=== PATIENT | male | born 1985 | race Caucasian/White ===

== ENCOUNTER 2021-04-28 12:04 | Inpatient (IN) | payer OTHER ==
[~2021-04-28] VITALS: Ht 185.4 cm; Wt 143.9 kg
[2021-04-28 12:00] VITALS: BP 134/89
[2021-04-28 12:24] LABS: BASE EXCESS ABG 4 mmol/L (-3-3); FIO2 ABG 100; HCO3 ABG 28 mmol/L (21-28); PCO2 ABG 38 mmHg (35-46); PO2 ABG 54 mmHg (85-108); SAT O2 ABG 90 % (92-99)
[2021-04-28] MEDS ORDERED: FAMO-63 PO (12:45)
[2021-04-28] MEDS ORDERED: AZITHROMYCIN 500 MG in IV NORMAL SALINE 250ML 250 ML IV ONE (13:00)
--- NOTE | 2021-04-28 13:08 | CONS ---
DATE OF CONSULTATION: 04/28/2021 PULMONARY CONSULTATION ATTENDING PHYSICIAN: Ponce Willoughby MD. REASON FOR CONSULTATION: Respiratory failure, COVID-19 pneumonia. HISTORY OF PRESENT ILLNESS: The patient is a 35-year-old morbidly obese male who has past medical history of SONYA. Denies any significant tobacco use. He was tested positive at [facility] for COVID. The patient was starting to have increasing dyspnea and hypoxia. He has been transferred to our facility for further care. At present, he is on 100% nonrebreather mask along with 15 liters cannula in addition. His pO2 was in the 50s. He does not appear to be in any obvious respiratory distress. He has some mild cough. No chest pain, no nausea or vomiting, no diarrhea, no dysuria. PAST MEDICAL HISTORY: Morbid obesity. No significant tobacco history and remote history of SONYA. PAST SURGICAL HISTORY: No recent surgeries. past h/o hernia repair ALLERGIES: None reported. MEDICATIONS: Given at [facility] were reviewed. REVIEW OF SYSTEMS: A 12-point system obtained. Pertinent positives discussed in my present illness, otherwise noncontributory. All systems that were negative were reviewed as well. FAMILY HISTORY: Noncontributory to lungs. SOCIAL HISTORY: Nonsmoker. PHYSICAL EXAMINATION: VITAL SIGNS: Reviewed. Pulse ox was 90% on current FIO2. Visual exam done due to COVID. No obvious respiratory distress despite high flow oxygen. He is obese. EXTREMITIES: No pedal edema. LABORATORY DATA: Arterial blood gases reveal a pH of 7.48, pCO2 of 38 and a pO2 of 54, on 100% FIO2. His other labs are pending. IMPRESSION: 1. Acute hypoxic respiratory failure secondary to COVID-19 viral pneumonia, acute respiratory distress syndrome and acute lung injury. Morbid obesity is another risk factor. 2. Abnormal CT chest done at [facility] with diffuse bilateral alveolar and interstitial infiltrates related to COVID-19 pneumonia. No evidence of pulmonary embolism. 3. Underlying obesity. 4. Remote history of obstructive sleep apnea. RECOMMENDATIONS: 1. I have discussed with the patient that at this point, I would like to transfer him to the ICU for vapotherm, however, there is no free bed available. In the meantime, we will keep him on the floor on 100% FIO2 and in addition nasal cannula. 2. We will transfer him to the ICU and place him on Vapotherm once bed available. 3. Remdesivir per protocol. 4. Steroids per protocol. 5. Add DVT prophylaxis. 6. We will follow inflammatory markers. 7. Discussed with RN and discussed with Dr. Willoughby. cct 30 min RICHARD/URBAN DR: RICHARD/irving TID: [id number] MTDD
[2021-04-28] MEDS ORDERED: PANTOPRAZOLE 40 MG TABLET.DR. PO ONE (13:45)
--- NOTE | 2021-04-28 13:50 | PDOC1 ---
History and Physical Date of Admission Date of Admission DATE: 04/28/21 TIME: 13:34 Identification/Chief Complaint Chief Complaint Shortness of breath Source Source: Chart review, Patient History of Present Illness History of Present Illness Patient 35-year-old male with past medical history of GERD, obesity, who presents to the ED as a transfer from [facility] for COVID-19 pneumonia with worsening respiratory distress. States his symptoms started roughly 1 week ago with fatigue and body aches, which progressed to include fever and shortness of breath. Symptoms were worse with exertion with no significant alleviating factors. He was tested for COVID-19 at [facility] and was discharged home because he was not hypoxic on room air. When he returned to [facility] with worsening symptoms a CT chest demonstrated bibasilar infiltrates consistent with atypical pneumonia. He was then admitted and placed on 3 L nasal cannula for further treatment. He has not been vaccinated against COVID- 19. However due to worsening respiratory distress he was transferred to [facility] for higher level of care. Past Medical History GI: GERD Past Surgical History Past Surgical History: Hernia Repair Family History Family History CVA Social History Smoke: No ALCOHOL: other (Former alcohol use) Drugs: None Current Medications Current Medications Current Medications Azithromycin 500 mg/Sodium Chloride 250 ml @ 250 mls/hr 1X ONCE IV ; Start 04/28/21 at 13:00; Stop 04/28/21 at 13:59 Azithromycin 250 mg/Sodium Chloride 250 ml @ 250 mls/hr Q24H IV ; Start 04/29/21 at 13:00 Dexamethasone Sodium Phosphate (Decadron) 6 mg DAILY IVP ; Start 04/29/21 at 09:00 Ceftriaxone Sodium (Rocephin) 2 gm Q24H IVP ; Start 04/28/21 at 14:00 Enoxaparin Sodium (Lovenox 40mg Syringe) 40 mg Q12HR SQ ; Start 04/28/21 at 21:00 Famotidine (Pepcid) 20 mg BID@0500,1700 PO ; Start 04/28/21 at 17:00 Remdesivir 200 mg/ Sodium Chloride 210 ml @ 210 mls/hr 1X ONCE IV ; Start 04/28/21 at 14:00; Stop 04/28/21 at 14:59 Remdesivir 100 mg/ Sodium Chloride 230 ml @ 460 mls/hr Q24H IV ; Start 04/29/21 at 14:00; Stop 05/02/21 at 14:29 Active Scripts Active Reported Pepcid (Famotidine) 20 Mg Tablet 20 Mg PO BID Allergies Allergies: Coded Allergies: No Known Drug Allergies (Unverified , 04/28/21) ROS Review of System GENERAL: Fever, myalgias, fatigue. No history of weight change. SKIN: No bruising, hair changes or rashes. EYES: No blurred, double or loss of vision. NOSE AND THROAT: No history of nosebleeds, hoarseness or sore throat. HEART: Denies chest pain, denies palpitations. LUNGS: Shortness of breath. Denies cough, hemoptysis, wheezing. GASTROINTESTINAL: Denies nausea, vomiting, abdominal pain. GENITOURINARY: Denies dysuria, frequency, urgency, hematuria. NEUROLOGIC: Denies history of numbness, tingling, tremor or weakness. PSYCHIATRIC: Denies anxiety, denies depression. ENDOCRINE: No history of heat or cold intolerance, polyuria or polydipsia. EXTREMITIES: Denies muscle weakness, joint pain, pain on walking or stiffness. Physical Exam Physical Exam General: Alert, Oriented X3, Cooperative, No acute distress. Obese. HEENT: PERRLA, EOMI Lungs: Decreased breath sounds bilaterally, Normal air movement Heart: RRR, no murmurs Cardiovascular: S1, S2 Abdomen: Normal bowel sounds, Soft, No tenderness. Obese abdomen. Extremities: No clubbing, No cyanosis Skin: No rashes, No significant lesion Neuro: Normal speech, Normal tone, Sensation intact Psych/Mental Status: Mental status NL, Mood NL Vitals Vitals Vital Signs Date Time Temp Pulse Resp B/P (MAP) Pulse Ox O2 Delivery O2 Flow Rate FiO2 04/28/21 12:00 98.4 87 24 134/89 (104) 93 NonRebreather Mask 15.0 98.4 Labs Labs Laboratory Tests Test 04/28/21 12:12 O2 Saturation 90 % (92-99) Arterial Blood pH 7.48 (7.35-7.45) Arterial Blood pCO2 at Patient Temp 38 mmHg (35-46) Arterial Blood pO2 at Patient Temp 54 mmHg (85-108) Arterial Blood HCO3 28 mmol/L (21-28) Arterial Blood Base Excess 4 mmol/L (-3-3) FiO2 100 Laboratory Tests Test 04/28/21 12:12 O2 Saturation 90 % (92-99) Arterial Blood pH 7.48 (7.35-7.45) Arterial Blood pCO2 at Patient Temp 38 mmHg (35-46) Arterial Blood pO2 at Patient Temp 54 mmHg (85-108) Arterial Blood HCO3 28 mmol/L (21-28) Arterial Blood Base Excess 4 mmol/L (-3-3) FiO2 100 VTE Prophylaxis Ordered VTE Prophylaxis Devices: No VTE Pharmacological Prophylaxi: Yes Assessment/Plan Assessment/Plan Acute respiratory failure with hypoxia COVID-19 pneumonia GERD Obesity Plan: We will treat patient with remdesivir, steroids, and prophylactic antibiotics Consult placed to pulmonology Monitor daily LFTs Hemoglobin A1c pending We will initiate insulin treatment when blood glucose become significantly e levated Daily PPI and famotidine as needed FEN - ADA diet PPX - Lovenox FULL CODE Dispo - inpatient for above Justifications for Admission Other Justification XUAN LINTON MD Apr 28, 2021 13:49
[2021-04-28] MEDS ORDERED: MAG HYDROX/ALUMINUM HYD/SIMETH 30 ML ORAL.SUSP PO PRN (14:00)
[2021-04-28] MEDS ORDERED: ONDANSETRON PF 4 MG/2 ML VIAL. IVP PRN (14:00)
[2021-04-28] MEDS ORDERED: ACETAMINOPHEN 325 MG TABLET. PO PRN (14:00)
[2021-04-28] MEDS ORDERED: REMDESIVIR LOAD in IV NORMAL SALINE 250ML TV IV ONE (14:00)
[2021-04-28] MEDS ORDERED: ENOXAPARIN 40 MG/0.4 ML SYRINGE. SQ SCH (14:00)
[2021-04-28] MEDS ORDERED: HYDROcodone/APAP 5/325MG 1 TAB TABLET PO PRN (14:00)
[2021-04-28] MEDS ORDERED: CALCIUM CARBONATE 500 MG TAB.CHEW PO PRN (14:00)
[2021-04-28] MEDS ORDERED: MAGNESIUM HYDROXIDE 2,400 MG/30 ML ORAL.SUSP. PO PRN (14:00)
[2021-04-28 14:45] VITALS: BP 140/81
[2021-04-28 15:49] LABS: BASO % 0 % (0-3); EOS % 0 % (0-3); HEMATOCRIT 39.4 % (39.0-53.0); HEMOGLOBIN 13.3 g/dL (13.0-17.5); LYMPH # 0.3 x10^3/uL (1.0-4.8); LYMPH % 6 % (24-48); MEAN CORPUSCULAR HEMOGLOBIN 29 pg (25-35); MEAN CORPUSCULAR HGB CONC 34 g/dL (31-37); MEAN CORPUSCULAR VOLUME 85 fL (79-100); MONO # 0.1 x10^3/uL (0.0-1.1); MONO % 3 % (0-9); NEUT # 4.1 x10^3/uL (1.8-7.7); NEUT % 91 % (31-73); PLATELET COUNT 124 x10^3/uL (140-400); RED BLOOD COUNT 4.65 x10^6/uL (4.30-5.70); RED CELL DISTRIBUTION WIDTH 13.5 % (11.5-14.5); WHITE BLOOD COUNT 4.5 x10^3/uL (4.0-11.0)
[2021-04-28] MEDS: cefTRIAXone IV Push 2 GM VIAL. IVP SCH (15:59)
[2021-04-28 16:21] LABS: ALBUMIN 2.9 g/dL (3.4-5.0); ALBUMIN/GLOBULIN RATIO 0.7 (1.0-1.7); CALCIUM 8.6 mg/dL (8.5-10.1); CREATININE 0.7 mg/dL (0.7-1.3); GFR 127.6; POTASSIUM 3.5 mmol/L (3.5-5.1); TOTAL BILIRUBIN 0.4 mg/dL (0.2-1.0)
[2021-04-28] MEDS: FAMOTIDINE 20 MG TABLET. PO SCH (17:00)
[2021-04-28 17:09] LABS: % BANDS 10 % (0-9); % LYMPHS 4 % (24-48); % MONOS 2 % (0-10); % SEGS 84 % (35-66)
[2021-04-28 17:10] LABS: PLT ESTIMATE ADEQUATE (ADEQUATE)
[2021-04-28] MEDS: ASCORBIC ACID 500 MG TABLET PO SCH ×2 (17:36→23:41)
[2021-04-28 19:00] VITALS: BP 137/81
[2021-04-28] MEDS: ENOXAPARIN 40 MG/0.4 ML SYRINGE. SQ SCH (19:54)
[2021-04-28 23:18] VITALS: BP 157/93
[2021-04-29 00:17] LABS: HEMOGLOBIN A1C 5.6 % (4.8-5.6)
[2021-04-29 03:30] VITALS: BP 116/73
[2021-04-29] MEDS: FAMOTIDINE 20 MG TABLET. PO SCH ×2 (04:58→17:08)
[2021-04-29] MEDS: ASCORBIC ACID 500 MG TABLET PO SCH ×3 (04:58→18:12)
[2021-04-29 07:30] VITALS: BP 121/83
[2021-04-29 07:36] LABS: BASO % 0 % (0-3); EOS % 0 % (0-3); HEMATOCRIT 38.5 % (39.0-53.0); LYMPH # 0.3 x10^3/uL (1.0-4.8); LYMPH % 5 % (24-48); MEAN CORPUSCULAR HEMOGLOBIN 29 pg (25-35); MEAN CORPUSCULAR HGB CONC 34 g/dL (31-37); MEAN CORPUSCULAR VOLUME 85 fL (79-100); MONO # 0.3 x10^3/uL (0.0-1.1); MONO % 4 % (0-9); NEUT # 5.5 x10^3/uL (1.8-7.7); NEUT % 91 % (31-73); PLATELET COUNT 146 x10^3/uL (140-400); RED BLOOD COUNT 4.54 x10^6/uL (4.30-5.70); RED CELL DISTRIBUTION WIDTH 13.4 % (11.5-14.5); WHITE BLOOD COUNT 6.1 x10^3/uL (4.0-11.0)
[2021-04-29 08:07] LABS: ALBUMIN 2.8 g/dL (3.4-5.0); CALCIUM 8.7 mg/dL (8.5-10.1); CREATININE 0.7 mg/dL (0.7-1.3); DIRECT BILIRUBIN 0.2 mg/dL (0.0-0.2); GFR 127.6; POTASSIUM 3.6 mmol/L (3.5-5.1); TOTAL BILIRUBIN 0.4 mg/dL (0.2-1.0); TOTAL PROTEIN 6.9 g/dL (6.4-8.2)
[2021-04-29] MEDS: PANTOPRAZOLE 40 MG TABLET.DR. PO SCH (08:55)
[2021-04-29] MEDS: ZINC SULFATE 220 MG CAPSULE. PO SCH (08:55)
[2021-04-29] MEDS: DEXAMETHASONE SOD PHOS 4 MG/ML VIAL IVP SCH (08:56)
[2021-04-29] MEDS: ENOXAPARIN 40 MG/0.4 ML SYRINGE. SQ SCH ×2 (08:56→21:14)
[2021-04-29] MEDS: STERILE WATER for RESP 1,000 ML BAG. INH PRN ×2 (09:25→20:35)
[2021-04-29 10:39] VITALS: BP 136/72
--- NOTE | 2021-04-29 11:03 | PDOC ---
PULMONARY PROGRESS NOTES DATE: 04/29/21 TIME: 10:58 Subjective Remains on 100% FiO2 via Vapotherm. In addition nonrebreather mask as well No obvious respiratory distress Vitals Vital Signs Date Time Temp Pulse Resp B/P (MAP) Pulse Ox O2 Delivery O2 Flow Rate FiO2 04/29/21 10:39 96.7 80 18 136/72 (93) 90 VAPOTHERM 40.0 96.7 Comments Visual exam done due to Covid 19. No obvious respiratory distress no paradoxical breathing no skin rash no leg edema General: Alert, No acute distress Labs Laboratory Tests Test 04/28/21 12:12 04/28/21 15:10 04/29/21 06:35 O2 Saturation 90 % (92-99) Arterial Blood pH 7.48 (7.35-7.45) Arterial Blood pCO2 at Patient Temp 38 mmHg (35-46) Arterial Blood pO2 at Patient Temp 54 mmHg (85-108) Arterial Blood HCO3 28 mmol/L (21-28) Arterial Blood Base Excess 4 mmol/L (-3-3) FiO2 100 White Blood Count 4.5 x10^3/uL (4.0-11.0) 6.1 x10^3/uL (4.0-11.0) Red Blood Count 4.65 x10^6/uL (4.30-5.70) 4.54 x10^6/uL (4.30-5.70) Hemoglobin 13.3 g/dL (13.0-17.5) 13.0 g/dL (13.0-17.5) Hematocrit 39.4 % (39.0-53.0) 38.5 % (39.0-53.0) Mean Corpuscular Volume 85 fL (79-100) 85 fL (79-100) Mean Corpuscular Hemoglobin 29 pg (25-35) 29 pg (25-35) Mean Corpuscular Hemoglobin Concent 34 g/dL (31-37) 34 g/dL (31-37) Red Cell Distribution Width 13.5 % (11.5-14.5) 13.4 % (11.5-14.5) Platelet Count 124 x10^3/uL (140-400) 146 x10^3/uL (140-400) Neutrophils (%) (Auto) 91 % (31-73) 91 % (31-73) Lymphocytes (%) (Auto) 6 % (24-48) 5 % (24-48) Monocytes (%) (Auto) 3 % (0-9) 4 % (0-9) Eosinophils (%) (Auto) 0 % (0-3) 0 % (0-3) Basophils (%) (Auto) 0 % (0-3) 0 % (0-3) Neutrophils # (Auto) 4.1 x10^3/uL (1.8-7.7) 5.5 x10^3/uL (1.8-7.7) Lymphocytes # (Auto) 0.3 x10^3/uL (1.0-4.8) 0.3 x10^3/uL (1.0-4.8) Monocytes # (Auto) 0.1 x10^3/uL (0.0-1.1) 0.3 x10^3/uL (0.0-1.1) Eosinophils # (Auto) 0.0 x10^3/uL (0.0-0.7) 0.0 x10^3/uL (0.0-0.7) Basophils # (Auto) 0.0 x10^3/uL (0.0-0.2) 0.0 x10^3/uL (0.0-0.2) Segmented Neutrophils % 84 % (35-66) Band Neutrophils % 10 % (0-9) Lymphocytes % 4 % (24-48) Monocytes % 2 % (0-10) Platelet Estimate Adequate (ADEQUATE) Sodium Level 135 mmol/L (136-145) 137 mmol/L (136-145) Potassium Level 3.5 mmol/L (3.5-5.1) 3.6 mmol/L (3.5-5.1) Chloride Level 98 mmol/L (98-107) 99 mmol/L (98-107) Carbon Dioxide Level 27 mmol/L (21-32) 30 mmol/L (21-32) Anion Gap 10 (6-14) 8 (6-14) Blood Urea Nitrogen 14 mg/dL (8-26) 14 mg/dL (8-26) Creatinine 0.7 mg/dL (0.7-1.3) 0.7 mg/dL (0.7-1.3) Estimated GFR (Cockcroft-Gault) 127.6 127.6 BUN/Creatinine Ratio 20 (6-20) Glucose Level 165 mg/dL (70-99) 131 mg/dL (70-99) Hemoglobin A1c 5.6 % (4.8-5.6) Calcium Level 8.6 mg/dL (8.5-10.1) 8.7 mg/dL (8.5-10.1) Total Bilirubin 0.4 mg/dL (0.2-1.0) 0.4 mg/dL (0.2-1.0) Aspartate Amino Transf (AST/SGOT) 95 U/L (15-37) 117 U/L (15-37) Alanine Aminotransferase (ALT/SGPT) 115 U/L (16-63) 140 U/L (16-63) Alkaline Phosphatase 68 U/L (46-116) 78 U/L (46-116) Total Protein 7.0 g/dL (6.4-8.2) 6.9 g/dL (6.4-8.2) Albumin 2.9 g/dL (3.4-5.0) 2.8 g/dL (3.4-5.0) Albumin/Globulin Ratio 0.7 (1.0-1.7) D-Dimer (Caridad) < 0.27 ug/mlFEU Direct Bilirubin 0.2 mg/dL (0.0-0.2) Laboratory Tests Test 04/28/21 12:12 04/28/21 15:10 04/29/21 06:35 O2 Saturation 90 % (92-99) Arterial Blood pH 7.48 (7.35-7.45) Arterial Blood pCO2 at Patient Temp 38 mmHg (35-46) Arterial Blood pO2 at Patient Temp 54 mmHg (85-108) Arterial Blood HCO3 28 mmol/L (21-28) Arterial Blood Base Excess 4 mmol/L (-3-3) FiO2 100 White Blood Count 4.5 x10^3/uL (4.0-11.0) 6.1 x10^3/uL (4.0-11.0) Red Blood Count 4.65 x10^6/uL (4.30-5.70) 4.54 x10^6/uL (4.30-5.70) Hemoglobin 13.3 g/dL (13.0-17.5) 13.0 g/dL (13.0-17.5) Hematocrit 39.4 % (39.0-53.0) 38.5 % (39.0-53.0) Mean Corpuscular Volume 85 fL (79-100) 85 fL (79-100) Mean Corpuscular Hemoglobin 29 pg (25-35) 29 pg (25-35) Mean Corpuscular Hemoglobin Concent 34 g/dL (31-37) 34 g/dL (31-37) Red Cell Distribution Width 13.5 % (11.5-14.5) 13.4 % (11.5-14.5) Platelet Count 124 x10^3/uL (140-400) 146 x10^3/uL (140-400) Neutrophils (%) (Auto) 91 % (31-73) 91 % (31-73) Lymphocytes (%) (Auto) 6 % (24-48) 5 % (24-48) Monocytes (%) (Auto) 3 % (0-9) 4 % (0-9) Eosinophils (%) (Auto) 0 % (0-3) 0 % (0-3) Basophils (%) (Auto) 0 % (0-3) 0 % (0-3) Neutrophils # (Auto) 4.1 x10^3/uL (1.8-7.7) 5.5 x10^3/uL (1.8-7.7) Lymphocytes # (Auto) 0.3 x10^3/uL (1.0-4.8) 0.3 x10^3/uL (1.0-4.8) Monocytes # (Auto) 0.1 x10^3/uL (0.0-1.1) 0.3 x10^3/uL (0.0-1.1) Eosinophils # (Auto) 0.0 x10^3/uL (0.0-0.7) 0.0 x10^3/uL (0.0-0.7) Basophils # (Auto) 0.0 x10^3/uL (0.0-0.2) 0.0 x10^3/uL (0.0-0.2) Segmented Neutrophils % 84 % (35-66) Band Neutrophils % 10 % (0-9) Lymphocytes % 4 % (24-48) Monocytes % 2 % (0-10) Platelet Estimate Adequate (ADEQUATE) Sodium Level 135 mmol/L (136-145) 137 mmol/L (136-145) Potassium Level 3.5 mmol/L (3.5-5.1) 3.6 mmol/L (3.5-5.1) Chloride Level 98 mmol/L (98-107) 99 mmol/L (98-107) Carbon Dioxide Level 27 mmol/L (21-32) 30 mmol/L (21-32) Anion Gap 10 (6-14) 8 (6-14) Blood Urea Nitrogen 14 mg/dL (8-26) 14 mg/dL (8-26) Creatinine 0.7 mg/dL (0.7-1.3) 0.7 mg/dL (0.7-1.3) Estimated GFR (Cockcroft-Gault) 127.6 127.6 BUN/Creatinine Ratio 20 (6-20) Glucose Level 165 mg/dL (70-99) 131 mg/dL (70-99) Hemoglobin A1c 5.6 % (4.8-5.6) Calcium Level 8.6 mg/dL (8.5-10.1) 8.7 mg/dL (8.5-10.1) Total Bilirubin 0.4 mg/dL (0.2-1.0) 0.4 mg/dL (0.2-1.0) Aspartate Amino Transf (AST/SGOT) 95 U/L (15-37) 117 U/L (15-37) Alanine Aminotransferase (ALT/SGPT) 115 U/L (16-63) 140 U/L (16-63) Alkaline Phosphatase 68 U/L (46-116) 78 U/L (46-116) Total Protein 7.0 g/dL (6.4-8.2) 6.9 g/dL (6.4-8.2) Albumin 2.9 g/dL (3.4-5.0) 2.8 g/dL (3.4-5.0) Albumin/Globulin Ratio 0.7 (1.0-1.7) D-Dimer (Caridad) < 0.27 ug/mlFEU Direct Bilirubin 0.2 mg/dL (0.0-0.2) Medications Active Scripts Medications Dose Route/Sig Max Daily Dose Days Date Category Pepcid (Famotidine) 20 Mg Tablet 20 Mg PO BID 04/28/21 Reported Impression . 1. Acute hypoxic respiratory failure secondary to COVID-19 viral pneumonia, acute respiratory distress syndrome and acute lung injury. Morbid obesity is another risk factor. 2. Abnormal CT chest done at [facility] with diffuse bilateral alveolar and interstitial infiltrates related to COVID-19 pneumonia. No evidence of pulmonary embolism. 3. Underlying obesity. 4. Remote history of obstructive sleep apnea. 5. Abnormal liver function tests, likely due to Covid infection. Bilirubin normal. 6. Normal D-dimer. Plan . 1. Continue present 100% FiO2 via Vapotherm. In addition nonrebreather mask. He is comfortable. 2. We will transfer him to the ICU and place him on Vapotherm once bed available. 3. Remdesivir per protocol. 4. Steroids per protocol. 5. DVT prophylaxis. 6. We will follow inflammatory markers. 7. Discussed with RN and discussed with Dr. Willoughby. 8. Follow-up liver function test next week cct 30 min MURRAY ESPOSITO MD Apr 29, 2021 11:03
--- NOTE | 2021-04-29 12:15 | PDOC ---
[employer] PROGRESS NOTE Date of Service DOS: DATE: 04/29/21 TIME: 12:07 Chief Complaint Chief Complaint Acute respiratory failure with hypoxia COVID-19 pneumonia GERD Obesity Plan: We will treat patient with remdesivir, steroids, and prophylactic antibiotics Consult placed to pulmonology Monitor daily LFTs Hemoglobin A1c pending We will initiate insulin treatment when blood glucose become significantly elevated Daily PPI and famotidine as needed FEN - ADA diet PPX - Lovenox FULL CODE Dispo - inpatient for above History of Present Illness History of Present Illness Patient 35-year-old male with past medical history of GERD, obesity, who presents to the ED as a transfer from [facility] for COVID-19 pneumonia with worsening respiratory distress. States his symptoms started roughly 1 week ago with fatigue and body aches, which progressed to include fever and shortness of breath. Symptoms were worse with exertion with no significant alleviating factors. He was tested for COVID-19 at [facility] and was discharged home because he was not hypoxic on room air. When he returned to [facility] with worsening symptoms a CT chest demonstrated bibasilar infiltrates consistent with atypical pneumonia. He was then admitted and placed on 3 L nasal cannula for further treatment. He has not been vaccinated against COVID- 19. However due to worsening respiratory distress he was transferred to [facility] for higher level of care. 04/29/2021: Still breathing 40 L Vapotherm. Afebrile, but complaining of chest heaviness, nausea, and subjective shortness of breath. Denies any vomiting, or diarrhea. Informed patient of likely prolonged hospitalization course. Hemoglobin A1c 5.6. Continue remdesivir day 2/5, continue steroids, antibiotics, and supportive care. Continue to follow daily LFTs. Plan to transfer patient to ICU bed when available. Critical care time 33 minutes spent reviewing charts, reviewing labs, and discussing case with Dr. Gaviria. Vitals/I&O Vitals/I&O: Vital Signs Date Time Temp Pulse Resp B/P (MAP) Pulse Ox O2 Delivery O2 Flow Rate FiO2 04/29/21 11:51 90 40.0 04/29/21 10:39 96.7 80 18 136/72 (93) VAPOTHERM 96.7 I & O 04/28/21 04/28/21 04/29/21 15:00 23:00 07:00 Intake Total 240 ml 300 ml 600 ml Output Total 200 ml 400 ml 1075 ml Balance 40 ml -100 ml -475 ml Physical Exam General: Alert, Oriented X3, Cooperative, moderate distress Heart: Regular rate Lungs: Clear Abdomen: Soft, No tenderness Extremities: No clubbing, No cyanosis Skin: No rashes, No breakdown Labs Labs: Laboratory Tests Test 04/28/21 12:12 04/28/21 15:10 04/29/21 06:35 O2 Saturation 90 % (92-99) Arterial Blood pH 7.48 (7.35-7.45) Arterial Blood pCO2 at Patient Temp 38 mmHg (35-46) Arterial Blood pO2 at Patient Temp 54 mmHg (85-108) Arterial Blood HCO3 28 mmol/L (21-28) Arterial Blood Base Excess 4 mmol/L (-3-3) FiO2 100 White Blood Count 4.5 x10^3/uL (4.0-11.0) 6.1 x10^3/uL (4.0-11.0) Red Blood Count 4.65 x10^6/uL (4.30-5.70) 4.54 x10^6/uL (4.30-5.70) Hemoglobin 13.3 g/dL (13.0-17.5) 13.0 g/dL (13.0-17.5) Hematocrit 39.4 % (39.0-53.0) 38.5 % (39.0-53.0) Mean Corpuscular Volume 85 fL (79-100) 85 fL (79-100) Mean Corpuscular Hemoglobin 29 pg (25-35) 29 pg (25-35) Mean Corpuscular Hemoglobin Concent 34 g/dL (31-37) 34 g/dL (31-37) Red Cell Distribution Width 13.5 % (11.5-14.5) 13.4 % (11.5-14.5) Platelet Count 124 x10^3/uL (140-400) 146 x10^3/uL (140-400) Neutrophils (%) (Auto) 91 % (31-73) 91 % (31-73) Lymphocytes (%) (Auto) 6 % (24-48) 5 % (24-48) Monocytes (%) (Auto) 3 % (0-9) 4 % (0-9) Eosinophils (%) (Auto) 0 % (0-3) 0 % (0-3) Basophils (%) (Auto) 0 % (0-3) 0 % (0-3) Neutrophils # (Auto) 4.1 x10^3/uL (1.8-7.7) 5.5 x10^3/uL (1.8-7.7) Lymphocytes # (Auto) 0.3 x10^3/uL (1.0-4.8) 0.3 x10^3/uL (1.0-4.8) Monocytes # (Auto) 0.1 x10^3/uL (0.0-1.1) 0.3 x10^3/uL (0.0-1.1) Eosinophils # (Auto) 0.0 x10^3/uL (0.0-0.7) 0.0 x10^3/uL (0.0-0.7) Basophils # (Auto) 0.0 x10^3/uL (0.0-0.2) 0.0 x10^3/uL (0.0-0.2) Segmented Neutrophils % 84 % (35-66) Band Neutrophils % 10 % (0-9) Lymphocytes % 4 % (24-48) Monocytes % 2 % (0-10) Platelet Estimate Adequate (ADEQUATE) Sodium Level 135 mmol/L (136-145) 137 mmol/L (136-145) Potassium Level 3.5 mmol/L (3.5-5.1) 3.6 mmol/L (3.5-5.1) Chloride Level 98 mmol/L (98-107) 99 mmol/L (98-107) Carbon Dioxide Level 27 mmol/L (21-32) 30 mmol/L (21-32) Anion Gap 10 (6-14) 8 (6-14) Blood Urea Nitrogen 14 mg/dL (8-26) 14 mg/dL (8-26) Creatinine 0.7 mg/dL (0.7-1.3) 0.7 mg/dL (0.7-1.3) Estimated GFR (Cockcroft-Gault) 127.6 127.6 BUN/Creatinine Ratio 20 (6-20) Glucose Level 165 mg/dL (70-99) 131 mg/dL (70-99) Hemoglobin A1c 5.6 % (4.8-5.6) Calcium Level 8.6 mg/dL (8.5-10.1) 8.7 mg/dL (8.5-10.1) Total Bilirubin 0.4 mg/dL (0.2-1.0) 0.4 mg/dL (0.2-1.0) Aspartate Amino Transf (AST/SGOT) 95 U/L (15-37) 117 U/L (15-37) Alanine Aminotransferase (ALT/SGPT) 115 U/L (16-63) 140 U/L (16-63) Alkaline Phosphatase 68 U/L (46-116) 78 U/L (46-116) Total Protein 7.0 g/dL (6.4-8.2) 6.9 g/dL (6.4-8.2) Albumin 2.9 g/dL (3.4-5.0) 2.8 g/dL (3.4-5.0) Albumin/Globulin Ratio 0.7 (1.0-1.7) D-Dimer (Caridad) < 0.27 ug/mlFEU Direct Bilirubin 0.2 mg/dL (0.0-0.2) Comment Review of Relevant I have reviewed the following items anselmo (where applicable) has been applied. Medications: Current Medications Medications (Trade) Dose Ordered Sig/Bartolo Route PRN Reason Start Time Stop Time Status Last Admin Dose Admin Azithromycin 500 mg/Sodium Chloride 250 ml @ 250 mls/hr 1X ONCE IV 04/28/21 13:00 04/28/21 14:00 DC 04/28/21 15:44 Dexamethasone Sodium Phosphate (Decadron) 6 mg DAILY IVP 04/29/21 09:00 04/29/21 08:56 Ceftriaxone Sodium (Rocephin) 2 gm Q24H IVP 04/28/21 14:00 04/28/21 15:59 Enoxaparin Sodium (Lovenox 40mg Syringe) 40 mg Q12HR SQ 04/28/21 21:00 04/29/21 08:56 Famotidine (Pepcid) 20 mg BID@0500,1700 PO 04/28/21 17:00 04/29/21 04:58 Remdesivir 200 mg/ Sodium Chloride 210 ml @ 210 mls/hr 1X ONCE IV 04/28/21 14:00 04/28/21 14:59 DC 04/28/21 14:00 Zinc Sulfate (Orazinc) 220 mg DAILY PO 04/29/21 09:00 04/29/21 08:55 Ascorbic Acid (Vitamin C) 500 mg Q6HRS PO 04/28/21 18:00 04/29/21 04:58 Pantoprazole Sodium (Protonix) 40 mg 1X ONCE PO 04/28/21 13:45 04/28/21 13:46 DC 04/28/21 15:45 Pantoprazole Sodium (Protonix) 40 mg DAILYAC PO 04/29/21 07:30 04/29/21 08:55 Ondansetron HCl (Zofran) 4 mg PRN Q6HRS PRN IVP NAUSEA/VOMITING 04/28/21 14:00 04/29/21 10:26 Acetaminophen/ Hydrocodone Bitart (Lortab 5/325) 1 tab PRN Q4HRS PRN PO MILD PAIN 1-3 04/28/21 14:00 04/28/21 17:37 Sterile Water (WATER for RESP) 1,000 ml CONT PRN INH VIA VAPOTHERM DEVICE 04/28/21 14:45 04/29/21 09:25 Justifications for Admission Other Justification XUAN LINTON MD Apr 29, 2021 12:15
[2021-04-29] MEDS: AZITHROMYCIN 250 MG in IV NORMAL SALINE 250ML 250 ML IV SCH (13:30)
[2021-04-29] MEDS: REMDESIVIR 100mg in NORMAL SALINE 250ML X 4 DAYS IV SCH (14:41)
[2021-04-29] MEDS: cefTRIAXone IV Push 2 GM VIAL. IVP SCH (14:41)
[2021-04-29 14:43] VITALS: BP 127/78
[2021-04-29 19:05] VITALS: BP 143/93
[2021-04-29] MEDS: ZOLPIDEM 5 MG TABLET. PO PRN (21:07)
[2021-04-29] MEDS: LACTOBACILLUS RHAMNOSUS GG 1 CAPSULE. PO SCH (21:07)
[2021-04-29 22:50] VITALS: BP 144/93
[2021-04-30] MEDS: ASCORBIC ACID 500 MG TABLET PO SCH ×5 (00:21→23:47)
[2021-04-30 03:30] VITALS: BP 173/104
[2021-04-30 04:23] LABS: BASO % 0 % (0-3); EOS % 0 % (0-3); HEMATOCRIT 38.1 % (39.0-53.0); HEMOGLOBIN 12.6 g/dL (13.0-17.5); LYMPH # 0.2 x10^3/uL (1.0-4.8); LYMPH % 5 % (24-48); MEAN CORPUSCULAR HEMOGLOBIN 28 pg (25-35); MEAN CORPUSCULAR HGB CONC 33 g/dL (31-37); MEAN CORPUSCULAR VOLUME 85 fL (79-100); MONO # 0.2 x10^3/uL (0.0-1.1); MONO % 4 % (0-9); NEUT # 3.7 x10^3/uL (1.8-7.7); NEUT % 90 % (31-73); PLATELET COUNT 160 x10^3/uL (140-400); RED BLOOD COUNT 4.47 x10^6/uL (4.30-5.70); RED CELL DISTRIBUTION WIDTH 13.5 % (11.5-14.5); WHITE BLOOD COUNT 4.2 x10^3/uL (4.0-11.0)
[2021-04-30 04:41] LABS: ALBUMIN 2.6 g/dL (3.4-5.0); CALCIUM 8.4 mg/dL (8.5-10.1); CREATININE 0.7 mg/dL (0.7-1.3); DIRECT BILIRUBIN 0.2 mg/dL (0.0-0.2); GFR 127.6; POTASSIUM 3.6 mmol/L (3.5-5.1); TOTAL BILIRUBIN 0.6 mg/dL (0.2-1.0); TOTAL PROTEIN 6.5 g/dL (6.4-8.2)
[2021-04-30] MEDS: FAMOTIDINE 20 MG TABLET. PO SCH ×2 (04:46→17:05)
[2021-04-30 07:00] VITALS: BP 128/78
[2021-04-30] MEDS: ENOXAPARIN 40 MG/0.4 ML SYRINGE. SQ SCH ×2 (08:04→21:03)
[2021-04-30] MEDS: ZINC SULFATE 220 MG CAPSULE. PO SCH (08:04)
[2021-04-30] MEDS: DEXAMETHASONE SOD PHOS 4 MG/ML VIAL IVP SCH (08:04)
[2021-04-30] MEDS: LACTOBACILLUS RHAMNOSUS GG 1 CAPSULE. PO SCH ×2 (08:04→21:03)
[2021-04-30] MEDS: PANTOPRAZOLE 40 MG TABLET.DR. PO SCH (08:04)
--- NOTE | 2021-04-30 10:06 | PDOC ---
PULMONARY PROGRESS NOTES DATE: 04/30/21 TIME: 10:05 Subjective Remains on 100% FiO2 via Vapotherm. In addition nonrebreather mask as well No obvious respiratory distress Vitals Vital Signs Date Time Temp Pulse Resp B/P (MAP) Pulse Ox O2 Delivery O2 Flow Rate FiO2 04/30/21 08:09 93 40.0 04/30/21 07:30 Vapotherm 04/30/21 07:00 97.3 78 24 128/78 (95) 97.3 Comments Visual exam done due to Covid 19. No obvious respiratory distress no paradoxical breathing no skin rash no leg edema General: Alert, No acute distress Lungs: Clear Labs Laboratory Tests Test 04/28/21 12:12 04/28/21 15:10 04/29/21 06:35 04/30/21 03:45 O2 Saturation 90 % (92-99) Arterial Blood pH 7.48 (7.35-7.45) Arterial Blood pCO2 at Patient Temp 38 mmHg (35-46) Arterial Blood pO2 at Patient Temp 54 mmHg (85-108) Arterial Blood HCO3 28 mmol/L (21-28) Arterial Blood Base Excess 4 mmol/L (-3-3) FiO2 100 White Blood Count 4.5 x10^3/uL (4.0-11.0) 6.1 x10^3/uL (4.0-11.0) 4.2 x10^3/uL (4.0-11.0) Red Blood Count 4.65 x10^6/uL (4.30-5.70) 4.54 x10^6/uL (4.30-5.70) 4.47 x10^6/uL (4.30-5.70) Hemoglobin 13.3 g/dL (13.0-17.5) 13.0 g/dL (13.0-17.5) 12.6 g/dL (13.0-17.5) Hematocrit 39.4 % (39.0-53.0) 38.5 % (39.0-53.0) 38.1 % (39.0-53.0) Mean Corpuscular Volume 85 fL (79-100) 85 fL (79-100) 85 fL (79-100) Mean Corpuscular Hemoglobin 29 pg (25-35) 29 pg (25-35) 28 pg (25-35) Mean Corpuscular Hemoglobin Concent 34 g/dL (31-37) 34 g/dL (31-37) 33 g/dL (31-37) Red Cell Distribution Width 13.5 % (11.5-14.5) 13.4 % (11.5-14.5) 13.5 % (11.5-14.5) Platelet Count 124 x10^3/uL (140-400) 146 x10^3/uL (140-400) 160 x10^3/uL (140-400) Neutrophils (%) (Auto) 91 % (31-73) 91 % (31-73) 90 % (31-73) Lymphocytes (%) (Auto) 6 % (24-48) 5 % (24-48) 5 % (24-48) Monocytes (%) (Auto) 3 % (0-9) 4 % (0-9) 4 % (0-9) Eosinophils (%) (Auto) 0 % (0-3) 0 % (0-3) 0 % (0-3) Basophils (%) (Auto) 0 % (0-3) 0 % (0-3) 0 % (0-3) Neutrophils # (Auto) 4.1 x10^3/uL (1.8-7.7) 5.5 x10^3/uL (1.8-7.7) 3.7 x10^3/uL (1.8-7.7) Lymphocytes # (Auto) 0.3 x10^3/uL (1.0-4.8) 0.3 x10^3/uL (1.0-4.8) 0.2 x10^3/uL (1.0-4.8) Monocytes # (Auto) 0.1 x10^3/uL (0.0-1.1) 0.3 x10^3/uL (0.0-1.1) 0.2 x10^3/uL (0.0-1.1) Eosinophils # (Auto) 0.0 x10^3/uL (0.0-0.7) 0.0 x10^3/uL (0.0-0.7) 0.0 x10^3/uL (0.0-0.7) Basophils # (Auto) 0.0 x10^3/uL (0.0-0.2) 0.0 x10^3/uL (0.0-0.2) 0.0 x10^3/uL (0.0-0.2) Segmented Neutrophils % 84 % (35-66) Band Neutrophils % 10 % (0-9) Lymphocytes % 4 % (24-48) Monocytes % 2 % (0-10) Platelet Estimate Adequate (ADEQUATE) Sodium Level 135 mmol/L (136-145) 137 mmol/L (136-145) 138 mmol/L (136-145) Potassium Level 3.5 mmol/L (3.5-5.1) 3.6 mmol/L (3.5-5.1) 3.6 mmol/L (3.5-5.1) Chloride Level 98 mmol/L (98-107) 99 mmol/L (98-107) 102 mmol/L (98-107) Carbon Dioxide Level 27 mmol/L (21-32) 30 mmol/L (21-32) 29 mmol/L (21-32) Anion Gap 10 (6-14) 8 (6-14) 7 (6-14) Blood Urea Nitrogen 14 mg/dL (8-26) 14 mg/dL (8-26) 17 mg/dL (8-26) Creatinine 0.7 mg/dL (0.7-1.3) 0.7 mg/dL (0.7-1.3) 0.7 mg/dL (0.7-1.3) Estimated GFR (Cockcroft-Gault) 127.6 127.6 127.6 BUN/Creatinine Ratio 20 (6-20) Glucose Level 165 mg/dL (70-99) 131 mg/dL (70-99) 118 mg/dL (70-99) Hemoglobin A1c 5.6 % (4.8-5.6) Calcium Level 8.6 mg/dL (8.5-10.1) 8.7 mg/dL (8.5-10.1) 8.4 mg/dL (8.5-10.1) Total Bilirubin 0.4 mg/dL (0.2-1.0) 0.4 mg/dL (0.2-1.0) 0.6 mg/dL (0.2-1.0) Aspartate Amino Transf (AST/SGOT) 95 U/L (15-37) 117 U/L (15-37) 65 U/L (15-37) Alanine Aminotransferase (ALT/SGPT) 115 U/L (16-63) 140 U/L (16-63) 125 U/L (16-63) Alkaline Phosphatase 68 U/L (46-116) 78 U/L (46-116) 82 U/L (46-116) Total Protein 7.0 g/dL (6.4-8.2) 6.9 g/dL (6.4-8.2) 6.5 g/dL (6.4-8.2) Albumin 2.9 g/dL (3.4-5.0) 2.8 g/dL (3.4-5.0) 2.6 g/dL (3.4-5.0) Albumin/Globulin Ratio 0.7 (1.0-1.7) D-Dimer (Caridad) < 0.27 ug/mlFEU Direct Bilirubin 0.2 mg/dL (0.0-0.2) 0.2 mg/dL (0.0-0.2) Laboratory Tests Test 04/30/21 03:45 White Blood Count 4.2 x10^3/uL (4.0-11.0) Red Blood Count 4.47 x10^6/uL (4.30-5.70) Hemoglobin 12.6 g/dL (13.0-17.5) Hematocrit 38.1 % (39.0-53.0) Mean Corpuscular Volume 85 fL (79-100) Mean Corpuscular Hemoglobin 28 pg (25-35) Mean Corpuscular Hemoglobin Concent 33 g/dL (31-37) Red Cell Distribution Width 13.5 % (11.5-14.5) Platelet Count 160 x10^3/uL (140-400) Neutrophils (%) (Auto) 90 % (31-73) Lymphocytes (%) (Auto) 5 % (24-48) Monocytes (%) (Auto) 4 % (0-9) Eosinophils (%) (Auto) 0 % (0-3) Basophils (%) (Auto) 0 % (0-3) Neutrophils # (Auto) 3.7 x10^3/uL (1.8-7.7) Lymphocytes # (Auto) 0.2 x10^3/uL (1.0-4.8) Monocytes # (Auto) 0.2 x10^3/uL (0.0-1.1) Eosinophils # (Auto) 0.0 x10^3/uL (0.0-0.7) Basophils # (Auto) 0.0 x10^3/uL (0.0-0.2) Sodium Level 138 mmol/L (136-145) Potassium Level 3.6 mmol/L (3.5-5.1) Chloride Level 102 mmol/L (98-107) Carbon Dioxide Level 29 mmol/L (21-32) Anion Gap 7 (6-14) Blood Urea Nitrogen 17 mg/dL (8-26) Creatinine 0.7 mg/dL (0.7-1.3) Estimated GFR (Cockcroft-Gault) 127.6 Glucose Level 118 mg/dL (70-99) Calcium Level 8.4 mg/dL (8.5-10.1) Total Bilirubin 0.6 mg/dL (0.2-1.0) Direct Bilirubin 0.2 mg/dL (0.0-0.2) Aspartate Amino Transf (AST/SGOT) 65 U/L (15-37) Alanine Aminotransferase (ALT/SGPT) 125 U/L (16-63) Alkaline Phosphatase 82 U/L (46-116) Total Protein 6.5 g/dL (6.4-8.2) Albumin 2.6 g/dL (3.4-5.0) Medications Active Scripts Medications Dose Route/Sig Max Daily Dose Days Date Category Pepcid (Famotidine) 20 Mg Tablet 20 Mg PO BID 04/28/21 Reported Impression . 1. Acute hypoxic respiratory failure secondary to COVID-19 viral pneumonia, acute respiratory distress syndrome and acute lung injury. Morbid obesity is another risk factor. 2. Abnormal CT chest done at [facility] with diffuse bilateral alveolar and interstitial infiltrates related to COVID-19 pneumonia. No evidence of pulmonary embolism. 3. Underlying obesity. 4. Remote history of obstructive sleep apnea. 5. Abnormal liver function tests, likely due to Covid infection. Bilirubin normal. 6. Normal D-dimer. Plan . 1. Continue present 100% FiO2 via Vapotherm. In addition nonrebreather mask. He is comfortable. 2. We will transfer him to the ICU and place him on Vapotherm once bed available. 3. Remdesivir per protocol. 4. Steroids per protocol. 5. DVT prophylaxis. 6. We will follow inflammatory markers. 7. Discussed with RN and discussed with Dr. Willoughby. 8. Follow-up liver function test next week MURRAY ESPOSITO MD Apr 30, 2021 10:06
[2021-04-30 11:03] VITALS: BP 149/83
[2021-04-30] MEDS: AZITHROMYCIN 250 MG in IV NORMAL SALINE 250ML 250 ML IV SCH (13:04)
--- NOTE | 2021-04-30 14:02 | PDOC ---
[employer] PROGRESS NOTE Date of Service DOS: DATE: 04/30/21 TIME: 13:58 Chief Complaint Chief Complaint Acute respiratory failure with hypoxia COVID-19 pneumonia GERD Obesity Plan: We will treat patient with remdesivir, steroids, and prophylactic antibiotics Consult placed to pulmonology Monitor daily LFTs Hemoglobin A1c pending We will initiate insulin treatment when blood glucose become significantly elevated Daily PPI and famotidine as needed FEN - ADA diet PPX - Lovenox FULL CODE Dispo - inpatient for above History of Present Illness History of Present Illness Patient 35-year-old male with past medical history of GERD, obesity, who presents to the ED as a transfer from [facility] for COVID-19 pneumonia with worsening respiratory distress. States his symptoms started roughly 1 week ago with fatigue and body aches, which progressed to include fever and shortness of breath. Symptoms were worse with exertion with no significant alleviating factors. He was tested for COVID-19 at [facility] and was discharged home because he was not hypoxic on room air. When he returned to [facility] with worsening symptoms a CT chest demonstrated bibasilar infiltrates consistent with atypical pneumonia. He was then admitted and placed on 3 L nasal cannula for further treatment. He has not been vaccinated against COVID- 19. However due to worsening respiratory distress he was transferred to [facility] for higher level of care. 04/29/2021: Still breathing 40 L Vapotherm. Afebrile, but complaining of chest heaviness, nausea, and subjective shortness of breath. Denies any vomiting, or diarrhea. Informed patient of likely prolonged hospitalization course. Hemoglobin A1c 5.6. Continue remdesivir day 2/5, continue steroids, antibiotics, and supportive care. Continue to follow daily LFTs. Plan to transfer patient to ICU bed when available. Critical care time 33 minutes spent reviewing charts, reviewing labs, and discussing case with Dr. Gaviria. 04/30/21: Afebrile, still breathing on Vapotherm. Continue remdesivir and monitor LFTs. Continue antibiotics, steroids, and supportive care. Will transfer him to the ICU once bed available. Critical care time 30 minutes spent in chart, reviewing labs, reviewing imaging, and discussion with RN. Vitals/I&O Vitals/I&O: Vital Signs Date Time Temp Pulse Resp B/P (MAP) Pulse Ox O2 Delivery O2 Flow Rate FiO2 04/30/21 11:59 91 40.0 04/30/21 11:03 96.8 81 22 149/83 (105) vapotherm and nonrebreather 96.8 I & O 04/29/21 04/29/21 04/30/21 15:00 23:00 07:00 Intake Total 550 ml 930 ml 500 ml Output Total 450 ml 450 ml 500 ml Balance 100 ml 480 ml 0 ml Physical Exam General: Alert, Oriented X3, Cooperative, mild distress Heart: Regular rate Lungs: Clear Abdomen: Soft, No tenderness Extremities: No clubbing, No cyanosis Skin: No rashes, No breakdown Labs Labs: Laboratory Tests Test 04/30/21 03:45 White Blood Count 4.2 x10^3/uL (4.0-11.0) Red Blood Count 4.47 x10^6/uL (4.30-5.70) Hemoglobin 12.6 g/dL (13.0-17.5) Hematocrit 38.1 % (39.0-53.0) Mean Corpuscular Volume 85 fL (79-100) Mean Corpuscular Hemoglobin 28 pg (25-35) Mean Corpuscular Hemoglobin Concent 33 g/dL (31-37) Red Cell Distribution Width 13.5 % (11.5-14.5) Platelet Count 160 x10^3/uL (140-400) Neutrophils (%) (Auto) 90 % (31-73) Lymphocytes (%) (Auto) 5 % (24-48) Monocytes (%) (Auto) 4 % (0-9) Eosinophils (%) (Auto) 0 % (0-3) Basophils (%) (Auto) 0 % (0-3) Neutrophils # (Auto) 3.7 x10^3/uL (1.8-7.7) Lymphocytes # (Auto) 0.2 x10^3/uL (1.0-4.8) Monocytes # (Auto) 0.2 x10^3/uL (0.0-1.1) Eosinophils # (Auto) 0.0 x10^3/uL (0.0-0.7) Basophils # (Auto) 0.0 x10^3/uL (0.0-0.2) Sodium Level 138 mmol/L (136-145) Potassium Level 3.6 mmol/L (3.5-5.1) Chloride Level 102 mmol/L (98-107) Carbon Dioxide Level 29 mmol/L (21-32) Anion Gap 7 (6-14) Blood Urea Nitrogen 17 mg/dL (8-26) Creatinine 0.7 mg/dL (0.7-1.3) Estimated GFR (Cockcroft-Gault) 127.6 Glucose Level 118 mg/dL (70-99) Calcium Level 8.4 mg/dL (8.5-10.1) Total Bilirubin 0.6 mg/dL (0.2-1.0) Direct Bilirubin 0.2 mg/dL (0.0-0.2) Aspartate Amino Transf (AST/SGOT) 65 U/L (15-37) Alanine Aminotransferase (ALT/SGPT) 125 U/L (16-63) Alkaline Phosphatase 82 U/L (46-116) Total Protein 6.5 g/dL (6.4-8.2) Albumin 2.6 g/dL (3.4-5.0) Comment Review of Relevant I have reviewed the following items anselmo (where applicable) has been applied. Medications: Current Medications Medications (Trade) Dose Ordered Sig/Bartolo Route PRN Reason Start Time Stop Time Status Last Admin Dose Admin Remdesivir 100 mg/ Sodium Chloride 230 ml @ 460 mls/hr Q24H IV 04/29/21 14:00 05/02/21 14:29 04/29/21 14:41 Lactobacillus Rhamnosus (Culturelle) 1 cap BID PO 04/29/21 21:00 04/30/21 08:04 Justifications for Admission Other Justification XUAN LINTON MD Apr 30, 2021 14:01
[2021-04-30] MEDS: cefTRIAXone IV Push 2 GM VIAL. IVP SCH (14:59)
[2021-04-30] MEDS: REMDESIVIR 100mg in NORMAL SALINE 250ML X 4 DAYS IV SCH (15:00)
[2021-04-30 15:14] VITALS: BP 127/63
[2021-04-30] MEDS: STERILE WATER for RESP 1,000 ML BAG. INH PRN (18:45)
[2021-04-30 19:50] VITALS: BP 142/86
[2021-04-30] MEDS: ZOLPIDEM 5 MG TABLET. PO PRN (21:24)
[2021-04-30 23:40] VITALS: BP 135/73
[2021-05-01] VITALS (14 sets, daily range): BP systolic 113–157; BP diastolic 59–90
[2021-05-01] MEDS: FAMOTIDINE 20 MG TABLET. PO SCH ×2 (05:04→16:36)
[2021-05-01] MEDS: ASCORBIC ACID 500 MG TABLET PO SCH ×3 (05:04→17:55)
[2021-05-01 07:51] LABS: BASO % 0 % (0-3); EOS % 0 % (0-3); HEMOGLOBIN 12.7 g/dL (13.0-17.5); LYMPH # 0.3 x10^3/uL (1.0-4.8); LYMPH % 6 % (24-48); MEAN CORPUSCULAR HEMOGLOBIN 28 pg (25-35); MEAN CORPUSCULAR HGB CONC 34 g/dL (31-37); MEAN CORPUSCULAR VOLUME 85 fL (79-100); MONO # 0.1 x10^3/uL (0.0-1.1); MONO % 2 % (0-9); NEUT # 4.2 x10^3/uL (1.8-7.7); NEUT % 92 % (31-73); PLATELET COUNT 170 x10^3/uL (140-400); RED BLOOD COUNT 4.48 x10^6/uL (4.30-5.70); RED CELL DISTRIBUTION WIDTH 13.3 % (11.5-14.5); WHITE BLOOD COUNT 4.6 x10^3/uL (4.0-11.0)
[2021-05-01 08:14] LABS: ALBUMIN 2.6 g/dL (3.4-5.0); CALCIUM 8.3 mg/dL (8.5-10.1); CREATININE 0.7 mg/dL (0.7-1.3); DIRECT BILIRUBIN 0.3 mg/dL (0.0-0.2); GFR 127.6; POTASSIUM 3.6 mmol/L (3.5-5.1); TOTAL BILIRUBIN 0.8 mg/dL (0.2-1.0); TOTAL PROTEIN 6.4 g/dL (6.4-8.2)
--- NOTE | 2021-05-01 09:42 | PDOC ---
PULMONARY PROGRESS NOTES DATE: 05/01/21 TIME: 09:40 Subjective Remains on 100% FiO2 via Vapotherm. In addition nonrebreather mask as well No obvious respiratory distress Vitals Vital Signs Date Time Temp Pulse Resp B/P (MAP) Pulse Ox O2 Delivery O2 Flow Rate FiO2 05/01/21 08:10 92 40.0 05/01/21 07:00 99.3 77 24 157/85 (109) VAPOTHERM & NONREBREATHER 99.3 Comments Visual exam done due to Covid 19. No obvious respiratory distress no paradoxical breathing no skin rash no leg edema General: Alert, No acute distress Labs Laboratory Tests Test 04/30/21 03:45 05/01/21 07:10 White Blood Count 4.2 x10^3/uL (4.0-11.0) 4.6 x10^3/uL (4.0-11.0) Red Blood Count 4.47 x10^6/uL (4.30-5.70) 4.48 x10^6/uL (4.30-5.70) Hemoglobin 12.6 g/dL (13.0-17.5) 12.7 g/dL (13.0-17.5) Hematocrit 38.1 % (39.0-53.0) 38.0 % (39.0-53.0) Mean Corpuscular Volume 85 fL (79-100) 85 fL (79-100) Mean Corpuscular Hemoglobin 28 pg (25-35) 28 pg (25-35) Mean Corpuscular Hemoglobin Concent 33 g/dL (31-37) 34 g/dL (31-37) Red Cell Distribution Width 13.5 % (11.5-14.5) 13.3 % (11.5-14.5) Platelet Count 160 x10^3/uL (140-400) 170 x10^3/uL (140-400) Neutrophils (%) (Auto) 90 % (31-73) 92 % (31-73) Lymphocytes (%) (Auto) 5 % (24-48) 6 % (24-48) Monocytes (%) (Auto) 4 % (0-9) 2 % (0-9) Eosinophils (%) (Auto) 0 % (0-3) 0 % (0-3) Basophils (%) (Auto) 0 % (0-3) 0 % (0-3) Neutrophils # (Auto) 3.7 x10^3/uL (1.8-7.7) 4.2 x10^3/uL (1.8-7.7) Lymphocytes # (Auto) 0.2 x10^3/uL (1.0-4.8) 0.3 x10^3/uL (1.0-4.8) Monocytes # (Auto) 0.2 x10^3/uL (0.0-1.1) 0.1 x10^3/uL (0.0-1.1) Eosinophils # (Auto) 0.0 x10^3/uL (0.0-0.7) 0.0 x10^3/uL (0.0-0.7) Basophils # (Auto) 0.0 x10^3/uL (0.0-0.2) 0.0 x10^3/uL (0.0-0.2) Sodium Level 138 mmol/L (136-145) 138 mmol/L (136-145) Potassium Level 3.6 mmol/L (3.5-5.1) 3.6 mmol/L (3.5-5.1) Chloride Level 102 mmol/L (98-107) 102 mmol/L (98-107) Carbon Dioxide Level 29 mmol/L (21-32) 27 mmol/L (21-32) Anion Gap 7 (6-14) 9 (6-14) Blood Urea Nitrogen 17 mg/dL (8-26) 17 mg/dL (8-26) Creatinine 0.7 mg/dL (0.7-1.3) 0.7 mg/dL (0.7-1.3) Estimated GFR (Cockcroft-Gault) 127.6 127.6 Glucose Level 118 mg/dL (70-99) 95 mg/dL (70-99) Calcium Level 8.4 mg/dL (8.5-10.1) 8.3 mg/dL (8.5-10.1) Total Bilirubin 0.6 mg/dL (0.2-1.0) 0.8 mg/dL (0.2-1.0) Direct Bilirubin 0.2 mg/dL (0.0-0.2) 0.3 mg/dL (0.0-0.2) Aspartate Amino Transf (AST/SGOT) 65 U/L (15-37) 52 U/L (15-37) Alanine Aminotransferase (ALT/SGPT) 125 U/L (16-63) 111 U/L (16-63) Alkaline Phosphatase 82 U/L (46-116) 91 U/L (46-116) Total Protein 6.5 g/dL (6.4-8.2) 6.4 g/dL (6.4-8.2) Albumin 2.6 g/dL (3.4-5.0) 2.6 g/dL (3.4-5.0) Laboratory Tests Test 05/01/21 07:10 White Blood Count 4.6 x10^3/uL (4.0-11.0) Red Blood Count 4.48 x10^6/uL (4.30-5.70) Hemoglobin 12.7 g/dL (13.0-17.5) Hematocrit 38.0 % (39.0-53.0) Mean Corpuscular Volume 85 fL (79-100) Mean Corpuscular Hemoglobin 28 pg (25-35) Mean Corpuscular Hemoglobin Concent 34 g/dL (31-37) Red Cell Distribution Width 13.3 % (11.5-14.5) Platelet Count 170 x10^3/uL (140-400) Neutrophils (%) (Auto) 92 % (31-73) Lymphocytes (%) (Auto) 6 % (24-48) Monocytes (%) (Auto) 2 % (0-9) Eosinophils (%) (Auto) 0 % (0-3) Basophils (%) (Auto) 0 % (0-3) Neutrophils # (Auto) 4.2 x10^3/uL (1.8-7.7) Lymphocytes # (Auto) 0.3 x10^3/uL (1.0-4.8) Monocytes # (Auto) 0.1 x10^3/uL (0.0-1.1) Eosinophils # (Auto) 0.0 x10^3/uL (0.0-0.7) Basophils # (Auto) 0.0 x10^3/uL (0.0-0.2) Sodium Level 138 mmol/L (136-145) Potassium Level 3.6 mmol/L (3.5-5.1) Chloride Level 102 mmol/L (98-107) Carbon Dioxide Level 27 mmol/L (21-32) Anion Gap 9 (6-14) Blood Urea Nitrogen 17 mg/dL (8-26) Creatinine 0.7 mg/dL (0.7-1.3) Estimated GFR (Cockcroft-Gault) 127.6 Glucose Level 95 mg/dL (70-99) Calcium Level 8.3 mg/dL (8.5-10.1) Total Bilirubin 0.8 mg/dL (0.2-1.0) Direct Bilirubin 0.3 mg/dL (0.0-0.2) Aspartate Amino Transf (AST/SGOT) 52 U/L (15-37) Alanine Aminotransferase (ALT/SGPT) 111 U/L (16-63) Alkaline Phosphatase 91 U/L (46-116) Total Protein 6.4 g/dL (6.4-8.2) Albumin 2.6 g/dL (3.4-5.0) Medications Active Scripts Medications Dose Route/Sig Max Daily Dose Days Date Category Pepcid (Famotidine) 20 Mg Tablet 20 Mg PO BID 04/28/21 Reported Impression . 1. Acute hypoxic respiratory failure secondary to COVID-19 viral pneumonia, acute respiratory distress syndrome and acute lung injury. Morbid obesity is another risk factor. 2. Abnormal CT chest done at [facility] with diffuse bilateral alveolar and interstitial infiltrates related to COVID-19 pneumonia. No evidence of pulmonary embolism. 3. Underlying obesity. 4. Remote history of obstructive sleep apnea. 5. Abnormal liver function tests, likely due to Covid infection. Bilirubin normal. 6. Normal D-dimer. Plan . 1. Continue present 100% FiO2 via Vapotherm. In addition nonrebreather mask. He is comfortable. 2. We will transfer him to the ICU today as the bed is available 3. Remdesivir per protocol. 4. Steroids per protocol. 5. DVT prophylaxis. 6. We will follow inflammatory markers. 7. Discussed with RN 8. Follow-up liver function test MURRAY ESPOSITO MD May 01, 2021 09:42
[2021-05-01] MEDS: LACTOBACILLUS RHAMNOSUS GG 1 CAPSULE. PO SCH ×2 (09:44→21:18)
[2021-05-01] MEDS: DEXAMETHASONE SOD PHOS 4 MG/ML VIAL IVP SCH (09:44)
[2021-05-01] MEDS: PANTOPRAZOLE 40 MG TABLET.DR. PO SCH (09:44)
[2021-05-01] MEDS: ZINC SULFATE 220 MG CAPSULE. PO SCH (09:44)
[2021-05-01] MEDS: ENOXAPARIN 40 MG/0.4 ML SYRINGE. SQ SCH ×2 (09:44→21:19)
--- NOTE | 2021-05-01 11:55 | NUR ---
SS following for discharge planning. SS reviewed pt chart and discussed with pt RN. Pt is from home with spouse. COVID19 positive. Pt is currently on Vapotherm and Non-Rebreather at 100%. Pt on IV Remdesivir, IV steroids, IV Azithromycin, and IV Rocephin. Not stable. Pt transferred to ICU room 114. SS will continue to follow for discharge planning.
[2021-05-01] MEDS: AZITHROMYCIN 250 MG in IV NORMAL SALINE 250ML 250 ML IV SCH (13:15)
--- NOTE | 2021-05-01 13:49 | PDOC ---
[employer] PROGRESS NOTE Date of Service DOS: DATE: 05/01/21 TIME: 13:47 Chief Complaint Chief Complaint Acute respiratory failure with hypoxia COVID-19 pneumonia GERD Obesity Plan: Continue with with remdesivir day 3 out of 4, steroids, and prophylactic antibiotics Appreciate pulmonology management for Vapotherm therapy Monitor daily LFTs Hemoglobin A1c pending We will initiate insulin treatment when blood glucose become significantly elevated Daily PPI and famotidine as needed FEN - ADA diet PPX - Lovenox FULL CODE Dispo - inpatient for above History of Present Illness History of Present Illness Patient 35-year-old male with past medical history of GERD, obesity, who presents to the ED as a transfer from [facility] for COVID-19 pneumonia with worsening respiratory distress. States his symptoms started roughly 1 week ago with fatigue and body aches, which progressed to include fever and shortness of breath. Symptoms were worse with exertion with no significant alleviating factors. He was tested for COVID-19 at [facility] and was discharged home because he was not hypoxic on room air. When he returned to [facility] with worsening symptoms a CT chest demonstrated bibasilar infiltrates consistent with atypical pneumonia. He was then admitted and placed on 3 L nasal cannula for further treatment. He has not been vaccinated against COVID- 19. However due to worsening respiratory distress he was transferred to [facility] for higher level of care. 04/29/2021: Still breathing 40 L Vapotherm. Afebrile, but complaining of chest heaviness, nausea, and subjective shortness of breath. Denies any vomiting, or diarrhea. Informed patient of likely prolonged hospitalization course. Hemoglobin A1c 5.6. Continue remdesivir day 2/5, continue steroids, antibiotics, and supportive care. Continue to follow daily LFTs. Plan to transfer patient to ICU bed when available. Critical care time 33 minutes spent reviewing charts, reviewing labs, and discussing case with Dr. Gaviria. 04/30/21: Afebrile, still breathing on Vapotherm. Continue remdesivir and monitor LFTs. Continue antibiotics, steroids, and supportive care. Will transfer him to the ICU once bed available. Critical care time 30 minutes spent in chart, reviewing labs, reviewing imaging, and discussion with RN. 05/01/2021 No acute events overnight. Patient seen and examined bedside. Saturating 93% on 40 L Vapotherm. Patient will transfer to the ICU for continued supportive care. Vitals/I&O Vitals/I&O: Vital Signs Date Time Temp Pulse Resp B/P (MAP) Pulse Ox O2 Delivery O2 Flow Rate FiO2 05/01/21 13:00 Vapotherm 40.0 05/01/21 13:00 76 28 144/64 (90) 91 05/01/21 11:00 98.8 98.8 I & O 04/30/21 04/30/21 05/01/21 15:00 23:00 07:00 Intake Total 1250 ml 950 ml 300 ml Output Total 750 ml 1800 ml 725 ml Balance 500 ml -850 ml -425 ml Physical Exam General: Alert, Oriented X3, Cooperative, mild distress Heart: Regular rate Abdomen: Soft, No tenderness Extremities: No clubbing, No cyanosis Skin: No rashes, No breakdown Labs Labs: Laboratory Tests Test 05/01/21 07:10 White Blood Count 4.6 x10^3/uL (4.0-11.0) Red Blood Count 4.48 x10^6/uL (4.30-5.70) Hemoglobin 12.7 g/dL (13.0-17.5) Hematocrit 38.0 % (39.0-53.0) Mean Corpuscular Volume 85 fL (79-100) Mean Corpuscular Hemoglobin 28 pg (25-35) Mean Corpuscular Hemoglobin Concent 34 g/dL (31-37) Red Cell Distribution Width 13.3 % (11.5-14.5) Platelet Count 170 x10^3/uL (140-400) Neutrophils (%) (Auto) 92 % (31-73) Lymphocytes (%) (Auto) 6 % (24-48) Monocytes (%) (Auto) 2 % (0-9) Eosinophils (%) (Auto) 0 % (0-3) Basophils (%) (Auto) 0 % (0-3) Neutrophils # (Auto) 4.2 x10^3/uL (1.8-7.7) Lymphocytes # (Auto) 0.3 x10^3/uL (1.0-4.8) Monocytes # (Auto) 0.1 x10^3/uL (0.0-1.1) Eosinophils # (Auto) 0.0 x10^3/uL (0.0-0.7) Basophils # (Auto) 0.0 x10^3/uL (0.0-0.2) Sodium Level 138 mmol/L (136-145) Potassium Level 3.6 mmol/L (3.5-5.1) Chloride Level 102 mmol/L (98-107) Carbon Dioxide Level 27 mmol/L (21-32) Anion Gap 9 (6-14) Blood Urea Nitrogen 17 mg/dL (8-26) Creatinine 0.7 mg/dL (0.7-1.3) Estimated GFR (Cockcroft-Gault) 127.6 Glucose Level 95 mg/dL (70-99) Calcium Level 8.3 mg/dL (8.5-10.1) Total Bilirubin 0.8 mg/dL (0.2-1.0) Direct Bilirubin 0.3 mg/dL (0.0-0.2) Aspartate Amino Transf (AST/SGOT) 52 U/L (15-37) Alanine Aminotransferase (ALT/SGPT) 111 U/L (16-63) Alkaline Phosphatase 91 U/L (46-116) Total Protein 6.4 g/dL (6.4-8.2) Albumin 2.6 g/dL (3.4-5.0) Comment Review of Relevant I have reviewed the following items anselmo (where applicable) has been applied. Justifications for Admission Other Justification JENNIFER TEJEDA MD May 01, 2021 13:49
[2021-05-01] MEDS: REMDESIVIR 100mg in NORMAL SALINE 250ML X 4 DAYS IV SCH (14:14)
[2021-05-01] MEDS: cefTRIAXone IV Push 2 GM VIAL. IVP SCH ×2 (14:14→15:45)
[2021-05-01] MEDS: ZOLPIDEM 5 MG TABLET. PO PRN (21:26)
[2021-05-02] VITALS (30 sets, daily range): BP systolic 92–173; BP diastolic 48–98
[2021-05-02] MEDS: ASCORBIC ACID 500 MG TABLET PO SCH ×5 (00:16→23:15)
[2021-05-02 00:49] LABS: BASE EXCESS ABG 0 mmol/L (-3-3); HCO3 ABG 23 mmol/L (21-28); PCO2 ABG 31 mmHg (35-46); PO2 ABG 55 mmHg (85-108); SAT O2 ABG 89 % (92-99)
[2021-05-02 00:50] LABS: FIO2 ABG 100
[2021-05-02] MEDS: DEXMEDETOMIDINE 400 MCG in IV NORMAL SALINE 100ML 96 ML IV PRN ×4 (01:00→06:56)
[2021-05-02] MEDS ORDERED: IV NORMAL SALINE 500ML BAG 500 ML IV PRN (01:00)
[2021-05-02] MEDS ORDERED: ATROPINE 0.5 MG/5 ML DISP.SYRINGE. IV PRN (01:00)
--- NOTE | 2021-05-02 01:00 | NUR ---
ASSESSING PT ON NRB 15L+ AND VAPOTHERM 40L 100%. SPO2 IS 88 TO 90. PT HAS SONYA PER HIS HX AND DESATURATES SIGNIFICANTLY WHEN HE SLEEPS. PT EXPERIENCING INCREASED WOB AND STATES THAT HE IS TIRED. ABG PERFORMED AND RESULTS STILL SHOW SAO2 89%. ACID BASE BALANCE IS NORMAL AND CONSISTENT WITH PREVIOUS ABG. PT STATES THAT HE DOES NOT TOLERATE BIPAP, HOWEVER IS WILLING TO TRY GIVEN HIS WOB AND SUBJECTIVE SOA. PER PHYSICIAN AND RN PT SEDATED AND PLACED ON BIPAP. SPO2 IMPROVING AND PT RESTING. WILL CONTINUE TO MONITOR
[2021-05-02] MEDS: FAMOTIDINE 20 MG TABLET. PO SCH (05:00)
[2021-05-02] MEDS: PANTOPRAZOLE 40 MG TABLET.DR. PO SCH (07:30)
--- NOTE | 2021-05-02 07:33 | PDOC ---
PULMONARY PROGRESS NOTES DATE: 05/02/21 TIME: 07:33 Subjective Patient overnight switched to BiPAP, breathing 55 minutes/min, Vitals Vital Signs Date Time Temp Pulse Resp B/P (MAP) Pulse Ox O2 Delivery O2 Flow Rate FiO2 05/02/21 06:00 75 45 137/86 (103) 93 BiPAP/CPAP 05/02/21 04:00 97.1 97.1 05/02/21 04:00 40.0 Comments Visual exam done due to Covid 19. In obvious distress, on BiPAP Labs Laboratory Tests Test 05/01/21 07:10 05/01/21 13:15 05/02/21 00:36 White Blood Count 4.6 x10^3/uL (4.0-11.0) Red Blood Count 4.48 x10^6/uL (4.30-5.70) Hemoglobin 12.7 g/dL (13.0-17.5) Hematocrit 38.0 % (39.0-53.0) Mean Corpuscular Volume 85 fL (79-100) Mean Corpuscular Hemoglobin 28 pg (25-35) Mean Corpuscular Hemoglobin Concent 34 g/dL (31-37) Red Cell Distribution Width 13.3 % (11.5-14.5) Platelet Count 170 x10^3/uL (140-400) Neutrophils (%) (Auto) 92 % (31-73) Lymphocytes (%) (Auto) 6 % (24-48) Monocytes (%) (Auto) 2 % (0-9) Eosinophils (%) (Auto) 0 % (0-3) Basophils (%) (Auto) 0 % (0-3) Neutrophils # (Auto) 4.2 x10^3/uL (1.8-7.7) Lymphocytes # (Auto) 0.3 x10^3/uL (1.0-4.8) Monocytes # (Auto) 0.1 x10^3/uL (0.0-1.1) Eosinophils # (Auto) 0.0 x10^3/uL (0.0-0.7) Basophils # (Auto) 0.0 x10^3/uL (0.0-0.2) Sodium Level 138 mmol/L (136-145) Potassium Level 3.6 mmol/L (3.5-5.1) Chloride Level 102 mmol/L (98-107) Carbon Dioxide Level 27 mmol/L (21-32) Anion Gap 9 (6-14) Blood Urea Nitrogen 17 mg/dL (8-26) Creatinine 0.7 mg/dL (0.7-1.3) Estimated GFR (Cockcroft-Gault) 127.6 Glucose Level 95 mg/dL (70-99) Calcium Level 8.3 mg/dL (8.5-10.1) Total Bilirubin 0.8 mg/dL (0.2-1.0) Direct Bilirubin 0.3 mg/dL (0.0-0.2) Aspartate Amino Transf (AST/SGOT) 52 U/L (15-37) Alanine Aminotransferase (ALT/SGPT) 111 U/L (16-63) Alkaline Phosphatase 91 U/L (46-116) Total Protein 6.4 g/dL (6.4-8.2) Albumin 2.6 g/dL (3.4-5.0) D-Dimer (Caridad) 2.53 ug/mlFEU (0.00-0.50) O2 Saturation 89 % (92-99) Arterial Blood pH 7.48 (7.35-7.45) Arterial Blood pCO2 at Patient Temp 31 mmHg (35-46) Arterial Blood pO2 at Patient Temp 55 mmHg (85-108) Arterial Blood HCO3 23 mmol/L (21-28) Arterial Blood Base Excess 0 mmol/L (-3-3) FiO2 100 Laboratory Tests Test 05/01/21 13:15 05/02/21 00:36 D-Dimer (Caridad) 2.53 ug/mlFEU (0.00-0.50) O2 Saturation 89 % (92-99) Arterial Blood pH 7.48 (7.35-7.45) Arterial Blood pCO2 at Patient Temp 31 mmHg (35-46) Arterial Blood pO2 at Patient Temp 55 mmHg (85-108) Arterial Blood HCO3 23 mmol/L (21-28) Arterial Blood Base Excess 0 mmol/L (-3-3) FiO2 100 Medications Active Scripts Medications Dose Route/Sig Max Daily Dose Days Date Category Pepcid (Famotidine) 20 Mg Tablet 20 Mg PO BID 04/28/21 Reported Impression . 1. Acute hypoxic respiratory failure secondary to COVID-19 viral pneumonia/ARDS 2. Abnormal CT chest done at [facility] with diffuse bilateral alveolar and interstitial infiltrates related to COVID-19 pneumonia. No evidence of pulmonary embolism. 3. Underlying obesity. 4. Remote history of obstructive sleep apnea. 5. Abnormal liver function tests, likely due to Covid infection. Bilirubin normal. 6. Normal D-dimer. Plan . Updated 05/02 Patient doing poorly, discussed with anesthesia, proceed with intubation Continue remdesivir Steroids DVT GI prophylaxis Zinc, vitamin D, Empiric antibiotics. Cumulative critical care time of 30 minutes, reviewing current documentation, discussing it with anesthesia, formulating a impression and plan. 1. Continue present 100% FiO2 via Vapotherm. In addition nonrebreather mask. He is comfortable. 2. We will transfer him to the ICU today as the bed is available 3. Remdesivir per protocol. 4. Steroids per protocol. 5. DVT prophylaxis. 6. We will follow inflammatory markers. 7. Discussed with RN 8. Follow-up liver function test PANCHITO AMOR MD May 02, 2021 07:33
[2021-05-02] MEDS ORDERED: PROPOFOL 0 ML IV ONE (07:37)
[2021-05-02] MEDS ORDERED: SUCCINYLCHOLINE 200 MG/10 ML VIAL. ONE (07:37)
[2021-05-02] MEDS ORDERED: ETOMIDATE 20 MG/10 ML VIAL. IV ONE ×2 (07:37→08:45)
[2021-05-02] MEDS ORDERED: PROPOFOL 10 MG/ML (100ML) VIAL. IV ONE (08:00)
--- NOTE | 2021-05-02 08:10 | NUR ---
Angely Pt's called and notified of pts condition and plan to intubate, all questions answered and she understands pt plan of care.
[2021-05-02] MEDS ORDERED: EPINEPHrine SYRINGE 1 MG/10 ML SYRINGE IV ONE (08:45)
[2021-05-02] MEDS ORDERED: VECURONIUM BOLUS 10 MG VIAL. IV PRN (08:45)
[2021-05-02] MEDS ORDERED: SUCCINYLCHOLINE 200 MG/10 ML VIAL. IV ONE (08:45)
[2021-05-02] MEDS ORDERED: NOREPINEPHRINE VIAL 8 MG in IV DEXTROSE 5% 250 ML IV PRN (08:45)
[2021-05-02] MEDS: MIDAZOLAM 100mg/100ml NS BAG 100 ML IV PRN ×2 (08:55→16:09)
[2021-05-02] MEDS ORDERED: VECURONIUM BROMIDE 50 MG in IV NORMAL SALINE 50ML 50 ML IV PRN (09:15)
--- NOTE | 2021-05-02 09:17 | NUR ---
0825 Anesthesia here to intubate: 0827 medication given per anesthesia 0829 heart rate noted in 30's 0830 pt intubated with 7.5 ETT pt being bagged by RT 0831 Heart rate at 29 1 MG epinephrine given 0833 HR up to 115 sat 74% being bagged by RT 0835 attempted to placed on Vent and sats dropped to 30 RT began bagging patient again 0840 sats up to [address] on vent again with different changes and again sats dropped to the 50's RT bagging patient again 0855 Dr Orlando in Room with RT and placed back on vent and multiop[ramírez messeres made to settings. AC 28 [id number] Peep 12 with a 2:1 ratio sats at 75% Pt paralyzed per order from Dr Hamilton 0900 sats at 80% 0930 Sats at 92% but SPB dropping to 85 with MAP less than 65 Levo started at 0.1mcg/kg/min
[2021-05-02] MEDS: VECURONIUM BROMIDE 50 MG in IV NORMAL SALINE 50ML 50 ML IV PRN ×4 (09:40→23:15)
--- NOTE | 2021-05-02 09:56 | RAD ---
XR CHEST 1V History: Reason: ett placement / Spl. Instructions: / History: Comparison: April 28, 2021 Findings: New bilateral small right and moderate left pneumothoraces. Increased diffuse pulmonary consolidation s. No pleural effusion. New subcutaneous gas. Normal heart size. Pneumomediastinum. Endotracheal tube 5.7 cm above allison. Enteric tube with tip projecting over the gastric fundus. Impression: 1. New bilateral pneumothoraces, left greater than right. 2. Increased diffuse pulmonary consolidations. 3. Pneumomediastinum with lower neck subcutaneous gas. FOR INTERNAL CODING PURPOSES Critical result: Findings discussed with patient's charge nurse at 05/02/2021 9:50 AM. RESULT CODE: (C) Electronically signed by: Johnny Gan DO (05/02/2021 9:54 AM) [id number]
[2021-05-02] MEDS ORDERED: LIDOCAINE 2% Multi-Dose 20 ML VIAL. ONE (10:14)
[2021-05-02 10:18] LABS: BASE EXCESS ABG -5 mmol/L (-3-3); HCO3 ABG 22 mmol/L (21-28); PCO2 ABG 48 mmHg (35-46); PO2 ABG 70 mmHg (85-108); SAT O2 ABG 91 % (92-99)
[2021-05-02 10:21] LABS: FIO2 ABG 100
--- NOTE | 2021-05-02 10:30 | NUR ---
IR here to place bilateral chest tubes for bilateral pneumothorax and to place a central line. Dr. Hamilton to call and update .
--- NOTE | 2021-05-02 11:19 | RAD ---
XR CHEST 1V History: Reason: s/p bilat chest tube insertion / Spl. Instructions: / History: Comparison: May 02, 2021 Findings: Interval placement bilateral small caliber chest tubes. Decreased bilateral pneumothoraces small resi dual bilaterally, right greater than left. Diffuse pulmonary consolidations, unchanged. Stable endotracheal tube and enteric tube. Interval placement right IJ central line with tip projecting over the mid SVC. Impression: 1. Interval placement bilateral small caliber chest tubes. Decreased bilateral pneumothoraces with s mall residual, right greater than left. 2. Unchanged diffuse pulmonary consolidations. 3. Interval placement right IJ central line. 4. Pneumomediastinum and chest wall gas, unchanged. Electronically signed by: Johnny Gan DO (05/02/2021 11:17 AM) [id number]
[2021-05-02 11:40] LABS: BASO # 0.1 x10^3/uL (0.0-0.2); BASO % 1 % (0-3); EOS % 0 % (0-3); HEMOGLOBIN 14.5 g/dL (13.0-17.5); LYMPH # 0.5 x10^3/uL (1.0-4.8); LYMPH % 5 % (24-48); MEAN CORPUSCULAR HEMOGLOBIN 29 pg (25-35); MEAN CORPUSCULAR HGB CONC 34 g/dL (31-37); MEAN CORPUSCULAR VOLUME 86 fL (79-100); MONO # 0.3 x10^3/uL (0.0-1.1); MONO % 3 % (0-9); NEUT # 8.1 x10^3/uL (1.8-7.7); NEUT % 90 % (31-73); PLATELET COUNT 270 x10^3/uL (140-400); RED BLOOD COUNT 5.02 x10^6/uL (4.30-5.70); RED CELL DISTRIBUTION WIDTH 13.3 % (11.5-14.5)
--- NOTE | 2021-05-02 11:42 | PDOC ---
[employer] PROGRESS NOTE Date of Service DOS: DATE: 05/02/21 TIME: 11:40 Chief Complaint Chief Complaint Acute respiratory failure with hypoxia COVID-19 pneumonia GERD Obesity Plan: Continue with with remdesivir day 3 out of 4, steroids, and prophylactic antibiotics Appreciate pulmonology management for Vapotherm therapy Monitor daily LFTs Hemoglobin A1c pending We will initiate insulin treatment when blood glucose become significantly elevated Daily PPI and famotidine as needed FEN - ADA diet PPX - Lovenox FULL CODE Dispo - inpatient for above History of Present Illness History of Present Illness 05/02/2021 Patient seen and examined in the COVID-19 ICU He is on BiPAP with 100% FiO2 and very tachypneic Discussed with RN we are going to go ahead and intubate here in a few minutes Chart reviewed Patient currently semisedated with Versed Precedex and fentanyl He is very critically Patient 35-year-old male with past medical history of GERD, obesity, who presents to the ED as a transfer from [facility] for COVID-19 pneumonia with worsening respiratory distress. States his symptoms started roughly 1 week ago with fatigue and body aches, which progressed to include fever and shortness of breath. Symptoms were worse with exertion with no significant alleviating factors. He was tested for COVID-[address] [facility] and was discharged home because he was not hypoxic on room air. When he returned to [facility] with worsening symptoms a CT chest demonstrated bibasilar infiltrates consistent with atypical pneumonia. He was then admitted and placed on 3 L nasal cannula for further treatment. He has not been vaccinated against COVID-1 9. However due to worsening respiratory distress he was transferred to [facility] for higher level of care. 04/29/2021: Still breathing 40 L Vapotherm. Afebrile, but complaining of chest heaviness, nausea, and subjective shortness of breath. Denies any vomiting, or diarrhea. Informed patient of likely prolonged hospitalization course. Hemoglobin A1c 5.6. Continue remdesivir day 2/5, continue steroids, antibiotics, and supportive care. Continue to follow daily LFTs. Plan to transfer patient to ICU bed when available. Critical care time 33 minutes spent reviewing charts, reviewing labs, and discussing case with Dr. Gaviria. 04/30/21: Afebrile, still breathing on Vapotherm. Continue remdesivir and monitor LFTs. Continue antibiotics, steroids, and supportive care. Will transfer him to the ICU once bed available. Critical care time 30 minutes spent in chart, reviewing labs, reviewing imaging, and discussion with RN. 05/01/2021 No acute events overnight. Patient seen and examined bedside. Saturating 93% on 40 L Vapotherm. Patient will transfer to the ICU for continued supportive care. Vitals/I&O Vitals/I&O: Vital Signs Date Time Temp Pulse Resp B/P (MAP) Pulse Ox O2 Delivery O2 Flow Rate FiO2 05/02/21 09:51 100 Ventilator 05/02/21 09:04 95 99/48 (65) 05/02/21 08:59 24 05/02/21 04:00 97.1 97.1 05/02/21 04:00 40.0 I & O 05/01/21 05/01/21 05/02/21 15:00 23:00 07:00 Intake Total 480 ml 1700 ml 172 ml Output Total 550 ml 2375 ml 325 ml Balance -70 ml -675 ml -153 ml Physical Exam General: severe distress Heart: Other (Tachycardic) Lungs: Crackles Abdomen: Soft, No tenderness Extremities: No clubbing, No cyanosis Skin: No rashes, No breakdown Labs Labs: Laboratory Tests Test 05/01/21 13:15 05/02/21 00:36 05/02/21 10:10 D-Dimer (Caridad) 2.53 ug/mlFEU (0.00-0.50) O2 Saturation 89 % (92-99) 91 % (92-99) Arterial Blood pH 7.48 (7.35-7.45) 7.29 (7.35-7.45) Arterial Blood pCO2 at Patient Temp 31 mmHg (35-46) 48 mmHg (35-46) Arterial Blood pO2 at Patient Temp 55 mmHg (85-108) 70 mmHg (85-108) Arterial Blood HCO3 23 mmol/L (21-28) 22 mmol/L (21-28) Arterial Blood Base Excess 0 mmol/L (-3-3) -5 mmol/L (-3-3) FiO2 100 100 Assessment and Plan Assessmemt and Plan Acute respiratory failure with hypoxia COVID-19 pneumonia GERD Obesity Plan: Plan is to extubate now ICU monitoring Vent weaning Home meds Covid protocol Remdesivir Antibiotics Steroids Trend labs DVT prophylaxis Full code Appreciate subspecialist input Prognosis extremely guarded at best CC time 34-minute Comment Review of Relevant I have reviewed the following items anselmo (where applicable) has been applied. Medications: Current Medications Medications (Trade) Dose Ordered Sig/Bartolo Route PRN Reason Start Time Stop Time Status Last Admin Dose Admin Dexmedetomidine HCl 400 mcg/ Sodium Chloride 100 ml @ 6.965 mls/ hr CONT PRN IV PER PROTOCOL 05/02/21 01:00 05/02/21 06:56 Fentanyl Citrate 30 ml @ 0 mls/hr CONT PRN IV SEE PROTOCOL 05/02/21 07:45 05/02/21 08:59 Midazolam HCl 100 ml @ 0 mls/hr CONT PRN IV SEE PROTOCOL 05/02/21 07:45 05/02/21 08:55 Norepinephrine Bitartrate 8 mg/ Dextrose 258 ml @ 27.09 mls/ hr CONT PRN IV PER PROTOCOL 05/02/21 08:45 05/02/21 09:35 Etomidate (Amidate) 10 mg 1X ONCE IV 05/02/21 08:45 05/02/21 08:48 DC 05/02/21 08:49 Succinylcholine Chloride (Anectine) 100 mg 1X ONCE IV 05/02/21 08:45 05/02/21 08:48 DC 05/02/21 08:50 Vecuronium [place] (Norcuron Bolus) 6 mg PRN Q4HRS PRN IV VENTILATOR COMPLIANCE 05/02/21 08:45 05/02/21 08:51 Epinephrine HCl (EPINEPHrine SYRINGE) 1 mg 1X ONCE IV 05/02/21 08:45 05/02/21 08:48 DC 05/02/21 08:50 Vecuronium [place] 50 mg/ Sodium Chloride 50 ml @ 6.72 mls/hr CONT PRN IV SEE I/O RECORD 05/02/21 09:15 05/02/21 09:40 Justifications for Admission Other Justification JONO HERNDON III DO May 02, 2021 11:42
[2021-05-02 11:51] LABS: ALBUMIN 2.7 g/dL (3.4-5.0); CALCIUM 8.4 mg/dL (8.5-10.1); CREATININE 0.9 mg/dL (0.7-1.3); DIRECT BILIRUBIN 0.9 mg/dL (0.0-0.2); GFR 95.5; TOTAL BILIRUBIN 1.3 mg/dL (0.2-1.0)
[2021-05-02] MEDS: LACTOBACILLUS RHAMNOSUS GG 1 CAPSULE. PO SCH ×2 (12:50→22:30)
[2021-05-02] MEDS: DEXAMETHASONE SOD PHOS 4 MG/ML VIAL IVP SCH (12:50)
[2021-05-02] MEDS: ZINC SULFATE 220 MG CAPSULE. PO SCH (12:50)
[2021-05-02] MEDS: ENOXAPARIN 40 MG/0.4 ML SYRINGE. SQ SCH ×2 (12:50→22:29)
[2021-05-02] MEDS: AZITHROMYCIN 250 MG in IV NORMAL SALINE 250ML 250 ML IV SCH (12:51)
[2021-05-02] MEDS: REMDESIVIR 100mg in NORMAL SALINE 250ML X 4 DAYS IV SCH (13:43)
--- NOTE | 2021-05-02 13:53 | PDOC ---
Provider Note Date of Service: DATE: 05/02/21 TIME: 13:45 Provider Note Anesthesia note: Pt intubated per request of Dr. Hamilton. Pt sedated with Etomidate and relaxed with succinylcholine. Intubated with 7.5 OET with #3 Glidescope direct visualization. Good color change on EtCO2 indicator BSBE. Secured at 24 cm at teeth by respiratory therapy. Chest Xray ordered pt place on Ventilator. #20 ga Arrow cath placed in left radial artery using sterile technique after chlorhexidene prep. Secured with tape and covered with op site. Good wave form on monitor. Justifications for Admission Other Justification ADRYAN LECHUGA CRNA May 02, 2021 13:53
--- NOTE | 2021-05-02 14:54 | RAD ---
05/02/2021 1. Ultrasound-guided right internal jugular central line placement 2. Bilateral small caliber chest tube placements at the bedside Indication: Patient with severe respiratory failure secondary to Covid 19 with bilateral pneumothorac es, with associated critical illness and poor central venous access Consent: The procedure was explained to the patient's public relations representative by a member of the treatment tea m, including a discussion of the risks, benefits and commonly accepted alternatives to the procedure, as well as the expected consequences of no therapy whatsoever. Discussion of the risks included, b ut was not limited to, those that are most frequent and those that are rare but possibly severe or li fe-threatening, as well as the possibility of unforeseen complications. A timeout procedure was performed. The bilateral neck and chest was prepped and draped using sterile barrier technique. 1% lidocaine was administered bilaterally in the anterior midclavicular line in moore perior chest. A 5 Azerbaijani sheathed needle was advanced intercostally until air was freely aspirated. S joaquin was advanced into the pleural space. A guidewire was advanced into the pleural space over which following dilatation and 8 Azerbaijani pigtail drain was placed. This was repeated in an identical fashio n on the contralateral side. Catheters were secured in place and connected to Pleur-evac device is -2 0 cm water. Ultrasound interrogation of the right neck revealed patency and compressibility of the right interna l jugular vein. Visualization was somewhat limited secondary to subcutaneous emphysema. A 21-gauge mi cropuncture was then used to gain access to this vein under ultrasound guidance. A hard copy ultraso und image was recorded. A guidewire was advanced centrally over which, following dilatation, a tripl e-lumen central venous catheter was placed. The new catheter was found to flush and aspirate normally . The catheter was secured in place. Sterile dressings were applied. No immediate complications were identified. IMPRESSION: 1. Placement of bilateral small caliber chest tubes 2. Placement of a right internal jugular central venous catheter with ultrasound guidance Electronically signed by: Deshawn Almeida MD (05/02/2021 2:51 PM) [id number]
--- NOTE | 2021-05-02 15:46 | NUR ---
SS following up with discharge planning. SS reviewed pt chart and discussed with pt RN. Pt intubated now and is currently on the vent at 100%. Pt has two chest tubes in place. COVID19 positive. Pt on Fentanyl, Vec, Versed, and Levophed. Pt on IV Azithromycin, IV Remdesivir, and IV Rocephin. Not stable. SS will continue to follow for discharge planning.
--- NOTE | 2021-05-02 17:49 | NUR ---
Pt Belongings: All Pt belongings sent home with , including backpack, clothes, laptop/workstation, wallet, and cell phone.
[2021-05-02] MEDS ORDERED: FAMOTIDINE 20 MG/2 ML VIAL IVP SCH (21:00)
[2021-05-02] MEDS: FAMOTIDINE 20 MG TABLET. PO PRN (22:30)
[2021-05-03] VITALS (25 sets, daily range): BP systolic 105–166; BP diastolic 67–84
[2021-05-03] MEDS: ASCORBIC ACID 500 MG TABLET PO SCH ×4 (06:00→23:37)
[2021-05-03] MEDS ORDERED: ELECTROLYTE (ICU) PROTOCOL. MC PRN (07:30)
[2021-05-03 08:20] LABS: BASE EXCESS ABG 0 mmol/L (-3-3); HCO3 ABG 26 mmol/L (21-28); PCO2 ABG 48 mmHg (35-46); PO2 ABG 148 mmHg (85-108); SAT O2 ABG 99 % (92-99)
[2021-05-03] MEDS: LACTOBACILLUS RHAMNOSUS GG 1 CAPSULE. PO SCH ×2 (08:30→21:19)
[2021-05-03] MEDS: CHOLECALCIFEROL (VITAMIN D3) 1,000 UNIT TABLET FT SCH (08:30)
[2021-05-03] MEDS: ZINC SULFATE 220 MG CAPSULE. PO SCH (08:30)
[2021-05-03] MEDS: DEXAMETHASONE SOD PHOS 4 MG/ML VIAL IVP SCH (08:31)
[2021-05-03] MEDS: ENOXAPARIN 40 MG/0.4 ML SYRINGE. SQ SCH ×2 (08:31→21:20)
--- NOTE | 2021-05-03 09:05 | PDOC ---
PULMONARY PROGRESS NOTES DATE: 05/03/21 TIME: 09:04 Subjective Intubated 05/02 Post intubation chest x-ray revealed bilateral pneumothoraces status post bilateral chest tubes No overnight events Currently sedated, vecuronium, 8 of PEEP, 90% FiO2 Vitals Vital Signs Date Time Temp Pulse Resp B/P (MAP) Pulse Ox O2 Delivery O2 Flow Rate FiO2 05/03/21 08:00 99 Ventilator 05/03/21 06:31 40.0 05/03/21 06:00 121 26 115/74 (88) 05/03/21 04:00 98.2 98.2 Comments Visual exam done due to Covid 19. In obvious distress, on BiPAP Labs Laboratory Tests Test 05/01/21 13:15 05/02/21 00:36 05/02/21 10:10 05/02/21 11:30 D-Dimer (Caridad) 2.53 ug/mlFEU (0.00-0.50) O2 Saturation 89 % (92-99) 91 % (92-99) Arterial Blood pH 7.48 (7.35-7.45) 7.29 (7.35-7.45) Arterial Blood pCO2 at Patient Temp 31 mmHg (35-46) 48 mmHg (35-46) Arterial Blood pO2 at Patient Temp 55 mmHg (85-108) 70 mmHg (85-108) Arterial Blood HCO3 23 mmol/L (21-28) 22 mmol/L (21-28) Arterial Blood Base Excess 0 mmol/L (-3-3) -5 mmol/L (-3-3) FiO2 100 100 White Blood Count 9.0 x10^3/uL (4.0-11.0) Red Blood Count 5.02 x10^6/uL (4.30-5.70) Hemoglobin 14.5 g/dL (13.0-17.5) Hematocrit 43.0 % (39.0-53.0) Mean Corpuscular Volume 86 fL (79-100) Mean Corpuscular Hemoglobin 29 pg (25-35) Mean Corpuscular Hemoglobin Concent 34 g/dL (31-37) Red Cell Distribution Width 13.3 % (11.5-14.5) Platelet Count 270 x10^3/uL (140-400) Neutrophils (%) (Auto) 90 % (31-73) Lymphocytes (%) (Auto) 5 % (24-48) Monocytes (%) (Auto) 3 % (0-9) Eosinophils (%) (Auto) 0 % (0-3) Basophils (%) (Auto) 1 % (0-3) Neutrophils # (Auto) 8.1 x10^3/uL (1.8-7.7) Lymphocytes # (Auto) 0.5 x10^3/uL (1.0-4.8) Monocytes # (Auto) 0.3 x10^3/uL (0.0-1.1) Eosinophils # (Auto) 0.0 x10^3/uL (0.0-0.7) Basophils # (Auto) 0.1 x10^3/uL (0.0-0.2) Sodium Level 137 mmol/L (136-145) Potassium Level 4.0 mmol/L (3.5-5.1) Chloride Level 101 mmol/L (98-107) Carbon Dioxide Level 28 mmol/L (21-32) Anion Gap 8 (6-14) Blood Urea Nitrogen 19 mg/dL (8-26) Creatinine 0.9 mg/dL (0.7-1.3) Estimated GFR (Cockcroft-Gault) 95.5 Glucose Level 115 mg/dL (70-99) Calcium Level 8.4 mg/dL (8.5-10.1) Total Bilirubin 1.3 mg/dL (0.2-1.0) Direct Bilirubin 0.9 mg/dL (0.0-0.2) Aspartate Amino Transf (AST/SGOT) 42 U/L (15-37) Alanine Aminotransferase (ALT/SGPT) 111 U/L (16-63) Alkaline Phosphatase 100 U/L (46-116) Total Protein 7.0 g/dL (6.4-8.2) Albumin 2.7 g/dL (3.4-5.0) Laboratory Tests Test 05/02/21 10:10 05/02/21 11:30 O2 Saturation 91 % (92-99) Arterial Blood pH 7.29 (7.35-7.45) Arterial Blood pCO2 at Patient Temp 48 mmHg (35-46) Arterial Blood pO2 at Patient Temp 70 mmHg (85-108) Arterial Blood HCO3 22 mmol/L (21-28) Arterial Blood Base Excess -5 mmol/L (-3-3) FiO2 100 White Blood Count 9.0 x10^3/uL (4.0-11.0) Red Blood Count 5.02 x10^6/uL (4.30-5.70) Hemoglobin 14.5 g/dL (13.0-17.5) Hematocrit 43.0 % (39.0-53.0) Mean Corpuscular Volume 86 fL (79-100) Mean Corpuscular Hemoglobin 29 pg (25-35) Mean Corpuscular Hemoglobin Concent 34 g/dL (31-37) Red Cell Distribution Width 13.3 % (11.5-14.5) Platelet Count 270 x10^3/uL (140-400) Neutrophils (%) (Auto) 90 % (31-73) Lymphocytes (%) (Auto) 5 % (24-48) Monocytes (%) (Auto) 3 % (0-9) Eosinophils (%) (Auto) 0 % (0-3) Basophils (%) (Auto) 1 % (0-3) Neutrophils # (Auto) 8.1 x10^3/uL (1.8-7.7) Lymphocytes # (Auto) 0.5 x10^3/uL (1.0-4.8) Monocytes # (Auto) 0.3 x10^3/uL (0.0-1.1) Eosinophils # (Auto) 0.0 x10^3/uL (0.0-0.7) Basophils # (Auto) 0.1 x10^3/uL (0.0-0.2) Sodium Level 137 mmol/L (136-145) Potassium Level 4.0 mmol/L (3.5-5.1) Chloride Level 101 mmol/L (98-107) Carbon Dioxide Level 28 mmol/L (21-32) Anion Gap 8 (6-14) Blood Urea Nitrogen 19 mg/dL (8-26) Creatinine 0.9 mg/dL (0.7-1.3) Estimated GFR (Cockcroft-Gault) 95.5 Glucose Level 115 mg/dL (70-99) Calcium Level 8.4 mg/dL (8.5-10.1) Total Bilirubin 1.3 mg/dL (0.2-1.0) Direct Bilirubin 0.9 mg/dL (0.0-0.2) Aspartate Amino Transf (AST/SGOT) 42 U/L (15-37) Alanine Aminotransferase (ALT/SGPT) 111 U/L (16-63) Alkaline Phosphatase 100 U/L (46-116) Total Protein 7.0 g/dL (6.4-8.2) Albumin 2.7 g/dL (3.4-5.0) Medications Active Scripts Medications Dose Route/Sig Max Daily Dose Days Date Category Pepcid (Famotidine) 20 Mg Tablet 20 Mg PO BID 04/28/21 Reported Impression . 1. Acute hypoxic respiratory failure secondary to COVID-19 viral pneumonia/ARDS 2. Abnormal CT chest done at [facility] with diffuse bilateral alveolar and interstitial infiltrates related to COVID-19 pneumonia. No evidence of pulmonary embolism. 3. Underlying obesity. 4. Remote history of obstructive sleep apnea. 5. Abnormal liver function tests, likely due to Covid infection. Bilirubin normal. 6. Normal D-dimer. 7. Status post intubation 05/02, status post bilateral pneumothoraces requiring chest tubes 05/02 Plan . Updated 05/03 Chest x-ray reviewed, no significant pneumothorax, some subcutaneous emphysema Currently on 8 of PEEP 90% We will decrease tidal volume to 500 and reduce barotrauma Case discussed with yesterday DVT GI prophylaxis Empiric antibiotics Remdesivir Steroids Updated 05/02 Patient doing poorly, discussed with anesthesia, proceed with intubation Continue remdesivir Steroids DVT GI prophylaxis Zinc, vitamin D, Empiric antibiotics. Cumulative critical care time of 30 minutes, reviewing current documentation, discussing it with anesthesia, formulating a impression and plan. 1. Continue present 100% FiO2 via Vapotherm. In addition nonrebreather mask. He is comfortable. 2. We will transfer him to the ICU today as the bed is available 3. Remdesivir per protocol. 4. Steroids per protocol. 5. DVT prophylaxis. 6. We will follow inflammatory markers. 7. Discussed with RN 8. Follow-up liver function test PANCHITO AMOR MD May 03, 2021 09:05
--- NOTE | 2021-05-03 09:07 | RAD ---
XR CHEST 1V INDICATION: RF COMPARISON STUDY: 05/02/2021. FINDINGS: Life Support Devices: Stable endotracheal tube, enteric tube, right IJ central venous catheter, bilat eral pleural catheter is. Lungs: Normal lung volume. Bilateral perihilar and basilar opacities, slightly improved on the right. Pleura: Improving trace biapical pneumothoraces. Heart and Mediastinum: Stable cardiomediastinal silhouette and great vessels. IMPRESSION: 1. Stable left support devices. 2. Improving trace biapical pneumothoraces. 3. Bilateral perihilar and basilar opacities, slightly improved on the right. Electronically signed by: Anthony Mccoy MD (05/03/2021 9:04 AM) [id number]
[2021-05-03] MEDS: MIDAZOLAM 100mg/100ml NS BAG 100 ML IV PRN ×2 (10:44→20:14)
[2021-05-03] MEDS: VECURONIUM BROMIDE 50 MG in IV NORMAL SALINE 50ML 50 ML IV PRN ×2 (10:44→17:49)
--- NOTE | 2021-05-03 11:15 | PDOC ---
[employer] PROGRESS NOTE Date of Service DOS: DATE: 05/03/21 TIME: 11:13 Chief Complaint Chief Complaint Acute respiratory failure with hypoxia COVID-19 pneumonia GERD Obesity Plan: Continue with with remdesivir day 3 out of 4, steroids, and prophylactic antibiotics Appreciate pulmonology management for Vapotherm therapy Monitor daily LFTs Hemoglobin A1c pending We will initiate insulin treatment when blood glucose become significantly elevated Daily PPI and famotidine as needed FEN - ADA diet PPX - Lovenox FULL CODE Dispo - inpatient for above History of Present Illness History of Present Illness 05/03/2021 Patient seen and examined in the [place] [address] ICU He remains mechanically ventilated AC//600/1 100% with 10 of PEEP Has 2 pigtail drains in his left and right chest due to some small pneumothoraces after being intubated Had to be sedated with vecuronium Also on Versed and fentanyl also has inverse I to E ratio 2:1 Chart reviewed Discussed with RN He remains extremely critically ill I am concerned he may not survive this? 05/02/2021 Patient seen and examined in the [place] [address] ICU He is on BiPAP with 100% FiO2 and very tachypneic Discussed with RN we are going to go ahead and intubate here in a few minutes Chart reviewed Patient currently semisedated with Versed Precedex and fentanyl He is very critically Patient 35-year-old male with past medical history of GERD, obesity, who presents to the ED as a transfer from [facility] for COVID-19 pneumonia with worsening respiratory distress. States his symptoms started roughly 1 week ago with fatigue and body aches, which progressed to include fever and shortness of breath. Symptoms were worse with exertion with no significant alleviating factors. He was tested for COVID-19 at [facility] and was discharged home because he was not hypoxic on room air. When he returned to [facility] with worsening symptoms a CT chest demonstrated bibasilar infiltrates consistent with atypical pneumonia. He was then admitted and placed on 3 L nasal cannula for further treatment. He has not been vaccinated against COVID- 19. However due to worsening respiratory distress he was transferred to [facility] for higher level of care. 04/29/2021: Still breathing 40 L Vapotherm. Afebrile, but complaining of chest h eaviness, nausea, and subjective shortness of breath. Denies any vomiting, or diarrhea. Informed patient of likely prolonged hospitalization course. Hemoglobin A1c 5.6. Continue remdesivir day 2/5, continue steroids, antibiotics, and supportive care. Continue to follow daily LFTs. Plan to transfer patient to ICU bed when available. Critical care time 33 minutes spent reviewing charts, reviewing labs, and discussing case with Dr. Gaviria. 04/30/21: Afebrile, still breathing on Vapotherm. Continue remdesivir and monitor LFTs. Continue antibiotics, steroids, and supportive care. Will transfer him to the ICU once bed available. Critical care time 30 minutes spent in chart, reviewing labs, reviewing imaging, and discussion with RN. 05/01/2021 No acute events overnight. Patient seen and examined bedside. Saturating 93% on 40 L Vapotherm. Patient will transfer to the ICU for continued supportive care. Vitals/I&O Vitals/I&O: Vital Signs Date Time Temp Pulse Resp B/P (MAP) Pulse Ox O2 Delivery O2 Flow Rate FiO2 05/03/21 10:00 114 26 117/69 (85) 96 Ventilator 05/03/21 08:00 98.8 98.8 05/03/21 06:31 40.0 I & O 05/02/21 05/02/21 05/03/21 15:00 23:00 07:00 Intake Total 480 ml 456 ml 641.0 ml Output Total 450 ml 375 ml 425 ml Balance 30 ml 81 ml 216.0 ml Physical Exam General: severe distress, Other (Sedated on the vent) Heart: Other (Tachycardic) Lungs: Crackles Abdomen: Soft, No tenderness Extremities: No clubbing, No cyanosis Skin: No rashes, No breakdown Labs Labs: Laboratory Tests Test 05/02/21 11:30 05/03/21 08:00 05/03/21 08:45 White Blood Count 9.0 x10^3/uL (4.0-11.0) Red Blood Count 5.02 x10^6/uL (4.30-5.70) Hemoglobin 14.5 g/dL (13.0-17.5) Hematocrit 43.0 % (39.0-53.0) Mean Corpuscular Volume 86 fL (79-100) Mean Corpuscular Hemoglobin 29 pg (25-35) Mean Corpuscular Hemoglobin Concent 34 g/dL (31-37) Red Cell Distribution Width 13.3 % (11.5-14.5) Platelet Count 270 x10^3/uL (140-400) Neutrophils (%) (Auto) 90 % (31-73) Lymphocytes (%) (Auto) 5 % (24-48) Monocytes (%) (Auto) 3 % (0-9) Eosinophils (%) (Auto) 0 % (0-3) Basophils (%) (Auto) 1 % (0-3) Neutrophils # (Auto) 8.1 x10^3/uL (1.8-7.7) Lymphocytes # (Auto) 0.5 x10^3/uL (1.0-4.8) Monocytes # (Auto) 0.3 x10^3/uL (0.0-1.1) Eosinophils # (Auto) 0.0 x10^3/uL (0.0-0.7) Basophils # (Auto) 0.1 x10^3/uL (0.0-0.2) Sodium Level 137 mmol/L (136-145) Potassium Level 4.0 mmol/L (3.5-5.1) Chloride Level 101 mmol/L (98-107) Carbon Dioxide Level 28 mmol/L (21-32) Anion Gap 8 (6-14) Blood Urea Nitrogen 19 mg/dL (8-26) Creatinine 0.9 mg/dL (0.7-1.3) Estimated GFR (Cockcroft-Gault) 95.5 Glucose Level 115 mg/dL (70-99) Calcium Level 8.4 mg/dL (8.5-10.1) Total Bilirubin 1.3 mg/dL (0.2-1.0) Direct Bilirubin 0.9 mg/dL (0.0-0.2) Aspartate Amino Transf (AST/SGOT) 42 U/L (15-37) Alanine Aminotransferase (ALT/SGPT) 111 U/L (16-63) Alkaline Phosphatase 100 U/L (46-116) Total Protein 7.0 g/dL (6.4-8.2) Albumin 2.7 g/dL (3.4-5.0) O2 Saturation 99 % (92-99) Arterial Blood pH 7.35 (7.35-7.45) Arterial Blood pCO2 at Patient Temp 48 mmHg (35-46) Arterial Blood pO2 at Patient Temp 148 mmHg (85-108) Arterial Blood HCO3 26 mmol/L (21-28) Arterial Blood Base Excess 0 mmol/L (-3-3) FiO2 100/vent D-Dimer (Caridad) > 20.00 ug/mlFEU Assessment and Plan Assessmemt and Plan Acute respiratory failure with hypoxia COVID-19 pneumonia GERD Obesity Plan: ICU monitoring Vent weaning Home meds Covid protocol Remdesivir is completed I discussed his meds with the pharmacy Antibiotics Steroids Trend labs DVT prophylaxis Full code Appreciate subspecialist input Prognosis extremely guarded at best I am concerned he may not survive this? CC time 32-minute Comment Review of Relevant I have reviewed the following items anselmo (where applicable) has been applied. Medications: Current Medications Medications (Trade) Dose Ordered Sig/Bartolo Route PRN Reason Start Time Stop Time Status Last Admin Dose Admin Vitamin D (Vitamin D3) 5,000 unit DAILY FT 05/03/21 09:00 05/03/21 08:30 Justifications for Admission Other Justification JONO HERNDON III DO May 03, 2021 11:14
[2021-05-03] MEDS: FAMOTIDINE 20 MG/2 ML VIAL IVP SCH ×2 (12:26→21:19)
[2021-05-03 12:48] LABS: BASO % 1 % (0-3); EOS % 0 % (0-3); HEMATOCRIT 38.8 % (39.0-53.0); LYMPH # 0.1 x10^3/uL (1.0-4.8); LYMPH % 2 % (24-48); MEAN CORPUSCULAR HEMOGLOBIN 29 pg (25-35); MEAN CORPUSCULAR HGB CONC 33 g/dL (31-37); MEAN CORPUSCULAR VOLUME 87 fL (79-100); MONO # 0.2 x10^3/uL (0.0-1.1); MONO % 4 % (0-9); NEUT # 4.5 x10^3/uL (1.8-7.7); NEUT % 93 % (31-73); PLATELET COUNT 150 x10^3/uL (140-400); RED BLOOD COUNT 4.48 x10^6/uL (4.30-5.70); RED CELL DISTRIBUTION WIDTH 13.9 % (11.5-14.5); WHITE BLOOD COUNT 4.8 x10^3/uL (4.0-11.0)
[2021-05-03 13:08] LABS: ALBUMIN 2.1 g/dL (3.4-5.0); CALCIUM 8.6 mg/dL (8.5-10.1); CREATININE 0.7 mg/dL (0.7-1.3); DIRECT BILIRUBIN 0.4 mg/dL (0.0-0.2); GFR 127.6; POTASSIUM 4.9 mmol/L (3.5-5.1); TOTAL BILIRUBIN 0.6 mg/dL (0.2-1.0); TOTAL PROTEIN 6.4 g/dL (6.4-8.2)
[2021-05-03] MEDS: cefTRIAXone IV Push 2 GM VIAL. IVP SCH (14:36)
--- NOTE | 2021-05-03 16:33 | NUR ---
SS following up with discharge planning. SS reviewed pt chart and discussed with pt RN. Pt is vent at 90%. Pt has two chest tubes in place. COVID19 positive. Pt on Fentanyl, Vec, Versed, and Levophed. Pt on IV Rocephin. Not stable. SS will continue to follow for discharge planning.
--- NOTE | 2021-05-03 18:18 | NUR ---
Pt turned to left side and O2 sats dropped to 81%. Pt returned to his back and head elevated, O2 sats 84%. Peep increased to 10 and Fio2 to 100%. Sats are now up to 91%
[2021-05-03] MEDS: PROPOFOL 100 ML IV PRN (21:22)
[2021-05-04] VITALS (22 sets, daily range): BP systolic 120–154; BP diastolic 63–86
[2021-05-04] MEDS: PROPOFOL 100 ML IV PRN ×5 (03:36→21:35)
[2021-05-04] MEDS: VECURONIUM BROMIDE 50 MG in IV NORMAL SALINE 50ML 50 ML IV PRN (03:39)
[2021-05-04] MEDS: ASCORBIC ACID 500 MG TABLET PO SCH ×3 (06:24→16:08)
[2021-05-04 06:35] LABS: BASO % 0 % (0-3); EOS % 0 % (0-3); HEMOGLOBIN 12.3 g/dL (13.0-17.5); LYMPH # 0.1 x10^3/uL (1.0-4.8); LYMPH % 3 % (24-48); MEAN CORPUSCULAR HEMOGLOBIN 29 pg (25-35); MEAN CORPUSCULAR HGB CONC 33 g/dL (31-37); MEAN CORPUSCULAR VOLUME 87 fL (79-100); MONO # 0.3 x10^3/uL (0.0-1.1); MONO % 7 % (0-9); NEUT # 3.9 x10^3/uL (1.8-7.7); NEUT % 90 % (31-73); PLATELET COUNT 152 x10^3/uL (140-400); RED BLOOD COUNT 4.24 x10^6/uL (4.30-5.70); RED CELL DISTRIBUTION WIDTH 13.6 % (11.5-14.5); WHITE BLOOD COUNT 4.4 x10^3/uL (4.0-11.0)
[2021-05-04 06:39] LABS: BLOOD UREA NITROGEN 21 mg/dL (8-26); CALCIUM 8.5 mg/dL (8.5-10.1); CARBON DIOXIDE 37 mmol/L (21-32); CHLORIDE 104 mmol/L (98-107); CREATININE 0.6 mg/dL (0.7-1.3); GFR 152.4; GLUCOSE 138 mg/dL (70-99); POTASSIUM 5.1 mmol/L (3.5-5.1); SODIUM 139 mmol/L (136-145)
--- NOTE | 2021-05-04 07:43 | RAD ---
XR CHEST 1V INDICATION: RF 114. COMPARISON STUDY: 05/03/2021. FINDINGS: Life Support Devices: Stable endotracheal tube, enteric tube, right IJ central venous catheter, bilat eral pleural catheters. Lungs: Normal lung volume. Stable bilateral perihilar and basilar opacities. Pleura: Right pneumothorax not seen, stable trace left apical pneumothorax. Heart and Mediastinum: Stable cardiomediastinal silhouette and great vessels. Pneumomediastinum. IMPRESSION: 1. Stable life support devices. 2. Right pneumothorax not seen, stable trace left apical pneumothorax 3. Stable bilateral perihilar and basilar opacities. Electronically signed by: Anthony Mccoy MD (05/04/2021 7:41 AM) [id number]
[2021-05-04 08:16] LABS: BASE EXCESS ABG 0 mmol/L (-3-3); HCO3 ABG 28 mmol/L (21-28); PCO2 ABG 59 mmHg (35-46); PO2 ABG 71 mmHg (85-108); SAT O2 ABG 94 % (92-99)
[2021-05-04 08:35] LABS: FIO2 ABG 100/VENT
[2021-05-04] MEDS: CHOLECALCIFEROL (VITAMIN D3) 1,000 UNIT TABLET FT SCH (08:56)
[2021-05-04] MEDS: ZINC SULFATE 220 MG CAPSULE. PO SCH (08:56)
[2021-05-04] MEDS: FAMOTIDINE 20 MG/2 ML VIAL IVP SCH ×2 (08:56→21:30)
[2021-05-04] MEDS: DEXAMETHASONE SOD PHOS 4 MG/ML VIAL IVP SCH (08:56)
[2021-05-04] MEDS: ENOXAPARIN 40 MG/0.4 ML SYRINGE. SQ SCH ×2 (08:57→21:31)
[2021-05-04] MEDS: LACTOBACILLUS RHAMNOSUS GG 1 CAPSULE. PO SCH ×2 (08:57→21:31)
--- NOTE | 2021-05-04 10:31 | PDOC ---
PULMONARY PROGRESS NOTES DATE: 05/04/21 TIME: 10:28 Subjective No overnight events Intubated 05/02 Bilateral chest tubes in place Patient sedated, paralyzed, with back and oriented Vitals Vital Signs Date Time Temp Pulse Resp B/P (MAP) Pulse Ox O2 Delivery O2 Flow Rate FiO2 05/04/21 07:27 95 Ventilator 05/04/21 06:00 90 26 146/73 (97) 05/04/21 04:09 40.0 05/04/21 04:00 97.4 97.4 Comments On visual inspection, patient intubated, and in a medically induced coma Chest tube bilaterally, small amount of subcutaneous emphysema, Labs Laboratory Tests Test 05/02/21 11:30 05/03/21 08:00 05/03/21 08:45 05/03/21 12:35 White Blood Count 9.0 x10^3/uL (4.0-11.0) 4.8 x10^3/uL (4.0-11.0) Red Blood Count 5.02 x10^6/uL (4.30-5.70) 4.48 x10^6/uL (4.30-5.70) Hemoglobin 14.5 g/dL (13.0-17.5) 13.0 g/dL (13.0-17.5) Hematocrit 43.0 % (39.0-53.0) 38.8 % (39.0-53.0) Mean Corpuscular Volume 86 fL (79-100) 87 fL (79-100) Mean Corpuscular Hemoglobin 29 pg (25-35) 29 pg (25-35) Mean Corpuscular Hemoglobin Concent 34 g/dL (31-37) 33 g/dL (31-37) Red Cell Distribution Width 13.3 % (11.5-14.5) 13.9 % (11.5-14.5) Platelet Count 270 x10^3/uL (140-400) 150 x10^3/uL (140-400) Neutrophils (%) (Auto) 90 % (31-73) 93 % (31-73) Lymphocytes (%) (Auto) 5 % (24-48) 2 % (24-48) Monocytes (%) (Auto) 3 % (0-9) 4 % (0-9) Eosinophils (%) (Auto) 0 % (0-3) 0 % (0-3) Basophils (%) (Auto) 1 % (0-3) 1 % (0-3) Neutrophils # (Auto) 8.1 x10^3/uL (1.8-7.7) 4.5 x10^3/uL (1.8-7.7) Lymphocytes # (Auto) 0.5 x10^3/uL (1.0-4.8) 0.1 x10^3/uL (1.0-4.8) Monocytes # (Auto) 0.3 x10^3/uL (0.0-1.1) 0.2 x10^3/uL (0.0-1.1) Eosinophils # (Auto) 0.0 x10^3/uL (0.0-0.7) 0.0 x10^3/uL (0.0-0.7) Basophils # (Auto) 0.1 x10^3/uL (0.0-0.2) 0.0 x10^3/uL (0.0-0.2) Sodium Level 137 mmol/L (136-145) 137 mmol/L (136-145) Potassium Level 4.0 mmol/L (3.5-5.1) 4.9 mmol/L (3.5-5.1) Chloride Level 101 mmol/L (98-107) 103 mmol/L (98-107) Carbon Dioxide Level 28 mmol/L (21-32) 32 mmol/L (21-32) Anion Gap 8 (6-14) 2 (6-14) Blood Urea Nitrogen 19 mg/dL (8-26) 22 mg/dL (8-26) Creatinine 0.9 mg/dL (0.7-1.3) 0.7 mg/dL (0.7-1.3) Estimated GFR (Cockcroft-Gault) 95.5 127.6 Glucose Level 115 mg/dL (70-99) 142 mg/dL (70-99) Calcium Level 8.4 mg/dL (8.5-10.1) 8.6 mg/dL (8.5-10.1) Total Bilirubin 1.3 mg/dL (0.2-1.0) 0.6 mg/dL (0.2-1.0) Direct Bilirubin 0.9 mg/dL (0.0-0.2) 0.4 mg/dL (0.0-0.2) Aspartate Amino Transf (AST/SGOT) 42 U/L (15-37) 32 U/L (15-37) Alanine Aminotransferase (ALT/SGPT) 111 U/L (16-63) 89 U/L (16-63) Alkaline Phosphatase 100 U/L (46-116) 75 U/L (46-116) Total Protein 7.0 g/dL (6.4-8.2) 6.4 g/dL (6.4-8.2) Albumin 2.7 g/dL (3.4-5.0) 2.1 g/dL (3.4-5.0) O2 Saturation 99 % (92-99) Arterial Blood pH 7.35 (7.35-7.45) Arterial Blood pCO2 at Patient Temp 48 mmHg (35-46) Arterial Blood pO2 at Patient Temp 148 mmHg (85-108) Arterial Blood HCO3 26 mmol/L (21-28) Arterial Blood Base Excess 0 mmol/L (-3-3) FiO2 100/vent D-Dimer (Caridad) > 20.00 ug/mlFEU Test 05/04/21 05:55 05/04/21 08:00 White Blood Count 4.4 x10^3/uL (4.0-11.0) Red Blood Count 4.24 x10^6/uL (4.30-5.70) Hemoglobin 12.3 g/dL (13.0-17.5) Hematocrit 37.0 % (39.0-53.0) Mean Corpuscular Volume 87 fL (79-100) Mean Corpuscular Hemoglobin 29 pg (25-35) Mean Corpuscular Hemoglobin Concent 33 g/dL (31-37) Red Cell Distribution Width 13.6 % (11.5-14.5) Platelet Count 152 x10^3/uL (140-400) Neutrophils (%) (Auto) 90 % (31-73) Lymphocytes (%) (Auto) 3 % (24-48) Monocytes (%) (Auto) 7 % (0-9) Eosinophils (%) (Auto) 0 % (0-3) Basophils (%) (Auto) 0 % (0-3) Neutrophils # (Auto) 3.9 x10^3/uL (1.8-7.7) Lymphocytes # (Auto) 0.1 x10^3/uL (1.0-4.8) Monocytes # (Auto) 0.3 x10^3/uL (0.0-1.1) Eosinophils # (Auto) 0.0 x10^3/uL (0.0-0.7) Basophils # (Auto) 0.0 x10^3/uL (0.0-0.2) Sodium Level 139 mmol/L (136-145) Potassium Level 5.1 mmol/L (3.5-5.1) Chloride Level 104 mmol/L (98-107) Carbon Dioxide Level 37 mmol/L (21-32) Anion Gap (6-14) Blood Urea Nitrogen 21 mg/dL (8-26) Creatinine 0.6 mg/dL (0.7-1.3) Estimated GFR (Cockcroft-Gault) 152.4 Glucose Level 138 mg/dL (70-99) Calcium Level 8.5 mg/dL (8.5-10.1) O2 Saturation 94 % (92-99) Arterial Blood pH 7.29 (7.35-7.45) Arterial Blood pCO2 at Patient Temp 59 mmHg (35-46) Arterial Blood pO2 at Patient Temp 71 mmHg (85-108) Arterial Blood HCO3 28 mmol/L (21-28) Arterial Blood Base Excess 0 mmol/L (-3-3) FiO2 100/vent Laboratory Tests Test 05/03/21 12:35 05/04/21 05:55 05/04/21 08:00 White Blood Count 4.8 x10^3/uL (4.0-11.0) 4.4 x10^3/uL (4.0-11.0) Red Blood Count 4.48 x10^6/uL (4.30-5.70) 4.24 x10^6/uL (4.30-5.70) Hemoglobin 13.0 g/dL (13.0-17.5) 12.3 g/dL (13.0-17.5) Hematocrit 38.8 % (39.0-53.0) 37.0 % (39.0-53.0) Mean Corpuscular Volume 87 fL (79-100) 87 fL (79-100) Mean Corpuscular Hemoglobin 29 pg (25-35) 29 pg (25-35) Mean Corpuscular Hemoglobin Concent 33 g/dL (31-37) 33 g/dL (31-37) Red Cell Distribution Width 13.9 % (11.5-14.5) 13.6 % (11.5-14.5) Platelet Count 150 x10^3/uL (140-400) 152 x10^3/uL (140-400) Neutrophils (%) (Auto) 93 % (31-73) 90 % (31-73) Lymphocytes (%) (Auto) 2 % (24-48) 3 % (24-48) Monocytes (%) (Auto) 4 % (0-9) 7 % (0-9) Eosinophils (%) (Auto) 0 % (0-3) 0 % (0-3) Basophils (%) (Auto) 1 % (0-3) 0 % (0-3) Neutrophils # (Auto) 4.5 x10^3/uL (1.8-7.7) 3.9 x10^3/uL (1.8-7.7) Lymphocytes # (Auto) 0.1 x10^3/uL (1.0-4.8) 0.1 x10^3/uL (1.0-4.8) Monocytes # (Auto) 0.2 x10^3/uL (0.0-1.1) 0.3 x10^3/uL (0.0-1.1) Eosinophils # (Auto) 0.0 x10^3/uL (0.0-0.7) 0.0 x10^3/uL (0.0-0.7) Basophils # (Auto) 0.0 x10^3/uL (0.0-0.2) 0.0 x10^3/uL (0.0-0.2) Sodium Level 137 mmol/L (136-145) 139 mmol/L (136-145) Potassium Level 4.9 mmol/L (3.5-5.1) 5.1 mmol/L (3.5-5.1) Chloride Level 103 mmol/L (98-107) 104 mmol/L (98-107) Carbon Dioxide Level 32 mmol/L (21-32) 37 mmol/L (21-32) Anion Gap 2 (6-14) (6-14) Blood Urea Nitrogen 22 mg/dL (8-26) 21 mg/dL (8-26) Creatinine 0.7 mg/dL (0.7-1.3) 0.6 mg/dL (0.7-1.3) Estimated GFR (Cockcroft-Gault) 127.6 152.4 Glucose Level 142 mg/dL (70-99) 138 mg/dL (70-99) Calcium Level 8.6 mg/dL (8.5-10.1) 8.5 mg/dL (8.5-10.1) Total Bilirubin 0.6 mg/dL (0.2-1.0) Direct Bilirubin 0.4 mg/dL (0.0-0.2) Aspartate Amino Transf (AST/SGOT) 32 U/L (15-37) Alanine Aminotransferase (ALT/SGPT) 89 U/L (16-63) Alkaline Phosphatase 75 U/L (46-116) Total Protein 6.4 g/dL (6.4-8.2) Albumin 2.1 g/dL (3.4-5.0) O2 Saturation 94 % (92-99) Arterial Blood pH 7.29 (7.35-7.45) Arterial Blood pCO2 at Patient Temp 59 mmHg (35-46) Arterial Blood pO2 at Patient Temp 71 mmHg (85-108) Arterial Blood HCO3 28 mmol/L (21-28) Arterial Blood Base Excess 0 mmol/L (-3-3) FiO2 100/vent Medications Active Scripts Medications Dose Route/Sig Max Daily Dose Days Date Category Pepcid (Famotidine) 20 Mg Tablet 20 Mg PO BID 04/28/21 Reported Impression . 1. Acute hypoxic respiratory failure secondary to COVID-19 viral pneumonia/ARDS 2. Abnormal CT chest done at [facility] with diffuse bilateral alveolar and interstitial infiltrates related to COVID-19 pneumonia. No evidence of pulmonary embolism. 3. Underlying obesity. 4. Remote history of obstructive sleep apnea. 5. Abnormal liver function tests, likely due to Covid infection. Bilirubin normal. 6. Normal D-dimer. 7. Status post intubation 05/02, status post bilateral pneumothoraces requiring chest tubes 05/02 Chest x-ray reviewed, improved subcutaneous emphysema, persistent pneumothoraces Plan . Updated 05/04 Air leak on right chest tube no air leak on the left Chest x-ray reviewed improved Continue current support, assist control ventilation, decreased tidal volume yesterday to 500 DVT GI prophylaxis Empiric antibiotics Steroids Status post remdesivir ABG noted, permissive hypercapnia, PaO2 71 Updated 05/03 Chest x-ray reviewed, no significant pneumothorax, some subcutaneous emphysema Currently on 8 of PEEP 90% We will decrease tidal volume to 500 and reduce barotrauma Case discussed with yesterday DVT GI prophylaxis Empiric antibiotics Remdesivir Steroids PANCHITO AMOR MD May 04, 2021 10:31
--- NOTE | 2021-05-04 12:04 | PDOC ---
[employer] PROGRESS NOTE Date of Service DOS: DATE: 05/04/21 TIME: 12:02 Chief Complaint Chief Complaint Acute respiratory failure with hypoxia COVID-19 pneumonia GERD Obesity Plan: Continue with with remdesivir day 3 out of 4, steroids, and prophylactic antibiotics Appreciate pulmonology management for Vapotherm therapy Monitor daily LFTs Hemoglobin A1c pending We will initiate insulin treatment when blood glucose become significantly elevated Daily PPI and famotidine as needed FEN - ADA diet PPX - Lovenox FULL CODE Dispo - inpatient for above History of Present Illness History of Present Illness 05/04/2021 Patient seen and examined in the [place] [address] ICU He remains mechanically ventilated Assist-control/26/500/1 100% with 10 of PEEP He is extremely critically ill He is sedated with Versed and fentanyl He is also paralyzed with vecuronium Reviewed chart Discussed with RN 05/03/2021 Patient seen and examined in the [place] [address] ICU He remains mechanically ventilated AC/26/600/1 100% with 10 of PEEP Has 2 pigtail drains in his left and right chest due to some small pneumothoraces after being intubated Had to be sedated with vecuronium Also on Versed and fentanyl also has inverse I to E ratio 2:1 Chart reviewed Discussed with RN He remains extremely critically ill I am concerned he may not survive this? 05/02/2021 Patient seen and examined in the [place] [address] ICU He is on BiPAP with 100% FiO2 and very tachypneic Discussed with RN we are going to go ahead and intubate here in a few minutes Chart reviewed Patient currently semisedated with Versed Precedex and fentanyl He is very critically Patient 35-year-old male with past medical history of GERD, obesity, who presents to the ED as a transfer from [facility] for COVID-19 pneumonia with worsening respiratory distress. States his symptoms started roughly 1 week ago with fatigue and body aches, which progressed to include fever and shortness of breath. Symptoms were worse with exertion with no significant alleviating factors. He was tested for COVID-[address] [facility] and was discharged home because he was not hypoxic on room air. When he returned to [facility] with worsening symptoms a CT chest demonstrated bibasilar infiltrates consistent with atypical pneumonia. He was then admitted and placed on 3 L nasa l cannula for further treatment. He has not been vaccinated against COVID-19. However due to worsening respiratory distress he was transferred to [facility] for higher level of care. 04/29/2021: Still breathing 40 L Vapotherm. Afebrile, but complaining of chest heaviness, nausea, and subjective shortness of breath. Denies any vomiting, or diarrhea. Informed patient of likely prolonged hospitalization course. Hemoglobin A1c 5.6. Continue remdesivir day 2/5, continue steroids, antibiotics , and supportive care. Continue to follow daily LFTs. Plan to transfer patient to ICU bed when available. Critical care time 33 minutes spent reviewing charts, reviewing labs, and discussing case with Dr. Gaviria. 04/30/21: Afebrile, still breathing on Vapotherm. Continue remdesivir and monitor LFTs. Continue antibiotics, steroids, and supportive care. Will transfer him to the ICU once bed available. Critical care time 30 minutes spent in chart, reviewing labs, reviewing imaging, and discussion with RN. 05/01/2021 No acute events overnight. Patient seen and examined bedside. Saturating 93% on 40 L Vapotherm. Patient will transfer to the ICU for continued supportive care. Vitals/I&O Vitals/I&O: Vital Signs Date Time Temp Pulse Resp B/P (MAP) Pulse Ox O2 Delivery O2 Flow Rate FiO2 05/04/21 11:02 95 Ventilator 05/04/21 06:00 90 26 146/73 (97) 05/04/21 04:09 40.0 05/04/21 04:00 97.4 97.4 I & O 05/03/21 05/03/21 05/04/21 15:00 23:00 07:00 Intake Total 200 ml 1291 ml 992.3 ml Output Total 360 ml 900 ml 350 ml Balance -160 ml 391 ml 642.3 ml Physical Exam General: severe distress, Other (Sedated on the vent) Heart: Other (Tachycardic) Abdomen: Soft, No tenderness Extremities: No clubbing, No cyanosis Skin: No rashes, No breakdown Labs Labs: Laboratory Tests Test 05/03/21 12:35 05/04/21 05:55 05/04/21 08:00 White Blood Count 4.8 x10^3/uL (4.0-11.0) 4.4 x10^3/uL (4.0-11.0) Red Blood Count 4.48 x10^6/uL (4.30-5.70) 4.24 x10^6/uL (4.30-5.70) Hemoglobin 13.0 g/dL (13.0-17.5) 12.3 g/dL (13.0-17.5) Hematocrit 38.8 % (39.0-53.0) 37.0 % (39.0-53.0) Mean Corpuscular Volume 87 fL (79-100) 87 fL (79-100) Mean Corpuscular Hemoglobin 29 pg (25-35) 29 pg (25-35) Mean Corpuscular Hemoglobin Concent 33 g/dL (31-37) 33 g/dL (31-37) Red Cell Distribution Width 13.9 % (11.5-14.5) 13.6 % (11.5-14.5) Platelet Count 150 x10^3/uL (140-400) 152 x10^3/uL (140-400) Neutrophils (%) (Auto) 93 % (31-73) 90 % (31-73) Lymphocytes (%) (Auto) 2 % (24-48) 3 % (24-48) Monocytes (%) (Auto) 4 % (0-9) 7 % (0-9) Eosinophils (%) (Auto) 0 % (0-3) 0 % (0-3) Basophils (%) (Auto) 1 % (0-3) 0 % (0-3) Neutrophils # (Auto) 4.5 x10^3/uL (1.8-7.7) 3.9 x10^3/uL (1.8-7.7) Lymphocytes # (Auto) 0.1 x10^3/uL (1.0-4.8) 0.1 x10^3/uL (1.0-4.8) Monocytes # (Auto) 0.2 x10^3/uL (0.0-1.1) 0.3 x10^3/uL (0.0-1.1) Eosinophils # (Auto) 0.0 x10^3/uL (0.0-0.7) 0.0 x10^3/uL (0.0-0.7) Basophils # (Auto) 0.0 x10^3/uL (0.0-0.2) 0.0 x10^3/uL (0.0-0.2) Sodium Level 137 mmol/L (136-145) 139 mmol/L (136-145) Potassium Level 4.9 mmol/L (3.5-5.1) 5.1 mmol/L (3.5-5.1) Chloride Level 103 mmol/L (98-107) 104 mmol/L (98-107) Carbon Dioxide Level 32 mmol/L (21-32) 37 mmol/L (21-32) Anion Gap 2 (6-14) (6-14) Blood Urea Nitrogen 22 mg/dL (8-26) 21 mg/dL (8-26) Creatinine 0.7 mg/dL (0.7-1.3) 0.6 mg/dL (0.7-1.3) Estimated GFR (Cockcroft-Gault) 127.6 152.4 Glucose Level 142 mg/dL (70-99) 138 mg/dL (70-99) Calcium Level 8.6 mg/dL (8.5-10.1) 8.5 mg/dL (8.5-10.1) Total Bilirubin 0.6 mg/dL (0.2-1.0) Direct Bilirubin 0.4 mg/dL (0.0-0.2) Aspartate Amino Transf (AST/SGOT) 32 U/L (15-37) Alanine Aminotransferase (ALT/SGPT) 89 U/L (16-63) Alkaline Phosphatase 75 U/L (46-116) Total Protein 6.4 g/dL (6.4-8.2) Albumin 2.1 g/dL (3.4-5.0) O2 Saturation 94 % (92-99) Arterial Blood pH 7.29 (7.35-7.45) Arterial Blood pCO2 at Patient Temp 59 mmHg (35-46) Arterial Blood pO2 at Patient Temp 71 mmHg (85-108) Arterial Blood HCO3 28 mmol/L (21-28) Arterial Blood Base Excess 0 mmol/L (-3-3) FiO2 100/vent Assessment and Plan Assessmemt and Plan Acute respiratory failure with hypoxia COVID-19 pneumonia GERD Obesity Plan: ICU monitoring Trying to titrate down the FiO2 Vent weaning when possible Vecuronium IV as needed Home meds Covid protocol Remdesivir is completed Antibiotics Steroids Trend labs DVT prophylaxis Full code Appreciate subspecialist input Prognosis extremely guarded at best I am concerned he may not survive this? CC time 33-minute Comment Review of Relevant I have reviewed the following items anselmo (where applicable) has been applied. Justifications for Admission Other Justification JONO HERNDON III DO May 04, 2021 12:04
[2021-05-04] MEDS: MIDAZOLAM 100mg/100ml NS BAG 100 ML IV PRN (13:14)
[2021-05-04] MEDS: cefTRIAXone IV Push 2 GM VIAL. IVP SCH (13:19)
--- NOTE | 2021-05-04 14:57 | NUR ---
SS following up with discharge planning. SS reviewed pt chart and discussed with pt RN. Pt is currently on the vent at 100%. Pt has two chest tubes in place. COVID19 positive. Pt on Fentanyl, Vec, Versed, and Propofol. Pt on IV Rocephin. Not stable. SS will continue to follow for discharge planning.
[2021-05-05] VITALS (25 sets, daily range): BP systolic 106–191; BP diastolic 54–108
[2021-05-05] MEDS: ASCORBIC ACID 500 MG TABLET PO SCH ×5 (00:41→23:40)
[2021-05-05] MEDS: PROPOFOL 100 ML IV PRN ×5 (04:33→23:41)
[2021-05-05] MEDS: VECURONIUM BROMIDE 50 MG in IV NORMAL SALINE 50ML 50 ML IV PRN ×3 (05:44→20:11)
[2021-05-05] MEDS: MIDAZOLAM 100mg/100ml NS BAG 100 ML IV PRN ×2 (06:06→20:10)
--- NOTE | 2021-05-05 07:05 | RAD ---
EXAM: CHEST 1 VIEW History: Respiratory failure COMPARISON: 05/04/2021 TECHNIQUE: Single portable radiograph of the chest FINDINGS: The cardiac silhouette is unremarkable. The ET tube, feeding tube, right internal jugular line unchanged. Bilateral pleural catheters unchanged. There are patchy airspace opacities identified in the bilateral lungs similar to prior exam. Trace right apical pneumothorax identified. IMPRESSION: 1.Patchy airspace opacities identified in the bilateral lungs similar to prior exam. 2. Trace right apical pneumothorax identified Electronically signed by: Jaspal Trivedi MD (05/05/2021 7:03 AM) [id number]
[2021-05-05 08:24] LABS: BASE EXCESS ABG 8 mmol/L (-3-3); HCO3 ABG 35 mmol/L (21-28); PCO2 ABG 59 mmHg (35-46); PO2 ABG 104 mmHg (85-108); SAT O2 ABG 98 % (92-99)
[2021-05-05 08:26] LABS: FIO2 ABG 100
[2021-05-05] MEDS: ZINC SULFATE 220 MG CAPSULE. PO SCH (09:06)
[2021-05-05] MEDS: FAMOTIDINE 20 MG/2 ML VIAL IVP SCH ×2 (09:07→20:18)
[2021-05-05] MEDS: CHOLECALCIFEROL (VITAMIN D3) 1,000 UNIT TABLET FT SCH (09:07)
[2021-05-05] MEDS: DEXAMETHASONE SOD PHOS 4 MG/ML VIAL IVP SCH (09:07)
[2021-05-05] MEDS: FAMOTIDINE 20 MG TABLET. PO PRN (09:07)
[2021-05-05] MEDS: LACTOBACILLUS RHAMNOSUS GG 1 CAPSULE. PO SCH ×2 (09:07→20:18)
--- NOTE | 2021-05-05 09:09 | PDOC ---
PULMONARY PROGRESS NOTES DATE: 05/05/21 TIME: 09:09 Subjective No overnight events Intubated 05/02 Bilateral chest tubes in place, air leak on the right side no air leak on the left Vitals Vital Signs Date Time Temp Pulse Resp B/P (MAP) Pulse Ox O2 Delivery O2 Flow Rate FiO2 05/05/21 07:52 99 Ventilator 05/05/21 06:00 90 26 110/72 (85) 05/05/21 04:00 97.8 97.8 05/05/21 01:13 40.0 Comments On visual inspection, patient intubated, and in a medically induced coma Chest tube bilaterally, small amount of subcutaneous emphysema, Labs Laboratory Tests Test 05/03/21 12:35 05/04/21 05:55 05/04/21 08:00 05/05/21 08:20 White Blood Count 4.8 x10^3/uL (4.0-11.0) 4.4 x10^3/uL (4.0-11.0) Red Blood Count 4.48 x10^6/uL (4.30-5.70) 4.24 x10^6/uL (4.30-5.70) Hemoglobin 13.0 g/dL (13.0-17.5) 12.3 g/dL (13.0-17.5) Hematocrit 38.8 % (39.0-53.0) 37.0 % (39.0-53.0) Mean Corpuscular Volume 87 fL (79-100) 87 fL (79-100) Mean Corpuscular Hemoglobin 29 pg (25-35) 29 pg (25-35) Mean Corpuscular Hemoglobin Concent 33 g/dL (31-37) 33 g/dL (31-37) Red Cell Distribution Width 13.9 % (11.5-14.5) 13.6 % (11.5-14.5) Platelet Count 150 x10^3/uL (140-400) 152 x10^3/uL (140-400) Neutrophils (%) (Auto) 93 % (31-73) 90 % (31-73) Lymphocytes (%) (Auto) 2 % (24-48) 3 % (24-48) Monocytes (%) (Auto) 4 % (0-9) 7 % (0-9) Eosinophils (%) (Auto) 0 % (0-3) 0 % (0-3) Basophils (%) (Auto) 1 % (0-3) 0 % (0-3) Neutrophils # (Auto) 4.5 x10^3/uL (1.8-7.7) 3.9 x10^3/uL (1.8-7.7) Lymphocytes # (Auto) 0.1 x10^3/uL (1.0-4.8) 0.1 x10^3/uL (1.0-4.8) Monocytes # (Auto) 0.2 x10^3/uL (0.0-1.1) 0.3 x10^3/uL (0.0-1.1) Eosinophils # (Auto) 0.0 x10^3/uL (0.0-0.7) 0.0 x10^3/uL (0.0-0.7) Basophils # (Auto) 0.0 x10^3/uL (0.0-0.2) 0.0 x10^3/uL (0.0-0.2) Sodium Level 137 mmol/L (136-145) 139 mmol/L (136-145) Potassium Level 4.9 mmol/L (3.5-5.1) 5.1 mmol/L (3.5-5.1) Chloride Level 103 mmol/L (98-107) 104 mmol/L (98-107) Carbon Dioxide Level 32 mmol/L (21-32) 37 mmol/L (21-32) Anion Gap 2 (6-14) (6-14) Blood Urea Nitrogen 22 mg/dL (8-26) 21 mg/dL (8-26) Creatinine 0.7 mg/dL (0.7-1.3) 0.6 mg/dL (0.7-1.3) Estimated GFR (Cockcroft-Gault) 127.6 152.4 Glucose Level 142 mg/dL (70-99) 138 mg/dL (70-99) Calcium Level 8.6 mg/dL (8.5-10.1) 8.5 mg/dL (8.5-10.1) Total Bilirubin 0.6 mg/dL (0.2-1.0) Direct Bilirubin 0.4 mg/dL (0.0-0.2) Aspartate Amino Transf (AST/SGOT) 32 U/L (15-37) Alanine Aminotransferase (ALT/SGPT) 89 U/L (16-63) Alkaline Phosphatase 75 U/L (46-116) Total Protein 6.4 g/dL (6.4-8.2) Albumin 2.1 g/dL (3.4-5.0) O2 Saturation 94 % (92-99) 98 % (92-99) Arterial Blood pH 7.29 (7.35-7.45) 7.39 (7.35-7.45) Arterial Blood pCO2 at Patient Temp 59 mmHg (35-46) 59 mmHg (35-46) Arterial Blood pO2 at Patient Temp 71 mmHg (85-108) 104 mmHg (85-108) Arterial Blood HCO3 28 mmol/L (21-28) 35 mmol/L (21-28) Arterial Blood Base Excess 0 mmol/L (-3-3) 8 mmol/L (-3-3) FiO2 100/vent 100 Laboratory Tests Test 05/05/21 08:20 O2 Saturation 98 % (92-99) Arterial Blood pH 7.39 (7.35-7.45) Arterial Blood pCO2 at Patient Temp 59 mmHg (35-46) Arterial Blood pO2 at Patient Temp 104 mmHg (85-108) Arterial Blood HCO3 35 mmol/L (21-28) Arterial Blood Base Excess 8 mmol/L (-3-3) FiO2 100 Medications Active Scripts Medications Dose Route/Sig Max Daily Dose Days Date Category Pepcid (Famotidine) 20 Mg Tablet 20 Mg PO BID 04/28/21 Reported Impression . 1. Acute hypoxic respiratory failure secondary to COVID-19 viral pneumonia/ARDS 2. Abnormal CT chest done at [facility] with diffuse bilateral alveolar and interstitial infiltrates related to COVID-19 pneumonia. No evidence of pulmonary embolism. 3. Underlying obesity. 4. Remote history of obstructive sleep apnea. 5. Abnormal liver function tests, likely due to Covid infection. Bilirubin normal. 6. Normal D-dimer. 7. Status post intubation 05/02, status post bilateral pneumothoraces requiring chest tubes 05/02 Chest x-ray reviewed, small right apical pneumothorax Plan . Updated 05/05 ABG noted, PaO2 of 104, discussed with RN, decrease FiO2, decrease PEEP. Chest x-ray on the right with continued air leak Chest x-ray reviewed Empiric antibiotics Steroids, and remdesivir Continue nutritional support, DVT GI prophylaxis Updated 05/04 Air leak on right chest tube no air leak on the left Chest x-ray reviewed improved Continue current support, assist control ventilation, decreased tidal volume yesterday to 500 DVT GI prophylaxis Empiric antibiotics Steroids Status post remdesivir ABG noted, permissive hypercapnia, PaO2 71 Updated 05/03 Chest x-ray reviewed, no significant pneumothorax, some subcutaneous emphysema Currently on 8 of PEEP 90% We will decrease tidal volume to 500 and reduce barotrauma Case discussed with yesterday DVT GI prophylaxis Empiric antibiotics Remdesivir Steroids PANCHITO AMOR MD May 05, 2021 09:09
[2021-05-05] MEDS: ENOXAPARIN 40 MG/0.4 ML SYRINGE. SQ SCH ×2 (09:11→20:19)
--- NOTE | 2021-05-05 11:17 | PDOC ---
[employer] PROGRESS NOTE Date of Service DOS: DATE: 05/05/21 TIME: 11:13 Chief Complaint Chief Complaint Acute respiratory failure with hypoxia COVID-19 pneumonia GERD Obesity Plan: Continue with with remdesivir day 3 out of 4, steroids, and prophylactic antibiotics Appreciate pulmonology management for Vapotherm therapy Monitor daily LFTs Hemoglobin A1c pending We will initiate insulin treatment when blood glucose become significantly elevated Daily PPI and famotidine as needed FEN - ADA diet PPX - Lovenox FULL CODE Dispo - inpatient for above History of Present Illness History of Present Illness 05/05/2021 Patient seen and examined in the [place] [address] ICU He is still intubated AC/26/500/1 100% with 8 of PEEP Has OG feeds running at 25 cc an hour Sedated with fentanyl and Versed Getting IV vecuronium Chart reviewed Discussed with RN He remains critically 05/04/2021 Patient seen and examined in the [place] [address] ICU He remains mechanically ventilated Assist-control/26/500/1 100% with 10 of PEEP He is extremely critically ill He is sedated with Versed and fentanyl He is also paralyzed with vecuronium Reviewed chart Discussed with RN 05/03/2021 Patient seen and examined in the [place] [address] ICU He remains mechanically ventilated AC/26/600/1 100% with 10 of PEEP Has 2 pigtail drains in his left and right chest due to some small pneumothoraces after being intubated Had to be sedated with vecuronium Also on Versed and fentanyl also has inverse I to E ratio 2:1 Chart reviewed Discussed with RN He remains extremely critically ill I am concerned he may not survive this? 05/02/2021 Patient seen and examined in the [place] [address] ICU He is on BiPAP with 100% FiO2 and very tachypneic Discussed with RN we are going to go ahead and intubate here in a few minutes Chart reviewed Patient currently semisedated with Versed Precedex and fentanyl He is very critically Patient 35-year-old male with past medical history of GERD, obesity, who presents to the ED as a transfer from [facility] for COVID-19 pneumonia with worsening respiratory distress. States his symptoms started roughly 1 week ago with fatigue and body aches, which progressed to include fever and shortness of breath. Symptoms were worse with exertion with no significant alleviating factors. He was tested for COVID-19 at [facility] and was discharged home because he was not hypoxic on room air. When he returned to [facility] with worsening symptoms a CT chest demonstrated bibasilar infiltrates consistent with atypical pneumonia. He was then admitted and placed on 3 L nasal cannula for further treatment. He has not been vaccinated against COVID- 19. However due to worsening respiratory distress he was transferred to [facility] for higher level of care. 04/29/2021: Still breathing 40 L Vapotherm. Afebrile, but complaining of chest heaviness, nausea, and subjective shortness of breath. Denies any vomiting, or diarrhea. Informed patient of likely prolonged hospitalization course. Hemoglobin A1c 5.6. Continue remdesivir day 2/5, continue steroids, antibi otics, and supportive care. Continue to follow daily LFTs. Plan to transfer patient to ICU bed when available. Critical care time 33 minutes spent reviewing charts, reviewing labs, and discussing case with Dr. Gaviria. 04/30/21: Afebrile, still breathing on Vapotherm. Continue remdesivir and monitor LFTs. Continue antibiotics, steroids, and supportive care. Will transfer him to the ICU once bed available. Critical care time 30 minutes spent in chart, reviewing labs, reviewing imaging, and discussion with RN. 05/01/2021 No acute events overnight. Patient seen and examined bedside. Saturating 93% on 40 L Vapotherm. Patient will transfer to the ICU for continued supportive care. Vitals/I&O Vitals/I&O: Vital Signs Date Time Temp Pulse Resp B/P (MAP) Pulse Ox O2 Delivery O2 Flow Rate FiO2 05/05/21 08:00 Mechanical Ventilator 05/05/21 07:52 99 05/05/21 06:00 90 26 110/72 (85) 05/05/21 04:00 97.8 97.8 05/05/21 01:13 40.0 I & O 05/04/21 05/04/21 05/05/21 15:00 23:00 07:00 Intake Total 530 ml 1491.3 ml 1432.5 ml Output Total 795 ml 750 ml 430 ml Balance -265 ml 741.3 ml 1002.5 ml Physical Exam General: severe distress, Other (Sedated on the vent) Heart: Other (Tachycardic) Abdomen: Soft, No tenderness Extremities: No clubbing, No cyanosis Skin: No rashes, No breakdown Labs Labs: Laboratory Tests Test 05/05/21 08:20 O2 Saturation 98 % (92-99) Arterial Blood pH 7.39 (7.35-7.45) Arterial Blood pCO2 at Patient Temp 59 mmHg (35-46) Arterial Blood pO2 at Patient Temp 104 mmHg (85-108) Arterial Blood HCO3 35 mmol/L (21-28) Arterial Blood Base Excess 8 mmol/L (-3-3) FiO2 100 Assessment and Plan Assessmemt and Plan Acute respiratory failure with hypoxia COVID-19 pneumonia GERD Obesity Plan: ICU monitoring Trying to titrate down the FiO2 (we were able to decrease his PEEP from 10-8) Vent weaning when possible Vecuronium IV as needed Home meds Covid protocol Remdesivir is completed Antibiotics Steroids Trend labs DVT prophylaxis Full code Appreciate subspecialist input Prognosis extremely guarded at best CC time 31-minute Comment Review of Relevant I have reviewed the following items anselmo (where applicable) has been applied. Justifications for Admission Other Justification JONO HERNDON III DO May 05, 2021 11:17
[2021-05-05] MEDS: cefTRIAXone IV Push 2 GM VIAL. IVP SCH (14:00)
[2021-05-06] VITALS (24 sets, daily range): BP systolic 129–198; BP diastolic 77–108
[2021-05-06] MEDS: PROPOFOL 100 ML IV PRN ×5 (02:46→21:36)
[2021-05-06 04:25] LABS: BASO % 0 % (0-3); EOS % 1 % (0-3); HEMATOCRIT 33.5 % (39.0-53.0); LYMPH # 0.3 x10^3/uL (1.0-4.8); LYMPH % 5 % (24-48); MEAN CORPUSCULAR HEMOGLOBIN 29 pg (25-35); MEAN CORPUSCULAR HGB CONC 33 g/dL (31-37); MEAN CORPUSCULAR VOLUME 87 fL (79-100); MONO # 0.6 x10^3/uL (0.0-1.1); MONO % 12 % (0-9); NEUT # 4.1 x10^3/uL (1.8-7.7); NEUT % 82 % (31-73); PLATELET COUNT 165 x10^3/uL (140-400); RED BLOOD COUNT 3.84 x10^6/uL (4.30-5.70); RED CELL DISTRIBUTION WIDTH 13.5 % (11.5-14.5)
[2021-05-06 04:36] LABS: CALCIUM 8.5 mg/dL (8.5-10.1); CREATININE 0.5 mg/dL (0.7-1.3); GFR 188.1; POTASSIUM 4.5 mmol/L (3.5-5.1)
[2021-05-06] MEDS: VECURONIUM BROMIDE 50 MG in IV NORMAL SALINE 50ML 50 ML IV PRN ×3 (05:59→20:12)
[2021-05-06] MEDS: ASCORBIC ACID 500 MG TABLET PO SCH ×4 (05:59→23:30)
[2021-05-06 08:39] LABS: BASE EXCESS ABG 10 mmol/L (-3-3); HCO3 ABG 38 mmol/L (21-28); PO2 ABG 79 mmHg (85-108); SAT O2 ABG 95 % (92-99)
[2021-05-06 08:42] LABS: FIO2 ABG 80; PCO2 ABG 67 mmHg (35-46)
[2021-05-06] MEDS: ENOXAPARIN 40 MG/0.4 ML SYRINGE. SQ SCH ×2 (09:07→20:26)
[2021-05-06] MEDS: CHOLECALCIFEROL (VITAMIN D3) 1,000 UNIT TABLET FT SCH (09:07)
[2021-05-06] MEDS: FAMOTIDINE 20 MG/2 ML VIAL IVP SCH ×2 (09:07→20:25)
[2021-05-06] MEDS: DEXAMETHASONE SOD PHOS 4 MG/ML VIAL IVP SCH (09:08)
[2021-05-06] MEDS: ZINC SULFATE 220 MG CAPSULE. PO SCH (09:08)
[2021-05-06] MEDS: LACTOBACILLUS RHAMNOSUS GG 1 CAPSULE. PO SCH ×2 (09:08→20:25)
--- NOTE | 2021-05-06 09:13 | PDOC ---
PULMONARY PROGRESS NOTES DATE: 05/06/21 TIME: 09:10 Subjective Discussed with RN, no overnight events Air leak persist on the right side Intubated 05/02 Currently on assist control 8 of PEEP Vitals Vital Signs Date Time Temp Pulse Resp B/P (MAP) Pulse Ox O2 Delivery O2 Flow Rate FiO2 05/06/21 08:01 98 Ventilator 05/06/21 06:00 78 26 137/87 (104) 05/06/21 04:00 98.5 98.5 05/06/21 03:17 40.0 Comments On visual inspection, patient intubated, and in a medically induced coma Chest tube bilaterally, small amount of subcutaneous emphysema, Labs Laboratory Tests Test 05/05/21 08:20 05/06/21 04:00 05/06/21 08:30 O2 Saturation 98 % (92-99) 95 % (92-99) Arterial Blood pH 7.39 (7.35-7.45) 7.38 (7.35-7.45) Arterial Blood pCO2 at Patient Temp 59 mmHg (35-46) 67 mmHg (35-46) Arterial Blood pO2 at Patient Temp 104 mmHg (85-108) 79 mmHg (85-108) Arterial Blood HCO3 35 mmol/L (21-28) 38 mmol/L (21-28) Arterial Blood Base Excess 8 mmol/L (-3-3) 10 mmol/L (-3-3) FiO2 100 80 White Blood Count 5.0 x10^3/uL (4.0-11.0) Red Blood Count 3.84 x10^6/uL (4.30-5.70) Hemoglobin 11.0 g/dL (13.0-17.5) Hematocrit 33.5 % (39.0-53.0) Mean Corpuscular Volume 87 fL (79-100) Mean Corpuscular Hemoglobin 29 pg (25-35) Mean Corpuscular Hemoglobin Concent 33 g/dL (31-37) Red Cell Distribution Width 13.5 % (11.5-14.5) Platelet Count 165 x10^3/uL (140-400) Neutrophils (%) (Auto) 82 % (31-73) Lymphocytes (%) (Auto) 5 % (24-48) Monocytes (%) (Auto) 12 % (0-9) Eosinophils (%) (Auto) 1 % (0-3) Basophils (%) (Auto) 0 % (0-3) Neutrophils # (Auto) 4.1 x10^3/uL (1.8-7.7) Lymphocytes # (Auto) 0.3 x10^3/uL (1.0-4.8) Monocytes # (Auto) 0.6 x10^3/uL (0.0-1.1) Eosinophils # (Auto) 0.0 x10^3/uL (0.0-0.7) Basophils # (Auto) 0.0 x10^3/uL (0.0-0.2) Sodium Level 139 mmol/L (136-145) Potassium Level 4.5 mmol/L (3.5-5.1) Chloride Level 101 mmol/L (98-107) Carbon Dioxide Level 41 mmol/L (21-32) Anion Gap -3 (6-14) Blood Urea Nitrogen 25 mg/dL (8-26) Creatinine 0.5 mg/dL (0.7-1.3) Estimated GFR (Cockcroft-Gault) 188.1 Glucose Level 106 mg/dL (70-99) Calcium Level 8.5 mg/dL (8.5-10.1) Laboratory Tests Test 05/06/21 04:00 05/06/21 08:30 White Blood Count 5.0 x10^3/uL (4.0-11.0) Red Blood Count 3.84 x10^6/uL (4.30-5.70) Hemoglobin 11.0 g/dL (13.0-17.5) Hematocrit 33.5 % (39.0-53.0) Mean Corpuscular Volume 87 fL (79-100) Mean Corpuscular Hemoglobin 29 pg (25-35) Mean Corpuscular Hemoglobin Concent 33 g/dL (31-37) Red Cell Distribution Width 13.5 % (11.5-14.5) Platelet Count 165 x10^3/uL (140-400) Neutrophils (%) (Auto) 82 % (31-73) Lymphocytes (%) (Auto) 5 % (24-48) Monocytes (%) (Auto) 12 % (0-9) Eosinophils (%) (Auto) 1 % (0-3) Basophils (%) (Auto) 0 % (0-3) Neutrophils # (Auto) 4.1 x10^3/uL (1.8-7.7) Lymphocytes # (Auto) 0.3 x10^3/uL (1.0-4.8) Monocytes # (Auto) 0.6 x10^3/uL (0.0-1.1) Eosinophils # (Auto) 0.0 x10^3/uL (0.0-0.7) Basophils # (Auto) 0.0 x10^3/uL (0.0-0.2) Sodium Level 139 mmol/L (136-145) Potassium Level 4.5 mmol/L (3.5-5.1) Chloride Level 101 mmol/L (98-107) Carbon Dioxide Level 41 mmol/L (21-32) Anion Gap -3 (6-14) Blood Urea Nitrogen 25 mg/dL (8-26) Creatinine 0.5 mg/dL (0.7-1.3) Estimated GFR (Cockcroft-Gault) 188.1 Glucose Level 106 mg/dL (70-99) Calcium Level 8.5 mg/dL (8.5-10.1) O2 Saturation 95 % (92-99) Arterial Blood pH 7.38 (7.35-7.45) Arterial Blood pCO2 at Patient Temp 67 mmHg (35-46) Arterial Blood pO2 at Patient Temp 79 mmHg (85-108) Arterial Blood HCO3 38 mmol/L (21-28) Arterial Blood Base Excess 10 mmol/L (-3-3) FiO2 80 Medications Active Scripts Medications Dose Route/Sig Max Daily Dose Days Date Category Pepcid (Famotidine) 20 Mg Tablet 20 Mg PO BID 04/28/21 Reported Impression . 1. Acute hypoxic respiratory failure secondary to COVID-19 viral pneumonia/ARDS 2. Abnormal CT chest done at [facility] with diffuse bilateral alveolar and interstitial infiltrates related to COVID-19 pneumonia. No evidence of pulmonary embolism. 3. Underlying obesity. 4. Remote history of obstructive sleep apnea. 5. Abnormal liver function tests, likely due to Covid infection. Bilirubin normal. 6. Normal D-dimer. 7. Status post intubation 05/02, status post bilateral pneumothoraces requiring chest tubes 05/02 Chest x-ray reviewed, small right apical pneumothorax Plan . Updated 05/06 X-ray pending Labs noted Discussed with RT will decrease PEEP to 6 ABG noted, PaCO2 of 67, PaO2 of 79 Empiric antibiotics Finish the remdesivir Steroids continue DVT GI prophylaxis Nutritional support \Updated 05/05 ABG noted, PaO2 of 104, discussed with RN, decrease FiO2, decrease PEEP. Chest x-ray on the right with continued air leak Chest x-ray reviewed Empiric antibiotics Steroids, and remdesivir Continue nutritional support, DVT GI prophylaxis Updated 05/04 Air leak on right chest tube no air leak on the left Chest x-ray reviewed improved Continue current support, assist control ventilation, decreased tidal volume yesterday to 500 DVT GI prophylaxis Empiric antibiotics Steroids Status post remdesivir ABG noted, permissive hypercapnia, PaO2 71 PANCHITO AMOR MD May 06, 2021 09:13
--- NOTE | 2021-05-06 12:23 | PDOC ---
[employer] PROGRESS NOTE Date of Service DOS: DATE: 05/06/21 TIME: 12:21 Chief Complaint Chief Complaint Acute respiratory failure with hypoxia COVID-19 pneumonia GERD Obesity Plan: Continue with with remdesivir day 3 out of 4, steroids, and prophylactic antibiotics Appreciate pulmonology management for Vapotherm therapy Monitor daily LFTs Hemoglobin A1c pending We will initiate insulin treatment when blood glucose become significantly elevated Daily PPI and famotidine as needed FEN - ADA diet PPX - Lovenox FULL CODE Dispo - inpatient for above History of Present Illness History of Present Illness 05/06/2021 Patient seen and examined in the [place] [address] ICU He remains intubated AC//500/1 her percent with 8 of PEEP The nurse was able to get him down to 80% for an hour or so earlier this morning but he desatted again when she moved him Chart reviewed Reviewed case with RN patient is having some tachycardia and Fluctuating blood pressure Has OG feeds running at 50 cc an hour plus he is getting free water Has Duarte to bedside drainage Has [address] He remains critically ill 05/05/2021 Patient seen and examined in the [place] [address] ICU He is still intubated AC//500/1 100% with 8 of PEEP Has OG feeds running at 25 cc an hour Sedated with fentanyl and Versed Getting IV vecuronium Chart reviewed Discussed with RN He remains critically 05/04/2021 Patient seen and examined in the [place] [address] ICU He remains mechanically ventilated Assist-control//500/1 100% with 10 of PEEP He is extremely critically ill He is sedated with Versed and fentanyl He is also paralyzed with vecuronium Reviewed chart Discussed with RN 05/03/2021 Patient seen and examined in the [place] [address] ICU He remains mechanically ventilated AC//600/1 100% with 10 of PEEP Has 2 pigtail drains in his left and right chest due to some small pneumothoraces after being intubated Had to be sedated with vecuronium Also on Versed and fentanyl also has inverse I to E ratio 2:1 Chart reviewed Discussed with RN He remains extremely critically ill I am concerned he may not survive this? 05/02/2021 Patient seen and examined in the [place] [address] ICU He is on BiPAP with 100% FiO2 and very tachypneic Discussed with RN we are going to go ahead and intubate here in a few minutes Chart reviewed Patient currently semisedated with Versed Precedex and fentanyl He is very critically Patient 35-year-old male with past medical history of GERD, obesity, who presents to the ED as a transfer from [facility] for COVID-19 pneumonia with worsening respiratory distress. States his symptoms started roughly 1 week ago with fatigue and body aches, which progressed to include fever and shortness of breath. Symptoms were worse with exertion with no significant alleviating factors. He was tested for COVID-19 at [facility] and was discharged home because he was not hypoxic on room air. When he returned to [facility] with worsening symptoms a CT chest demonstrated bibasilar infiltrates consistent with atypical pneumonia. He was then admitted and placed on 3 L nasal cannula for further treatment. He has not been vaccinated against COVID- 19. However due to worsening respiratory distress he was transferred to [facility] for higher level of care. 04/29/2021: Still breathing 40 L Vapotherm. Afebrile, but complaining of chest heaviness, nausea, and subjective shortness of breath. Denies any vomiting, or diarrhea. Informed patient of likely prolonged hospitalization course. Hemoglobin A1c 5.6. Continue remdesivir day 2/5, continue steroids, antibiotics, and supportive care. Continue to follow daily LFTs. Plan to transfer patient to ICU bed when available. Critical care time 33 minutes spent reviewing charts, reviewing labs, and discussing case with Dr. Gaviria. 04/30/21: Afebrile, still breathing on Vapotherm. Continue remdesivir and monitor LFTs. Continue antibiotics, steroids, and supportive care. Will transfer him to the ICU once bed available. Critical care time 30 minutes spent in chart, reviewing labs, reviewing imaging, and discussion with RN. 05/01/2021 No acute events overnight. Patient seen and examined bedside. Saturating 93% on 40 L Vapotherm. Patient will transfer to the ICU for continued supportive care. Vitals/I&O Vitals/I&O: Vital Signs Date Time Temp Pulse Resp B/P (MAP) Pulse Ox O2 Delivery O2 Flow Rate FiO2 05/06/21 12:14 97 Ventilator 05/06/21 10:42 26 40.0 05/06/21 10:00 100 176/95 (122) 05/06/21 08:00 97.8 97.8 I & O 05/05/21 05/05/21 05/06/21 15:00 23:00 07:00 Intake Total 430 ml 1338 ml 1466.6 ml Output Total 600 ml 580 ml 525 ml Balance -170 ml 758 ml 941.6 ml Physical Exam General: severe distress, Other (Sedated on the vent) Heart: Other (Tachycardic) Abdomen: Soft, No tenderness Extremities: No clubbing, No cyanosis Skin: No rashes, No breakdown Labs Labs: Laboratory Tests Test 05/06/21 04:00 05/06/21 08:30 White Blood Count 5.0 x10^3/uL (4.0-11.0) Red Blood Count 3.84 x10^6/uL (4.30-5.70) Hemoglobin 11.0 g/dL (13.0-17.5) Hematocrit 33.5 % (39.0-53.0) Mean Corpuscular Volume 87 fL (79-100) Mean Corpuscular Hemoglobin 29 pg (25-35) Mean Corpuscular Hemoglobin Concent 33 g/dL (31-37) Red Cell Distribution Width 13.5 % (11.5-14.5) Platelet Count 165 x10^3/uL (140-400) Neutrophils (%) (Auto) 82 % (31-73) Lymphocytes (%) (Auto) 5 % (24-48) Monocytes (%) (Auto) 12 % (0-9) Eosinophils (%) (Auto) 1 % (0-3) Basophils (%) (Auto) 0 % (0-3) Neutrophils # (Auto) 4.1 x10^3/uL (1.8-7.7) Lymphocytes # (Auto) 0.3 x10^3/uL (1.0-4.8) Monocytes # (Auto) 0.6 x10^3/uL (0.0-1.1) Eosinophils # (Auto) 0.0 x10^3/uL (0.0-0.7) Basophils # (Auto) 0.0 x10^3/uL (0.0-0.2) Sodium Level 139 mmol/L (136-145) Potassium Level 4.5 mmol/L (3.5-5.1) Chloride Level 101 mmol/L (98-107) Carbon Dioxide Level 41 mmol/L (21-32) Anion Gap -3 (6-14) Blood Urea Nitrogen 25 mg/dL (8-26) Creatinine 0.5 mg/dL (0.7-1.3) Estimated GFR (Cockcroft-Gault) 188.1 Glucose Level 106 mg/dL (70-99) Calcium Level 8.5 mg/dL (8.5-10.1) O2 Saturation 95 % (92-99) Arterial Blood pH 7.38 (7.35-7.45) Arterial Blood pCO2 at Patient Temp 67 mmHg (35-46) Arterial Blood pO2 at Patient Temp 79 mmHg (85-108) Arterial Blood HCO3 38 mmol/L (21-28) Arterial Blood Base Excess 10 mmol/L (-3-3) FiO2 80 Assessment and Plan Assessmemt and Plan Acute respiratory failure with hypoxia COVID-19 pneumonia GERD Obesity Plan: ICU monitoring Trying to titrate down the FiO2 (we were able to decrease his PEEP from 10-8) Vent weaning when possible Monitor chest tube Vecuronium IV as needed Home meds Covid protocol Remdesivir is completed Antibiotics Steroids Trend labs DVT prophylaxis Full code Appreciate subspecialist input Prognosis extremely guarded at best CC time 33-minute Comment Review of Relevant I have reviewed the following items anselmo (where applicable) has been applied. Justifications for Admission Other Justification JONO HERNDON III DO May 06, 2021 12:23
[2021-05-06] MEDS: cefTRIAXone IV Push 2 GM VIAL. IVP SCH (12:54)
[2021-05-06] MEDS: MIDAZOLAM 100mg/100ml NS BAG 100 ML IV PRN (21:37)
[2021-05-06] MEDS: METOPROLOL IV PUSH 5 MG/5 ML VIAL. IVP PRN (23:29)
[2021-05-07] VITALS (27 sets, daily range): BP systolic 122–221; BP diastolic 74–117
[2021-05-07] MEDS: PROPOFOL 100 ML IV PRN ×10 (00:38→22:42)
[2021-05-07] MEDS: VECURONIUM BROMIDE 50 MG in IV NORMAL SALINE 50ML 50 ML IV PRN ×4 (05:04→19:53)
[2021-05-07] MEDS: ASCORBIC ACID 500 MG TABLET PO SCH ×3 (05:15→18:00)
[2021-05-07] MEDS: METOPROLOL IV PUSH 5 MG/5 ML VIAL. IVP PRN (05:16)
--- NOTE | 2021-05-07 05:29 | RAD ---
EXAM: CHEST ONE VIEW. HISTORY: Pneumothorax. COMPARISON: 05/05/2021. FINDINGS: A frontal view of the chest is obtained. An endotracheal tube has its tip 4 cm above the ca mildred. A right internal jugular central venous catheter has its tip in the superior cavoatrial junctio n. A nasogastric tube has its tip below the inferior margin of the view. Small bore bilateral chest t ubes remain in place. The inspiration is smaller. Bilateral diffuse infiltrates are not clearly changed. There is a trace r ight pneumothorax. There is no detectable left pneumothorax. There is no clear pleural effusion. The heart is not enlarged. IMPRESSION: 1. Stable bilateral diffuse infiltrates. 2. Small right pneumothorax. Electronically signed by: Josselin Thompson MD (05/07/2021 5:26 AM) [facility]
[2021-05-07 06:02] LABS: CALCIUM 8.3 mg/dL (8.5-10.1); CREATININE 0.5 mg/dL (0.7-1.3); GFR 188.1; MAGNESIUM 2.2 mg/dL (1.8-2.4); POTASSIUM 4.1 mmol/L (3.5-5.1)
[2021-05-07 07:05] LABS: BASO % 0 % (0-3); EOS # 0.1 x10^3/uL (0.0-0.7); EOS % 1 % (0-3); HEMOGLOBIN 11.4 g/dL (13.0-17.5); LYMPH # 0.5 x10^3/uL (1.0-4.8); LYMPH % 7 % (24-48); MEAN CORPUSCULAR HEMOGLOBIN 29 pg (25-35); MEAN CORPUSCULAR HGB CONC 34 g/dL (31-37); MEAN CORPUSCULAR VOLUME 87 fL (79-100); MONO # 0.7 x10^3/uL (0.0-1.1); MONO % 10 % (0-9); NEUT # 5.5 x10^3/uL (1.8-7.7); NEUT % 81 % (31-73); PLATELET COUNT 191 x10^3/uL (140-400); RED BLOOD COUNT 3.91 x10^6/uL (4.30-5.70); RED CELL DISTRIBUTION WIDTH 13.5 % (11.5-14.5); WHITE BLOOD COUNT 6.7 x10^3/uL (4.0-11.0)
[2021-05-07 08:22] LABS: BASE EXCESS ABG 11 mmol/L (-3-3); HCO3 ABG 38 mmol/L (21-28); PCO2 ABG 57 mmHg (35-46); PO2 ABG 70 mmHg (85-108); SAT O2 ABG 94 % (92-99)
[2021-05-07 08:26] LABS: FIO2 ABG 80
[2021-05-07] MEDS: ZINC SULFATE 220 MG CAPSULE. PO SCH (08:53)
[2021-05-07] MEDS: CHOLECALCIFEROL (VITAMIN D3) 1,000 UNIT TABLET FT SCH (08:53)
[2021-05-07] MEDS: LACTOBACILLUS RHAMNOSUS GG 1 CAPSULE. PO SCH ×2 (08:53→21:14)
[2021-05-07] MEDS: DEXAMETHASONE SOD PHOS 4 MG/ML VIAL IVP SCH (08:54)
[2021-05-07] MEDS: FAMOTIDINE 20 MG/2 ML VIAL IVP SCH ×2 (08:54→21:14)
[2021-05-07] MEDS: MIDAZOLAM 100mg/100ml NS BAG 100 ML IV PRN ×2 (08:56→19:54)
[2021-05-07] MEDS: ENOXAPARIN 40 MG/0.4 ML SYRINGE. SQ SCH (08:57)
--- NOTE | 2021-05-07 10:49 | PDOC ---
[employer] PROGRESS NOTE Date of Service DOS: DATE: 05/07/21 TIME: 10:46 Chief Complaint Chief Complaint Acute respiratory failure with hypoxia [facility]- pneumonia GERD Obesity Plan: Continue with with remdesivir day 3 out of 4, steroids, and prophylactic antibiotics Appreciate pulmonology management for Vapotherm therapy Monitor daily LFTs Hemoglobin A1c pending We will initiate insulin treatment when blood glucose become significantly elevated Daily PPI and famotidine as needed FEN - ADA diet PPX - Lovenox FULL CODE Dispo - inpatient for above History of Present Illness History of Present Illness 05/07/2021 Patient seen and examined in the [place] [address] ICU He remains on the vent AC/500/26/80 percent with 6 of PEEP (this is improved from yesterday he was on 100% FiO2 with 8 of PEEP) Discussed with RN Chart reviewed Patient has Duarte to bedside drainage He is sedated with propofol fentanyl and Versed Remains very critically ill 05/06/2021 Patient seen and examined in the [place] [address] ICU He remains intubated AC/26/500/1 her percent with 8 of PEEP The nurse was able to get him down to 80% for an hour or so earlier this morning but he desatted again when she moved him Chart reviewed Reviewed case with RN patient is having some tachycardia and Fluctuating blood pressure Has OG feeds running at 50 cc an hour plus he is getting free water Has Duarte to bedside drainage Has [address] He remains critically ill 05/05/2021 Patient seen and examined in the [place] [address] ICU He is still intubated AC/26/500/1 100% with 8 of PEEP Has OG feeds running at 25 cc an hour Sedated with fentanyl and Versed Getting IV vecuronium Chart reviewed Discussed with RN He remains critically 05/04/2021 Patient seen and examined in the [place] [address] ICU He remains mechanically ventilated Assist-control/26/500/1 100% with 10 of PEEP He is extremely critically ill He is sedated with Versed and fentanyl He is also paralyzed with vecuronium Reviewed chart Discussed with RN 05/03/2021 Patient seen and examined in the [place] [address] ICU He remains mechanically ventilated AC/26/600/1 100% with 10 of PEEP Has 2 pigtail drains in his left and right chest due to some small pneumothoraces after being intubated Had to be sedated with vecuronium Also on Versed and fentanyl also has inverse I to E ratio 2:1 Chart reviewed Discussed with RN He remains extremely critically ill I am concerned he may not survive this? 05/02/2021 Patient seen and examined in the COVID-19 ICU He is on BiPAP with 100% FiO2 and very tachypneic Discussed with RN we are going to go ahead and intubate here in a few minutes Chart reviewed Patient currently semisedated with Versed Precedex and fentanyl He is very critically Patient 35-year-old male with past medical history of GERD, obesity, who presents to the ED as a transfer from [facility] for COVID-19 pneumonia with worsening respiratory distress. States his symptoms started roughly 1 week ago with fatigue and body aches, which progressed to include fever and shortness of breath. Symptoms were worse with exertion with no significant alleviating factors. He was tested for COVID-19 at [facility] and was discharged home because he was not hypoxic on room air. When he returned to [facility] with worsening symptoms a CT chest demonstrated bibasilar infiltrates consistent with atypical pneumonia. He was then admitted and placed on 3 L nasal cannula for further treatment. He has not been vaccinated against COVID- 19. However due to worsening respiratory distress he was transferred to [facility] for higher level of care. 04/29/2021: Still breathing 40 L Vapotherm. Afebrile, but complaining of chest heaviness, nausea, and subjective shortness of breath. Denies any vomiting, or diarrhea. Informed patient of likely prolonged hospitalization course. Hemoglobin A1c 5.6. Continue remdesivir day 2/5, continue steroids, antibiotics, and supportive care. Continue to follow daily LFTs. Plan to t ransfer patient to ICU bed when available. Critical care time 33 minutes spent reviewing charts, reviewing labs, and discussing case with Dr. Gaviria. 04/30/21: Afebrile, still breathing on Vapotherm. Continue remdesivir and monitor LFTs. Continue antibiotics, steroids, and supportive care. Will transfer him to the ICU once bed available. Critical care time 30 minutes spent in chart, reviewing labs, reviewing imaging, and discussion with RN. 05/01/2021 No acute events overnight. Patient seen and examined bedside. Saturating 93% on 40 L Vapotherm. Patient will transfer to the ICU for continued supportive care. Vitals/I&O Vitals/I&O: Vital Signs Date Time Temp Pulse Resp B/P (MAP) Pulse Ox O2 Delivery O2 Flow Rate FiO2 05/07/21 09:26 95 40.0 05/07/21 08:00 Mechanical Ventilator 05/07/21 06:00 86 26 159/89 (112) 05/07/21 04:00 98.0 98.0 I & O 05/06/21 05/06/21 05/07/21 15:00 23:00 07:00 Intake Total 250 ml 1100 ml 2309.5 ml Output Total 425 ml 755 ml 595 ml Balance -175 ml 345 ml 1714.5 ml Physical Exam General: severe distress, Other (Sedated on the vent) Heart: Other (Tachycardic) Abdomen: Soft, No tenderness Extremities: No clubbing, No cyanosis Skin: No rashes, No breakdown Labs Labs: Laboratory Tests Test 05/07/21 05:25 05/07/21 08:15 White Blood Count 6.7 x10^3/uL (4.0-11.0) Red Blood Count 3.91 x10^6/uL (4.30-5.70) Hemoglobin 11.4 g/dL (13.0-17.5) Hematocrit 34.0 % (39.0-53.0) Mean Corpuscular Volume 87 fL (79-100) Mean Corpuscular Hemoglobin 29 pg (25-35) Mean Corpuscular Hemoglobin Concent 34 g/dL (31-37) Red Cell Distribution Width 13.5 % (11.5-14.5) Platelet Count 191 x10^3/uL (140-400) Neutrophils (%) (Auto) 81 % (31-73) Lymphocytes (%) (Auto) 7 % (24-48) Monocytes (%) (Auto) 10 % (0-9) Eosinophils (%) (Auto) 1 % (0-3) Basophils (%) (Auto) 0 % (0-3) Neutrophils # (Auto) 5.5 x10^3/uL (1.8-7.7) Lymphocytes # (Auto) 0.5 x10^3/uL (1.0-4.8) Monocytes # (Auto) 0.7 x10^3/uL (0.0-1.1) Eosinophils # (Auto) 0.1 x10^3/uL (0.0-0.7) Basophils # (Auto) 0.0 x10^3/uL (0.0-0.2) Sodium Level 137 mmol/L (136-145) Potassium Level 4.1 mmol/L (3.5-5.1) Chloride Level 96 mmol/L (98-107) Carbon Dioxide Level 40 mmol/L (21-32) Anion Gap 1 (6-14) Blood Urea Nitrogen 23 mg/dL (8-26) Creatinine 0.5 mg/dL (0.7-1.3) Estimated GFR (Cockcroft-Gault) 188.1 Glucose Level 100 mg/dL (70-99) Calcium Level 8.3 mg/dL (8.5-10.1) Magnesium Level 2.2 mg/dL (1.8-2.4) O2 Saturation 94 % (92-99) Arterial Blood pH 7.44 (7.35-7.45) Arterial Blood pCO2 at Patient Temp 57 mmHg (35-46) Arterial Blood pO2 at Patient Temp 70 mmHg (85-108) Arterial Blood HCO3 38 mmol/L (21-28) Arterial Blood Base Excess 11 mmol/L (-3-3) FiO2 80 Assessment and Plan Assessmemt and Plan Acute respiratory failure with hypoxia COVID-19 pneumonia GERD Obesity Plan: ICU monitoring Trying to titrate down the FiO2 and PEEP more each day Vent weaning when possible Monitor chest tube Home meds As needed vecuronium Covid protocol Remdesivir is completed Antibiotics Steroids Trend labs DVT prophylaxis Full code Appreciate subspecialist input Prognosis extremely guarded at best CC time 34-minute Comment Review of Relevant I have reviewed the following items anselmo (where applicable) has been applied. Medications: Current Medications Medications (Trade) Dose Ordered Sig/Bartolo Route PRN Reason Start Time Stop Time Status Last Admin Dose Admin Metoprolol Tartrate (Lopressor Vial) 5 mg PRN Q6HRS PRN IVP HYPERTENSION 05/06/21 12:30 05/07/21 05:16 Justifications for Admission Other Justification JONO HERNDON III DO May 07, 2021 10:49
[2021-05-07] MEDS: cefTRIAXone IV Push 2 GM VIAL. IVP SCH (12:55)
[2021-05-07] MEDS: METOPROLOL IV PUSH 5 MG/5 ML VIAL. IVP SCH ×3 (13:00→19:46)
--- NOTE | 2021-05-07 13:35 | PDOC ---
PULMONARY PROGRESS NOTES DATE: 05/07/21 TIME: 13:34 Subjective remains on vent support 80% and PEEP of 6 Air leak persist on the right side Intubated 05/02 no overnight issues Vitals Vital Signs Date Time Temp Pulse Resp B/P (MAP) Pulse Ox O2 Delivery O2 Flow Rate FiO2 05/07/21 11:19 97 Ventilator 05/07/21 10:00 88 26 122/76 (91) 05/07/21 09:26 40.0 05/07/21 08:00 97.6 97.6 Comments On visual inspection, patient intubated, and in a medically induced coma Chest tube bilaterally, small amount of subcutaneous emphysema, Labs Laboratory Tests Test 05/06/21 04:00 05/06/21 08:30 05/07/21 05:25 05/07/21 08:15 White Blood Count 5.0 x10^3/uL (4.0-11.0) 6.7 x10^3/uL (4.0-11.0) Red Blood Count 3.84 x10^6/uL (4.30-5.70) 3.91 x10^6/uL (4.30-5.70) Hemoglobin 11.0 g/dL (13.0-17.5) 11.4 g/dL (13.0-17.5) Hematocrit 33.5 % (39.0-53.0) 34.0 % (39.0-53.0) Mean Corpuscular Volume 87 fL (79-100) 87 fL (79-100) Mean Corpuscular Hemoglobin 29 pg (25-35) 29 pg (25-35) Mean Corpuscular Hemoglobin Concent 33 g/dL (31-37) 34 g/dL (31-37) Red Cell Distribution Width 13.5 % (11.5-14.5) 13.5 % (11.5-14.5) Platelet Count 165 x10^3/uL (140-400) 191 x10^3/uL (140-400) Neutrophils (%) (Auto) 82 % (31-73) 81 % (31-73) Lymphocytes (%) (Auto) 5 % (24-48) 7 % (24-48) Monocytes (%) (Auto) 12 % (0-9) 10 % (0-9) Eosinophils (%) (Auto) 1 % (0-3) 1 % (0-3) Basophils (%) (Auto) 0 % (0-3) 0 % (0-3) Neutrophils # (Auto) 4.1 x10^3/uL (1.8-7.7) 5.5 x10^3/uL (1.8-7.7) Lymphocytes # (Auto) 0.3 x10^3/uL (1.0-4.8) 0.5 x10^3/uL (1.0-4.8) Monocytes # (Auto) 0.6 x10^3/uL (0.0-1.1) 0.7 x10^3/uL (0.0-1.1) Eosinophils # (Auto) 0.0 x10^3/uL (0.0-0.7) 0.1 x10^3/uL (0.0-0.7) Basophils # (Auto) 0.0 x10^3/uL (0.0-0.2) 0.0 x10^3/uL (0.0-0.2) Sodium Level 139 mmol/L (136-145) 137 mmol/L (136-145) Potassium Level 4.5 mmol/L (3.5-5.1) 4.1 mmol/L (3.5-5.1) Chloride Level 101 mmol/L (98-107) 96 mmol/L (98-107) Carbon Dioxide Level 41 mmol/L (21-32) 40 mmol/L (21-32) Anion Gap -3 (6-14) 1 (6-14) Blood Urea Nitrogen 25 mg/dL (8-26) 23 mg/dL (8-26) Creatinine 0.5 mg/dL (0.7-1.3) 0.5 mg/dL (0.7-1.3) Estimated GFR (Cockcroft-Gault) 188.1 188.1 Glucose Level 106 mg/dL (70-99) 100 mg/dL (70-99) Calcium Level 8.5 mg/dL (8.5-10.1) 8.3 mg/dL (8.5-10.1) O2 Saturation 95 % (92-99) 94 % (92-99) Arterial Blood pH 7.38 (7.35-7.45) 7.44 (7.35-7.45) Arterial Blood pCO2 at Patient Temp 67 mmHg (35-46) 57 mmHg (35-46) Arterial Blood pO2 at Patient Temp 79 mmHg (85-108) 70 mmHg (85-108) Arterial Blood HCO3 38 mmol/L (21-28) 38 mmol/L (21-28) Arterial Blood Base Excess 10 mmol/L (-3-3) 11 mmol/L (-3-3) FiO2 80 80 Magnesium Level 2.2 mg/dL (1.8-2.4) Laboratory Tests Test 05/07/21 05:25 05/07/21 08:15 White Blood Count 6.7 x10^3/uL (4.0-11.0) Red Blood Count 3.91 x10^6/uL (4.30-5.70) Hemoglobin 11.4 g/dL (13.0-17.5) Hematocrit 34.0 % (39.0-53.0) Mean Corpuscular Volume 87 fL (79-100) Mean Corpuscular Hemoglobin 29 pg (25-35) Mean Corpuscular Hemoglobin Concent 34 g/dL (31-37) Red Cell Distribution Width 13.5 % (11.5-14.5) Platelet Count 191 x10^3/uL (140-400) Neutrophils (%) (Auto) 81 % (31-73) Lymphocytes (%) (Auto) 7 % (24-48) Monocytes (%) (Auto) 10 % (0-9) Eosinophils (%) (Auto) 1 % (0-3) Basophils (%) (Auto) 0 % (0-3) Neutrophils # (Auto) 5.5 x10^3/uL (1.8-7.7) Lymphocytes # (Auto) 0.5 x10^3/uL (1.0-4.8) Monocytes # (Auto) 0.7 x10^3/uL (0.0-1.1) Eosinophils # (Auto) 0.1 x10^3/uL (0.0-0.7) Basophils # (Auto) 0.0 x10^3/uL (0.0-0.2) Sodium Level 137 mmol/L (136-145) Potassium Level 4.1 mmol/L (3.5-5.1) Chloride Level 96 mmol/L (98-107) Carbon Dioxide Level 40 mmol/L (21-32) Anion Gap 1 (6-14) Blood Urea Nitrogen 23 mg/dL (8-26) Creatinine 0.5 mg/dL (0.7-1.3) Estimated GFR (Cockcroft-Gault) 188.1 Glucose Level 100 mg/dL (70-99) Calcium Level 8.3 mg/dL (8.5-10.1) Magnesium Level 2.2 mg/dL (1.8-2.4) O2 Saturation 94 % (92-99) Arterial Blood pH 7.44 (7.35-7.45) Arterial Blood pCO2 at Patient Temp 57 mmHg (35-46) Arterial Blood pO2 at Patient Temp 70 mmHg (85-108) Arterial Blood HCO3 38 mmol/L (21-28) Arterial Blood Base Excess 11 mmol/L (-3-3) FiO2 80 Medications Active Scripts Medications Dose Route/Sig Max Daily Dose Days Date Category Pepcid (Famotidine) 20 Mg Tablet 20 Mg PO BID 04/28/21 Reported Impression . 1. Acute hypoxic respiratory failure secondary to COVID-19 viral pneumonia/ARDS 2. Abnormal CT chest done at [facility] with diffuse bilateral alveolar and interstitial infiltrates related to COVID-19 pneumonia. No evidence of pulmonary embolism. 3. Underlying obesity. 4. Remote history of obstructive sleep apnea. 5. Abnormal liver function tests, likely due to Covid infection. Bilirubin normal. 6. Normal D-dimer. 7. Status post intubation 05/02, status post bilateral pneumothoraces requiring chest tubes 05/02 Chest x-ray reviewed, small right apical pneumothorax Plan . Updated 05/07/21 Continue current vent support 80% and PEEP of 6 Follow ABG/CXR Continue steroids S/P full course of remdesivir Continue empiric ABX Continue TF for nutritional support Start beta-klaus schedule q6 for HTN DVT/GI PPX D/W RN and RT Updated 05/06 X-ray pending Labs noted Discussed with RT will decrease PEEP to 6 ABG noted, PaCO2 of 67, PaO2 of 79 Empiric antibiotics Finish the remdesivir Steroids continue DVT GI prophylaxis Nutritional support \Updated 05/05 ABG noted, PaO2 of 104, discussed with RN, decrease FiO2, decrease PEEP. Chest x-ray on the right with continued air leak Chest x-ray reviewed Empiric antibiotics Steroids, and remdesivir Continue nutritional support, DVT GI prophylaxis Updated 05/04 Air leak on right chest tube no air leak on the left Chest x-ray reviewed improved Continue current support, assist control ventilation, decreased tidal volume yesterday to 500 DVT GI prophylaxis Empiric antibiotics Steroids Status post remdesivir ABG noted, permissive hypercapnia, PaO2 71 PANCHITO AMOR MD May 07, 2021 13:35
[2021-05-07] MEDS: fentaNYL HIGH DOSE PCA 55 ML IV PRN (23:41)
[2021-05-08] VITALS (24 sets, daily range): BP systolic 98–153; BP diastolic 69–106
[2021-05-08] MEDS: ASCORBIC ACID 500 MG TABLET PO SCH ×5 (00:32→23:17)
[2021-05-08] MEDS: METOPROLOL IV PUSH 5 MG/5 ML VIAL. IVP SCH ×5 (00:32→23:17)
[2021-05-08] MEDS: PROPOFOL 100 ML IV PRN ×8 (01:38→23:09)
[2021-05-08] MEDS: VECURONIUM BROMIDE 50 MG in IV NORMAL SALINE 50ML 50 ML IV PRN ×4 (03:46→23:08)
[2021-05-08] MEDS: MIDAZOLAM 100mg/100ml NS BAG 100 ML IV PRN ×2 (03:48→14:14)
[2021-05-08 04:59] LABS: BASO % 0 % (0-3); EOS % 1 % (0-3); HEMATOCRIT 33.1 % (39.0-53.0); LYMPH # 0.5 x10^3/uL (1.0-4.8); LYMPH % 7 % (24-48); MEAN CORPUSCULAR HEMOGLOBIN 29 pg (25-35); MEAN CORPUSCULAR HGB CONC 33 g/dL (31-37); MEAN CORPUSCULAR VOLUME 87 fL (79-100); MONO # 0.8 x10^3/uL (0.0-1.1); MONO % 11 % (0-9); NEUT # 5.5 x10^3/uL (1.8-7.7); NEUT % 81 % (31-73); PLATELET COUNT 175 x10^3/uL (140-400); RED CELL DISTRIBUTION WIDTH 13.4 % (11.5-14.5); WHITE BLOOD COUNT 6.8 x10^3/uL (4.0-11.0)
[2021-05-08 05:51] LABS: BLOOD UREA NITROGEN 25 mg/dL (8-26); CALCIUM 8.5 mg/dL (8.5-10.1); CARBON DIOXIDE 39 mmol/L (21-32); CHLORIDE 100 mmol/L (98-107); CREATININE 0.5 mg/dL (0.7-1.3); GFR 188.1; GLUCOSE 98 mg/dL (70-99); MAGNESIUM 2.3 mg/dL (1.8-2.4); POTASSIUM 4.4 mmol/L (3.5-5.1); SODIUM 136 mmol/L (136-145)
[2021-05-08 08:13] LABS: BASE EXCESS ABG 10 mmol/L (-3-3); HCO3 ABG 37 mmol/L (21-28); PO2 ABG 60 mmHg (85-108); SAT O2 ABG 89 % (92-99)
[2021-05-08 08:15] LABS: PCO2 ABG 63 mmHg (35-46)
[2021-05-08] MEDS: LACTOBACILLUS RHAMNOSUS GG 1 CAPSULE. PO SCH ×2 (08:21→20:00)
--- NOTE | 2021-05-08 08:21 | PDOC ---
PROGRESS NOTES Date of Service: DATE: 05/08/21 TIME: 08:20 Chief Complaint Chief Complaint Acute respiratory failure with hypoxia COVID- pneumonia GERD Obesity Plan: Continue with with remdesivir day 3 out of 4, steroids, and prophylactic antibiotics Appreciate pulmonology management for Vapotherm therapy Monitor daily LFTs Hemoglobin A1c pending We will initiate insulin treatment when blood glucose become significantly elevated Daily PPI and famotidine as needed FEN - ADA diet PPX - Lovenox FULL CODE Dispo - inpatient for above History of Present Illness History of Present Illness 05/08/2021 Daily PPI and famotidine as needed FEN - ADA diet PPX - Lovenox FULL CODE Dispo - inpatient for above Morbid obesity. No significant tobacco history and // remote history of SONYA. Patient seen and examined in the [facility] [address] ICU Interval decrease in a now tiny right pneumothorax status post pleural drainage catheter placement. There is a stable left pleural drainage catheter without convincing left-sided pneumothorax. /large right pneumothorax with assocaited mild leftward mediastinal deviation. earlier 05-08 Stable diffuse mixed interstitial and alveolar infiltrate with suspected small pleural effusions. Stable endotracheal tube, nasogastric tube and right internal jugular central venous catheter. 05-08 cxr He remains on the vent AC/500/26/80 percent with 6 of PEEP Discussed with RN Chart reviewed Duarte to bedside drainage He is sedated with propofol fentanyl and Versed Remains very critically ill 33 min cc time 05/07/2021 Patient seen and examined in the [facility] [address] ICU He remains on the vent AC/500/26/80 percent with 6 of PEEP (this is improved from yesterday he was on 100% FiO2 with 8 of PEEP) Discussed with RN Chart reviewed Patient has Duarte to bedside drainage He is sedated with propofol fentanyl and Versed Remains very critically ill 05/06/2021 Patient seen and examined in the [facility] [address] ICU He remains intubated AC/26/500/1 her percent with 8 of PEEP The nurse was able to get him down to 80% for an hour or so earlier this morning but he desatted again when she moved him Chart reviewed Reviewed case with RN patient is having some tachycardia and Fluctuating blood pressure Has OG feeds running at 50 cc an hour plus he is getting free water Has Duarte to bedside drainage Has [address] He remains critically ill 05/05/2021 Patient seen and examined in the [facility] [address] ICU He is still intubated AC/500/1 100% with 8 of PEEP Has OG feeds running at 25 cc an hour Sedated with fentanyl and Versed Getting IV vecuronium Chart reviewed Discussed with RN He remains critically 05/04/2021 Patient seen and examined in the [facility] [address] ICU He remains mechanically ventilated Assist-control/500/1 100% with 10 of PEEP He is extremely critically ill He is sedated with Versed and fentanyl He is also paralyzed with vecuronium Reviewed chart Discussed with RN 05/03/2021 Patient seen and examined in the [facility] [address] ICU He remains mechanically ventilated AC/600/1 100% with 10 of PEEP Has 2 pigtail drains in his left and right chest due to some small pneum othoraces after being intubated Had to be sedated with vecuronium Also on Versed and fentanyl also has inverse I to E ratio 2:1 Chart reviewed Discussed with RN He remains extremely critically ill I am concerned he may not survive this? 05/02/2021 Patient seen and examined in the [facility] [address] ICU He is on BiPAP with 100% FiO2 and very tachypneic Discussed with RN we are going to go ahead and intubate here in a few minutes Chart reviewed Patient currently semisedated with Versed Precedex and fentanyl He is very critically Patient 35-year-old male with past medical history of GERD, obesity, who presents to the ED as a transfer from [facility] for COVID-19 pneumonia with worsening respiratory distress. States his symptoms started roughly 1 week ago with fatigue and body aches, which progressed to include fever and shortness of breath. Symptoms were worse with exertion with no significant alleviating factors. He was tested for COVID-19 at [facility] and was discharged home because he was not hypoxic on room air. When he returned to [facility] with worsening symptoms a CT chest demonstrated bibasilar infiltrates consistent with atypical pneumonia. He was then admitted and placed on 3 L nasal cannula for further treatment. He has not been vaccinated against COVID- 19. However due to worsening respiratory distress he was transferred to [facility] for higher level of care. 04/29/2021: Still breathing 40 L Vapotherm. Afebrile, but complaining of chest heaviness, nausea, and subjective shortness of breath. Denies any vomiting, or diarrhea. Informed patient of likely prolonged hospitalization course. Hemoglobin A1c 5.6. Continue remdesivir day 2/5, continue steroids, antibiotics, and supportive care. Continue to follow daily LFTs. Plan to transfer patient to ICU bed when available. Critical care time 33 minutes spent reviewing charts, reviewing labs, and discussing case with Dr. Gaviria. 04/30/21: Afebrile, still breathing on Vapotherm. Continue remdesivir and monitor LFTs. Continue antibiotics, steroids, and supportive care. Will transfer him to the ICU once bed available. Critical care time 30 minutes spent in chart, reviewing labs, reviewing imaging, and discussion with RN. 05/01/2021 No acute events overnight. Patient seen and examined bedside. Saturating 93% on 40 L Vapotherm. Patient will transfer to the ICU for continued supportive care. Vitals Vitals Vital Signs Date Time Temp Pulse Resp B/P (MAP) Pulse Ox O2 Delivery O2 Flow Rate FiO2 05/08/21 08:06 94 Ventilator 05/08/21 06:45 117 143/95 05/08/21 06:00 26 05/08/21 04:00 97.8 95.0 97.8 Physical Exam Physical Exam visual inspection, intubated, and in a medically induced coma Chest tube bilaterally, small amount of subcutaneous emphysema, General: severe distress, Other (Sedated on the vent) Heart: Other (Tachycardic) Abdomen: Soft, No tenderness Extremities: No clubbing, No cyanosis, No edema Skin: No rashes, No breakdown Labs LABS PATIENT: DOUGLAS GARRETT ACCOUNT: [id number] : 1985 LOCATION: [address] [place] [address] AGE: 35 SEX: M EXAM STATUS: ADM IN ORD. PHYSICIAN: KEARA MUKHERJEE MD REASON: Chest tube placement PROCEDURE: PORTABLE CHEST 1V EXAM: Chest, single view. HISTORY: Chest tube placement. COMPARISON: 05/08/2021 FINDINGS: A frontal view of the chest is obtained. There has been interval placement of a right pleural drainage catheter and interval decrease in a tiny right pneumothorax. The previously demonstrated leftward mediastinal shift has resolved. There has been reexpansion of the right lung. There is an unchanged left pleural drainage catheter. No convincing left pneumothorax is seen. There is soft tissue emphysema. There is an endotracheal tube within the mid trachea. There is a nasogastric tube within the stomach. There is a right internal jugular catheter with the tip in the superior vena cava. There is diffuse mixed interstitial and alveolar infiltrate. There are suspected trace pleural effusions. IMPRESSION: 1. Interval decrease in a now tiny right pneumothorax status post pleural drainage catheter placement. There is a stable left pleural drainage catheter without convincing left-sided pneumothorax. 2. Stable diffuse mixed interstitial and alveolar infiltrate with suspected small pleural effusions. 3. Stable endotracheal tube, nasogastric tube and right internal jugular central venous catheter. Electronically signed by: Yaz Barros MD (05/08/2021 11:38 AM) [id number] DICTATED and SIGNED BY: YAZ BARROS MD DATE: 05/08/21 [id number] PATIENT: DOUGLAS GARRETT ACCOUNT: [id number] : 1985 LOCATION: [facility] ICU AGE: 35 SEX: M EXAM STATUS: ADM IN ORD. PHYSICIAN: PANCHITO AMOR MD REASON: ptx PROCEDURE: PORTABLE CHEST 1V EXAM: CHEST ONE VIEW. HISTORY: Pneumothorax. COMPARISON: 05/05/2021. FINDINGS: A frontal view of the chest is obtained. An endotracheal tube has its tip 4 cm above the allison. A right internal jugular central venous catheter has its tip in the superior cavoatrial junction. A nasogastric tube has its tip below the inferior margin of the view. Small bore bilateral chest tubes remain in place. The inspiration is smaller. Bilateral diffuse infiltrates are not clearly changed. There is a trace right pneumothorax. There is no detectable left pneumothorax. There is no clear pleural effusion. The heart is not enlarged. IMPRESSION: 1. Stable bilateral diffuse infiltrates. 2. Small right pneumothorax. Electronically signed by: Josselin Thompson MD (05/07/2021 5:26 AM) [facility] DICTATED and SIGNED BY: BOBO THOMPSON MD DATE: 05/07/21 [id number] Laboratory Tests Test 05/08/21 04:40 05/08/21 08:11 White Blood Count 6.8 x10^3/uL (4.0-11.0) Red Blood Count 3.80 x10^6/uL (4.30-5.70) Hemoglobin 11.0 g/dL (13.0-17.5) Hematocrit 33.1 % (39.0-53.0) Mean Corpuscular Volume 87 fL (79-100) Mean Corpuscular Hemoglobin 29 pg (25-35) Mean Corpuscular Hemoglobin Concent 33 g/dL (31-37) Red Cell Distribution Width 13.4 % (11.5-14.5) Platelet Count 175 x10^3/uL (140-400) Neutrophils (%) (Auto) 81 % (31-73) Lymphocytes (%) (Auto) 7 % (24-48) Monocytes (%) (Auto) 11 % (0-9) Eosinophils (%) (Auto) 1 % (0-3) Basophils (%) (Auto) 0 % (0-3) Neutrophils # (Auto) 5.5 x10^3/uL (1.8-7.7) Lymphocytes # (Auto) 0.5 x10^3/uL (1.0-4.8) Monocytes # (Auto) 0.8 x10^3/uL (0.0-1.1) Eosinophils # (Auto) 0.0 x10^3/uL (0.0-0.7) Basophils # (Auto) 0.0 x10^3/uL (0.0-0.2) Sodium Level 136 mmol/L (136-145) Potassium Level 4.4 mmol/L (3.5-5.1) Chloride Level 100 mmol/L (98-107) Carbon Dioxide Level 39 mmol/L (21-32) Anion Gap (6-14) Blood Urea Nitrogen 25 mg/dL (8-26) Creatinine 0.5 mg/dL (0.7-1.3) Estimated GFR (Cockcroft-Gault) 188.1 Glucose Level 98 mg/dL (70-99) Calcium Level 8.5 mg/dL (8.5-10.1) Magnesium Level 2.3 mg/dL (1.8-2.4) O2 Saturation 89 % (92-99) Arterial Blood pH 7.38 (7.35-7.45) Arterial Blood pCO2 at Patient Temp 63 mmHg (35-46) Arterial Blood pO2 at Patient Temp 60 mmHg (85-108) Arterial Blood HCO3 37 mmol/L (21-28) Arterial Blood Base Excess 10 mmol/L (-3-3) FiO2 100% vent Comment Review of Relevant I have reviewed the following items anselmo (where applicable) has been applied. Labs Laboratory Tests Test 05/06/21 08:30 05/07/21 05:25 05/07/21 08:15 05/08/21 04:40 O2 Saturation 95 % (92-99) 94 % (92-99) Arterial Blood pH 7.38 (7.35-7.45) 7.44 (7.35-7.45) Arterial Blood pCO2 at Patient Temp 67 mmHg (35-46) 57 mmHg (35-46) Arterial Blood pO2 at Patient Temp 79 mmHg (85-108) 70 mmHg (85-108) Arterial Blood HCO3 38 mmol/L (21-28) 38 mmol/L (21-28) Arterial Blood Base Excess 10 mmol/L (-3-3) 11 mmol/L (-3-3) FiO2 80 80 White Blood Count 6.7 x10^3/uL (4.0-11.0) 6.8 x10^3/uL (4.0-11.0) Red Blood Count 3.91 x10^6/uL (4.30-5.70) 3.80 x10^6/uL (4.30-5.70) Hemoglobin 11.4 g/dL (13.0-17.5) 11.0 g/dL (13.0-17.5) Hematocrit 34.0 % (39.0-53.0) 33.1 % (39.0-53.0) Mean Corpuscular Volume 87 fL (79-100) 87 fL (79-100) Mean Corpuscular Hemoglobin 29 pg (25-35) 29 pg (25-35) Mean Corpuscular Hemoglobin Concent 34 g/dL (31-37) 33 g/dL (31-37) Red Cell Distribution Width 13.5 % (11.5-14.5) 13.4 % (11.5-14.5) Platelet Count 191 x10^3/uL (140-400) 175 x10^3/uL (140-400) Neutrophils (%) (Auto) 81 % (31-73) 81 % (31-73) Lymphocytes (%) (Auto) 7 % (24-48) 7 % (24-48) Monocytes (%) (Auto) 10 % (0-9) 11 % (0-9) Eosinophils (%) (Auto) 1 % (0-3) 1 % (0-3) Basophils (%) (Auto) 0 % (0-3) 0 % (0-3) Neutrophils # (Auto) 5.5 x10^3/uL (1.8-7.7) 5.5 x10^3/uL (1.8-7.7) Lymphocytes # (Auto) 0.5 x10^3/uL (1.0-4.8) 0.5 x10^3/uL (1.0-4.8) Monocytes # (Auto) 0.7 x10^3/uL (0.0-1.1) 0.8 x10^3/uL (0.0-1.1) Eosinophils # (Auto) 0.1 x10^3/uL (0.0-0.7) 0.0 x10^3/uL (0.0-0.7) Basophils # (Auto) 0.0 x10^3/uL (0.0-0.2) 0.0 x10^3/uL (0.0-0.2) Sodium Level 137 mmol/L (136-145) 136 mmol/L (136-145) Potassium Level 4.1 mmol/L (3.5-5.1) 4.4 mmol/L (3.5-5.1) Chloride Level 96 mmol/L (98-107) 100 mmol/L (98-107) Carbon Dioxide Level 40 mmol/L (21-32) 39 mmol/L (21-32) Anion Gap 1 (6-14) (6-14) Blood Urea Nitrogen 23 mg/dL (8-26) 25 mg/dL (8-26) Creatinine 0.5 mg/dL (0.7-1.3) 0.5 mg/dL (0.7-1.3) Estimated GFR (Cockcroft-Gault) 188.1 188.1 Glucose Level 100 mg/dL (70-99) 98 mg/dL (70-99) Calcium Level 8.3 mg/dL (8.5-10.1) 8.5 mg/dL (8.5-10.1) Magnesium Level 2.2 mg/dL (1.8-2.4) 2.3 mg/dL (1.8-2.4) Test 05/08/21 08:11 O2 Saturation 89 % (92-99) Arterial Blood pH 7.38 (7.35-7.45) Arterial Blood pCO2 at Patient Temp 63 mmHg (35-46) Arterial Blood pO2 at Patient Temp 60 mmHg (85-108) Arterial Blood HCO3 37 mmol/L (21-28) Arterial Blood Base Excess 10 mmol/L (-3-3) FiO2 100% vent Laboratory Tests Test 05/08/21 04:40 05/08/21 08:11 White Blood Count 6.8 x10^3/uL (4.0-11.0) Red Blood Count 3.80 x10^6/uL (4.30-5.70) Hemoglobin 11.0 g/dL (13.0-17.5) Hematocrit 33.1 % (39.0-53.0) Mean Corpuscular Volume 87 fL (79-100) Mean Corpuscular Hemoglobin 29 pg (25-35) Mean Corpuscular Hemoglobin Concent 33 g/dL (31-37) Red Cell Distribution Width 13.4 % (11.5-14.5) Platelet Count 175 x10^3/uL (140-400) Neutrophils (%) (Auto) 81 % (31-73) Lymphocytes (%) (Auto) 7 % (24-48) Monocytes (%) (Auto) 11 % (0-9) Eosinophils (%) (Auto) 1 % (0-3) Basophils (%) (Auto) 0 % (0-3) Neutrophils # (Auto) 5.5 x10^3/uL (1.8-7.7) Lymphocytes # (Auto) 0.5 x10^3/uL (1.0-4.8) Monocytes # (Auto) 0.8 x10^3/uL (0.0-1.1) Eosinophils # (Auto) 0.0 x10^3/uL (0.0-0.7) Basophils # (Auto) 0.0 x10^3/uL (0.0-0.2) Sodium Level 136 mmol/L (136-145) Potassium Level 4.4 mmol/L (3.5-5.1) Chloride Level 100 mmol/L (98-107) Carbon Dioxide Level 39 mmol/L (21-32) Anion Gap (6-14) Blood Urea Nitrogen 25 mg/dL (8-26) Creatinine 0.5 mg/dL (0.7-1.3) Estimated GFR (Cockcroft-Gault) 188.1 Glucose Level 98 mg/dL (70-99) Calcium Level 8.5 mg/dL (8.5-10.1) Magnesium Level 2.3 mg/dL (1.8-2.4) O2 Saturation 89 % (92-99) Arterial Blood pH 7.38 (7.35-7.45) Arterial Blood pCO2 at Patient Temp 63 mmHg (35-46) Arterial Blood pO2 at Patient Temp 60 mmHg (85-108) Arterial Blood HCO3 37 mmol/L (21-28) Arterial Blood Base Excess 10 mmol/L (-3-3) FiO2 100% vent Medications Current Medications Azithromycin 500 mg/Sodium Chloride 250 ml @ 250 mls/hr 1X ONCE IV Last ad ministered on 04/28/21at 15:44; Start 04/28/21 at 13:00; Stop 04/28/21 at 14:00; Status DC Azithromycin 250 mg/Sodium Chloride 250 ml @ 250 mls/hr Q24H IV Last administered on 05/02/21at 12:51; Start 04/29/21 at 13:00; Stop 05/02/21 at 13:59; Status DC Dexamethasone Sodium Phosphate (Decadron) 6 mg DAILY IVP Last administered on 05/07/21at 08:54; Start 04/29/21 at 09:00 Ceftriaxone Sodium (Rocephin) 2 gm Q24H IVP Last administered on 05/07/21at 12:55; Start 04/28/21 at 14:00 Enoxaparin Sodium (Lovenox 40mg Syringe) 40 mg Q12HR SQ Last administered on 05/07/21at 08:57; Start 04/28/21 at 21:00; Stop 05/07/21 at 15:40; Status DC Famotidine (Pepcid) 20 mg BID@0500,1700 PO Last administered on 05/01/21at 16:36; Start 04/28/21 at 17:00; Stop 05/02/21 at 16:52; Status DC Remdesivir 200 mg/ Sodium Chloride 210 ml @ 210 mls/hr 1X ONCE IV Last administered on 04/28/21at 14:00; Start 04/28/21 at 14:00; Stop 04/28/21 at 14:59; Status DC Remdesivir 100 mg/ Sodium Chloride 230 ml @ 460 mls/hr Q24H IV Last administered on 05/02/21at 13:43; Start 04/29/21 at 14:00; Stop 05/02/21 at 14:29; Status DC Zinc Sulfate (Orazinc) 220 mg DAILY PO Last administered on 05/07/21at 08:53; Start 04/29/21 at 09:00 Ascorbic Acid (Vitamin C) 500 mg Q6HRS PO Last administered on 05/08/21at 06:44; Start 04/28/21 at 18:00 Pantoprazole Sodium (Protonix) 40 mg 1X ONCE PO Last administered on 04/28/21at 15:45; Start 04/28/21 at 13:45; Stop 04/28/21 at 13:46; Status DC Pantoprazole Sodium (Protonix) 40 mg DAILYAC PO Last administered on 05/01/21at 09:44; Start 04/29/21 at 07:30; Stop 05/02/21 at 16:52; Status DC Famotidine (Pepcid) 20 mg PRN BID PRN PO HEARTBURN / GAS Last administered on 05/05/21at 09:07; Start 04/28/21 at 13:45 Ondansetron HCl (Zofran) 4 mg PRN Q6HRS PRN IVP NAUSEA/VOMITING Last administered on 04/29/21at 10:26; Start 04/28/21 at 14:00 Al Hydroxide/Mg Hydroxide (Mylanta Plus Xs) 30 ml PRN Q3HRS PRN PO HEARTBURN / GAS; Start 04/28/21 at 14:00 Calcium Carbonate/ Glycine (Tums) 500 mg PRN Q3HRS PRN PO UPSET STOMACH; Start 04/28/21 at 14:00 Zolpidem Tartrate (Ambien) 5 mg PRN QHS PRN PO INSOMNIA, MAY REPEAT IN 1HR Last administered on 05/01/21at 21:26; Start 04/28/21 at 14:00 Acetaminophen/ Hydrocodone Bitart (Lortab 5/325) 1 tab PRN Q4HRS PRN PO PAIN Last administered on 04/28/21at 17:37; Start 04/28/21 at 14:00 Acetaminophen (Tylenol) 650 mg PRN Q6HRS PRN PO Headaches, Temp > 101.5F; Start 04/28/21 at 14:00 Magnesium Hydroxide (Milk Of Magnesia) 2,400 mg PRN Q12HR PRN PO CONSTIPATION; Start 04/28/21 at 14:00 Enoxaparin Sodium (Lovenox 40mg Syringe) 40 mg Q24H SQ ; Start 04/28/21 at 14:00; Status UNV Sterile Water (WATER for RESP) 1,000 ml CONT PRN INH VIA VAPOTHERM DEVICE Last administered on 04/30/21at 18:45; Start 04/28/21 at 14:45 Lactobacillus Rhamnosus (Culturelle) 1 cap BID PO Last administered on 05/07/21at 21:14; Start 04/29/21 at 21:00 Dexmedetomidine HCl 400 mcg/ Sodium Chloride 100 ml @ 6.965 mls/ hr CONT PRN IV PER PROTOCOL Last administered on 05/02/21at 06:56; Start 05/02/21 at 01:00 Sodium Chloride 500 ml @ 500 mls/hr 1X PRN PRN IV SEE COMMENTS; Start 05/02/21 at 01:00 Atropine Sulfate (ATROPINE 0.5mg SYRINGE) 0.5 mg PRN Q5MIN PRN IV SEE COMMENTS; Start 05/02/21 at 01:00 Propofol 0 ml @ As Directed STK-MED ONCE IV ; Start 05/02/21 at 07:37; Stop 05/02/21 at 07:37; Status DC Succinylcholine Chloride (Anectine) 200 mg STK-MED ONCE .ROUTE ; Start 05/02/21 at 07:37; Stop 05/02/21 at 07:37; Status DC Etomidate (Amidate) 20 mg STK-MED ONCE IV ; Start 05/02/21 at 07:37; Stop 05/02/21 at 07:37; Status DC Fentanyl Citrate 30 ml @ 0 mls/hr CONT PRN IV SEE PROTOCOL Last administered on 05/07/21at 19:51; Start 05/02/21 at 07:45; Stop 05/07/21 at 22:40; Status DC Propofol 100 ml @ 0 mls/hr CONT PRN IV PER PROTOCOL Last administered on 05/08/21at 04:38; Start 05/02/21 at 07:45 Midazolam HCl 100 ml @ 0 mls/hr CONT PRN IV SEE PROTOCOL Last administered on 05/08/21 03:48; Start 05/02/21 at 07:45 Norepinephrine Bitartrate 8 mg/ Dextrose 258 ml @ 27.09 mls/ hr CONT PRN IV PER PROTOCOL Last administered on 05/02/21at 09:35; Start 05/02/21 at 08:45 Norepinephrine Bitartrate 8 mg/ Dextrose 258 ml @ 27.09 mls/ hr CONT PRN IV PER PROTOCOL; Start 05/02/21 at 08:45; Status UNV Etomidate (Amidate) 10 mg 1X ONCE IV Last administered on 05/02/21at 08:49; Start 05/02/21 at 08:45; Stop 05/02/21 at 08:48; Status DC Succinylcholine Chloride (Anectine) 100 mg 1X ONCE IV Last administered on 05/02/21at 08:50; Start 05/02/21 at 08:45; Stop 05/02/21 at 08:48; Status DC Vecuronium [place] (Norcuron Bolus) 6 mg PRN Q4HRS PRN IV VENTILATOR COMPLIANCE Last administered on 05/02/21at 08:51; Start 05/02/21 at 08:45 Epinephrine HCl (EPINEPHrine SYRINGE) 1 mg 1X ONCE IV Last administered on 05/02/21at 08:50; Start 05/02/21 at 08:45; Stop 05/02/21 at 08:48; Status DC Vecuronium [place] 50 mg/ Sodium Chloride 50 ml @ 6.72 mls/hr CONT PRN IV SEE I/O RECORD Last administered on 05/08/21at 03:46; Start 05/02/21 at 09:15 Vitamin D (Vitamin D3) 5,000 unit DAILY FT Last administered on 05/07/21at 08:53; Start 05/03/21 at 09:00 Vecuronium [place] 50 mg/ Sodium Chloride 50 ml @ 6.72 mls/hr CONT PRN IV SEE I/O RECORD; Start 05/02/21 at 09:15; Stop 05/02/21 at 09:17; Status DC Lidocaine HCl (Lidocaine 2% 20ml Vial) 20 ml STK-MED ONCE .ROUTE ; Start 05/02/21 at 10:14; Stop 05/02/21 at 10:14; Status DC Famotidine (Pepcid Vial) 20 mg QHS IVP ; Start 05/02/21 at 21:00; Stop 05/03/21 at 09:07; Status DC Info (Icu Electrolyte Protocol) 1 ea CONT PRN PRN MC PER PROTOCOL; Start 05/03/21 at 07:30 Famotidine (Pepcid Vial) 20 mg BID IVP Last administered on 05/07/21at 21:14; Start 05/03/21 at 10:00 Propofol (Diprivan) 1,000 mg STK-MED ONCE IV ; Start 05/02/21 at 08:00; Stop 05/04/21 at 08:51; Status DC Metoprolol Tartrate (Lopressor Vial) 5 mg PRN Q6HRS PRN IVP HYPERTENSION Last administered on 05/07/21at 05:16; Start 05/06/21 at 12:30; Stop 05/07/21 at 12:57; Status DC Metoprolol Tartrate (Lopressor Vial) 5 mg Q6HRS IVP Last administered on 05/08/21 at 06:45; Start 05/07/21 at 13:00 Enoxaparin Sodium (Lovenox 40mg Syringe) 40 mg Q24H SQ ; Start 05/08/21 at 09:00 Fentanyl Citrate 55 ml @ 0 mls/hr CONT PRN PRN IV PAIN CONTROL Last administered on 05/07/21at 23:41; Start 05/07/21 at 22:45 Active Scripts Active Reported Pepcid (Famotidine) 20 Mg Tablet 20 Mg PO BID Vitals/I & O Vital Sign - Last 24 Hours 05/07/21 05/07/21 05/07/21 05/07/21 08:56 09:00 09:26 10:00 Pulse 86 88 Resp 26 26 B/P (MAP) 136/87 (103) 122/76 (91) Pulse Ox 95 97 95 98 O2 Delivery Ventilator Ventilator O2 Flow Rate 40.0 40.0 05/07/21 05/07/21 05/07/21 05/07/21 11:00 11:19 12:00 12:00 Temp 97.4 97.4 Pulse 88 80 B/P (MAP) 135/75 (95) 124/78 (93) Pulse Ox 98 97 97 O2 Delivery Ventilator Ventilator Ventilator Mechanical Ventilator 05/07/21 05/07/21 05/07/21 05/07/21 13:00 13:43 14:00 14:13 Pulse 74 74 B/P (MAP) 127/76 (93) 132/80 (97) Pulse Ox 99 97 99 99 O2 Delivery Ventilator Ventilator Ventilator O2 Flow Rate 40.0 40.0 05/07/21 05/07/21 05/07/21 05/07/21 15:00 16:00 16:00 16:54 Temp 97.5 97.5 Pulse 74 70 B/P (MAP) 132/80 (97) 126/76 (93) Pulse Ox 99 97 99 O2 Delivery Ventilator Ventilator Mechanical Ventilator Ventilator 05/07/21 05/07/21 05/07/21 05/07/21 17:00 18:00 19:00 19:30 Pulse 68 70 66 96 B/P (MAP) 131/77 (95) 133/74 (93) 149/93 (111) 221/117 (151) Pulse Ox 99 99 95 84 O2 Delivery Ventilator Ventilator Ventilator Ventilator 05/07/21 05/07/21 05/07/21 05/07/21 19:45 19:46 19:50 19:59 Pulse 88 90 85 82 B/P (MAP) 176/96 (122) 198/91 Pulse Ox 78 65 80 O2 Delivery Ventilator Ventilator Ventilator 05/07/21 05/07/21 05/07/21 05/07/21 20:00 20:00 20:21 20:21 Temp 98.6 98.6 Pulse 66 B/P (MAP) 149/93 (111) Pulse Ox 85 91 91 O2 Delivery Ventilator Mechanical Ventilator Ventilator O2 Flow Rate 40.0 05/07/21 05/07/21 05/07/21 05/07/21 21:00 21:35 22:00 23:00 Pulse 102 100 99 100 B/P (MAP) 176/106 (129) 136/87 (103) 140/90 (107) 141/95 (110) Pulse Ox 94 93 93 O2 Delivery Ventilator Ventilator Ventilator 05/07/21 05/07/21 05/08/21 05/08/21 23:41 23:54 00:00 00:00 Temp 99.0 99.0 Pulse 91 B/P (MAP) 153/96 (115) Pulse Ox 93 93 93 O2 Delivery Ventilator Ventilator Mechanical Ventilator O2 Flow Rate 40.0 05/08/21 05/08/21 05/08/21 05/08/21 00:11 00:32 01:00 02:00 Pulse 103 93 100 B/P (MAP) 153/96 127/81 (96) 128/84 (99) Pulse Ox 93 97 97 O2 Delivery Ventilator Ventilator O2 Flow Rate 40.0 05/08/21 05/08/21 05/08/21 05/08/21 02:45 03:00 04:00 04:00 Temp 97.8 97.8 Pulse 101 98 B/P (MAP) 130/79 (96) 136/91 (106) Pulse Ox 97 97 97 O2 Delivery Ventilator Ventilator Mechanical Ventilator Ventilator O2 Flow Rate 95.0 05/08/21 05/08/21 05/08/21 05/08/21 05:00 05:16 06:00 06:45 Pulse 101 108 117 B/P (MAP) 140/89 (106) 139/93 (108) 143/95 Pulse Ox 96 96 95 O2 Delivery Ventilator Ventilator Ventilator 05/08/21 08:06 Pulse Ox 94 O2 Delivery Ventilator Intake and Output 05/07/21 05/07/21 05/08/21 15:00 23:00 07:00 Intake Total 250 ml 1022.52 ml 1957 ml Output Total 550 ml 850 ml 555 ml Balance -300 ml 172.52 ml 1402 ml Justicifation of Admission Dx: Justifications for Admission: Justification of Admission Dx: Yes Comminuty Aquired Pneumonia: Hypoxemia ARELY DILLARD MD May 08, 2021 08:21
[2021-05-08] MEDS: CHOLECALCIFEROL (VITAMIN D3) 1,000 UNIT TABLET FT SCH (08:22)
[2021-05-08] MEDS: FAMOTIDINE 20 MG/2 ML VIAL IVP SCH ×2 (08:22→20:00)
[2021-05-08] MEDS: ZINC SULFATE 220 MG CAPSULE. PO SCH (08:23)
[2021-05-08] MEDS: DEXAMETHASONE SOD PHOS 4 MG/ML VIAL IVP SCH (08:23)
--- NOTE | 2021-05-08 08:28 | RAD ---
Study: XR CHEST 1V Indication: Pneumothorax. Comparison: 05/07/2021 Findings: Pleural catheter on the right with the tubing coiled near the apex. Pleural catheter on the left with excess tubing projecting over the middle third of the hemithorax. Central venous catheter tip projec ts within the SVC. Endotracheal tube 4 to 5 cm above the allison. Enteric tube extends beyond the infe rior [id number]. Development of a large right pneumothorax. There is a component of leftward mediastinal deviation. Si milar extent of diffuse infiltrates on the left with a basilar/subpleural predilection. No pneumothor ax is seen of the left. Impression: 1. Despite the presence of a pleural catheter, significant increase in size of a now large right pneu mothorax with assocaited mild leftward mediastinal deviation. 2. Pleural catheter on the left without an appreciable pneumothorax on this side. 3. Persistence of diffuse airspace infiltrates on the left. 4. Adequately positioned central venous catheter and endotracheal tube. An enteric tube extends beyon d the inferior field of view. The findings were discussed with the patient's nurse on 05/08/2021 at 0820 hours. Electronically signed by: ELISA ORTIZ MD (05/08/2021 8:25 AM) [facility]
[2021-05-08] MEDS ORDERED: ENOXAPARIN 40 MG/0.4 ML SYRINGE. SQ SCH (09:00)
--- NOTE | 2021-05-08 09:06 | RAD ---
EXAM: Chest, single view. HISTORY: Pneumothorax. COMPARISON: 05/08/2021 FINDINGS: A frontal view of the chest is obtained. There has been slight interval decrease in a moder ate to large right pneumothorax. There is a right pleural drainage catheter overlying the right upper thorax. There has been slight expansion of the right lung. There is a pleural drainage catheter over lying the left upper mid thorax. No left-sided pneumothorax is seen. There is stable diffuse infiltra te. There is an endotracheal tube within the mid trachea. There is a nasogastric tube within the stom ach. There is a right internal jugular catheter with the tip in the superior cava. IMPRESSION: 1. Slight interval decrease in a moderate to large right pneumothorax and reexpansion of the right shayan ng. There is a right apical pleural drainage catheter looped over the right upper thorax. There is al so a left pleural drainage catheter without evidence of a left pneumothorax. 2. Stable diffuse infiltrate and support lines and tubes. Electronically signed by: Yaz eRd MD (05/08/2021 9:03 AM) [id number]
[2021-05-08] MEDS ORDERED: LIDOCAINE WITH 8.4% SOD BICARB 3 ML DISP.SYRIN. ONE (09:19)
--- NOTE | 2021-05-08 10:13 | PDOC ---
PULMONARY PROGRESS NOTES DATE: 05/08/21 TIME: 10:08 Subjective remains on vent support now on 100% and PEEP of 10 no Air leak Intubated 05/02 Vitals Vital Signs Date Time Temp Pulse Resp B/P (MAP) Pulse Ox O2 Delivery O2 Flow Rate FiO2 05/08/21 08:06 94 Ventilator 05/08/21 06:45 117 143/95 05/08/21 06:00 26 05/08/21 04:00 97.8 95.0 97.8 Comments On visual inspection, patient intubated, and in a medically induced coma Chest tube bilaterally, small amount of subcutaneous emphysema, Labs Laboratory Tests Test 05/07/21 05:25 05/07/21 08:15 05/08/21 04:40 05/08/21 08:11 White Blood Count 6.7 x10^3/uL (4.0-11.0) 6.8 x10^3/uL (4.0-11.0) Red Blood Count 3.91 x10^6/uL (4.30-5.70) 3.80 x10^6/uL (4.30-5.70) Hemoglobin 11.4 g/dL (13.0-17.5) 11.0 g/dL (13.0-17.5) Hematocrit 34.0 % (39.0-53.0) 33.1 % (39.0-53.0) Mean Corpuscular Volume 87 fL (79-100) 87 fL (79-100) Mean Corpuscular Hemoglobin 29 pg (25-35) 29 pg (25-35) Mean Corpuscular Hemoglobin Concent 34 g/dL (31-37) 33 g/dL (31-37) Red Cell Distribution Width 13.5 % (11.5-14.5) 13.4 % (11.5-14.5) Platelet Count 191 x10^3/uL (140-400) 175 x10^3/uL (140-400) Neutrophils (%) (Auto) 81 % (31-73) 81 % (31-73) Lymphocytes (%) (Auto) 7 % (24-48) 7 % (24-48) Monocytes (%) (Auto) 10 % (0-9) 11 % (0-9) Eosinophils (%) (Auto) 1 % (0-3) 1 % (0-3) Basophils (%) (Auto) 0 % (0-3) 0 % (0-3) Neutrophils # (Auto) 5.5 x10^3/uL (1.8-7.7) 5.5 x10^3/uL (1.8-7.7) Lymphocytes # (Auto) 0.5 x10^3/uL (1.0-4.8) 0.5 x10^3/uL (1.0-4.8) Monocytes # (Auto) 0.7 x10^3/uL (0.0-1.1) 0.8 x10^3/uL (0.0-1.1) Eosinophils # (Auto) 0.1 x10^3/uL (0.0-0.7) 0.0 x10^3/uL (0.0-0.7) Basophils # (Auto) 0.0 x10^3/uL (0.0-0.2) 0.0 x10^3/uL (0.0-0.2) Sodium Level 137 mmol/L (136-145) 136 mmol/L (136-145) Potassium Level 4.1 mmol/L (3.5-5.1) 4.4 mmol/L (3.5-5.1) Chloride Level 96 mmol/L (98-107) 100 mmol/L (98-107) Carbon Dioxide Level 40 mmol/L (21-32) 39 mmol/L (21-32) Anion Gap 1 (6-14) (6-14) Blood Urea Nitrogen 23 mg/dL (8-26) 25 mg/dL (8-26) Creatinine 0.5 mg/dL (0.7-1.3) 0.5 mg/dL (0.7-1.3) Estimated GFR (Cockcroft-Gault) 188.1 188.1 Glucose Level 100 mg/dL (70-99) 98 mg/dL (70-99) Calcium Level 8.3 mg/dL (8.5-10.1) 8.5 mg/dL (8.5-10.1) Magnesium Level 2.2 mg/dL (1.8-2.4) 2.3 mg/dL (1.8-2.4) O2 Saturation 94 % (92-99) 89 % (92-99) Arterial Blood pH 7.44 (7.35-7.45) 7.38 (7.35-7.45) Arterial Blood pCO2 at Patient Temp 57 mmHg (35-46) 63 mmHg (35-46) Arterial Blood pO2 at Patient Temp 70 mmHg (85-108) 60 mmHg (85-108) Arterial Blood HCO3 38 mmol/L (21-28) 37 mmol/L (21-28) Arterial Blood Base Excess 11 mmol/L (-3-3) 10 mmol/L (-3-3) FiO2 80 100% vent Laboratory Tests Test 05/08/21 04:40 05/08/21 08:11 White Blood Count 6.8 x10^3/uL (4.0-11.0) Red Blood Count 3.80 x10^6/uL (4.30-5.70) Hemoglobin 11.0 g/dL (13.0-17.5) Hematocrit 33.1 % (39.0-53.0) Mean Corpuscular Volume 87 fL (79-100) Mean Corpuscular Hemoglobin 29 pg (25-35) Mean Corpuscular Hemoglobin Concent 33 g/dL (31-37) Red Cell Distribution Width 13.4 % (11.5-14.5) Platelet Count 175 x10^3/uL (140-400) Neutrophils (%) (Auto) 81 % (31-73) Lymphocytes (%) (Auto) 7 % (24-48) Monocytes (%) (Auto) 11 % (0-9) Eosinophils (%) (Auto) 1 % (0-3) Basophils (%) (Auto) 0 % (0-3) Neutrophils # (Auto) 5.5 x10^3/uL (1.8-7.7) Lymphocytes # (Auto) 0.5 x10^3/uL (1.0-4.8) Monocytes # (Auto) 0.8 x10^3/uL (0.0-1.1) Eosinophils # (Auto) 0.0 x10^3/uL (0.0-0.7) Basophils # (Auto) 0.0 x10^3/uL (0.0-0.2) Sodium Level 136 mmol/L (136-145) Potassium Level 4.4 mmol/L (3.5-5.1) Chloride Level 100 mmol/L (98-107) Carbon Dioxide Level 39 mmol/L (21-32) Anion Gap (6-14) Blood Urea Nitrogen 25 mg/dL (8-26) Creatinine 0.5 mg/dL (0.7-1.3) Estimated GFR (Cockcroft-Gault) 188.1 Glucose Level 98 mg/dL (70-99) Calcium Level 8.5 mg/dL (8.5-10.1) Magnesium Level 2.3 mg/dL (1.8-2.4) O2 Saturation 89 % (92-99) Arterial Blood pH 7.38 (7.35-7.45) Arterial Blood pCO2 at Patient Temp 63 mmHg (35-46) Arterial Blood pO2 at Patient Temp 60 mmHg (85-108) Arterial Blood HCO3 37 mmol/L (21-28) Arterial Blood Base Excess 10 mmol/L (-3-3) FiO2 100% vent Medications Active Scripts Medications Dose Route/Sig Max Daily Dose Days Date Category Pepcid (Famotidine) 20 Mg Tablet 20 Mg PO BID 04/28/21 Reported Impression . 1. Acute hypoxic respiratory failure secondary to COVID-19 viral pneumonia/ARDS 2. Abnormal CT chest done at [facility] with diffuse bilateral alveolar and interstitial infiltrates related to COVID-19 pneumonia. No evidence of pulmonary embolism. 3. Underlying obesity. 4. Remote history of obstructive sleep apnea. 5. Abnormal liver function tests, likely due to Covid infection. Bilirubin normal. 6. Normal D-dimer. 7. Status post intubation 05/02, status post bilateral pneumothoraces requiring chest tubes 05/02 Chest x-ray reviewed, small right apical pneumothorax Plan . Updated 05/08/21 Continue current vent support 100% and PEEP of 10,reverse IE ratio Follow ABG/CXR--reviewed worsening PTX on right, will attempt to re-position the Chest tube, if no improvement will replace CT Continue steroids started on 04/29/21, will need full 10 day course S/P full course of remdesivir Continue TF for nutritional support DVT/GI PPX :lovenox D/W RN and RT Updated 05/07/21 Continue current vent support 80% and PEEP of 6 Follow ABG/CXR Continue steroids S/P full course of remdesivir Continue empiric ABX Continue TF for nutritional support Start beta-klaus schedule q6 for HTN DVT/GI PPX D/W RN and RT Updated 05/06 X-ray pending Labs noted Discussed with RT will decrease PEEP to 6 ABG noted, PaCO2 of 67, PaO2 of 79 Empiric antibiotics Finish the remdesivir Steroids continue DVT GI prophylaxis Nutritional support \Updated 05/05 ABG noted, PaO2 of 104, discussed with RN, decrease FiO2, decrease PEEP. Chest x-ray on the right with continued air leak Chest x-ray reviewed Empiric antibiotics Steroids, and remdesivir Continue nutritional support, DVT GI prophylaxis Updated 05/04 Air leak on right chest tube no air leak on the left Chest x-ray reviewed improved Continue current support, assist control ventilation, decreased tidal volume yesterday to 500 DVT GI prophylaxis Empiric antibiotics Steroids Status post remdesivir ABG noted, permissive hypercapnia, PaO2 71 PANCHITO AMOR MD May 08, 2021 10:13
[2021-05-08] MEDS ORDERED: LIDOCAINE WITH 8.4% SOD BICARB 3 ML DISP.SYRIN. INJ ONE (10:15)
--- NOTE | 2021-05-08 11:41 | RAD ---
EXAM: Chest, single view. HISTORY: Chest tube placement. COMPARISON: 05/08/2021 FINDINGS: A frontal view of the chest is obtained. There has been interval placement of a right pleur al drainage catheter and interval decrease in a tiny right pneumothorax. The previously demonstrated leftward mediastinal shift has resolved. There has been reexpansion of the right lung. There is an un changed left pleural drainage catheter. No convincing left pneumothorax is seen. There is soft tissue emphysema. There is an endotracheal tube within the mid trachea. There is a nasogastric tube within the stomach. There is a right internal jugular catheter with the tip in the superior vena cava. There is diffuse mixed interstitial and alveolar infiltrate. There are suspected trace pleural effusions. IMPRESSION: 1. Interval decrease in a now tiny right pneumothorax status post pleural drainage catheter placement . There is a stable left pleural drainage catheter without convincing left-sided pneumothorax. 2. Stable diffuse mixed interstitial and alveolar infiltrate with suspected small pleural effusions. 3. Stable endotracheal tube, nasogastric tube and right internal jugular central venous catheter. Electronically signed by: Yaz Red MD (05/08/2021 11:38 AM) [id number]
--- NOTE | 2021-05-08 16:09 | NUR ---
SS following up with discharge planning. SS reviewed pt chart and discussed with pt RN. Pt is currently on the vent at 100%. COVID19 positive. Two chest tubes in place. Pt on IV Decadron. Pt on Vec, Versed, Propofol, and Fentanyl. Not stable. SS will continue to follow for discharge planning.
--- NOTE | 2021-05-08 16:30 | RAD ---
Bedside thoracostomy tube placement INDICATION: Pneumothorax, positive pressure ventilation, failed right thoracostomy tube Sterility: All elements of maximal sterile barrier technique including the use of a cap, mask, steril e gown, sterile gloves, large sterile sheet, appropriate hand hygiene, and 2% chlorhexidine for cutan eous antisepsis (or acceptable alternative antiseptic per current guidelines) were followed for this procedure. Consent: The procedures performed as a medical necessity, under emergent conditions Technique and Findings: The anterior chest was prepped and draped in the usual sterile fashion. A 5 F rench sheathed needle was advanced into the pleural space. A guidewire was advanced into the pleural space over which following dilatation an 8 Amharic pigtail catheter was placed. There was freely aspir ated. The catheter was connected to a Pleur-evac device at -20 cm water.. Sterile dressings were appl ied. No immediate complications were identified. IMPRESSION: Right-sided thoracostomy tube placement Electronically signed by: Deshawn Almeida MD (05/08/2021 4:28 PM) [id number]
[2021-05-08] MEDS: ENOXAPARIN 40 MG/0.4 ML SYRINGE. SQ SCH (20:01)
[2021-05-09] VITALS (24 sets, daily range): BP systolic 120–205; BP diastolic 59–102
[2021-05-09] MEDS: MIDAZOLAM 100mg/100ml NS BAG 100 ML IV PRN ×3 (01:00→21:07)
[2021-05-09] MEDS: PROPOFOL 100 ML IV PRN ×8 (04:33→23:22)
[2021-05-09] MEDS: METOPROLOL IV PUSH 5 MG/5 ML VIAL. IVP SCH ×4 (04:44→23:22)
[2021-05-09] MEDS: hydrALAZINE 20 MG/ML VIAL. IVP PRN ×4 (04:50→20:41)
[2021-05-09] MEDS: LABETALOL 20 MG/4 ML DISP.SYRIN. IVP PRN ×3 (04:51→15:27)
[2021-05-09] MEDS: VECURONIUM BROMIDE 50 MG in IV NORMAL SALINE 50ML 50 ML IV PRN ×2 (04:57→09:55)
[2021-05-09 05:14] LABS: BASO # 0.1 x10^3/uL (0.0-0.2); BASO % 1 % (0-3); EOS % 0 % (0-3); HEMATOCRIT 33.2 % (39.0-53.0); HEMOGLOBIN 11.1 g/dL (13.0-17.5); LYMPH # 0.7 x10^3/uL (1.0-4.8); LYMPH % 9 % (24-48); MEAN CORPUSCULAR HEMOGLOBIN 29 pg (25-35); MEAN CORPUSCULAR HGB CONC 34 g/dL (31-37); MEAN CORPUSCULAR VOLUME 87 fL (79-100); MONO # 0.7 x10^3/uL (0.0-1.1); MONO % 8 % (0-9); NEUT # 6.5 x10^3/uL (1.8-7.7); NEUT % 82 % (31-73); PLATELET COUNT 176 x10^3/uL (140-400); RED CELL DISTRIBUTION WIDTH 13.5 % (11.5-14.5)
[2021-05-09 05:34] LABS: ALBUMIN 2.2 g/dL (3.4-5.0); ALBUMIN/GLOBULIN RATIO 0.5 (1.0-1.7); CALCIUM 8.3 mg/dL (8.5-10.1); CREATININE 0.5 mg/dL (0.7-1.3); GFR 188.1; POTASSIUM 3.9 mmol/L (3.5-5.1); TOTAL BILIRUBIN 0.9 mg/dL (0.2-1.0); TOTAL PROTEIN 6.3 g/dL (6.4-8.2)
[2021-05-09] MEDS: ASCORBIC ACID 500 MG TABLET PO SCH ×4 (06:14→23:22)
[2021-05-09] MEDS: fentaNYL HIGH DOSE PCA 55 ML IV PRN ×2 (08:00→20:40)
--- NOTE | 2021-05-09 08:22 | RAD ---
EXAM: Chest, single view. HISTORY: Pneumothorax. COMPARISON: 05/08/2021 FINDINGS: A frontal view of the chest is obtained. There is a tiny right pneumothorax, decreased comp ared to the prior study. There is a right pleural drainage catheter overlying the mid thorax. There i s also a left pleural drainage catheter overlying the mid thorax without evidence of a residual left pneumothorax. There is stable diffuse interstitial and alveolar infiltrate. There is a stable cardiac silhouette. There is an endotracheal tube within the mid to distal trachea. There is a nasogastric t ube within the stomach. There is a right internal jugular catheter with the tip in the superior cavoa trial junction. There are suspected small pleural effusions. IMPRESSION: 1. Stable diffuse infiltrate and small pleural effusions. 2. Decrease in a tiny residual right pneumothorax status post pleural drainage catheter placement. Th ere is an unchanged left pleural drainage catheter. The remainder of the support lines and tubes are unchanged. Electronically signed by: Yaz Red MD (05/09/2021 8:20 AM) [id number]
[2021-05-09] MEDS: ENOXAPARIN 40 MG/0.4 ML SYRINGE. SQ SCH ×2 (08:23→20:40)
[2021-05-09] MEDS: FAMOTIDINE 20 MG TABLET. PO PRN (08:24)
[2021-05-09] MEDS: LACTOBACILLUS RHAMNOSUS GG 1 CAPSULE. PO SCH ×2 (08:24→20:42)
[2021-05-09] MEDS: CHOLECALCIFEROL (VITAMIN D3) 1,000 UNIT TABLET FT SCH (08:24)
[2021-05-09] MEDS: ZINC SULFATE 220 MG CAPSULE. PO SCH (08:25)
[2021-05-09] MEDS: DEXAMETHASONE SOD PHOS 4 MG/ML VIAL IVP SCH (08:25)
[2021-05-09 08:34] LABS: BASE EXCESS ABG 9 mmol/L (-3-3); HCO3 ABG 36 mmol/L (21-28); PO2 ABG 119 mmHg (85-108); SAT O2 ABG 98 % (92-99)
[2021-05-09] MEDS: FAMOTIDINE 20 MG/2 ML VIAL IVP SCH ×2 (08:37→20:40)
[2021-05-09 08:41] LABS: PCO2 ABG 65 mmHg (35-46)
--- NOTE | 2021-05-09 08:43 | PDOC ---
PROGRESS NOTES Date of Service: DATE: 05/09/21 TIME: 08:43 Chief Complaint Chief Complaint Acute respiratory failure with hypoxia COVID-19 pneumonia GERD Obesity Plan: Continue with with remdesivir day 3 out of 4, steroids, and prophylactic antibiotics Appreciate pulmonology management for Vapotherm therapy Monitor daily LFTs Hemoglobin A1c pending We will initiate insulin treatment when blood glucose become significantly elevated Daily PPI and famotidine as needed FEN - ADA diet PPX - Lovenox FULL CODE Dispo - inpatient for above History of Present Illness History of Present Illness 05/09/2021 Status post intubation 05/02, status post bilateral pneumothoraces requiring chest tubes 05/02 Decrease in a tiny residual right pneumothorax status post pleural drainage catheter placement. There is an unchanged left pleural drainage catheter. 05-09 cxr Daily PPI and famotidine as needed FEN - ADA diet PPX - Lovenox FULL CODE Dispo - inpatient for above Morbid obesity. No significant tobacco history and // remote history of SONYA. Patient seen and examined in the [place] [id number] ICU Interval decrease in a now tiny right pneumothorax status post pleural drainage catheter placement. There is a stable left pleural drainage catheter without convincing left-sided pneumothorax. /large right pneumothorax with assocaited mild leftward mediastinal deviation. earlier 05-08 Stable diffuse mixed interstitial and alveolar infiltrate with suspected small pleural effusions. Stable endotracheal tube, nasogastric tube and right internal jugular central venous catheter. 05-08 cxr He remains on the vent AC/500/26/80 percent with 6 of PEEP Discussed with RN Chart reviewed Duarte to bedside drainage He is sedated with propofol fentanyl and Versed Remains very critically ill labile htn, will consult cardiology 35 min cc time 05/08/2021 Daily PPI and famotidine as needed FEN - ADA diet PPX - Lovenox FULL CODE Dispo - inpatient for above Morbid obesity. No significant tobacco history and // remote history of SONYA. Patient seen and examined in the [facility] ICU Interval decrease in a now tiny right pneumothorax status post pleural drainage catheter placement. There is a stable left pleural drainage catheter without convincing left-sided pneumothorax. /large right pneumothorax with assocaited mild leftward mediastinal deviation. earlier 05-08 Stable diffuse mixed interstitial and alveolar infiltrate with suspected small pleural effusions. Stable endotracheal tube, nasogastric tube and right internal jugular central venous catheter. 05-08 cxr He remains on the vent AC/500/26/80 percent with 6 of PEEP Discussed with RN Chart reviewed Duarte to bedside drainage He is sedated with propofol fentanyl and Versed Remains very critically ill 33 min cc time 05/07/2021 Patient seen and examined in the [place] [address] ICU He remains on the vent AC/500/26/80 percent with 6 of PEEP (this is improved from yesterday he was on 100% FiO2 with 8 of PEEP) Discussed with RN Chart reviewed Patient has Duarte to bedside drainage He is sedated with propofol fentanyl and Versed Remains very critically ill 05/06/2021 Patient seen and examined in the [place] [address] ICU He remains intubated AC//500/1 her percent with 8 of PEEP The nurse was able to get him down to 80% for an hour or so earlier this morning but he desatted again when she moved him Chart reviewed Reviewed case with RN patient is having some tachycardia and Fluctuating blood pressure Has OG feeds running at 50 cc an hour plus he is getting free water Has Duarte to bedside drainage Has [address] He remains critically ill 05/05/2021 Patient seen and examined in the [place] [address] ICU He is still intubated AC//500/1 100% with 8 of PEEP Has OG feeds running at 25 cc an hour Sedated with fentanyl and Versed Getting IV vecuronium Chart reviewed Discussed with RN He remains critically 05/04/2021 Patient seen and examined in the [place] [address] ICU He remains mechanically ventilated Assist-control/500/1 100% with 10 of PEEP He is extremely critically ill He is sedated with Versed and fentanyl He is also paralyzed with vecuronium Reviewed chart Discussed with RN 05/03/2021 Patient seen and examined in the [place] [address] ICU He remains mechanically ventilated AC//600/1 100% with 10 of PEEP Has 2 pigtail drains in his left and right chest due to some small pneumothoraces after being intubated Had to be sedated with vecuronium Also on Versed and fentanyl also has inverse I to E ratio 2:1 Chart reviewed Discussed with RN He remains extremely critically ill I am concerned he may not survive this? 05/02/2021 Patient seen and examined in the [place] [address] ICU He is on BiPAP with 100% FiO2 and very tachypneic Discussed with RN we are going to go ahead and intubate here in a few minutes Chart reviewed Patient currently semisedated with Versed Precedex and fentanyl He is very critically Patient 35-year-old male with past medical history of GERD, obesity, who presents to the ED as a transfer from [facility] for COVID-19 pneumonia with worsening respiratory distress. States his symptoms started roughly 1 week ago with fatigue and body aches, which progressed to include fever and shortness of breath. Symptoms were worse with exertion with no significant alleviating factors. He was tested for COVID-19 at [facility] and was discharged home because he was not hypoxic on room air. When he returned to [facility] with worsening symptoms a CT chest demonstrated bibasilar infiltrates consistent with atypical pneumonia. He was then admitted and placed on 3 L nasal cannula for further treatment. He has not been vaccinated against COVID- 19. However due to worsening respiratory distress he was transferred to [facility] for higher level of care. 04/29/2021: Still breathing 40 L Vapotherm. Afebrile, but complaining of chest heaviness, nausea, and subjective shortness of breath. Denies any vomiting, or diarrhea. Informed patient of likely prolonged hospitalization course. Hemoglobin A1c 5.6. Continue remdesivir day 2/5, continue steroids, antibiotics, and supportive care. Continue to follow daily LFTs. Plan to transfer patient to ICU bed when available. Critical care time 33 minutes spent reviewing charts, reviewing labs, and discussing case with Dr. Gaviria. 04/30/21: Afebrile, still breathing on Vapotherm. Continue remdesivir and monitor LFTs. Continue antibiotics, steroids, and supportive care. Will transfer him to the ICU once bed available. Critical care time 30 minutes spent in chart, reviewing labs, reviewing imaging, and discussion with RN. 05/01/2021 No acute events overnight. Patient seen and examined bedside. Saturating 93% on 40 L Vapotherm. Patient will transfer to the ICU for continued supportive care. Vitals Vitals Vital Signs Date Time Temp Pulse Resp B/P (MAP) Pulse Ox O2 Delivery O2 Flow Rate FiO2 05/09/21 08:00 26 97 Ventilator 05/09/21 07:00 99 159/60 (93) 05/09/21 04:00 98.8 98.8 Physical Exam Physical Exam visual inspection, intubated, and in a medically induced coma Chest tube bilaterally, small amount of subcutaneous emphysema, General: severe distress, Other (Sedated on the vent) Heart: Other (Tachycardic) Abdomen: Soft, No tenderness Extremities: No clubbing, No cyanosis, No edema Skin: No rashes, No breakdown Labs LABS PATIENT: DOUGLAS GARRETT ACCOUNT: [id number] : 1985 LOCATION: [facility] ICU AGE: 35 SEX: M EXAM STATUS: ADM IN ORD. PHYSICIAN: PANCHITO AMOR MD REASON: ptx [id number] PROCEDURE: PORTABLE CHEST 1V EXAM: Chest, single view. HISTORY: Pneumothorax. COMPARISON: 05/08/2021 FINDINGS: A frontal view of the chest is obtained. There is a tiny right pneumothorax, decreased compared to the prior study. There is a right pleural drainage catheter overlying the mid thorax. There is also a left pleural drainage catheter overlying the mid thorax without evidence of a residual left pneumothorax. There is stable diffuse interstitial and alveolar infiltrate. There is a stable cardiac silhouette. There is an endotracheal tube within the mid to distal trachea. There is a nasogastric tube within the stomach. There is a right internal jugular catheter with the tip in the superior cavoatrial junction. There are suspected small pleural effusions. IMPRESSION: 1. Stable diffuse infiltrate and small pleural effusions. 2. Decrease in a tiny residual right pneumothorax status post pleural drainage catheter placement. There is an unchanged left pleural drainage catheter. The remainder of the support lines and tubes are unchanged. Electronically signed by: Yaz Barros MD (05/09/2021 8:20 AM) [id number] DICTATED and SIGNED BY: YAZ BARROS MD DATE: 05/09/21 [id number] Laboratory Tests Test 05/09/21 04:55 05/09/21 08:00 White Blood Count 8.0 x10^3/uL (4.0-11.0) Red Blood Count 3.80 x10^6/uL (4.30-5.70) Hemoglobin 11.1 g/dL (13.0-17.5) Hematocrit 33.2 % (39.0-53.0) Mean Corpuscular Volume 87 fL (79-100) Mean Corpuscular Hemoglobin 29 pg (25-35) Mean Corpuscular Hemoglobin Concent 34 g/dL (31-37) Red Cell Distribution Width 13.5 % (11.5-14.5) Platelet Count 176 x10^3/uL (140-400) Neutrophils (%) (Auto) 82 % (31-73) Lymphocytes (%) (Auto) 9 % (24-48) Monocytes (%) (Auto) 8 % (0-9) Eosinophils (%) (Auto) 0 % (0-3) Basophils (%) (Auto) 1 % (0-3) Neutrophils # (Auto) 6.5 x10^3/uL (1.8-7.7) Lymphocytes # (Auto) 0.7 x10^3/uL (1.0-4.8) Monocytes # (Auto) 0.7 x10^3/uL (0.0-1.1) Eosinophils # (Auto) 0.0 x10^3/uL (0.0-0.7) Basophils # (Auto) 0.1 x10^3/uL (0.0-0.2) Sodium Level 137 mmol/L (136-145) Potassium Level 3.9 mmol/L (3.5-5.1) Chloride Level 98 mmol/L (98-107) Carbon Dioxide Level 38 mmol/L (21-32) Anion Gap 1 (6-14) Blood Urea Nitrogen 23 mg/dL (8-26) Creatinine 0.5 mg/dL (0.7-1.3) Estimated GFR (Cockcroft-Gault) 188.1 BUN/Creatinine Ratio 46 (6-20) Glucose Level 109 mg/dL (70-99) Calcium Level 8.3 mg/dL (8.5-10.1) Ferritin 815 ng/mL (26-388) Total Bilirubin 0.9 mg/dL (0.2-1.0) Aspartate Amino Transf (AST/SGOT) 53 U/L (15-37) Alanine Aminotransferase (ALT/SGPT) 143 U/L (16-63) Alkaline Phosphatase 91 U/L (46-116) Total Protein 6.3 g/dL (6.4-8.2) Albumin 2.2 g/dL (3.4-5.0) Albumin/Globulin Ratio 0.5 (1.0-1.7) O2 Saturation 98 % (92-99) Arterial Blood pH 7.36 (7.35-7.45) Arterial Blood pCO2 at Patient Temp 65 mmHg (35-46) Arterial Blood pO2 at Patient Temp 119 mmHg (85-108) Arterial Blood HCO3 36 mmol/L (21-28) Arterial Blood Base Excess 9 mmol/L (-3-3) FiO2 100/vent Comment Review of Relevant I have reviewed the following items anselmo (where applicable) has been applied. Labs Laboratory Tests Test 05/08/21 04:40 05/08/21 08:11 05/09/21 04:55 05/09/21 08:00 White Blood Count 6.8 x10^3/uL (4.0-11.0) 8.0 x10^3/uL (4.0-11.0) Red Blood Count 3.80 x10^6/uL (4.30-5.70) 3.80 x10^6/uL (4.30-5.70) Hemoglobin 11.0 g/dL (13.0-17.5) 11.1 g/dL (13.0-17.5) Hematocrit 33.1 % (39.0-53.0) 33.2 % (39.0-53.0) Mean Corpuscular Volume 87 fL (79-100) 87 fL (79-100) Mean Corpuscular Hemoglobin 29 pg (25-35) 29 pg (25-35) Mean Corpuscular Hemoglobin Concent 33 g/dL (31-37) 34 g/dL (31-37) Red Cell Distribution Width 13.4 % (11.5-14.5) 13.5 % (11.5-14.5) Platelet Count 175 x10^3/uL (140-400) 176 x10^3/uL (140-400) Neutrophils (%) (Auto) 81 % (31-73) 82 % (31-73) Lymphocytes (%) (Auto) 7 % (24-48) 9 % (24-48) Monocytes (%) (Auto) 11 % (0-9) 8 % (0-9) Eosinophils (%) (Auto) 1 % (0-3) 0 % (0-3) Basophils (%) (Auto) 0 % (0-3) 1 % (0-3) Neutrophils # (Auto) 5.5 x10^3/uL (1.8-7.7) 6.5 x10^3/uL (1.8-7.7) Lymphocytes # (Auto) 0.5 x10^3/uL (1.0-4.8) 0.7 x10^3/uL (1.0-4.8) Monocytes # (Auto) 0.8 x10^3/uL (0.0-1.1) 0.7 x10^3/uL (0.0-1.1) Eosinophils # (Auto) 0.0 x10^3/uL (0.0-0.7) 0.0 x10^3/uL (0.0-0.7) Basophils # (Auto) 0.0 x10^3/uL (0.0-0.2) 0.1 x10^3/uL (0.0-0.2) Sodium Level 136 mmol/L (136-145) 137 mmol/L (136-145) Potassium Level 4.4 mmol/L (3.5-5.1) 3.9 mmol/L (3.5-5.1) Chloride Level 100 mmol/L (98-107) 98 mmol/L (98-107) Carbon Dioxide Level 39 mmol/L (21-32) 38 mmol/L (21-32) Anion Gap (6-14) 1 (6-14) Blood Urea Nitrogen 25 mg/dL (8-26) 23 mg/dL (8-26) Creatinine 0.5 mg/dL (0.7-1.3) 0.5 mg/dL (0.7-1.3) Estimated GFR (Cockcroft-Gault) 188.1 188.1 Glucose Level 98 mg/dL (70-99) 109 mg/dL (70-99) Calcium Level 8.5 mg/dL (8.5-10.1) 8.3 mg/dL (8.5-10.1) Magnesium Level 2.3 mg/dL (1.8-2.4) O2 Saturation 89 % (92-99) 98 % (92-99) Arterial Blood pH 7.38 (7.35-7.45) 7.36 (7.35-7.45) [facility] (35-46) 65 mmHg (35-46) Arterial Blood pO2 at Patient Temp 60 mmHg (85-108) 119 mmHg (85-108) Arterial Blood HCO3 37 mmol/L (21-28) 36 mmol/L (21-28) Arterial Blood Base Excess 10 mmol/L (-3-3) 9 mmol/L (-3-3) FiO2 100% vent 100/vent BUN/Creatinine Ratio 46 (6-20) Ferritin 815 ng/mL (26-388) Total Bilirubin 0.9 mg/dL (0.2-1.0) Aspartate Amino Transf (AST/SGOT) 53 U/L (15-37) Alanine Aminotransferase (ALT/SGPT) 143 U/L (16-63) Alkaline Phosphatase 91 U/L (46-116) Total Protein 6.3 g/dL (6.4-8.2) Albumin 2.2 g/dL (3.4-5.0) Albumin/Globulin Ratio 0.5 (1.0-1.7) Laboratory Tests Test 05/09/21 04:55 05/09/21 08:00 White Blood Count 8.0 x10^3/uL (4.0-11.0) Red Blood Count 3.80 x10^6/uL (4.30-5.70) Hemoglobin 11.1 g/dL (13.0-17.5) Hematocrit 33.2 % (39.0-53.0) Mean Corpuscular Volume 87 fL (79-100) Mean Corpuscular Hemoglobin 29 pg (25-35) Mean Corpuscular Hemoglobin Concent 34 g/dL (31-37) Red Cell Distribution Width 13.5 % (11.5-14.5) Platelet Count 176 x10^3/uL (140-400) Neutrophils (%) (Auto) 82 % (31-73) Lymphocytes (%) (Auto) 9 % (24-48) Monocytes (%) (Auto) 8 % (0-9) Eosinophils (%) (Auto) 0 % (0-3) Basophils (%) (Auto) 1 % (0-3) Neutrophils # (Auto) 6.5 x10^3/uL (1.8-7.7) Lymphocytes # (Auto) 0.7 x10^3/uL (1.0-4.8) Monocytes # (Auto) 0.7 x10^3/uL (0.0-1.1) Eosinophils # (Auto) 0.0 x10^3/uL (0.0-0.7) Basophils # (Auto) 0.1 x10^3/uL (0.0-0.2) Sodium Level 137 mmol/L (136-145) Potassium Level 3.9 mmol/L (3.5-5.1) Chloride Level 98 mmol/L (98-107) Carbon Dioxide Level 38 mmol/L (21-32) Anion Gap 1 (6-14) Blood Urea Nitrogen 23 mg/dL (8-26) Creatinine 0.5 mg/dL (0.7-1.3) Estimated GFR (Cockcroft-Gault) 188.1 BUN/Creatinine Ratio 46 (6-20) Glucose Level 109 mg/dL (70-99) Calcium Level 8.3 mg/dL (8.5-10.1) Ferritin 815 ng/mL (26-388) Total Bilirubin 0.9 mg/dL (0.2-1.0) Aspartate Amino Transf (AST/SGOT) 53 U/L (15-37) Alanine Aminotransferase (ALT/SGPT) 143 U/L (16-63) Alkaline Phosphatase 91 U/L (46-116) Total Protein 6.3 g/dL (6.4-8.2) Albumin 2.2 g/dL (3.4-5.0) Albumin/Globulin Ratio 0.5 (1.0-1.7) O2 Saturation 98 % (92-99) Arterial Blood pH 7.36 (7.35-7.45) Arterial Blood pCO2 at Patient Temp 65 mmHg (35-46) Arterial Blood pO2 at Patient Temp 119 mmHg (85-108) Arterial Blood HCO3 36 mmol/L (21-28) Arterial Blood Base Excess 9 mmol/L (-3-3) FiO2 100/vent Medications Current Medications Azithromycin 500 mg/Sodium Chloride 250 ml @ 250 mls/hr 1X ONCE IV Last administered on 04/28/21at 15:44; Start 04/28/21 at 13:00; Stop 04/28/21 at 14:00; Status DC Azithromycin 250 mg/Sodium Chloride 250 ml @ 250 mls/hr Q24H IV Last administered on 05/02/21at 12:51; Start 04/29/21 at 13:00; Stop 05/02/21 at 13:59; Status DC Dexamethasone Sodium Phosphate (Decadron) 6 mg DAILY IVP Last administered on 05/09/21at 08:25; Start 04/29/21 at 09:00 Ceftriaxone Sodium (Rocephin) 2 gm Q24H IVP Last administered on 05/07/21at 12:55; Start 04/28/21 at 14:00; Stop 05/08/21 at 08:36; Status DC Enoxaparin Sodium (Lovenox 40mg Syringe) 40 mg Q12HR SQ Last administered on 05/07/21at 08:57; Start 04/28/21 at 21:00; Stop 05/07/21 at 15:40; Status DC Famotidine (Pepcid) 20 mg BID@0500,1700 PO Last administered on 05/01/21at 16:36; Start 04/28/21 at 17:00; Stop 05/02/21 at 16:52; Status DC Remdesivir 200 mg/ Sodium Chloride 210 ml @ 210 mls/hr 1X ONCE IV Last administered on 04/28/21at 14:00; Start 04/28/21 at 14:00; Stop 04/28/21 at 14:59; Status DC Remdesivir 100 mg/ Sodium Chloride 230 ml @ 460 mls/hr Q24H IV Last administered on 05/02/21at 13:43; Start 04/29/21 at 14:00; Stop 05/02/21 at 14:29; Status DC Zinc Sulfate (Orazinc) 220 mg DAILY PO Last administered on 05/09/21at 08:25; Start 04/29/21 at 09:00 Ascorbic Acid (Vitamin C) 500 mg Q6HRS PO Last administered on 05/09/21at 08:24; Start 04/28/21 at 18:00 Pantoprazole Sodium (Protonix) 40 mg 1X ONCE PO Last administered on 04/28/21at 15:45; Start 04/28/21 at 13:45; Stop 04/28/21 at 13:46; Status DC Pantoprazole Sodium (Protonix) 40 mg DAILYAC PO Last administered on 05/01/21at 09:44; Start 04/29/21 at 07:30; Stop 05/02/21 at 16:52; Status DC Famotidine (Pepcid) 20 mg PRN BID PRN PO HEARTBURN / GAS Last administered on 05/09/21at 08:24; Start 04/28/21 at 13:45 Ondansetron HCl (Zofran) 4 mg PRN Q6HRS PRN IVP NAUSEA/VOMITING Last administered on 04/29/21at 10:26; Start 04/28/21 at 14:00 Al Hydroxide/Mg Hydroxide (Mylanta Plus Xs) 30 ml PRN Q3HRS PRN PO HEARTBURN / GAS; Start 04/28/21 at 14:00 Calcium Carbonate/ Glycine (Tums) 500 mg PRN Q3HRS PRN PO UPSET STOMACH; Start 04/28/21 at 14:00 Zolpidem Tartrate (Ambien) 5 mg PRN QHS PRN PO INSOMNIA, MAY REPEAT IN 1HR Last administered on 05/01/21at 21:26; Start 04/28/21 at 14:00 Acetaminophen/ Hydrocodone Bitart (Lortab 5/325) 1 tab PRN Q4HRS PRN PO PAIN Last administered on 04/28/21at 17:37; Start 04/28/21 at 14:00 Acetaminophen (Tylenol) 650 mg PRN Q6HRS PRN PO Headaches, Temp > 101.5F; Start 04/28/21 at 14:00 Magnesium Hydroxide (Milk Of Magnesia) 2,400 mg PRN Q12HR PRN PO CONSTIPATION; Start 04/28/21 at 14:00 Enoxaparin Sodium (Lovenox 40mg Syringe) 40 mg Q24H SQ ; Start 04/28/21 at 14:00; Status UNV Sterile Water (WATER for RESP) 1,000 ml CONT PRN INH VIA VAPOTHERM DEVICE Last administered on 04/30/21at 18:45; Start 04/28/21 at 14:45 Lactobacillus Rhamnosus (Culturelle) 1 cap BID PO Last administered on 05/09/21at 08:24; Start 04/29/21 at 21:00 Dexmedetomidine HCl 400 mcg/ Sodium Chloride 100 ml @ 6.965 mls/ hr CONT PRN IV PER PROTOCOL Last administered on 05/02/21at 06:56; Start 05/02/21 at 01:00 Sodium Chloride 500 ml @ 500 mls/hr 1X PRN PRN IV SEE COMMENTS; Start 05/02/21 at 01:00 Atropine Sulfate (ATROPINE 0.5mg SYRINGE) 0.5 mg PRN Q5MIN PRN IV SEE COMMENTS; Start 05/02/21 at 01:00 Propofol 0 ml @ As Directed STK-MED ONCE IV ; Start 05/02/21 at 07:37; Stop 05/02/21 at 07:37; Status DC Succinylcholine Chloride (Anectine) 200 mg STK-MED ONCE .ROUTE ; Start 05/02/21 at 07:37; Stop 05/02/21 at 07:37; Status DC Etomidate (Amidate) 20 mg STK-MED ONCE IV ; Start 05/02/21 at 07:37; Stop 05/02/21 at 07:37; Status DC Fentanyl Citrate 30 ml @ 0 mls/hr CONT PRN IV SEE PROTOCOL Last administered on 05/07/21at 19:51; Start 05/02/21 at 07:45; Stop 05/07/21 at 22:40; Status DC Propofol 100 ml @ 0 mls/hr CONT PRN IV PER PROTOCOL Last administered on 05/09/21at 06:28; Start 05/02/21 at 07:45 Midazolam HCl 100 ml @ 0 mls/hr CONT PRN IV SEE PROTOCOL Last administered on 05/09/21at 01:00; Start 05/02/21 at 07:45 Norepinephrine Bitartrate 8 mg/ Dextrose 258 ml @ 27.09 mls/ hr CONT PRN IV PER PROTOCOL Last administered on 05/02/21at 09:35; Start 05/02/21 at 08:45 Norepinephrine Bitartrate 8 mg/ Dextrose 258 ml @ 27.09 mls/ hr CONT PRN IV PER PROTOCOL; Start 05/02/21 at 08:45; Status UNV Etomidate (Amidate) 10 mg 1X ONCE IV Last administered on 05/02/21at 08:49; Start 05/02/21 at 08:45; Stop 05/02/21 at 08:48; Status DC Succinylcholine Chloride (Anectine) 100 mg 1X ONCE IV Last administered on 05/02/21at 08:50; Start 05/02/21 at 08:45; Stop 05/02/21 at 08:48; Status DC Vecuronium Kunia (Norcuron Bolus) 6 mg PRN Q4HRS PRN IV VENTILATOR COMPLIANCE Last administered on 05/02/21at 08:51; Start 05/02/21 at 08:45 Epinephrine HCl (EPINEPHrine SYRINGE) 1 mg 1X ONCE IV Last administered on at 08:50; Start 05/02/21 at 08:45; Stop 05/02/21 at 08:48; Status DC Vecuronium Kunia 50 mg/ Sodium Chloride 50 ml @ 6.72 mls/hr CONT PRN IV SEE I/O RECORD Last administered on 05/09/21at 04:57; Start 05/02/21 at 09:15 Vitamin D (Vitamin D3) 5,000 unit DAILY FT Last administered on 05/09/21at 08:24; Start 05/03/21 at 09:00 Vecuronium Kunia 50 mg/ Sodium Chloride 50 ml @ 6.72 mls/hr CONT PRN IV SEE I/O RECORD; Start 05/02/21 at 09:15; Stop 05/02/21 at 09:17; Status DC Lidocaine HCl (Lidocaine 2% 20ml Vial) 20 ml STK-MED ONCE .ROUTE ; Start 05/02/21 at 10:14; Stop 05/02/21 at 10:14; Status DC Famotidine (Pepcid Vial) 20 mg QHS IVP ; Start 05/02/21 at 21:00; Stop 05/03/21 at 09:07; Status DC Info (Icu Electrolyte Protocol) 1 ea CONT PRN PRN MC PER PROTOCOL; Start 05/03/21 at 07:30 Famotidine (Pepcid Vial) 20 mg BID IVP Last administered on 05/08/21at 20:00; Start 05/03/21 at 10:00 Propofol (Diprivan) 1,000 mg STK-MED ONCE IV ; Start 05/02/21 at 08:00; Stop 05/04/21 at 08:51; Status DC Metoprolol Tartrate (Lopressor Vial) 5 mg PRN Q6HRS PRN IVP HYPERTENSION Last administered on 05/07/21at 05:16; Start 05/06/21 at 12:30; Stop 05/07/21 at 12:57; Status DC Metoprolol Tartrate (Lopressor Vial) 5 mg Q6HRS IVP Last administered on 05/09/21at 04:44; Start 05/07/21 at 13:00 Enoxaparin Sodium (Lovenox 40mg Syringe) 40 mg Q24H SQ Last administered on 05/08/21at 08:21; Start 05/08/21 at 09:00; Stop 05/08/21 at 08:34; Status DC Fentanyl Citrate 55 ml @ 0 mls/hr CONT PRN PRN IV PAIN CONTROL Last administered on 05/09/21at 08:00; Start 05/07/21 at 22:45 Enoxaparin Sodium (Lovenox 40mg Syringe) 40 mg Q12HR SQ Last administered on 05/09/21at 08:23; Start 05/08/21 at 21:00 Lidocaine HCl (Buffered Lidocaine 1%) 3 ml STK-MED ONCE .ROUTE ; Start 05/08/21 at 09:19; Stop 05/08/21 at 09:19; Status DC Lidocaine HCl (Buffered Lidocaine 1%) 3 ml 1X ONCE INJ Last administered on 05/08/21at 10:16; Start 05/08/21 at 10:15; Stop 05/08/21 at 10:16; Status DC Hydralazine HCl (Apresoline Inj) 10 mg PRN Q4HRS PRN IVP ELEVATED BP, SEE COMMENTS Last administered on 05/09/21at 04:50; Start 05/09/21 at 04:45 Labetalol HCl (Normodyne Iv Push) 20 mg PRN Q2HR PRN IVP HYPERTENSION Last administered on 05/09/21at 06:29; Start 05/09/21 at 04:45 Active Scripts Active Reported Pepcid (Famotidine) 20 Mg Tablet 20 Mg PO BID Vitals/I & O Vital Sign - Last 24 Hours 05/08/21 05/08/21 05/08/21 05/08/21 09:00 10:00 11:00 12:00 Pulse 118 118 122 Resp 26 26 26 B/P (MAP) 136/85 (102) 121/88 (99) 98/69 (79) Pulse Ox 96 96 98 O2 Delivery Ventilator Ventilator Ventilator Mechanical Ventilator 05/08/21 05/08/21 05/08/21 05/08/21 12:00 12:30 12:39 13:00 Temp 98.0 98.0 Pulse 110 105 86 Resp 26 26 B/P (MAP) 127/78 (94) 127/78 119/77 (91) Pulse Ox 99 95 99 O2 Delivery Ventilator Ventilator Ventilator 05/08/21 05/08/21 05/08/21 05/08/21 14:00 15:00 16:00 16:00 Temp 98.5 98.5 Pulse 88 90 90 Resp B/P (MAP) 126/74 (91) 122/77 (92) 126/81 (96) Pulse Ox 99 98 99 O2 Delivery Ventilator Ventilator Ventilator Mechanical Ventilator 05/08/21 05/08/21 05/08/21 05/08/21 16:13 17:00 17:54 18:00 Pulse 90 90 81 B/P (MAP) 125/80 (95) 125/80 125/81 (96) Pulse Ox 95 99 98 O2 Delivery Ventilator Ventilator Ventilator 05/08/21 05/08/21 05/08/21 05/08/21 19:00 20:00 20:00 20:00 Temp 98.6 98.6 Pulse 81 86 B/P (MAP) 140/86 (104) 140/90 (107) Pulse Ox 98 99 98 O2 Delivery Ventilator Ventilator Mechanical Ventilator Ventilator 05/08/21 05/08/21 05/08/21 05/08/21 21:00 22:00 23:00 23:00 Pulse 86 85 86 Resp B/P (MAP) 133/88 (103) 126/80 (95) 122/78 (93) Pulse Ox 99 99 99 99 O2 Delivery Ventilator Ventilator Ventilator Ventilator 05/08/21 05/09/21 05/09/21 05/09/21 23:17 00:00 00:00 01:00 Temp 98.4 98.4 Pulse 85 80 79 B/P (MAP) 123/73 120/74 (89) 141/93 (109) Pulse Ox 99 99 O2 Delivery Ventilator Mechanical Ventilator Ventilator 05/09/21 05/09/21 05/09/21 05/09/21 02:00 02:00 03:00 04:00 Temp 98.8 98.8 Pulse 74 85 85 Resp B/P (MAP) 149/59 (89) 201/102 (135) 199/101 (133) Pulse Ox 96 98 96 95 O2 Delivery Ventilator Ventilator Ventilator Ventilator 05/09/21 05/09/21 05/09/21 05/09/21 04:00 04:44 04:50 04:51 Pulse 105 94 94 B/P (MAP) 213/106 213/106 213/106 O2 Delivery Mechanical Ventilator 05/09/21 05/09/21 05/09/21 05/09/21 05:00 05:00 06:00 06:29 Pulse 96 110 112 Resp 26 26 B/P (MAP) 173/84 (113) 205/96 (132) 205/95 Pulse Ox 91 96 96 O2 Delivery Ventilator Ventilator Ventilator 05/09/21 05/09/21 05/09/21 07:00 07:42 08:00 Pulse 99 Resp 26 B/P (MAP) 159/60 (93) Pulse Ox 98 97 97 O2 Delivery Ventilator Ventilator Ventilator Intake and Output 05/08/21 05/08/21 05/09/21 15:00 23:00 07:00 Intake Total 593 ml 1295.06 ml 250 ml Output Total 475 ml 840 ml 755 ml Balance 118 ml 455.06 ml -505 ml Justicifation of Admission Dx: Justifications for Admission: Justification of Admission Dx: Yes Comminuty Aquired Pneumonia: Hypoxemia ARELY DILLARD MD May 09, 2021 08:43
--- NOTE | 2021-05-09 11:11 | PDOC ---
PULMONARY PROGRESS NOTES DATE: 05/09/21 TIME: 11:09 Subjective Patient remains on vent support 100% and a PEEP of 7 Sedated with propofol and on a back drip No air leak on left-sided chest tube positive air leak on right chest tube No overnight concerns from nursing Vitals Vital Signs Date Time Temp Pulse Resp B/P (MAP) Pulse Ox O2 Delivery O2 Flow Rate FiO2 05/09/21 11:02 98 Ventilator 05/09/21 08:44 107 178/81 05/09/21 08:30 26 05/09/21 04:00 98.8 98.8 Comments On visual inspection, patient intubated, and in a medically induced coma Chest tube bilaterally, small amount of subcutaneous emphysema, Labs Laboratory Tests Test 05/08/21 04:40 05/08/21 08:11 05/09/21 04:55 05/09/21 08:00 White Blood Count 6.8 x10^3/uL (4.0-11.0) 8.0 x10^3/uL (4.0-11.0) Red Blood Count 3.80 x10^6/uL (4.30-5.70) 3.80 x10^6/uL (4.30-5.70) Hemoglobin 11.0 g/dL (13.0-17.5) 11.1 g/dL (13.0-17.5) Hematocrit 33.1 % (39.0-53.0) 33.2 % (39.0-53.0) Mean Corpuscular Volume 87 fL (79-100) 87 fL (79-100) Mean Corpuscular Hemoglobin 29 pg (25-35) 29 pg (25-35) Mean Corpuscular Hemoglobin Concent 33 g/dL (31-37) 34 g/dL (31-37) Red Cell Distribution Width 13.4 % (11.5-14.5) 13.5 % (11.5-14.5) Platelet Count 175 x10^3/uL (140-400) 176 x10^3/uL (140-400) Neutrophils (%) (Auto) 81 % (31-73) 82 % (31-73) Lymphocytes (%) (Auto) 7 % (24-48) 9 % (24-48) Monocytes (%) (Auto) 11 % (0-9) 8 % (0-9) Eosinophils (%) (Auto) 1 % (0-3) 0 % (0-3) Basophils (%) (Auto) 0 % (0-3) 1 % (0-3) Neutrophils # (Auto) 5.5 x10^3/uL (1.8-7.7) 6.5 x10^3/uL (1.8-7.7) Lymphocytes # (Auto) 0.5 x10^3/uL (1.0-4.8) 0.7 x10^3/uL (1.0-4.8) Monocytes # (Auto) 0.8 x10^3/uL (0.0-1.1) 0.7 x10^3/uL (0.0-1.1) Eosinophils # (Auto) 0.0 x10^3/uL (0.0-0.7) 0.0 x10^3/uL (0.0-0.7) Basophils # (Auto) 0.0 x10^3/uL (0.0-0.2) 0.1 x10^3/uL (0.0-0.2) Sodium Level 136 mmol/L (136-145) 137 mmol/L (136-145) Potassium Level 4.4 mmol/L (3.5-5.1) 3.9 mmol/L (3.5-5.1) Chloride Level 100 mmol/L (98-107) 98 mmol/L (98-107) Carbon Dioxide Level 39 mmol/L (21-32) 38 mmol/L (21-32) Anion Gap (6-14) 1 (6-14) Blood Urea Nitrogen 25 mg/dL (8-26) 23 mg/dL (8-26) Creatinine 0.5 mg/dL (0.7-1.3) 0.5 mg/dL (0.7-1.3) Estimated GFR (Cockcroft-Gault) 188.1 188.1 Glucose Level 98 mg/dL (70-99) 109 mg/dL (70-99) Calcium Level 8.5 mg/dL (8.5-10.1) 8.3 mg/dL (8.5-10.1) Magnesium Level 2.3 mg/dL (1.8-2.4) O2 Saturation 89 % (92-99) 98 % (92-99) Arterial Blood pH 7.38 (7.35-7.45) 7.36 (7.35-7.45) Arterial Blood pCO2 at Patient Temp 63 mmHg (35-46) 65 mmHg (35-46) Arterial Blood pO2 at Patient Temp 60 mmHg (85-108) 119 mmHg (85-108) Arterial Blood HCO3 37 mmol/L (21-28) 36 mmol/L (21-28) Arterial Blood Base Excess 10 mmol/L (-3-3) 9 mmol/L (-3-3) FiO2 100% vent 100/vent BUN/Creatinine Ratio 46 (6-20) Ferritin 815 ng/mL (26-388) Total Bilirubin 0.9 mg/dL (0.2-1.0) Aspartate Amino Transf (AST/SGOT) 53 U/L (15-37) Alanine Aminotransferase (ALT/SGPT) 143 U/L (16-63) Alkaline Phosphatase 91 U/L (46-116) Total Protein 6.3 g/dL (6.4-8.2) Albumin 2.2 g/dL (3.4-5.0) Albumin/Globulin Ratio 0.5 (1.0-1.7) Laboratory Tests Test 05/09/21 04:55 05/09/21 08:00 White Blood Count 8.0 x10^3/uL (4.0-11.0) Red Blood Count 3.80 x10^6/uL (4.30-5.70) Hemoglobin 11.1 g/dL (13.0-17.5) Hematocrit 33.2 % (39.0-53.0) Mean Corpuscular Volume 87 fL (79-100) Mean Corpuscular Hemoglobin 29 pg (25-35) Mean Corpuscular Hemoglobin Concent 34 g/dL (31-37) Red Cell Distribution Width 13.5 % (11.5-14.5) Platelet Count 176 x10^3/uL (140-400) Neutrophils (%) (Auto) 82 % (31-73) Lymphocytes (%) (Auto) 9 % (24-48) Monocytes (%) (Auto) 8 % (0-9) Eosinophils (%) (Auto) 0 % (0-3) Basophils (%) (Auto) 1 % (0-3) Neutrophils # (Auto) 6.5 x10^3/uL (1.8-7.7) Lymphocytes # (Auto) 0.7 x10^3/uL (1.0-4.8) Monocytes # (Auto) 0.7 x10^3/uL (0.0-1.1) Eosinophils # (Auto) 0.0 x10^3/uL (0.0-0.7) Basophils # (Auto) 0.1 x10^3/uL (0.0-0.2) Sodium Level 137 mmol/L (136-145) Potassium Level 3.9 mmol/L (3.5-5.1) Chloride Level 98 mmol/L (98-107) Carbon Dioxide Level 38 mmol/L (21-32) Anion Gap 1 (6-14) Blood Urea Nitrogen 23 mg/dL (8-26) Creatinine 0.5 mg/dL (0.7-1.3) Estimated GFR (Cockcroft-Gault) 188.1 BUN/Creatinine Ratio 46 (6-20) Glucose Level 109 mg/dL (70-99) Calcium Level 8.3 mg/dL (8.5-10.1) Ferritin 815 ng/mL (26-388) Total Bilirubin 0.9 mg/dL (0.2-1.0) Aspartate Amino Transf (AST/SGOT) 53 U/L (15-37) Alanine Aminotransferase (ALT/SGPT) 143 U/L (16-63) Alkaline Phosphatase 91 U/L (46-116) Total Protein 6.3 g/dL (6.4-8.2) Albumin 2.2 g/dL (3.4-5.0) Albumin/Globulin Ratio 0.5 (1.0-1.7) O2 Saturation 98 % (92-99) Arterial Blood pH 7.36 (7.35-7.45) Arterial Blood pCO2 at Patient Temp 65 mmHg (35-46) Arterial Blood pO2 at Patient Temp 119 mmHg (85-108) Arterial Blood HCO3 36 mmol/L (21-28) Arterial Blood Base Excess 9 mmol/L (-3-3) FiO2 100/vent Medications Active Scripts Medications Dose Route/Sig Max Daily Dose Days Date Category Pepcid (Famotidine) 20 Mg Tablet 20 Mg PO BID 04/28/21 Reported Impression . 1. Acute hypoxic respiratory failure secondary to COVID-19 viral pneumonia/ARDS 2. Abnormal CT chest done at [facility] with diffuse bilateral alveolar and interstitial infiltrates related to COVID-19 pneumonia. No evidence of pulmonary embolism. 3. Underlying obesity. 4. Remote history of obstructive sleep apnea. 5. Abnormal liver function tests, likely due to Covid infection. Bilirubin normal. 6. Normal D-dimer. 7. Status post intubation 05/02, status post bilateral pneumothoraces requiring chest tubes 05/02 Chest x-ray reviewed, small right apical pneumothorax Plan . Updated 05/09/21 Continue current vent support 26/500/7/100%,reverse IE ratio Follow ABG/CXR--reviewed, reduce FiO2 to 90%, reduce PEEP to 6 Repeat chest x-ray in the morning Continue chest tubes to suction Discontinue steroids patient has completed full 10-day course S/P full course of remdesivir Continue TF for nutritional support DVT/GI PPX :lovenox D/W RN and RT Updated 05/08/21 Continue current vent support 100% and PEEP of 10,reverse IE ratio Follow ABG/CXR--reviewed worsening PTX on right, will attempt to re-position the Chest tube, if no improvement will replace CT Continue steroids started on 04/29/21, will need full 10 day course S/P full course of remdesivir Continue TF for nutritional support DVT/GI PPX :lovenox D/W RN and RT Updated 05/07/21 Continue current vent support 80% and PEEP of 6 Follow ABG/CXR Continue steroids S/P full course of remdesivir Continue empiric ABX Continue TF for nutritional support Start beta-klaus schedule q6 for HTN DVT/GI PPX D/W RN and RT MURRAY ESPOSITO MD May 09, 2021 11:11
--- NOTE | 2021-05-09 15:15 | NUR ---
SS following up with discharge planning. SS reviewed pt chart and discussed with pt RN. Pt is currently on the vent at 90%. COVID19 positive. Two chest tubes in place. Pt on IV Decadron. Pt on Vec, Versed, Propofol, and Fentanyl. Not stable. SS will continue to follow for discharge planning. Addendum: 05/09/21 at 1517 by CHRISTOPHER PORRAS SS CORRECTION TO PREVIOUS NOTE: Decadron discontinued.
[2021-05-10] VITALS (24 sets, daily range): BP systolic 114–153; BP diastolic 62–79
[2021-05-10] MEDS: VECURONIUM BROMIDE 50 MG in IV NORMAL SALINE 50ML 50 ML IV PRN ×5 (01:24→23:54)
[2021-05-10] MEDS: PROPOFOL 100 ML IV PRN ×10 (01:35→23:28)
--- NOTE | 2021-05-10 05:27 | PDOC ---
PULMONARY PROGRESS NOTES DATE: 05/10/21 TIME: 05:24 Subjective Patient remains on vent support 90% and a PEEP of 6 Sedated with propofol and VEC gtt,versed No air leak on left-sided chest tube positive air leak on right chest tube No overnight concerns from nursing Vitals Vital Signs Date Time Temp Pulse Resp B/P (MAP) Pulse Ox O2 Delivery O2 Flow Rate FiO2 05/10/21 05:00 77 26 115/66 (82) 96 Ventilator 05/10/21 04:00 98.0 98.0 05/09/21 21:10 95.0 Comments On visual inspection, patient intubated, and in a medically induced coma Chest tube bilaterally, small amount of subcutaneous emphysema, RRR no distress no obvious rash or edema Labs Laboratory Tests Test 05/08/21 08:11 05/09/21 04:55 05/09/21 08:00 05/09/21 12:18 O2 Saturation 89 % (92-99) 98 % (92-99) Arterial Blood pH 7.38 (7.35-7.45) 7.36 (7.35-7.45) Arterial Blood pCO2 at Patient Temp 63 mmHg (35-46) 65 mmHg (35-46) Arterial Blood pO2 at Patient Temp 60 mmHg (85-108) 119 mmHg (85-108) Arterial Blood HCO3 37 mmol/L (21-28) 36 mmol/L (21-28) Arterial Blood Base Excess 10 mmol/L (-3-3) 9 mmol/L (-3-3) FiO2 100% vent 100/vent White Blood Count 8.0 x10^3/uL (4.0-11.0) Red Blood Count 3.80 x10^6/uL (4.30-5.70) Hemoglobin 11.1 g/dL (13.0-17.5) Hematocrit 33.2 % (39.0-53.0) Mean Corpuscular Volume 87 fL (79-100) Mean Corpuscular Hemoglobin 29 pg (25-35) Mean Corpuscular Hemoglobin Concent 34 g/dL (31-37) Red Cell Distribution Width 13.5 % (11.5-14.5) Platelet Count 176 x10^3/uL (140-400) Neutrophils (%) (Auto) 82 % (31-73) Lymphocytes (%) (Auto) 9 % (24-48) Monocytes (%) (Auto) 8 % (0-9) Eosinophils (%) (Auto) 0 % (0-3) Basophils (%) (Auto) 1 % (0-3) Neutrophils # (Auto) 6.5 x10^3/uL (1.8-7.7) Lymphocytes # (Auto) 0.7 x10^3/uL (1.0-4.8) Monocytes # (Auto) 0.7 x10^3/uL (0.0-1.1) Eosinophils # (Auto) 0.0 x10^3/uL (0.0-0.7) Basophils # (Auto) 0.1 x10^3/uL (0.0-0.2) Sodium Level 137 mmol/L (136-145) Potassium Level 3.9 mmol/L (3.5-5.1) Chloride Level 98 mmol/L (98-107) Carbon Dioxide Level 38 mmol/L (21-32) Anion Gap 1 (6-14) Blood Urea Nitrogen 23 mg/dL (8-26) Creatinine 0.5 mg/dL (0.7-1.3) Estimated GFR (Cockcroft-Gault) 188.1 BUN/Creatinine Ratio 46 (6-20) Glucose Level 109 mg/dL (70-99) Calcium Level 8.3 mg/dL (8.5-10.1) Ferritin 815 ng/mL (26-388) Total Bilirubin 0.9 mg/dL (0.2-1.0) Aspartate Amino Transf (AST/SGOT) 53 U/L (15-37) Alanine Aminotransferase (ALT/SGPT) 143 U/L (16-63) Alkaline Phosphatase 91 U/L (46-116) Total Protein 6.3 g/dL (6.4-8.2) Albumin 2.2 g/dL (3.4-5.0) Albumin/Globulin Ratio 0.5 (1.0-1.7) Glucose (Fingerstick) 138 mg/dL (70-99) Test 05/09/21 16:43 Troponin I Quantitative 0.047 ng/mL (0.000-0.055) Laboratory Tests Test 05/09/21 08:00 05/09/21 12:18 05/09/21 16:43 O2 Saturation 98 % (92-99) Arterial Blood pH 7.36 (7.35-7.45) Arterial Blood pCO2 at Patient Temp 65 mmHg (35-46) Arterial Blood pO2 at Patient Temp 119 mmHg (85-108) Arterial Blood HCO3 36 mmol/L (21-28) Arterial Blood Base Excess 9 mmol/L (-3-3) FiO2 100/vent Glucose (Fingerstick) 138 mg/dL (70-99) Troponin I Quantitative 0.047 ng/mL (0.000-0.055) Medications Active Scripts Medications Dose Route/Sig Max Daily Dose Days Date Category Pepcid (Famotidine) 20 Mg Tablet 20 Mg PO BID 04/28/21 Reported Comments Chest x-ray reviewed dated 05/26 Diffuse bilateral infiltrates unchanged. Tiny right pneumothorax unchanged. Impression . 1. Acute hypoxic respiratory failure secondary to COVID-19 viral pneumonia/ARDS 2. Abnormal CT chest done at [facility] with diffuse bilateral alveolar and interstitial infiltrates related to COVID-19 pneumonia. No evidence of pulmonary embolism. 3. Underlying obesity. 4. Remote history of obstructive sleep apnea. 5. Abnormal liver function tests, likely due to Covid infection. Bilirubin normal. 6. Normal D-dimer. 7. Status post intubation 05/02, status post bilateral pneumothoraces requiring chest tubes 05/02 Chest x-ray reviewed, small right apical pneumothorax Plan . Updated 05/10/21 Continue current vent support 26/500/6/90%,reverse IE ratio Follow ABG/CXR--reviewed Continue chest tubes to suction. Minimal air leak on the right chest tube. No air leak on the left chest tube. S/P full course of remdesivir and steroids Continue TF for nutritional support DVT/GI PPX :lovenox D/W RN and RT Critical care time 30 minutes including review of the labs imaging studies and decision making. Updated 05/09/21 Continue current vent support 26/500/7/100%,reverse IE ratio Follow ABG/CXR--reviewed, reduce FiO2 to 90%, reduce PEEP to 6 Repeat chest x-ray in the morning Continue chest tubes to suction Discontinue steroids patient has completed full 10-day course S/P full course of remdesivir Continue TF for nutritional support DVT/GI PPX :lovenox D/W RN and RT Updated 05/08/21 Continue current vent support 100% and PEEP of 10,reverse IE ratio Follow ABG/CXR--reviewed worsening PTX on right, will attempt to re-position the Chest tube, if no improvement will replace CT Continue steroids started on 04/29/21, will need full 10 day course S/P full course of remdesivir Continue TF for nutritional support DVT/GI PPX :lovenox D/W RN and RT MURRAY ESPOSITO MD May 10, 2021 05:27
[2021-05-10] MEDS: ASCORBIC ACID 500 MG TABLET PO SCH (05:50)
[2021-05-10] MEDS: MIDAZOLAM 100mg/100ml NS BAG 100 ML IV PRN ×3 (05:51→23:55)
[2021-05-10] MEDS: METOPROLOL IV PUSH 5 MG/5 ML VIAL. IVP SCH (06:00)
[2021-05-10 08:05] LABS: BASE EXCESS ABG 13 mmol/L (-3-3); HCO3 ABG 40 mmol/L (21-28); PO2 ABG 87 mmHg (85-108); SAT O2 ABG 96 % (92-99)
[2021-05-10] MEDS: CHOLECALCIFEROL (VITAMIN D3) 1,000 UNIT TABLET FT SCH (08:05)
[2021-05-10] MEDS: LACTOBACILLUS RHAMNOSUS GG 1 CAPSULE. PO SCH (08:05)
[2021-05-10] MEDS: FAMOTIDINE 20 MG/2 ML VIAL IVP SCH ×2 (08:06→21:25)
[2021-05-10] MEDS: ZINC SULFATE 220 MG CAPSULE. PO SCH (08:06)
[2021-05-10] MEDS: fentaNYL HIGH DOSE PCA 55 ML IV PRN ×2 (08:07→21:24)
[2021-05-10] MEDS: ENOXAPARIN 40 MG/0.4 ML SYRINGE. SQ SCH ×2 (08:07→21:25)
[2021-05-10 08:09] LABS: PCO2 ABG 62 mmHg (35-46)
[2021-05-10 08:10] LABS: FIO2 ABG 90
--- NOTE | 2021-05-10 08:37 | RAD ---
EXAM: Chest, single view. HISTORY: Pneumothorax. COMPARISON: 05/09/2021 FINDINGS: A frontal view of the chest is obtained. There is a tiny right apical pneumothorax. This ma y or conspicuous compared to the prior study due to differences in patient positioning. There is an u nchanged right pleural drainage catheter overlying the right mid thorax. There is a stable left pleur al drainage catheter without evidence of a pneumothorax. There is an endotracheal tube within the mid trachea. There is a nasogastric tube within the stomach. There is a right internal jugular catheter with the tip in the superior vena cava. There is stable diffuse mixed interstitial and alveolar infil trate with trace pleural effusions. There is a stable cardiac silhouette. IMPRESSION: 1. Tiny right pneumothorax. This may be more conspicuous compared to the prior study due to differenc es in positioning. There are bilateral pleural drainage catheters unchanged in position. 2. Stable diffuse infiltrate and trace pleural effusions. 3. Stable remaining support lines and tubes. Electronically signed by: Yaz Red MD (05/10/2021 8:34 AM) [id number]
--- NOTE | 2021-05-10 09:04 | PDOC ---
PROGRESS NOTES Date of Service: DATE: 05/10/21 TIME: 09:04 Chief Complaint Chief Complaint Acute respiratory failure with hypoxia COVID-19 pneumonia GERD Obesity Plan: Continue with with remdesivir day 3 out of 4, steroids, and prophylactic antibiotics Appreciate pulmonology management for Vapotherm therapy Monitor daily LFTs Hemoglobin A1c pending We will initiate insulin treatment when blood glucose become significantly elevated Daily PPI and famotidine as needed FEN - ADA diet PPX - Lovenox FULL CODE Dispo - inpatient for above History of Present Illness History of Present Illness 05/10/2021 Status post intubation 05/02, status post bilateral pneumothoraces requiring chest tubes 05/02 Decrease in a tiny residual right pneumothorax status post pleural drainage cath eter placement. There is an unchanged left pleural drainage catheter. 05-09 cxr bilateral pleural drainage catheters unchanged in position.05-10 Daily PPI and famotidine as needed FEN - ADA diet PPX - Lovenox FULL CODE Dispo - inpatient for above Morbid obesity. No significant tobacco history and // remote history of SONYA. Patient seen and examined in the [facility] [facility] [address] ICU Interval decrease in a now tiny right pneumothorax status post pleural drainage catheter placement. There is a stable left pleural drainage catheter without convincing left-sided pneumothorax. /large right pneumothorax with assocaited mild leftward mediastinal deviation. earlier 05-08 Stable diffuse mixed interstitial and alveolar infiltrate with suspected small pleural effusions. Stable endotracheal tube, nasogastric tube and right internal jugular central venous catheter. 05-08 cxr He remains on the vent vent support 90% and a PEEP of 6 Discussed with RN Chart reviewed Duarte to bedside drainage He is sedated with propofol fentanyl and Versed Remains very critically ill labile htn, will consult cardiology, htn much better today 32 min cc time 05/09/2021 Status post intubation 05/02, status post bilateral pneumothoraces requiring chest tubes 05/02 Decrease in a tiny residual right pneumothorax status post pleural drainage catheter placement. There is an unchanged left pleural drainage catheter. 05-09 cxr Daily PPI and famotidine as needed FEN - ADA diet PPX - Lovenox FULL CODE Dispo - inpatient for above Morbid obesity. No significant tobacco history and // remote history of SONYA. Patient seen and examined in the [facility]- ICU Interval decrease in a now tiny right pneumothorax status post pleural drainage catheter placement. There is a stable left pleural drainage catheter without convincing left-sided pneumothorax. /large right pneumothorax with assocaited mild leftward mediastinal deviation. earlier 05-08 Stable diffuse mixed interstitial and alveolar infiltrate with suspected small pleural effusions. Stable endotracheal tube, nasogastric tube and right internal jugular central venous catheter. 05-08 cxr He remains on the vent AC/500/26/80 percent with 6 of PEEP Discussed with RN Chart reviewed Duarte to bedside drainage He is sedated with propofol fentanyl and Versed Remains very critically ill labile htn, will consult cardiology 35 min cc time 05/08/2021 Daily PPI and famotidine as needed FEN - ADA diet PPX - Lovenox FULL CODE Dispo - inpatient for above Morbid obesity. No significant tobacco history and // remote history of SONYA. Patient seen and examined in the [facility] [facility] [address] ICU Interval decrease in a now tiny right pneumothorax status post pleural drainage catheter placement. There is a stable left pleural drainage catheter without convincing left-sided pneumothorax. /large right pneumothorax with assocaited mild leftward mediastinal deviation. earlier 05-08 Stable diffuse mixed interstitial and alveolar infiltrate with suspected small pleural effusions. Stable endotracheal tube, nasogastric tube and right internal jugular central venous catheter. 05-08 cxr He remains on the vent AC/500/26/80 percent with 6 of PEEP Discussed with RN Chart reviewed Duarte to bedside drainage He is sedated with propofol fentanyl and Versed Remains very critically ill 33 min cc time 05/07/2021 Patient seen and examined in the [facility] [address] ICU He remains on the vent AC/500/26/80 percent with 6 of PEEP (this is improved from yesterday he was on 100% FiO2 with 8 of PEEP) Discussed with RN Chart reviewed Patient has Duarte to bedside drainage He is sedated with propofol fentanyl and Versed Remains very critically ill 05/06/2021 Patient seen and examined in the [facility] [address] ICU He remains intubated AC/26/500/1 her percent with 8 of PEEP The nurse was able to get him down to 80% for an hour or so earlier this morning but he desatted again when she moved him Chart reviewed Reviewed case with RN patient is having some tachycardia and Fluctuating blood pressure Has OG feeds running at 50 cc an hour plus he is getting free water Has Duarte to bedside drainage Has [address] He remains critically ill 05/05/2021 Patient seen and examined in the [facility] [address] ICU He is still intubated AC/26/500/ 100% with 8 of PEEP Has OG feeds running at 25 cc an hour Sedated with fentanyl and Versed Getting IV vecuronium Chart reviewed Discussed with RN He remains critically 05/04/2021 Patient seen and examined in the [facility] [address] ICU He remains mechanically ventilated Assist-control/500/ 100% with 10 of PEEP He is extremely critically ill He is sedated with Versed and fentanyl He is also paralyzed with vecuronium Reviewed chart Discussed with RN 05/03/2021 Patient seen and examined in the [facility] [address] ICU He remains mechanically ventilated AC/600/ 100% with 10 of PEEP Has 2 pigtail drains in his left and right chest due to some small pneumothoraces after being intubated Had to be sedated with vecuronium Also on Versed and fentanyl also has inverse I to E ratio 2:1 Chart reviewed Discussed with RN He remains extremely critically ill I am concerned he may not survive this? 05/02/2021 Patient seen and examined in the [facility] [address] ICU He is on BiPAP with 100% FiO2 and very tachypneic Discussed with RN we are going to go ahead and intubate here in a few minutes Chart reviewed Patient currently semisedated with Versed Precedex and fentanyl He is very critically Patient 35-year-old male with past medical history of GERD, obesity, who presents to the ED as a transfer from [facility] for COVID-19 pneumonia with worsening respiratory distress. States his symptoms started roughly 1 week ago with fatigue and body aches, which progressed to include fever and shortness of breath. Symptoms were worse with exertion with no significant alleviating factors. He was tested for COVID-19 at [facility] and was discharged home because he was not hypoxic on room air. When he returned to [facility] with worsening symptoms a CT chest demonstrated bibasilar infiltrates consistent with atypical pneumonia. He was then admitted and placed on 3 L nasa l cannula for further treatment. He has not been vaccinated against COVID-19. However due to worsening respiratory distress he was transferred to [facility] for higher level of care. 04/29/2021: Still breathing 40 L Vapotherm. Afebrile, but complaining of chest heaviness, nausea, and subjective shortness of breath. Denies any vomiting, or diarrhea. Informed patient of likely prolonged hospitalization course. Hemoglobin A1c 5.6. Continue remdesivir day 2/5, continue steroids, antibiotics , and supportive care. Continue to follow daily LFTs. Plan to transfer patient to ICU bed when available. Critical care time 33 minutes spent reviewing charts, reviewing labs, and discussing case with Dr. Gaviria. 04/30/21: Afebrile, still breathing on Vapotherm. Continue remdesivir and monitor LFTs. Continue antibiotics, steroids, and supportive care. Will transfer him to the ICU once bed available. Critical care time 30 minutes spent in chart, reviewing labs, reviewing imaging, and discussion with RN. 05/01/2021 No acute events overnight. Patient seen and examined bedside. Saturating 93% on 40 L Vapotherm. Patient will transfer to the ICU for continued supportive care. Vitals Vitals Vital Signs Date Time Temp Pulse Resp B/P (MAP) Pulse Ox O2 Delivery O2 Flow Rate FiO2 05/10/21 09:00 78 26 125/66 (85) 97 Ventilator 05/10/21 08:00 98.2 98.2 05/09/21 21:10 95.0 Physical Exam Physical Exam visual inspection, intubated, and in a medically induced coma Chest tube bilaterally, small amount of subcutaneous emphysema, General: severe distress, Other (Sedated on the vent) Heart: Other (Tachycardic) Abdomen: Soft, No tenderness Extremities: No clubbing, No cyanosis, No edema Skin: No rashes, No breakdown Labs LABS PATIENT: DOUGLAS GARRETT ACCOUNT: [id number] : 1985 LOCATION: [address] [place] [address] AGE: 35 SEX: M EXAM STATUS: ADM IN ORD. PHYSICIAN: MURRAY GAVIRIA MD REASON: PTX [id number] PROCEDURE: CHEST AP ONLY EXAM: Chest, single view. HISTORY: Pneumothorax. COMPARISON: 05/09/2021 FINDINGS: A frontal view of the chest is obtained. There is a tiny right apical pneumothorax. This may or conspicuous compared to the prior study due to differences in patient positioning. There is an unchanged right pleural drainage catheter overlying the right mid thorax. There is a stable left pleural drainage catheter without evidence of a pneumothorax. There is an endotracheal tube within the mid trachea. There is a nasogastric tube within the stomach. There is a right internal jugular catheter with the tip in the superior vena cava. There is stable diffuse mixed interstitial and alveolar infiltrate with trace pleural effusions. There is a stable cardiac silhouette. IMPRESSION: 1. Tiny right pneumothorax. This may be more conspicuous compared to the prior study due to differences in positioning. There are bilateral pleural drainage catheters unchanged in position. 2. Stable diffuse infiltrate and trace pleural effusions. 3. Stable remaining support lines and tubes. Electronically signed by: Yaz Barros MD (05/10/2021 8:34 AM) [id number] DICTATED and SIGNED BY: YAZ BARROS MD DATE: 05/10/21 [id number] Laboratory Tests Test 05/09/21 12:18 05/09/21 16:43 05/10/21 08:00 Glucose (Fingerstick) 138 mg/dL (70-99) Troponin I Quantitative 0.047 ng/mL (0.000-0.055) O2 Saturation 96 % (92-99) Arterial Blood pH 7.43 (7.35-7.45) Arterial Blood pCO2 at Patient Temp 62 mmHg (35-46) Arterial Blood pO2 at Patient Temp 87 mmHg (85-108) Arterial Blood HCO3 40 mmol/L (21-28) Arterial Blood Base Excess 13 mmol/L (-3-3) FiO2 90 Comment Review of Relevant I have reviewed the following items anselmo (where applicable) has been applied. Labs Laboratory Tests Test 05/09/21 04:55 05/09/21 08:00 05/09/21 12:18 05/09/21 16:43 White Blood Count 8.0 x10^3/uL (4.0-11.0) Red Blood Count 3.80 x10^6/uL (4.30-5.70) Hemoglobin 11.1 g/dL (13.0-17.5) Hematocrit 33.2 % (39.0-53.0) Mean Corpuscular Volume 87 fL (79-100) Mean Corpuscular Hemoglobin 29 pg (25-35) Mean Corpuscular Hemoglobin Concent 34 g/dL (31-37) Red Cell Distribution Width 13.5 % (11.5-14.5) Platelet Count 176 x10^3/uL (140-400) Neutrophils (%) (Auto) 82 % (31-73) Lymphocytes (%) (Auto) 9 % (24-48) Monocytes (%) (Auto) 8 % (0-9) Eosinophils (%) (Auto) 0 % (0-3) Basophils (%) (Auto) 1 % (0-3) Neutrophils # (Auto) 6.5 x10^3/uL (1.8-7.7) Lymphocytes # (Auto) 0.7 x10^3/uL (1.0-4.8) Monocytes # (Auto) 0.7 x10^3/uL (0.0-1.1) Eosinophils # (Auto) 0.0 x10^3/uL (0.0-0.7) Basophils # (Auto) 0.1 x10^3/uL (0.0-0.2) Sodium Level 137 mmol/L (136-145) Potassium Level 3.9 mmol/L (3.5-5.1) Chloride Level 98 mmol/L (98-107) Carbon Dioxide Level 38 mmol/L (21-32) Anion Gap 1 (6-14) Blood Urea Nitrogen 23 mg/dL (8-26) Creatinine 0.5 mg/dL (0.7-1.3) Estimated GFR (Cockcroft-Gault) 188.1 BUN/Creatinine Ratio 46 (6-20) Glucose Level 109 mg/dL (70-99) Calcium Level 8.3 mg/dL (8.5-10.1) Ferritin 815 ng/mL (26-388) Total Bilirubin 0.9 mg/dL (0.2-1.0) Aspartate Amino Transf (AST/SGOT) 53 U/L (15-37) Alanine Aminotransferase (ALT/SGPT) 143 U/L (16-63) Alkaline Phosphatase 91 U/L (46-116) Total Protein 6.3 g/dL (6.4-8.2) Albumin 2.2 g/dL (3.4-5.0) Albumin/Globulin Ratio 0.5 (1.0-1.7) O2 Saturation 98 % (92-99) Arterial Blood pH 7.36 (7.35-7.45) Arterial Blood pCO2 at Patient Temp 65 mmHg (35-46) Arterial Blood pO2 at Patient Temp 119 mmHg (85-108) Arterial Blood HCO3 36 mmol/L (21-28) Arterial Blood Base Excess 9 mmol/L (-3-3) FiO2 100/vent Glucose (Fingerstick) 138 mg/dL (70-99) Troponin I Quantitative 0.047 ng/mL (0.000-0.055) Test 05/10/21 08:00 O2 Saturation 96 % (92-99) Arterial Blood pH 7.43 (7.35-7.45) Arterial Blood pCO2 at Patient Temp 62 mmHg (35-46) Arterial Blood pO2 at Patient Temp 87 mmHg (85-108) Arterial Blood HCO3 40 mmol/L (21-28) Arterial Blood Base Excess 13 mmol/L (-3-3) FiO2 90 Laboratory Tests Test 05/09/21 12:18 05/09/21 16:43 05/10/21 08:00 Glucose (Fingerstick) 138 mg/dL (70-99) Troponin I Quantitative 0.047 ng/mL (0.000-0.055) O2 Saturation 96 % (92-99) Arterial Blood pH 7.43 (7.35-7.45) Arterial Blood pCO2 at Patient Temp 62 mmHg (35-46) Arterial Blood pO2 at Patient Temp 87 mmHg (85-108) Arterial Blood HCO3 40 mmol/L (21-28) Arterial Blood Base Excess 13 mmol/L (-3-3) FiO2 90 Medications Current Medications Azithromycin 500 mg/Sodium Chloride 250 ml @ 250 mls/hr 1X ONCE IV Last administered on 04/28/21at 15:44; Start 04/28/21 at 13:00; Stop 04/28/21 at 14:00; Status DC Azithromycin 250 mg/Sodium Chloride 250 ml @ 250 mls/hr Q24H IV Last administered on 05/02/21at 12:51; Start 04/29/21 at 13:00; Stop 05/02/21 at 13:59; Status DC Dexamethasone Sodium Phosphate (Decadron) 6 mg DAILY IVP Last administered on 05/09/21at 08:25; Start 04/29/21 at 09:00; Stop 05/09/21 at 11:08; Status DC Ceftriaxone Sodium (Rocephin) 2 gm Q24H IVP Last administered on 05/07/21at 12:55; Start 04/28/21 at 14:00; Stop 05/08/21 at 08:36; Status DC Enoxaparin Sodium (Lovenox 40mg Syringe) 40 mg Q12HR SQ Last administered on 05/07/21at 08:57; Start 04/28/21 at 21:00; Stop 05/07/21 at 15:40; Status DC Famotidine (Pepcid) 20 mg BID@0500,1700 PO Last administered on 05/01/21at 16:36; Start 04/28/21 at 17:00; Stop 05/02/21 at 16:52; Status DC Remdesivir 200 mg/ Sodium Chloride 210 ml @ 210 mls/hr 1X ONCE IV Last administered on 04/28/21at 14:00; Start 04/28/21 at 14:00; Stop 04/28/21 at 14:59; Status DC Remdesivir 100 mg/ Sodium Chloride 230 ml @ 460 mls/hr Q24H IV Last administered on 05/02/21at 13:43; Start 04/29/21 at 14:00; Stop 05/02/21 at 14:29; Status DC Zinc Sulfate (Orazinc) 220 mg DAILY PO Last administered on 05/10/21at 08:06; Start 04/29/21 at 09:00 Ascorbic Acid (Vitamin C) 500 mg Q6HRS PO Last administered on 05/10/21at 05:50; Start 04/28/21 at 18:00 Pantoprazole Sodium (Protonix) 40 mg 1X ONCE PO Last administered on 04/28/21at 15:45; Start 04/28/21 at 13:45; Stop 04/28/21 at 13:46; Status DC Pantoprazole Sodium (Protonix) 40 mg DAILYAC PO Last administered on 05/01/21at 09:44; Start 04/29/21 at 07:30; Stop 05/02/21 at 16:52; Status DC Famotidine (Pepcid) 20 mg PRN BID PRN PO HEARTBURN / GAS Last administered on 05/09/21at 08:24; Start 04/28/21 at 13:45 Ondansetron HCl (Zofran) 4 mg PRN Q6HRS PRN IVP NAUSEA/VOMITING Last administered on 04/29/21at 10:26; Start 04/28/21 at 14:00 Al Hydroxide/Mg Hydroxide (Mylanta Plus Xs) 30 ml PRN Q3HRS PRN PO HEARTBURN / GAS; Start 04/28/21 at 14:00 Calcium Carbonate/ Glycine (Tums) 500 mg PRN Q3HRS PRN PO UPSET STOMACH; Start 04/28/21 at 14:00 Zolpidem Tartrate (Ambien) 5 mg PRN QHS PRN PO INSOMNIA, MAY REPEAT IN 1HR Last administered on 05/01/21at 21:26; Start 04/28/21 at 14:00 Acetaminophen/ Hydrocodone Bitart (Lortab 5/325) 1 tab PRN Q4HRS PRN PO PAIN Last administered on 04/28/21at 17:37; Start 04/28/21 at 14:00 Acetaminophen (Tylenol) 650 mg PRN Q6HRS PRN PO Headaches, Temp > 101.5F; Start 04/28/21 at 14:00 Magnesium Hydroxide (Milk Of Magnesia) 2,400 mg PRN Q12HR PRN PO CONSTIPATION; Start 04/28/21 at 14:00 Enoxaparin Sodium (Lovenox 40mg Syringe) 40 mg Q24H SQ ; Start 04/28/21 at 14:00; Status UNV Sterile Water (WATER for RESP) 1,000 ml CONT PRN INH VIA VAPOTHERM DEVICE Last administered on 04/30/21at 18:45; Start 04/28/21 at 14:45 Lactobacillus Rhamnosus (Culturelle) 1 cap BID PO Last administered on 05/10/21at 08:05; Start 04/29/21 at 21:00; Stop 05/10/21 at 08:37; Status DC Dexmedetomidine HCl 400 mcg/ Sodium Chloride 100 ml @ 6.965 mls/ hr CONT PRN IV PER PROTOCOL Last administered on 05/02/21at 06:56; Start 05/02/21 at 01:00 Sodium Chloride 500 ml @ 500 mls/hr 1X PRN PRN IV SEE COMMENTS; Start 05/02/21 at 01:00 Atropine Sulfate (ATROPINE 0.5mg SYRINGE) 0.5 mg PRN Q5MIN PRN IV SEE COMMENTS; Start 05/02/21 at 01:00 Propofol 0 ml @ As Directed STK-MED ONCE IV ; Start 05/02/21 at 07:37; Stop 05/02/21 at 07:37; Status DC Succinylcholine Chloride (Anectine) 200 mg STK-MED ONCE .ROUTE ; Start 05/02/21 at 07:37; Stop 05/02/21 at 07:37; Status DC Etomidate (Amidate) 20 mg STK-MED ONCE IV ; Start 05/02/21 at 07:37; Stop 05/02/21 at 07:37; Status DC Fentanyl Citrate 30 ml @ 0 mls/hr CONT PRN IV SEE PROTOCOL Last administered on 05/07/21at 19:51; Start 05/02/21 at 07:45; Stop 05/07/21 at 22:40; Status DC Propofol 100 ml @ 0 mls/hr CONT PRN IV PER PROTOCOL Last administered on 05/10/21at 05:54; Start 05/02/21 at 07:45 Midazolam HCl 100 ml @ 0 mls/hr CONT PRN IV SEE PROTOCOL Last administered on 05/10/21at 05:51; Start 05/02/21 at 07:45 Norepinephrine Bitartrate 8 mg/ Dextrose 258 ml @ 27.09 mls/ hr CONT PRN IV PER PROTOCOL Last administered on 05/02/21at 09:35; Start 05/02/21 at 08:45 Norepinephrine Bitartrate 8 mg/ Dextrose 258 ml @ 27.09 mls/ hr CONT PRN IV PER PROTOCOL; Start 05/02/21 at 08:45; Status UNV Etomidate (Amidate) 10 mg 1X ONCE IV Last administered on 05/02/21at 08:49; Start 05/02/21 at 08:45; Stop 05/02/21 at 08:48; Status DC Succinylcholine Chloride (Anectine) 100 mg 1X ONCE IV Last administered on 05/02/21at 08:50; Start 05/02/21 at 08:45; Stop 05/02/21 at 08:48; Status DC Vecuronium Clinton (Norcuron Bolus) 6 mg PRN Q4HRS PRN IV VENTILATOR COMPLIANCE Last administered on 05/02/21at 08:51; Start 05/02/21 at 08:45 Epinephrine HCl (EPINEPHrine SYRINGE) 1 mg 1X ONCE IV Last administered on 05/02/21at 08:50; Start 05/02/21 at 08:45; Stop 05/02/21 at 08:48; Status DC Vecuronium Clinton 50 mg/ Sodium Chloride 50 ml @ 6.72 mls/hr CONT PRN IV SEE I/O RECORD Last administered on 05/10/21at 05:51; Start 05/02/21 at 09:15 Vitamin D (Vitamin D3) 5,000 unit DAILY FT Last administered on 05/10/21at 08:05; Start 05/03/21 at 09:00 Vecuronium Clinton 50 mg/ Sodium Chloride 50 ml @ 6.72 mls/hr CONT PRN IV SEE I/O RECORD; Start 05/02/21 at 09:15; Stop 05/02/21 at 09:17; Status DC Lidocaine HCl (Lidocaine 2% 20ml Vial) 20 ml STK-MED ONCE .ROUTE ; Start 05/02/21 at 10:14; Stop 05/02/21 at 10:14; Status DC Famotidine (Pepcid Vial) 20 mg QHS IVP ; Start 05/02/21 at 21:00; Stop 05/03/21 at 09:07; Status DC Info (Icu Electrolyte Protocol) 1 ea CONT PRN PRN MC PER PROTOCOL; Start 05/03/21 at 07:30 Famotidine (Pepcid Vial) 20 mg BID IVP Last administered on 05/10/21at 08:06; Start 05/03/21 at 10:00 Propofol (Diprivan) 1,000 mg STK-MED ONCE IV ; Start 05/02/21 at 08:00; Stop 05/04/21 at 08:51; Status DC Metoprolol Tartrate (Lopressor Vial) 5 mg PRN Q6HRS PRN IVP HYPERTENSION Last administered on 05/07/21at 05:16; Start 05/06/21 at 12:30; Stop 05/07/21 at 12:57; Status DC Metoprolol Tartrate (Lopressor Vial) 5 mg Q6HRS IVP Last administered on 05/09/21at 23:22; Start 05/07/21 at 13:00; Stop 05/10/21 at 08:18; Status DC Enoxaparin Sodium (Lovenox 40mg Syringe) 40 mg Q24H SQ Last administered on 05/08/21at 08:21; Start 05/08/21 at 09:00; Stop 05/08/21 at 08:34; Status DC Fentanyl Citrate 55 ml @ 0 mls/hr CONT PRN PRN IV PAIN CONTROL Last administered on 05/10/21at 08:07; Start 05/07/21 at 22:45 Enoxaparin Sodium (Lovenox 40mg Syringe) 40 mg Q12HR SQ Last administered on 05/10/21at 08:07; Start 05/08/21 at 21:00 Lidocaine HCl (Buffered Lidocaine 1%) 3 ml STK-MED ONCE .ROUTE ; Start 05/08/21 at 09:19; Stop 05/08/21 at 09:19; Status DC Lidocaine HCl (Buffered Lidocaine 1%) 3 ml 1X ONCE INJ Last administered on 05/08/21at 10:16; Start 05/08/21 at 10:15; Stop 05/08/21 at 10:16; Status DC Hydralazine HCl (Apresoline Inj) 10 mg PRN Q4HRS PRN IVP ELEVATED BP, 1ST CHOICE Last administered on 05/09/21at 20:41; Start 05/09/21 at 04:45 Labetalol HCl (Normodyne Iv Push) 20 mg PRN Q2HR PRN IVP HYPERTENSION, 2ND CHOICE Last administered on 05/09/21at 15:27; Start 05/09/21 at 04:45 Amlodipine Besylate (Norvasc) 10 mg DAILY PO Last administered on 05/10/21at 08:06; Start 05/09/21 at 16:15 Active Scripts Active Reported Pepcid (Famotidine) 20 Mg Tablet 20 Mg PO BID Vitals/I & O Vital Sign - Last 24 Hours 05/09/21 05/09/21 05/09/21 05/09/21 09:22 10:00 11:00 11:02 Pulse 94 92 Resp 26 B/P (MAP) 163/74 (103) 159/73 (101) Pulse Ox 98 97 97 98 O2 Delivery Ventilator Ventilator Ventilator Ventilator 05/09/21 05/09/21 05/09/21 05/09/21 12:00 12:00 12:45 13:00 Temp 98.6 98.6 Pulse 88 107 88 Resp 26 26 B/P (MAP) 158/72 (100) 178/81 174/78 (110) Pulse Ox 97 99 O2 Delivery Mechanical Ventilator Ventilator Ventilator 05/09/21 05/09/21 05/09/21 05/09/21 13:00 14:00 14:15 15:00 Pulse 88 86 96 Resp B/P (MAP) 182/87 (118) 189/86 181/79 (113) Pulse Ox 99 87 96 O2 Delivery Ventilator Ventilator Ventilator 05/09/21 05/09/21 05/09/21 05/09/21 15:27 15:39 16:00 16:00 Temp 98.6 98.6 Pulse 94 94 B/P (MAP) 181/79 199/84 (122) Pulse Ox 95 97 O2 Delivery Ventilator Mechanical Ventilator Ventilator 05/09/21 05/09/21 05/09/21 05/09/21 16:33 17:00 18:00 18:18 Pulse 92 86 89 88 B/P (MAP) 178/82 193/87 (122) 159/78 (105) 170/78 Pulse Ox 97 96 O2 Delivery Ventilator Ventilator 05/09/21 05/09/21 05/09/21 05/09/21 19:00 20:00 20:00 20:25 Temp 97.7 97.7 Pulse 84 82 Resp B/P (MAP) 165/76 (105) 161/78 (105) Pulse Ox 97 97 97 O2 Delivery Ventilator Ventilator Mechanical Ventilator Ventilator 05/09/21 05/09/21 05/09/21 05/09/21 20:40 20:41 21:00 21:10 Pulse 84 82 Resp B/P (MAP) 165/76 153/73 (99) Pulse Ox 97 96 97 O2 Delivery Ventilator Ventilator Ventilator O2 Flow Rate 95.0 95.0 05/09/21 05/09/21 05/09/21 05/09/21 22:00 23:00 23:22 23:30 Pulse 81 82 82 Resp B/P (MAP) 125/71 (89) 123/69 (87) 124/69 Pulse Ox 97 96 96 O2 Delivery Ventilator Ventilator Ventilator 05/10/21 05/10/21 05/10/21 05/10/21 00:00 00:01 01:00 01:17 Temp 98.4 98.4 Pulse 80 79 B/P (MAP) 121/67 (85) 119/68 (85) Pulse Ox 96 97 96 O2 Delivery Mechanical Ventilator Ventilator Ventilator Ventilator 05/10/21 05/10/21 05/10/21/4/21 02:00 02:54 03:00 04:00 Pulse 78 79 B/P (MAP) 116/70 (85) 114/63 (80) Pulse Ox 96 96 96 O2 Delivery Ventilator Ventilator Ventilator Mechanical Ventilator 05/10/21 05/10/21 05/10/21 05/10/21 04:00 05:00 05:35 06:00 Temp 98.0 98.0 Pulse 77 77 78 B/P (MAP) 119/63 (81) 115/66 (82) 118/69 Pulse Ox 96 96 97 O2 Delivery Ventilator Ventilator Ventilator 05/10/21 05/10/21 05/10/21 05/10/21 06:00 07:00 07:46 08:00 Temp 98.2 98.2 Pulse 78 79 77 B/P (MAP) 118/69 (85) 118/66 (83) 122/66 (84) Pulse Ox 97 97 96 97 O2 Delivery Ventilator Ventilator Ventilator Ventilator 05/10/21 05/10/21 05/10/21 08:00 08:06 09:00 Pulse 77 78 B/P (MAP) 123/64 125/66 (85) Pulse Ox 97 O2 Delivery Mechanical Ventilator Ventilator Intake and Output 05/09/21 05/09/21 05/10/21 15:00 23:00 07:00 Intake Total 250 ml 2205.17 ml 1614.35 ml Output Total 673 ml 1107 ml 870 ml Balance -423 ml 1098.17 ml 744.35 ml Justicifation of Admission Dx: Justifications for Admission: Justification of Admission Dx: Yes Comminuty Aquired Pneumonia: Hypoxemia ARELY DILLARD MD May 10, 2021 09:04
--- NOTE | 2021-05-10 10:27 | PDOC2 ---
JOVANA ISLAS LACQUER MACHINE FEEDER 05/10/21 1027: CARDIAC CONSULT DATE OF CONSULT Date of Consult DATE: 05/10/21 TIME: 10:00 REASON FOR CONSULT Reason for Consult: labile HTYN REFERRING PHYSICIAN Referring Physician: Fullbright SOURCE Source: Chart review HISTORY OF PRESENT ILLNESS HISTORY OF PRESENT ILLNESS This is a 35 yo male admitted initially at [facility] and came in with SOA. It was then noted that he had covid-19 pneumonia and was needing intubation. He came in with flu like symptoms. No hx of cardiovascular disease. He has not been vaccinated for covid-19. consult is for labile HTN as to which his BP has been better controlled overnight after med adjustment. I also noted PAFIB which is new. He also has sustained bilateral pneumothorax and presently has chest tube and has a mechanical ventilator. He is currently sedated. PAST MEDICAL HISTORY Past Medical History SONYA, GERD PAST SURGICAL HISTORY Past Surgical History: Hernia Repair FAMILY HISTORY Family History: Stroke SOCIAL HISTORY Social History unknown CURRENT MEDICATIONS CURRENT MEDICATIONS Current Medications Medications (Trade) Dose Ordered Sig/Bartolo Route PRN Reason Start Time Stop Time Status Last Admin Dose Admin Amlodipine Besylate (Norvasc) 10 mg DAILY PO 05/09/21 16:15 05/10/21 09:39 DC 05/10/21 08:06 ALLERGIES ALLERGIES: Coded Allergies: No Known Drug Allergies (Unverified , 04/28/21) ROS Review of System unreliable, intubated PHYSICAL EXAM General: Other (sedated) HEENT: Atraumatic Lungs: Other (intubated with vent) Heart: Regular rate (SR) Abdomen: Soft Extremities: No cyanosis Psych/Mental Status: Other (sedated) MUSCULOSKELETAL: Osteoarthritic changes both hands VITALS/I&O VITALS/I&O: Vital Signs Date Time Temp Pulse Resp B/P (MAP) Pulse Ox O2 Delivery O2 Flow Rate FiO2 05/10/21 10:00 81 26 137/70 (92) 96 Ventilator 05/10/21 08:00 98.2 98.2 05/09/21 21:10 95.0 I & O 05/09/21 05/09/21 05/10/21 15:00 23:00 07:00 Intake Total 250 ml 2205.17 ml 1614.35 ml Output Total 673 ml 1107 ml 870 ml Balance -423 ml 1098.17 ml 744.35 ml LABS Lab: Laboratory Tests Test 05/09/21 12:18 05/09/21 16:43 05/10/21 08:00 Glucose (Fingerstick) 138 mg/dL (70-99) H Troponin I Quantitative 0.047 ng/mL (0.000-0.055) O2 Saturation 96 % (92-99) Arterial Blood pH 7.43 (7.35-7.45) Arterial Blood pCO2 at Patient Temp 62 mmHg (35-46) *H Arterial Blood pO2 at Patient Temp 87 mmHg (85-108) Arterial Blood HCO3 40 mmol/L (21-28) H Arterial Blood Base Excess 13 mmol/L (-3-3) H FiO2 90 ASSESSMENT/PLAN ASSESSMENT/PLAN 1. Acute hypoxic respiratory failure with covid-19 PNA/ARDS 2. HTN urgency: now controlled 3. PAFIB: new likely induced by above. multiple bursts. presently SR 4. Morbid obesity Recommendations 1. Continue covid-19 treatment and vent mgmt per pulmonary 2. continue norvasc with metoprolol 3. ASA 4. Supportive care KENDALL POWER MD 05/10/21 1251: CARDIAC CONSULT ASSESSMENT/PLAN ASSESSMENT/PLAN Patient seen and evaluated. I agree with our nurse practitioners assessment and plan. Acute respiratory failure with Covid pneumonia. Intubated. Followed by pu lmonary and ID. Episode of hypertensive urgency. Blood pressure now under better control. Continuing Norvasc with metoprolol as above. Continue close monitoring. Paroxysmal atrial fibrillation. Multiple episodes. Now in sinus rhythm. Continuing with beta-blockers and monitoring. Treatment of the patient's underlying condition. Morbid obesity. JOVANA ISLAS APRN May 10, 2021 10:27 KENDALL POWER MD May 10, 2021 12:51
--- NOTE | 2021-05-10 15:00 | NUR ---
SS following up with discharge planning. SS reviewed pt chart and discussed with pt RN. Pt is currently on the vent at 85%. COVID19 positive. Two chest tubes in place. Pt on Vec, Versed, Propofol, and Fentanyl. Not stable. SS will continue to follow for discharge planning.
[2021-05-10] MEDS: METOPROLOL TART IMMED RELEASE 25 MG TABLET. PO SCH (21:26)
[2021-05-11] VITALS (24 sets, daily range): BP systolic 109–157; BP diastolic 54–81
[2021-05-11] MEDS: PROPOFOL 100 ML IV PRN ×10 (01:40→22:08)
--- NOTE | 2021-05-11 05:23 | PDOC ---
PULMONARY PROGRESS NOTES DATE: 05/11/21 TIME: 05:20 Subjective Patient remains on vent support 85% and a PEEP of 6 Remains Sedated with propofol and VEC gtt,versed, and fentanyl minimal air leak on left-sided chest tube positive air leak on right chest tube No overnight concerns from nursing Vitals Vital Signs Date Time Temp Pulse Resp B/P (MAP) Pulse Ox O2 Delivery O2 Flow Rate FiO2 05/11/21 05:00 96 26 157/77 (103) 97 Ventilator 05/11/21 04:00 98.9 98.9 05/10/21 21:54 95.0 Comments On visual inspection, patient intubated, and in a medically induced coma Chest tube bilaterally, small amount of subcutaneous emphysema, RRR no distress no obvious rash or edema Labs Laboratory Tests Test 05/09/21 08:00 05/09/21 12:18 05/09/21 16:43 05/10/21 08:00 O2 Saturation 98 % (92-99) 96 % (92-99) Arterial Blood pH 7.36 (7.35-7.45) 7.43 (7.35-7.45) Arterial Blood pCO2 at Patient Temp 65 mmHg (35-46) 62 mmHg (35-46) Arterial Blood pO2 at Patient Temp 119 mmHg (85-108) 87 mmHg (85-108) Arterial Blood HCO3 36 mmol/L (21-28) 40 mmol/L (21-28) Arterial Blood Base Excess 9 mmol/L (-3-3) 13 mmol/L (-3-3) FiO2 100/vent 90 Glucose (Fingerstick) 138 mg/dL (70-99) Troponin I Quantitative 0.047 ng/mL (0.000-0.055) Laboratory Tests Test 05/10/21 08:00 O2 Saturation 96 % (92-99) Arterial Blood pH 7.43 (7.35-7.45) Arterial Blood pCO2 at Patient Temp 62 mmHg (35-46) Arterial Blood pO2 at Patient Temp 87 mmHg (85-108) Arterial Blood HCO3 40 mmol/L (21-28) Arterial Blood Base Excess 13 mmol/L (-3-3) FiO2 90 Medications Active Scripts Medications Dose Route/Sig Max Daily Dose Days Date Category Pepcid (Famotidine) 20 Mg Tablet 20 Mg PO BID 04/28/21 Reported Comments Chest x-ray reviewed dated 05/26 Diffuse bilateral infiltrates unchanged. Tiny right pneumothorax unchanged. Impression . 1. Acute hypoxic respiratory failure secondary to COVID-19 viral pneumonia/ARDS--intubated 2. Abnormal CT chest done at [facility] with diffuse bilateral alveolar and interstitial infiltrates related to COVID-19 pneumonia. No evidence of pulmonary embolism. 3. Underlying obesity. 4. Remote history of obstructive sleep apnea. 5. Abnormal liver function tests, likely due to Covid infection. Bilirubin normal. 6. Normal D-dimer. 7. Status post intubation 05/02, status post bilateral pneumothoraces requiring chest tubes 05/02 8. HTN Chest x-ray reviewed, small right apical pneumothorax Plan . Updated 05/11/21 Continue current vent support 26/500/6/85% Follow ABG/CXR--CXR in am Continue chest tubes to suction. Minimal air leak on the right chest tube. No air leak on the left chest tube. S/P full course of remdesivir and steroids Follow cardiology recommendations--hypertension Continue TF for nutritional support DVT/GI PPX :lovenox D/W RN and RT Critical care time 30 minutes including review of the labs imaging studies and decision making. Updated 05/10/21 Continue current vent support 26/500/6/90%,reverse IE ratio Follow ABG/CXR--reviewed Continue chest tubes to suction. Minimal air leak on the right chest tube. No air leak on the left chest tube. S/P full course of remdesivir and steroids Continue TF for nutritional support DVT/GI PPX :lovenox D/W RN and RT Critical care time 30 minutes including review of the labs imaging studies and decision making. Updated 05/09/21 Continue current vent support 26/500/7/100%,reverse IE ratio Follow ABG/CXR--reviewed, reduce FiO2 to 90%, reduce PEEP to 6 Repeat chest x-ray in the morning Continue chest tubes to suction Discontinue steroids patient has completed full 10-day course S/P full course of remdesivir Continue TF for nutritional support DVT/GI PPX :lovenox D/W RN and RT MURRAY ESPOSITO MD May 11, 2021 05:23
[2021-05-11] MEDS: VECURONIUM BROMIDE 50 MG in IV NORMAL SALINE 50ML 50 ML IV PRN ×4 (05:45→22:04)
[2021-05-11 07:57] LABS: BASE EXCESS ABG 9 mmol/L (-3-3); HCO3 ABG 35 mmol/L (21-28); PO2 ABG 85 mmHg (85-108); SAT O2 ABG 96 % (92-99)
[2021-05-11 08:11] LABS: FIO2 ABG 85; PCO2 ABG 62 mmHg (35-46)
[2021-05-11] MEDS: FAMOTIDINE 20 MG/2 ML VIAL IVP SCH ×2 (08:26→20:29)
[2021-05-11] MEDS: ENOXAPARIN 40 MG/0.4 ML SYRINGE. SQ SCH ×2 (08:26→20:27)
[2021-05-11] MEDS: ASPIRIN CHEWABLE 81 MG TABLET. PO SCH (08:26)
[2021-05-11] MEDS: ZINC SULFATE 220 MG CAPSULE. PO SCH (08:27)
[2021-05-11] MEDS: ASCORBIC ACID 500 MG TABLET PO SCH (08:27)
[2021-05-11] MEDS: CHOLECALCIFEROL (VITAMIN D3) 1,000 UNIT TABLET FT SCH (08:28)
[2021-05-11] MEDS: METOPROLOL TART IMMED RELEASE 25 MG TABLET. PO SCH ×2 (08:30→20:28)
--- NOTE | 2021-05-11 08:57 | PDOC ---
PROGRESS NOTES Date of Service: DATE: 05/11/21 TIME: 08:57 Chief Complaint Chief Complaint Acute respiratory failure with hypoxia COVID-19 pneumonia GERD Obesity Plan: Continue with with remdesivir day 3 out of 4, steroids, and prophylactic antibiotics Appreciate pulmonology management for Vapotherm therapy Monitor daily LFTs Hemoglobin A1c pending We will initiate insulin treatment when blood glucose become significantly elevated Daily PPI and famotidine as needed FEN - ADA diet PPX - Lovenox FULL CODE Dispo - inpatient for above History of Present Illness History of Present Illness 05/11/2021 PAFIB: new likely induced by above. multiple bursts. Maintaining SR/ST Status post intubation 05/02, status post bilateral pneumothoraces requiring chest tubes 05/02 Decrease in a tiny residual right pneumothorax status post pleural drainage catheter placement. There is an unchanged left pleural drainage catheter. 05-09 cxr bilateral pleural drainage catheters unchanged in position.05-10 Daily PPI and famotidine as needed PPX - Lovenox FULL CODE Dispo - inpatient for above Morbid obesity. No significant tobacco history and // remote history of SONYA. Patient seen and examined in the COVID-19 ICU Interval decrease in a now tiny right pneumothorax status post pleural drainage catheter placement. There is a stable left pleural drainage catheter without convincing left-sided pneumothorax. /large right pneumothorax with assocaited mild leftward mediastinal deviation. earlier 05-08 Stable diffuse mixed interstitial and alveolar infiltrate with suspected small pleural effusions. Stable endotracheal tube, nasogastric tube and right internal jugular central venous catheter. 05-08 cxr He remains on the vent vent support 90% and a PEEP of 6 Discussed with RN Chart reviewed Duarte to bedside drainage He is sedated with propofol fentanyl and Versed Remains very critically ill labile htn, will consult cardiology, htn much better today 35 min cc time PAFIB: new likely induced by above. multiple bursts. Maintaining SR/ST 05/10/2021 Status post intubation 05/02, status post bilateral pneumothoraces requiring ches t tubes 05/02 Decrease in a tiny residual right pneumothorax status post pleural drainage catheter placement. There is an unchanged left pleural drainage catheter. 05-09 cxr bilateral pleural drainage catheters unchanged in position.05-10 Daily PPI and famotidine as needed FEN - ADA diet PPX - Lovenox FULL CODE Dispo - inpatient for above Morbid obesity. No significant tobacco history and // remote history of SONYA. Patient seen and examined in the [facility]- ICU Interval decrease in a now tiny right pneumothorax status post pleural drainage catheter placement. There is a stable left pleural drainage catheter without convincing left-sided pneumothorax. /large right pneumothorax with assocaited mild leftward mediastinal deviation. earlier 05-08 Stable diffuse mixed interstitial and alveolar infiltrate with suspected small pleural effusions. Stable endotracheal tube, nasogastric tube and right internal jugular central venous catheter. 05-08 cxr He remains on the vent vent support 90% and a PEEP of 6 Discussed with RN Chart reviewed Duarte to bedside drainage He is sedated with propofol fentanyl and Versed Remains very critically ill labile htn, will consult cardiology, htn much better today 32 min cc time 05/09/2021 Status post intubation 05/02, status post bilateral pneumothoraces requiring chest tubes 05/02 Decrease in a tiny residual right pneumothorax status post pleural drainage catheter placement. There is an unchanged left pleural drainage catheter. 05-09 cxr Daily PPI and famotidine as needed FEN - ADA diet PPX - Lovenox FULL CODE Dispo - inpatient for above Morbid obesity. No significant tobacco history and // remote history of SONYA. Patient seen and examined in the [facility]- ICU Interval decrease in a now tiny right pneumothorax status post pleural drainage catheter placement. There is a stable left pleural drainage catheter without convincing left-sided pneumothorax. /large right pneumothorax with assocaited mild leftward mediastinal deviation. earlier 05-08 Stable diffuse mixed interstitial and alveolar infiltrate with suspected small pleural effusions. Stable endotracheal tube, nasogastric tube and right internal jugular central venous catheter. 05-08 cxr He remains on the vent AC/500/26/80 percent with 6 of PEEP Discussed with RN Chart reviewed Duarte to bedside drainage He is sedated with propofol fentanyl and Versed Remains very critically ill labile htn, will consult cardiology 35 min cc time 05/08/2021 Daily PPI and famotidine as needed FEN - ADA diet PPX - Lovenox FULL CODE Dispo - inpatient for above Morbid obesity. No significant tobacco history and // remote history of SONYA. Patient seen and examined in the [facility]- ICU Interval decrease in a now tiny right pneumothorax status post pleural drainage catheter placement. There is a stable left pleural drainage catheter without convincing left-sided pneumothorax. /large right pneumothorax with assocaited mild leftward mediastinal deviation. earlier 05-08 Stable diffuse mixed interstitial and alveolar infiltrate with suspected small pleural effusions. Stable endotracheal tube, nasogastric tube and right internal jugular central venous catheter. 05-08 cxr He remains on the vent AC/500/26/80 percent with 6 of PEEP Discussed with RN Chart reviewed Duarte to bedside drainage He is sedated with propofol fentanyl and Versed Remains very critically ill 33 min cc time 05/07/2021 Patient seen and examined in the [place] [address] ICU He remains on the vent AC/500/26/80 percent with 6 of PEEP (this is improved from yesterday he was on 100% FiO2 with 8 of PEEP) Discussed with RN Chart reviewed Patient has Duarte to bedside drainage He is sedated with propofol fentanyl and Versed Remains very critically ill 05/06/2021 Patient seen and examined in the [place] [address] ICU He remains intubated AC//500/1 her percent with 8 of PEEP The nurse was able to get him down to 80% for an hour or so earlier this morning but he desatted again when she moved him Chart reviewed Reviewed case with RN patient is having some tachycardia and Fluctuating blood pressure Has OG feeds running at 50 cc an hour plus he is getting free water Has Duarte to bedside drainage Has [address] He remains critically ill 05/05/2021 Patient seen and examined in the [place] [address] ICU He is still intubated AC/26/500/1 100% with 8 of PEEP Has OG feeds running at 25 cc an hour Sedated with fentanyl and Versed Getting IV vecuronium Chart reviewed Discussed with RN He remains critically 05/04/2021 Patient seen and examined in the [place] [address] ICU He remains mechanically ventilated Assist-control//500/1 100% with 10 of PEEP He is extremely critically ill He is sedated with Versed and fentanyl He is also paralyzed with vecuronium Reviewed chart Discussed with RN 05/03/2021 Patient seen and examined in the [place] [address] ICU He remains mechanically ventilated AC//600/1 100% with 10 of PEEP Has 2 pigtail drains in his left and right chest due to some small pneumothoraces after being intubated Had to be sedated with vecuronium Also on Versed and fentanyl also has inverse I to E ratio 2:1 Chart reviewed Discussed with RN He remains extremely critically ill I am concerned he may not survive this? 05/02/2021 Patient seen and examined in the COVID-19 ICU He is on BiPAP with 100% FiO2 and very tachypneic Discussed with RN we are going to go ahead and intubate here in a few minutes Chart reviewed Patient currently semisedated with Versed Precedex and fentanyl He is very critically Patient 35-year-old male with past medical history of GERD, obesity, who presents to the ED as a transfer from [facility] for COVID-19 pneumonia with worsening respiratory distress. States his symptoms started roughly 1 week ago with fatigue and body aches, which progressed to include fever and shortness of breath. Symptoms were worse with exertion with no significant alleviating factors. He was tested for COVID-19 at [facility] and was discharged home because he was not hypoxic on room air. When he returned to [facility] with worsening symptoms a CT chest demonstrated bibasilar infiltrates consistent with atypical pneumonia. He was then admitted and placed on 3 L nasal cannula for further treatment. He has not been vaccinated against COVID- 19. However due to worsening respiratory distress he was transferred to [facility] for higher level of care. 04/29/2021: Still breathing 40 L Vapotherm. Afebrile, but complaining of chest heaviness, nausea, and subjective shortness of breath. Denies any vomiting, or diarrhea. Informed patient of likely prolonged hospitalization course. Hemoglobin A1c 5.6. Continue remdesivir day 2/5, continue steroids, antibiotics, and supportive care. Continue to follow daily LFTs. Plan to transfer patient to ICU bed when available. Critical care time 33 minutes spent reviewing charts, reviewing labs, and discussing case with Dr. Gaviria. 04/30/21: Afebrile, still breathing on Vapotherm. Continue remdesivir and monitor LFTs. Continue antibiotics, steroids, and supportive care. Will transfer him to the ICU once bed available. Critical care time 30 minutes spent in chart, reviewing labs, reviewing imaging, and discussion with RN. 05/01/2021 No acute events overnight. Patient seen and examined bedside. Saturating 93% on 40 L Vapotherm. Patient will transfer to the ICU for continued supportive care. Vitals Vitals Vital Signs Date Time Temp Pulse Resp B/P (MAP) Pulse Ox O2 Delivery O2 Flow Rate FiO2 05/11/21 08:30 103 113/62 05/11/21 08:00 98.7 26 95 Ventilator 98.7 05/10/21 21:54 95.0 Physical Exam Physical Exam visual inspection, intubated, and in a medically induced coma Chest tube bilaterally, small amount of subcutaneous emphysema, General: Other (sedated) Heart: Regular rate (SR) Abdomen: Soft Extremities: No cyanosis Skin: No rashes, No breakdown Labs LABS Laboratory Tests Test 05/11/21 07:54 O2 Saturation 96 % (92-99) Arterial Blood pH 7.38 (7.35-7.45) Arterial Blood pCO2 at Patient Temp 62 mmHg (35-46) Arterial Blood pO2 at Patient Temp 85 mmHg (85-108) Arterial Blood HCO3 35 mmol/L (21-28) Arterial Blood Base Excess 9 mmol/L (-3-3) FiO2 85 Comment Review of Relevant I have reviewed the following items anselmo (where applicable) has been applied. Labs Laboratory Tests Test 05/09/21 12:18 05/09/21 16:43 05/10/21 08:00 05/11/21 07:54 Glucose (Fingerstick) 138 mg/dL (70-99) Troponin I Quantitative 0.047 ng/mL (0.000-0.055) O2 Saturation 96 % (92-99) 96 % (92-99) Arterial Blood pH 7.43 (7.35-7.45) 7.38 (7.35-7.45) Arterial Blood pCO2 at Patient Temp 62 mmHg (35-46) 62 mmHg (35-46) Arterial Blood pO2 at Patient Temp 87 mmHg (85-108) 85 mmHg (85-108) Arterial Blood HCO3 40 mmol/L (21-28) 35 mmol/L (21-28) Arterial Blood Base Excess 13 mmol/L (-3-3) 9 mmol/L (-3-3) FiO2 90 85 Laboratory Tests Test 05/11/21 07:54 O2 Saturation 96 % (92-99) Arterial Blood pH 7.38 (7.35-7.45) Arterial Blood pCO2 at Patient Temp 62 mmHg (35-46) Arterial Blood pO2 at Patient Temp 85 mmHg (85-108) Arterial Blood HCO3 35 mmol/L (21-28) Arterial Blood Base Excess 9 mmol/L (-3-3) FiO2 85 Medications Current Medications Azithromycin 500 mg/Sodium Chloride 250 ml @ 250 mls/hr 1X ONCE IV Last administered on 04/28/21at 15:44; Start 04/28/21 at 13:00; Stop 04/28/21 at 14:00; Status DC Azithromycin 250 mg/Sodium Chloride 250 ml @ 250 mls/hr Q24H IV Last administered on 05/02/21at 12:51; Start 04/29/21 at 13:00; Stop 05/02/21 at 13:59; Status DC Dexamethasone Sodium Phosphate (Decadron) 6 mg DAILY IVP Last administered on 05/09/21at 08:25; Start 04/29/21 at 09:00; Stop 05/09/21 at 11:08; Status DC Ceftriaxone Sodium (Rocephin) 2 gm Q24H IVP Last administered on 05/07/21at 12:55; Start 04/28/21 at 14:00; Stop 05/08/21 at 08:36; Status DC Enoxaparin Sodium (Lovenox 40mg Syringe) 40 mg Q12HR SQ Last administered on 05/07/21at 08:57; Start 04/28/21 at 21:00; Stop 05/07/21 at 15:40; Status DC Famotidine (Pepcid) 20 mg BID@0500,1700 PO Last administered on 05/01/21at 16:36; Start 04/28/21 at 17:00; Stop 05/02/21 at 16:52; Status DC Remdesivir 200 mg/ Sodium Chloride 210 ml @ 210 mls/hr 1X ONCE IV Last admi nistered on 04/28/21at 14:00; Start 04/28/21 at 14:00; Stop 04/28/21 at 14:59; Status DC Remdesivir 100 mg/ Sodium Chloride 230 ml @ 460 mls/hr Q24H IV Last administered on 05/02/21at 13:43; Start 04/29/21 at 14:00; Stop 05/02/21 at 14:29; Status DC Zinc Sulfate (Orazinc) 220 mg DAILY PO Last administered on 05/11/21at 08:27; Start 04/29/21 at 09:00 Ascorbic Acid (Vitamin C) 500 mg Q6HRS PO Last administered on 05/10/21at 05:50; Start 04/28/21 at 18:00; Stop 05/10/21 at 11:31; Status DC Pantoprazole Sodium (Protonix) 40 mg 1X ONCE PO Last administered on 04/28/21at 15:45; Start 04/28/21 at 13:45; Stop 04/28/21 at 13:46; Status DC Pantoprazole Sodium (Protonix) 40 mg DAILYAC PO Last administered on 05/01/21at 09:44; Start 04/29/21 at 07:30; Stop 05/02/21 at 16:52; Status DC Famotidine (Pepcid) 20 mg PRN BID PRN PO HEARTBURN / GAS Last administered on 05/09/21at 08:24; Start 04/28/21 at 13:45 Ondansetron HCl (Zofran) 4 mg PRN Q6HRS PRN IVP NAUSEA/VOMITING Last administered on 04/29/21at 10:26; Start 04/28/21 at 14:00 Al Hydroxide/Mg Hydroxide (Mylanta Plus Xs) 30 ml PRN Q3HRS PRN PO HEARTBURN / GAS; Start 04/28/21 at 14:00 Calcium Carbonate/ Glycine (Tums) 500 mg PRN Q3HRS PRN PO UPSET STOMACH; Start 04/28/21 at 14:00 Zolpidem Tartrate (Ambien) 5 mg PRN QHS PRN PO INSOMNIA, MAY REPEAT IN 1HR Last administered on 05/01/21at 21:26; Start 04/28/21 at 14:00 Acetaminophen/ Hydrocodone Bitart (Lortab 5/325) 1 tab PRN Q4HRS PRN PO PAIN Last administered on 04/28/21at 17:37; Start 04/28/21 at 14:00 Acetaminophen (Tylenol) 650 mg PRN Q6HRS PRN PO Headaches, Temp > 101.5F; Start 04/28/21 at 14:00 Magnesium Hydroxide (Milk Of Magnesia) 2,400 mg PRN Q12HR PRN PO CONSTIPATION; Start 04/28/21 at 14:00 Enoxaparin Sodium (Lovenox 40mg Syringe) 40 mg Q24H SQ ; Start 04/28/21 at 14:00; Status UNV Sterile Water (WATER for RESP) 1,000 ml CONT PRN INH VIA VAPOTHERM DEVICE Last administered on 04/30/21at 18:45; Start 04/28/21 at 14:45 Lactobacillus Rhamnosus (Culturelle) 1 cap BID PO Last administered on 05/10/21at 08:05; Start 04/29/21 at 21:00; Stop 05/10/21 at 08:37; Status DC Dexmedetomidine HCl 400 mcg/ Sodium Chloride 100 ml @ 6.965 mls/ hr CONT PRN IV PER PROTOCOL Last administered on 05/02/21at 06:56; Start 05/02/21 at 01:00 Sodium Chloride 500 ml @ 500 mls/hr 1X PRN PRN IV SEE COMMENTS; Start 05/02/21 at 01:00 Atropine Sulfate (ATROPINE 0.5mg SYRINGE) 0.5 mg PRN Q5MIN PRN IV SEE COMMENTS; Start 05/02/21 at 01:00 Propofol 0 ml @ As Directed STK-MED ONCE IV ; Start 05/02/21 at 07:37; Stop 05/02/21 at 07:37; Status DC Succinylcholine Chloride (Anectine) 200 mg STK-MED ONCE .ROUTE ; Start 05/02/21 at 07:37; Stop 05/02/21 at 07:37; Status DC Etomidate (Amidate) 20 mg STK-MED ONCE IV ; Start 05/02/21 at 07:37; Stop 05/02/21 at 07:37; Status DC Fentanyl Citrate 30 ml @ 0 mls/hr CONT PRN IV SEE PROTOCOL Last administered on 05/07/21at 19:51; Start 05/02/21 at 07:45; Stop 05/07/21 at 22:40; Status DC Propofol 100 ml @ 0 mls/hr CONT PRN IV PER PROTOCOL Last administered on 05/11/21at 08:46; Start 05/02/21 at 07:45 Midazolam HCl 100 ml @ 0 mls/hr CONT PRN IV SEE PROTOCOL Last administered on 05/10/21at 23:55; Start 05/02/21 at 07:45 Norepinephrine Bitartrate 8 mg/ Dextrose 258 ml @ 27.09 mls/ hr CONT PRN IV PER PROTOCOL Last administered on 05/02/21at 09:35; Start 05/02/21 at 08:45; Stop 05/11/21 at 05:20; Status DC Norepinephrine Bitartrate 8 mg/ Dextrose 258 ml @ 27.09 mls/ hr CONT PRN IV PER PROTOCOL; Start 05/02/21 at 08:45; Status UNV Etomidate (Amidate) 10 mg 1X ONCE IV Last administered on 05/02/21at 08:49; Start 05/02/21 at 08:45; Stop 05/02/21 at 08:48; Status DC Succinylcholine Chloride (Anectine) 100 mg 1X ONCE IV Last administered on 05/02/21at 08:50; Start 05/02/21 at 08:45; Stop 05/02/21 at 08:48; Status DC Vecuronium [place] (Norcuron Bolus) 6 mg PRN Q4HRS PRN IV VENTILATOR COMPLIANCE Last administered on 05/02/21at 08:51; Start 05/02/21 at 08:45 Epinephrine HCl (EPINEPHrine SYRINGE) 1 mg 1X ONCE IV Last administered on 05/02/21at 08:50; Start 05/02/21 at 08:45; Stop 05/02/21 at 08:48; Status DC Vecuronium [place] 50 mg/ Sodium Chloride 50 ml @ 6.72 mls/hr CONT PRN IV SEE I/O RECORD Last administered on 05/11/21at 05:45; Start 05/02/21 at 09:15 Vitamin D (Vitamin D3) 5,000 unit DAILY FT Last administered on 05/11/21at 08:28; Start 05/03/21 at 09:00 Vecuronium [place] 50 mg/ Sodium Chloride 50 ml @ 6.72 mls/hr CONT PRN IV SEE I/O RECORD; Start 05/02/21 at 09:15; Stop 05/02/21 at 09:17; Status DC Lidocaine HCl (Lidocaine 2% 20ml Vial) 20 ml STK-MED ONCE .ROUTE ; Start 05/02/21 at 10:14; Stop 05/02/21 at 10:14; Status DC Famotidine (Pepcid Vial) 20 mg QHS IVP ; Start 05/02/21 at 21:00; Stop 05/03/21 at 09:07; Status DC Info (Icu Electrolyte Protocol) 1 ea CONT PRN PRN MC PER PROTOCOL; Start 05/03/21 at 07:30 Famotidine (Pepcid Vial) 20 mg BID IVP Last administered on 05/11/21at 08:26; Start 05/03/21 at 10:00 Propofol (Diprivan) 1,000 mg STK-MED ONCE IV ; Start 05/02/21 at 08:00; Stop 05/04/21 at 08:51; Status DC Metoprolol Tartrate (Lopressor Vial) 5 mg PRN Q6HRS PRN IVP HYPERTENSION Last administered on 05/07/21at 05:16; Start 05/06/21 at 12:30; Stop 05/07/21 at 12:57; Status DC Metoprolol Tartrate (Lopressor Vial) 5 mg Q6HRS IVP Last administered on 05/09/21at 23:22; Start 05/07/21 at 13:00; Stop 05/10/21 at 08:18; Status DC Enoxaparin Sodium (Lovenox 40mg Syringe) 40 mg Q24H SQ Last administered on 05/08/21at 08:21; Start 05/08/21 at 09:00; Stop 05/08/21 at 08:34; Status DC Fentanyl Citrate 55 ml @ 0 mls/hr CONT PRN PRN IV PAIN CONTROL Last administered on 05/10/21at 21:24; Start 05/07/21 at 22:45 Enoxaparin Sodium (Lovenox 40mg Syringe) 40 mg Q12HR SQ Last administered on 05/11/21at 08:26; Start 05/08/21 at 21:00 Lidocaine HCl (Buffered Lidocaine 1%) 3 ml STK-MED ONCE .ROUTE ; Start 05/08/21 at 09:19; Stop 05/08/21 at 09:19; Status DC Lidocaine HCl (Buffered Lidocaine 1%) 3 ml 1X ONCE INJ Last administered on 05/08/21at 10:16; Start 05/08/21 at 10:15; Stop 05/08/21 at 10:16; Status DC Hydralazine HCl (Apresoline Inj) 10 mg PRN Q4HRS PRN IVP ELEVATED BP, 1ST CHOICE Last administered on 05/09/21at 20:41; Start 05/09/21 at 04:45 Labetalol HCl (Normodyne Iv Push) 20 mg PRN Q2HR PRN IVP HYPERTENSION, 2ND CHOICE Last administered on 05/09/21at 15:27; Start 05/09/21 at 04:45 Amlodipine Besylate (Norvasc) 10 mg DAILY PO Last administered on 05/10/21at 08:06; Start 05/09/21 at 16:15; Stop 05/10/21 at 09:39; Status DC Amlodipine Besylate (Norvasc) 5 mg DAILY PO Last administered on 05/11/21at 08:27; Start 05/11/21 at 09:00 Metoprolol Tartrate (Lopressor) 12.5 mg BID PO Last administered on 05/11/21at 08:30; Start 05/10/21 at 21:00 Aspirin (Aspirin Chewable) 81 mg DAILYWBKFT PO Last administered on 05/11/21at 08:26; Start 05/11/21 at 08:00 Ascorbic Acid (Vitamin C) 500 mg DAILY PO Last administered on 05/11/21at 08:27; Start 05/11/21 at 09:00 Active Scripts Active Reported Pepcid (Famotidine) 20 Mg Tablet 20 Mg PO BID Vitals/I & O Vital Sign - Last 24 Hours 05/10/21 05/10/21 05/10/21 05/10/21 09:00 10:00 11:00 11:16 Pulse 78 81 82 Resp B/P (MAP) 125/66 (85) 137/70 (92) 135/62 (86) Pulse Ox 97 96 95 95 O2 Delivery Ventilator Ventilator Ventilator Ventilator 05/10/21 05/10/21 05/10/21 05/10/21 11:33 12:00 13:00 13:23 Temp 98.6 98.6 Pulse 80 88 B/P (MAP) 126/66 (86) 123/62 (82) Pulse Ox 95 96 95 O2 Delivery Mechanical Ventilator Ventilator Ventilator Ventilator 05/10/21 05/10/21 05/10/21 05/10/21 14:00 15:00 15:31 15:39 Pulse 84 81 B/P (MAP) 131/63 (85) 127/67 (87) Pulse Ox 95 95 96 O2 Delivery Ventilator Ventilator Ventilator Mechanical Ventilator 05/10/21 05/10/21 05/10/21 05/10/21 16:00 16:57 17:00 18:00 Temp 98.4 98.4 Pulse 82 82 80 Resp B/P (MAP) 123/66 (85) 124/67 (86) 119/67 (84) Pulse Ox 96 96 96 96 O2 Delivery Ventilator Ventilator Ventilator Ventilator 05/10/21 05/10/21 05/10/21 05/10/21 19:00 20:00 20:00 20:52 Temp 98.6 98.6 Pulse 82 84 Resp B/P (MAP) 119/64 (82) 120/68 (85) Pulse Ox 96 97 97 O2 Delivery Ventilator Ventilator Mechanical Ventilator Ventilator 05/10/21 05/10/21 05/10/21 05/10/21 21:00 21:24 21:26 21:54 Pulse 84 80 Resp B/P (MAP) 127/70 (89) 119/67 Pulse Ox 99 97 97 O2 Delivery Ventilator Ventilator O2 Flow Rate 95.0 95.0 05/10/21 05/10/21 05/10/21 05/11/21 22:00 23:00 23:26 00:00 Pulse 88 83 Resp B/P (MAP) 153/79 (103) 146/76 (99) Pulse Ox 99 97 96 O2 Delivery Ventilator Ventilator Ventilator Mechanical Ventilator 05/11/21 05/11/21 05/11/21 05/11/21 00:01 01:00 01:09 02:00 Temp 98.5 98.5 Pulse 83 86 91 Resp B/P (MAP) 127/70 (89) 148/78 (101) 149/77 (101) Pulse Ox 97 98 98 98 O2 Delivery Ventilator Ventilator Ventilator Ventilator 05/11/21 05/11/21 05/11/21 05/11/21 03:00 03:50 04:00 04:00 Temp 98.9 98.9 Pulse 93 93 Resp B/P (MAP) 148/81 (103) 150/73 (98) Pulse Ox 97 98 97 O2 Delivery Ventilator Ventilator Mechanical Ventilator Ventilator 05/11/21 05/11/21 05/11/21 05/11/21 05:00 06:00 07:00 07:47 Pulse 96 100 108 Resp B/P (MAP) 157/77 (103) 150/71 (97) 145/78 (100) Pulse Ox 97 96 95 97 O2 Delivery Ventilator Ventilator Ventilator Ventilator 05/11/21 05/11/21 05/11/21 05/11/21 08:00 08:00 08:27 08:30 Temp 98.7 98.7 Pulse 100 103 103 Resp 26 B/P (MAP) 131/73 (92) 113/76 113/62 Pulse Ox 95 O2 Delivery Mechanical Ventilator Ventilator Intake and Output 05/10/21 05/10/21 05/11/21 15:00 23:00 07:00 Intake Total 325 ml 1920 ml 1996.2 ml Output Total 550 ml 650 ml 765 ml Balance -225 ml 1270 ml 1231.2 ml Justicifation of Admission Dx: Justifications for Admission: Justification of Admission Dx: Yes Comminuty Aquired Pneumonia: Hypoxemia ARELY DILLARD MD May 11, 2021 08:57
[2021-05-11 09:33] LABS: BASO % 1 % (0-3); EOS # 0.1 x10^3/uL (0.0-0.7); EOS % 2 % (0-3); HEMATOCRIT 29.1 % (39.0-53.0); HEMOGLOBIN 9.5 g/dL (13.0-17.5); LYMPH # 0.6 x10^3/uL (1.0-4.8); LYMPH % 8 % (24-48); MEAN CORPUSCULAR HEMOGLOBIN 29 pg (25-35); MEAN CORPUSCULAR HGB CONC 33 g/dL (31-37); MEAN CORPUSCULAR VOLUME 88 fL (79-100); MONO # 0.9 x10^3/uL (0.0-1.1); MONO % 11 % (0-9); NEUT # 6.4 x10^3/uL (1.8-7.7); NEUT % 79 % (31-73); PLATELET COUNT 164 x10^3/uL (140-400); RED BLOOD COUNT 3.32 x10^6/uL (4.30-5.70); RED CELL DISTRIBUTION WIDTH 14.1 % (11.5-14.5); WHITE BLOOD COUNT 8.1 x10^3/uL (4.0-11.0)
[2021-05-11 10:04] LABS: ALBUMIN 1.9 g/dL (3.4-5.0); ALBUMIN/GLOBULIN RATIO 0.5 (1.0-1.7); CALCIUM 8.5 mg/dL (8.5-10.1); CREATININE 0.4 mg/dL (0.7-1.3); GFR 243.4; POTASSIUM 3.8 mmol/L (3.5-5.1); TOTAL BILIRUBIN 1.7 mg/dL (0.2-1.0); TOTAL PROTEIN 5.8 g/dL (6.4-8.2)
[2021-05-11] MEDS: fentaNYL HIGH DOSE PCA 55 ML IV PRN ×2 (10:26→22:06)
[2021-05-11] MEDS: MIDAZOLAM 100mg/100ml NS BAG 100 ML IV PRN ×2 (11:36→22:05)
--- NOTE | 2021-05-11 12:33 | PDOC ---
JOVANA ISLAS IMAGE CONSULTANT 05/11/21 1233: CARDIO Progress Notes Date and Time Date of Service 05/11/2021 Time of Evaluation 1210 Subjective Subjective: Other (intubated) Vitals Vitals Vital Signs Date Time Temp Pulse Resp B/P (MAP) Pulse Ox O2 Delivery O2 Flow Rate FiO2 05/11/21 12:00 98.5 101 26 129/67 (87) 95 Ventilator 98.5 05/10/21 21:54 95.0 Weight Weight [ ] Input and Output Intake and Output Intake and Output 05/11/21 07:00 Intake Total 4241.2 ml Output Total 1965 ml Balance 2276.2 ml IV Total 1536.2 ml Tube Feeding 1655 ml Other 1050 ml Output Urine Total 1850 ml Chest Tube Drainage Total 115 ml Laboratory Labs Laboratory Tests Test 05/11/21 07:54 05/11/21 09:00 O2 Saturation 96 % (92-99) Arterial Blood pH 7.38 (7.35-7.45) Arterial Blood pCO2 at Patient Temp 62 mmHg (35-46) Arterial Blood pO2 at Patient Temp 85 mmHg (85-108) Arterial Blood HCO3 35 mmol/L (21-28) Arterial Blood Base Excess 9 mmol/L (-3-3) FiO2 85 White Blood Count 8.1 x10^3/uL (4.0-11.0) Red Blood Count 3.32 x10^6/uL (4.30-5.70) Hemoglobin 9.5 g/dL (13.0-17.5) Hematocrit 29.1 % (39.0-53.0) Mean Corpuscular Volume 88 fL (79-100) Mean Corpuscular Hemoglobin 29 pg (25-35) Mean Corpuscular Hemoglobin Concent 33 g/dL (31-37) Red Cell Distribution Width 14.1 % (11.5-14.5) Platelet Count 164 x10^3/uL (140-400) Neutrophils (%) (Auto) 79 % (31-73) Lymphocytes (%) (Auto) 8 % (24-48) Monocytes (%) (Auto) 11 % (0-9) Eosinophils (%) (Auto) 2 % (0-3) Basophils (%) (Auto) 1 % (0-3) Neutrophils # (Auto) 6.4 x10^3/uL (1.8-7.7) Lymphocytes # (Auto) 0.6 x10^3/uL (1.0-4.8) Monocytes # (Auto) 0.9 x10^3/uL (0.0-1.1) Eosinophils # (Auto) 0.1 x10^3/uL (0.0-0.7) Basophils # (Auto) 0.0 x10^3/uL (0.0-0.2) Sodium Level 136 mmol/L (136-145) Potassium Level 3.8 mmol/L (3.5-5.1) Chloride Level 99 mmol/L (98-107) Carbon Dioxide Level 36 mmol/L (21-32) Anion Gap 1 (6-14) Blood Urea Nitrogen 18 mg/dL (8-26) Creatinine 0.4 mg/dL (0.7-1.3) Estimated GFR (Cockcroft-Gault) 243.4 BUN/Creatinine Ratio 45 (6-20) Glucose Level 97 mg/dL (70-99) Calcium Level 8.5 mg/dL (8.5-10.1) Total Bilirubin 1.7 mg/dL (0.2-1.0) Aspartate Amino Transf (AST/SGOT) 39 U/L (15-37) Alanine Aminotransferase (ALT/SGPT) 106 U/L (16-63) Alkaline Phosphatase 92 U/L (46-116) Total Protein 5.8 g/dL (6.4-8.2) Albumin 1.9 g/dL (3.4-5.0) Albumin/Globulin Ratio 0.5 (1.0-1.7) Triglycerides Level 368 mg/dL (0-150) Physical Exam HEENT: Neck Supple W Full Motion Chest: Symmetric LUNGS: Other (intubated with vent) Heart: RRR (SR) Abdomen: Soft N/T Extremities: No Edema Neurology: other (sedated) Assessment Assessment 1. Acute hypoxic respiratory failure with covid-19 PNA/ARDS 2. HTN urgency: now controlled 3. PAFIB: new likely induced by above. multiple bursts. Maintaining SR/ST 4. Morbid obesity 5. Normocytic anemia Recommendations 1. Continue covid-19 treatment and vent mgmt per pulmonary 2. continue norvasc with metoprolol 3. ASA 4. Supportive care 5. Outpt echo. Consider for MCOT as well Justicifation of Admission Dx: Justifications for Admission: Justification of Admission Dx: Yes Comminuty Aquired Pneumonia: Hypoxemia KENDALL POWER MD 05/11/21 1807: CARDIO Progress Notes Assessment Assessment Patient seen and evaluated. I agree with our nurse practitioners assessment and plan. Acute hypoxic respiratory failure with covid-19 PNA/ARDS. Continuing on the ventilator. Followed by pulmonary. Outpatient echo as per Covid guidelines. HTN urgency: now controlled on Norvasc and metoprolol. PAFIB: new likely induced by above. multiple bursts. Maintaining SR/ST. continue medications as above. Aspirin. Morbid obesity JOVANA ISLAS APRN May 11, 2021 12:33 KENDALL POWER MD May 11, 2021 18:07
--- NOTE | 2021-05-11 22:52 | RAD ---
XR CHEST 1V History: Reason: Desturation, vent / Spl. Instructions: / History: Comparison: May 10, 2021 Findings: Moderate right pneumothorax. Bilateral pigtail pleural catheters, similar compared to prior. Unchange d endotracheal tube, enteric tube and right IJ central line. Increased diffuse pulmonary consolidations compared to prior. Impression: 1. Moderate right pneumothorax. 2. Increased diffuse pulmonary consolidations. FOR INTERNAL CODING PURPOSES Critical result: Findings discussed with patient's nurse at 05/11/2021 10:48 PM. RESULT CODE: (C) Electronically signed by: Johnny Gan DO (05/11/2021 10:49 PM) [facility]
[2021-05-12] VITALS (24 sets, daily range): BP systolic 117–177; BP diastolic 64–92
[2021-05-12] MEDS: PROPOFOL 100 ML IV PRN ×9 (01:27→21:10)
--- NOTE | 2021-05-12 05:52 | PDOC ---
PULMONARY PROGRESS NOTES DATE: 05/12/21 TIME: 05:48 Subjective Patient remains on ventilatory support 85% and a PEEP of 6. Nursing reports hypoxia overnight requiring 100% and a PEEP of 10. Chest x-ray was obtained which showed increase of right-sided pneumothorax right chest tube flushed, and patient was able to return back to previous ventilatory settings, patient additionally experienced low-grade fevers overnight Remains Sedated with propofol and VEC gtt,versed, and fentanyl minimal air leak on left-sided chest tube positive air leak on right chest tube Vitals Vital Signs Date Time Temp Pulse Resp B/P (MAP) Pulse Ox O2 Delivery O2 Flow Rate FiO2 05/12/21 05:00 98 26 140/71 (94) 96 Ventilator 05/12/21 04:00 98.7 98.7 05/11/21 22:36 95.0 Comments On visual inspection, patient intubated, and in a medically induced coma Chest tube bilaterally, RRR no distress no obvious rash or edema Labs Laboratory Tests Test 05/10/21 08:00 05/11/21 07:54 05/11/21 09:00 O2 Saturation 96 % (92-99) 96 % (92-99) Arterial Blood pH 7.43 (7.35-7.45) 7.38 (7.35-7.45) Arterial Blood pCO2 at Patient Temp 62 mmHg (35-46) 62 mmHg (35-46) Arterial Blood pO2 at Patient Temp 87 mmHg (85-108) 85 mmHg (85-108) Arterial Blood HCO3 40 mmol/L (21-28) 35 mmol/L (21-28) Arterial Blood Base Excess 13 mmol/L (-3-3) 9 mmol/L (-3-3) FiO2 90 85 White Blood Count 8.1 x10^3/uL (4.0-11.0) Red Blood Count 3.32 x10^6/uL (4.30-5.70) Hemoglobin 9.5 g/dL (13.0-17.5) Hematocrit 29.1 % (39.0-53.0) Mean Corpuscular Volume 88 fL (79-100) Mean Corpuscular Hemoglobin 29 pg (25-35) Mean Corpuscular Hemoglobin Concent 33 g/dL (31-37) Red Cell Distribution Width 14.1 % (11.5-14.5) Platelet Count 164 x10^3/uL (140-400) Neutrophils (%) (Auto) 79 % (31-73) Lymphocytes (%) (Auto) 8 % (24-48) Monocytes (%) (Auto) 11 % (0-9) Eosinophils (%) (Auto) 2 % (0-3) Basophils (%) (Auto) 1 % (0-3) Neutrophils # (Auto) 6.4 x10^3/uL (1.8-7.7) Lymphocytes # (Auto) 0.6 x10^3/uL (1.0-4.8) Monocytes # (Auto) 0.9 x10^3/uL (0.0-1.1) Eosinophils # (Auto) 0.1 x10^3/uL (0.0-0.7) Basophils # (Auto) 0.0 x10^3/uL (0.0-0.2) Sodium Level 136 mmol/L (136-145) Potassium Level 3.8 mmol/L (3.5-5.1) Chloride Level 99 mmol/L (98-107) Carbon Dioxide Level 36 mmol/L (21-32) Anion Gap 1 (6-14) Blood Urea Nitrogen 18 mg/dL (8-26) Creatinine 0.4 mg/dL (0.7-1.3) Estimated GFR (Cockcroft-Gault) 243.4 BUN/Creatinine Ratio 45 (6-20) Glucose Level 97 mg/dL (70-99) Calcium Level 8.5 mg/dL (8.5-10.1) Total Bilirubin 1.7 mg/dL (0.2-1.0) Aspartate Amino Transf (AST/SGOT) 39 U/L (15-37) Alanine Aminotransferase (ALT/SGPT) 106 U/L (16-63) Alkaline Phosphatase 92 U/L (46-116) Total Protein 5.8 g/dL (6.4-8.2) Albumin 1.9 g/dL (3.4-5.0) Albumin/Globulin Ratio 0.5 (1.0-1.7) Triglycerides Level 368 mg/dL (0-150) Laboratory Tests Test 05/11/21 07:54 05/11/21 09:00 O2 Saturation 96 % (92-99) Arterial Blood pH 7.38 (7.35-7.45) Arterial Blood pCO2 at Patient Temp 62 mmHg (35-46) Arterial Blood pO2 at Patient Temp 85 mmHg (85-108) Arterial Blood HCO3 35 mmol/L (21-28) Arterial Blood Base Excess 9 mmol/L (-3-3) FiO2 85 White Blood Count 8.1 x10^3/uL (4.0-11.0) Red Blood Count 3.32 x10^6/uL (4.30-5.70) Hemoglobin 9.5 g/dL (13.0-17.5) Hematocrit 29.1 % (39.0-53.0) Mean Corpuscular Volume 88 fL (79-100) Mean Corpuscular Hemoglobin 29 pg (25-35) Mean Corpuscular Hemoglobin Concent 33 g/dL (31-37) Red Cell Distribution Width 14.1 % (11.5-14.5) Platelet Count 164 x10^3/uL (140-400) Neutrophils (%) (Auto) 79 % (31-73) Lymphocytes (%) (Auto) 8 % (24-48) Monocytes (%) (Auto) 11 % (0-9) Eosinophils (%) (Auto) 2 % (0-3) Basophils (%) (Auto) 1 % (0-3) Neutrophils # (Auto) 6.4 x10^3/uL (1.8-7.7) Lymphocytes # (Auto) 0.6 x10^3/uL (1.0-4.8) Monocytes # (Auto) 0.9 x10^3/uL (0.0-1.1) Eosinophils # (Auto) 0.1 x10^3/uL (0.0-0.7) Basophils # (Auto) 0.0 x10^3/uL (0.0-0.2) Sodium Level 136 mmol/L (136-145) Potassium Level 3.8 mmol/L (3.5-5.1) Chloride Level 99 mmol/L (98-107) Carbon Dioxide Level 36 mmol/L (21-32) Anion Gap 1 (6-14) Blood Urea Nitrogen 18 mg/dL (8-26) Creatinine 0.4 mg/dL (0.7-1.3) Estimated GFR (Cockcroft-Gault) 243.4 BUN/Creatinine Ratio 45 (6-20) Glucose Level 97 mg/dL (70-99) Calcium Level 8.5 mg/dL (8.5-10.1) Total Bilirubin 1.7 mg/dL (0.2-1.0) Aspartate Amino Transf (AST/SGOT) 39 U/L (15-37) Alanine Aminotransferase (ALT/SGPT) 106 U/L (16-63) Alkaline Phosphatase 92 U/L (46-116) Total Protein 5.8 g/dL (6.4-8.2) Albumin 1.9 g/dL (3.4-5.0) Albumin/Globulin Ratio 0.5 (1.0-1.7) Triglycerides Level 368 mg/dL (0-150) Medications Active Scripts Medications Dose Route/Sig Max Daily Dose Days Date Category Pepcid (Famotidine) 20 Mg Tablet 20 Mg PO BID 04/28/21 Reported Comments Chest x-ray 05/12/2021 reviewed. Significant reexpansion of the lung compared to last night. There is a tiny residual pneumothorax. Unchanged bilateral interstitial infiltrates. Chest x-ray reviewed dated 05/26 Diffuse bilateral infiltrates unchanged. Tiny right pneumothorax unchanged. Impression . 1. Acute hypoxic respiratory failure secondary to COVID-19 viral pneumonia/ARDS--intubated 2. Abnormal CT chest done at [facility] with diffuse bilateral alveolar and interstitial infiltrates related to COVID-19 pneumonia. No evidence of pulmonary embolism. 3. Underlying obesity. 4. Remote history of obstructive sleep apnea. 5. Abnormal liver function tests, likely due to Covid infection. Bilirubin normal. 6. Normal D-dimer. 7. Status post intubation 05/02, status post bilateral pneumothoraces requiring chest tubes 05/02. Pneumothorax worsen on the right side last night. Chest tube was flushed and now significant resolution of pneumothorax on the right side. 8. HTN Chest x-ray reviewed, small right apical pneumothorax Plan . Updated 05/12/21 Patient experienced hypoxia overnight requiring 100% and a PEEP of 10, now back at baseline vent settings status post flush of right-sided chest tube Continue current vent support 26/500/6/85% Follow ABG/CXR--CXR right-sided PTX status post flash of right-sided chest tube Continue chest tubes to suction. Suction set at -30 on the right and -20 on the left minimal air leak on the right chest tube. No air leak on the left chest tube. S/P full course of remdesivir and steroids Follow cardiology recommendations--hypertension Continue TF for nutritional support DVT/GI PPX :lovenox D/W RN and RT I have talked to patient's and discussed current critical condition and advanced directives. Full code. Critical care time 30 minutes including review of the labs imaging studies and decision making. Updated 05/11/21 Continue current vent support 26/500/6/85% Follow ABG/CXR--CXR in am Continue chest tubes to suction. Minimal air leak on the right chest tube. No air leak on the left chest tube. S/P full course of remdesivir and steroids Follow cardiology recommendations--hypertension Continue TF for nutritional support DVT/GI PPX :lovenox D/W RN and RT Critical care time 30 minutes including review of the labs imaging studies and decision making. Updated 05/10/21 Continue current vent support 26/500/6/90%,reverse IE ratio Follow ABG/CXR--reviewed Continue chest tubes to suction. Minimal air leak on the right chest tube. No air leak on the left chest tube. S/P full course of remdesivir and steroids Continue TF for nutritional support DVT/GI PPX :lovenox D/W RN and RT Critical care time 30 minutes including review of the labs imaging studies and decision making. MURRAY ESPOSITO MD May 12, 2021 05:51
[2021-05-12] MEDS: VECURONIUM BROMIDE 50 MG in IV NORMAL SALINE 50ML 50 ML IV PRN ×3 (06:54→17:37)
[2021-05-12] MEDS: ENOXAPARIN 40 MG/0.4 ML SYRINGE. SQ SCH ×2 (07:23→21:11)
[2021-05-12] MEDS: CHOLECALCIFEROL (VITAMIN D3) 1,000 UNIT TABLET FT SCH (07:24)
[2021-05-12] MEDS: FAMOTIDINE 20 MG/2 ML VIAL IVP SCH ×2 (07:24→21:11)
[2021-05-12] MEDS: ASCORBIC ACID 500 MG TABLET PO SCH (07:24)
[2021-05-12] MEDS: METOPROLOL TART IMMED RELEASE 25 MG TABLET. PO SCH ×2 (07:24→21:11)
[2021-05-12] MEDS: ASPIRIN CHEWABLE 81 MG TABLET. PO SCH (07:25)
[2021-05-12] MEDS: ZINC SULFATE 220 MG CAPSULE. PO SCH (07:25)
[2021-05-12 08:04] LABS: BASE EXCESS ABG 12 mmol/L (-3-3); HCO3 ABG 40 mmol/L (21-28); PO2 ABG 80 mmHg (85-108); SAT O2 ABG 95 % (92-99)
[2021-05-12 08:06] LABS: FIO2 ABG 85; PCO2 ABG 68 mmHg (35-46)
[2021-05-12] MEDS: MIDAZOLAM 100mg/100ml NS BAG 100 ML IV PRN ×2 (08:20→17:37)
--- NOTE | 2021-05-12 08:24 | RAD ---
EXAM: Chest, single view. HISTORY: Pneumothorax. COMPARISON: 05/11/2021 FINDINGS: A frontal view of the chest is obtained. There has been significant interval decrease in a now tiny right pneumothorax. There is a right pleural drainage catheter overlying the right mid thora x. There is a left pleural drainage catheter overlying the superior left thorax. No left pneumothorax is seen. There is an endotracheal tube within the mid to distal trachea. There is a nasogastric tube within the stomach. There is a right internal jugular catheter with the tip in the superior vena cav a. There is stable diffuse infiltrate and small pleural effusions. There is a stable cardiac silhouet te. IMPRESSION: 1. Significant interval decrease in a now tiny right pneumothorax. No left-sided pneumothorax is seen . There are bilateral pleural drainage catheters. 2. Stable diffuse infiltrate and small pleural effusions. Electronically signed by: Yaz Red MD (05/12/2021 8:22 AM) [id number]
--- NOTE | 2021-05-12 10:08 | PDOC ---
PROGRESS NOTES Date of Service: DATE: 05/12/21 TIME: 10:08 Chief Complaint Chief Complaint Acute respiratory failure with hypoxia COVID-19 pneumonia GERD Obesity Plan: Continue with with remdesivir day 3 out of 4, steroids, and prophylactic antibiotics Appreciate pulmonology management for Vapotherm therapy Monitor daily LFTs Hemoglobin A1c pending We will initiate insulin treatment when blood glucose become significantly elevated Daily PPI and famotidine as needed FEN - ADA diet PPX - Lovenox FULL CODE Dispo - inpatient for above History of Present Illness History of Present Illness 05/12/2021 Significant interval decrease in a now tiny right pneumothorax. No left-sided pneumothorax is seen. There are bilateral pleural drainage catheters. 05-12 PAFIB: new likely induced by above. multiple bursts. Maintaining SR/ST Status post intubation 05/02, status post bilateral pneumothoraces requiring chest tubes 05/02 Decrease in a tiny residual right pneumothorax status post pleural drainage catheter placement. There is an unchanged left pleural drainage catheter. 05-09 cxr bilateral pleural drainage catheters unchanged in position.05-10 Daily PPI and famotidine as needed PPX - Lovenox FULL CODE Dispo - inpatient for above Morbid obesity. No significant tobacco history and // remote history of SONYA. Patient seen and examined in the COVID-19 ICU Interval decrease in a now tiny right pneumothorax status post pleural drainage catheter placement. There is a stable left pleural drainage catheter without convincing left-sided pneumothorax. /large right pneumothorax with assocaited mild leftward mediastinal deviation. earlier 05-08 Stable diffuse mixed interstitial and alveolar infiltrate with suspected small pleural effusions. Stable endotracheal tube, nasogastric tube and right internal jugular central venous catheter. 05-08 cxr He remains on the vent ventilatory support 85% and a PEEP of 6. Discussed with RN Chart reviewed Duarte to bedside drainage He is sedated with propofol fentanyl and Versed Remains very critically ill labile htn, will consult cardiology, htn much better today 34 min cc time 05/11/2021 PAFIB: new likely induced by above. multiple bursts. Maintaining SR/ST Status post intubation 05/02, status post bilateral pneumothoraces requiring chest tubes 05/02 Decrease in a tiny residual right pneumothorax status post pleural drainage catheter placement. There is an unchanged left pleural drainage catheter. 05-09 cxr bilateral pleural drainage catheters unchanged in position.05-10 Daily PPI and famotidine as needed PPX - Lovenox FULL CODE Dispo - inpatient for above Morbid obesity. No significant tobacco history and // remote history of SONYA. Patient seen and examined in the [facility]- ICU Interval decrease in a now tiny right pneumothorax status post pleural drainage catheter placement. There is a stable left pleural drainage catheter without convincing left-sided pneumothorax. /large right pneumothorax with assocaited mild leftward mediastinal deviation. earlier 05-08 Stable diffuse mixed interstitial and alveolar infiltrate with suspected small pleural effusions. Stable endotracheal tube, nasogastric tube and right internal jugular central venous catheter. 05-08 cxr He remains on the vent vent support 90% and a PEEP of 6 Discussed with RN Chart reviewed Duarte to bedside drainage He is sedated with propofol fentanyl and Versed Remains very critically ill labile htn, will consult cardiology, htn much better today 35 min cc time PAFIB: new likely induced by above. multiple bursts. Maintaining SR/ST 05/10/2021 Status post intubation 05/02, status post bilateral pneumothoraces requiring chest tubes 05/02 Decrease in a tiny residual right pneumothorax status post pleural drainage ca theter placement. There is an unchanged left pleural drainage catheter. 05-09 cxr bilateral pleural drainage catheters unchanged in position.05-10 Daily PPI and famotidine as needed FEN - ADA diet PPX - Lovenox FULL CODE Dispo - inpatient for above Morbid obesity. No significant tobacco history and // remote history of SONYA. Patient seen and examined in the [facility]- ICU Interval decrease in a now tiny right pneumothorax status post pleural drainage catheter placement. There is a stable left pleural drainage catheter without convincing left-sided pneumothorax. /large right pneumothorax with assocaited mild leftward mediastinal deviation. earlier 05-08 Stable diffuse mixed interstitial and alveolar infiltrate with suspected small pleural effusions. Stable endotracheal tube, nasogastric tube and right internal jugular central venous catheter. 05-08 cxr He remains on the vent vent support 90% and a PEEP of 6 Discussed with RN Chart reviewed Duarte to bedside drainage He is sedated with propofol fentanyl and Versed Remains very critically ill labile htn, will consult cardiology, htn much better today 32 min cc time 05/09/2021 Status post intubation 05/02, status post bilateral pneumothoraces requiring chest tubes 05/02 Decrease in a tiny residual right pneumothorax status post pleural drainage catheter placement. There is an unchanged left pleural drainage catheter. 05-09 cxr Daily PPI and famotidine as needed FEN - ADA diet PPX - Lovenox FULL CODE Dispo - inpatient for above Morbid obesity. No significant tobacco history and // remote history of SONYA. Patient seen and examined in the [place] [address] ICU Interval decrease in a now tiny right pneumothorax status post pleural drainage catheter placement. There is a stable left pleural drainage catheter without convincing left-sided pneumothorax. /large right pneumothorax with assocaited mild leftward mediastinal deviation. earlier 05-08 Stable diffuse mixed interstitial and alveolar infiltrate with suspected small pleural effusions. Stable endotracheal tube, nasogastric tube and right internal jugular central venous catheter. 05-08 cxr He remains on the vent AC/500/26/80 percent with 6 of PEEP Discussed with RN Chart reviewed Duarte to bedside drainage He is sedated with propofol fentanyl and Versed Remains very critically ill labile htn, will consult cardiology 35 min cc time 05/08/2021 Daily PPI and famotidine as needed FEN - ADA diet PPX - Lovenox FULL CODE Dispo - inpatient for above Morbid obesity. No significant tobacco history and // remote history of SONYA. Patient seen and examined in the [place] [address] ICU Interval decrease in a now tiny right pneumothorax status post pleural drainage catheter placement. There is a stable left pleural drainage catheter without convincing left-sided pneumothorax. /large right pneumothorax with assocaited mild leftward mediastinal deviation. earlier 05-08 Stable diffuse mixed interstitial and alveolar infiltrate with suspected small pleural effusions. Stable endotracheal tube, nasogastric tube and right internal jugular central venous catheter. 05-08 cxr He remains on the vent AC/500/26/80 percent with 6 of PEEP Discussed with RN Chart reviewed Duarte to bedside drainage He is sedated with propofol fentanyl and Versed Remains very critically ill 33 min cc time 05/07/2021 Patient seen and examined in the [place] [address] ICU He remains on the vent AC/500/26/80 percent with 6 of PEEP (this is improved from yesterday he was on 100% FiO2 with 8 of PEEP) Discussed with RN Chart reviewed Patient has Duarte to bedside drainage He is sedated with propofol fentanyl and Versed Remains very critically ill 05/06/2021 Patient seen and examined in the [place] [address] ICU He remains intubated AC/26/500/1 her percent with 8 of PEEP The nurse was able to get him down to 80% for an hour or so earlier this morning but he desatted again when she moved him Chart reviewed Reviewed case with RN patient is having some tachycardia and Fluctuating blood pressure Has OG feeds running at 50 cc an hour plus he is getting free water Has Duarte to bedside drainage Has [address] He remains critically ill 05/05/2021 Patient seen and examined in the [place] [address] ICU He is still intubated AC/26/500/1 100% with 8 of PEEP Has OG feeds running at 25 cc an hour Sedated with fentanyl and Versed Getting IV vecuronium Chart reviewed Discussed with RN He remains critically 05/04/2021 Patient seen and examined in the [place] [address] ICU He remains mechanically ventilated Assist-control//500/1 100% with 10 of PEEP He is extremely critically ill He is sedated with Versed and fentanyl He is also paralyzed with vecuronium Reviewed chart Discussed with RN 05/03/2021 Patient seen and examined in the [place] [address] ICU He remains mechanically ventilated AC/26/600/1 100% with 10 of PEEP Has 2 pigtail drains in his left and right chest due to some small pneumothoraces after being intubated Had to be sedated with vecuronium Also on Versed and fentanyl also has inverse I to E ratio 2:1 Chart reviewed Discussed with RN He remains extremely critically ill I am concerned he may not survive this? 05/02/2021 Patient seen and examined in the [place] [address] ICU He is on BiPAP with 100% FiO2 and very tachypneic Discussed with RN we are going to go ahead and intubate here in a few minutes Chart reviewed Patient currently semisedated with Versed Precedex and fentanyl He is very critically Patient 35-year-old male with past medical history of GERD, obesity, who presents to the ED as a transfer from [facility] for COVID-19 pneumonia with worsening respiratory distress. States his symptoms started roughly 1 week ago with fatigue and body aches, which progressed to include fever and shortness of breath. Symptoms were worse with exertion with no significant alleviating factors. He was tested for COVID-[address] [facility] and was discharged home because he was not hypoxic on room air. When he returned to [facility] with worsening symptoms a CT chest demonstrated bibasilar infiltrates consistent with atypical pneumonia. He was then admitted and placed on 3 L na archie cannula for further treatment. He has not been vaccinated against COVID-19. However due to worsening respiratory distress he was transferred to [facility] for higher level of care. 04/29/2021: Still breathing 40 L Vapotherm. Afebrile, but complaining of chest heaviness, nausea, and subjective shortness of breath. Denies any vomiting, or diarrhea. Informed patient of likely prolonged hospitalization course. Hemoglobin A1c 5.6. Continue remdesivir day 2/5, continue steroids, antibioti cs, and supportive care. Continue to follow daily LFTs. Plan to transfer patient to ICU bed when available. Critical care time 33 minutes spent reviewing charts, reviewing labs, and discussing case with Dr. Gaviria. 04/30/21: Afebrile, still breathing on Vapotherm. Continue remdesivir and monitor LFTs. Continue antibiotics, steroids, and supportive care. Will transfer him to the ICU once bed available. Critical care time 30 minutes spent in chart, reviewing labs, reviewing imaging, and discussion with RN. 05/01/2021 No acute events overnight. Patient seen and examined bedside. Saturating 93% on 40 L Vapotherm. Patient will transfer to the ICU for continued supportive care. Vitals Vitals Vital Signs Date Time Temp Pulse Resp B/P (MAP) Pulse Ox O2 Delivery O2 Flow Rate FiO2 05/12/21 10:00 95 26 148/72 (97) 93 Ventilator 05/12/21 08:00 98.7 98.7 05/11/21 22:36 95.0 Physical Exam Physical Exam visual inspection, intubated, and in a medically induced coma Chest tube bilaterally, small amount of subcutaneous emphysema, General: Other (sedated) Heart: Regular rate (SR) Abdomen: Soft Extremities: No cyanosis Skin: No rashes, No breakdown Labs LABS PATIENT: DOUGLAS GARRETT ACCOUNT: [id number] : 1985 LOCATION: [facility] ICU AGE: 35 SEX: M EXAM STATUS: ADM IN ORD. PHYSICIAN: PANCHITO AMOR MD REASON: ptx [id number] PROCEDURE: PORTABLE CHEST 1V EXAM: Chest, single view. HISTORY: Pneumothorax. COMPARISON: 05/11/2021 FINDINGS: A frontal view of the chest is obtained. There has been significant interval decrease in a now tiny right pneumothorax. There is a right pleural drainage catheter overlying the right mid thorax. There is a left pleural drainage catheter overlying the superior left thorax. No left pneumothorax is seen. There is an endotracheal tube within the mid to distal trachea. There is a nasogastric tube within the stomach. There is a right internal jugular catheter with the tip in the superior vena cava. There is stable diffuse infiltrate and small pleural effusions. There is a stable cardiac silhouette. IMPRESSION: 1. Significant interval decrease in a now tiny right pneumothorax. No left-sided pneumothorax is seen. There are bilateral pleural drainage catheters. 2. Stable diffuse infiltrate and small pleural effusions. Electronically signed by: aYz Barros MD (05/12/2021 8:22 AM) [id number] DICTATED and SIGNED BY: YAZ BARROS MD DATE: 05/12/21 [id number] Laboratory Tests Test 05/12/21 08:00 O2 Saturation 95 % (92-99) Arterial Blood pH 7.38 (7.35-7.45) Arterial Blood pCO2 at Patient Temp 68 mmHg (35-46) Arterial Blood pO2 at Patient Temp 80 mmHg (85-108) Arterial Blood HCO3 40 mmol/L (21-28) Arterial Blood Base Excess 12 mmol/L (-3-3) FiO2 85 Comment Review of Relevant I have reviewed the following items anselmo (where applicable) has been applied. Labs Laboratory Tests Test 05/11/21 07:54 05/11/21 09:00 05/12/21 08:00 O2 Saturation 96 % (92-99) 95 % (92-99) Arterial Blood pH 7.38 (7.35-7.45) 7.38 (7.35-7.45) Arterial Blood pCO2 at Patient Temp 62 mmHg (35-46) 68 mmHg (35-46) Arterial Blood pO2 at Patient Temp 85 mmHg (85-108) 80 mmHg (85-108) Arterial Blood HCO3 35 mmol/L (21-28) 40 mmol/L (21-28) Arterial Blood Base Excess 9 mmol/L (-3-3) 12 mmol/L (-3-3) FiO2 85 85 White Blood Count 8.1 x10^3/uL (4.0-11.0) Red Blood Count 3.32 x10^6/uL (4.30-5.70) Hemoglobin 9.5 g/dL (13.0-17.5) Hematocrit 29.1 % (39.0-53.0) Mean Corpuscular Volume 88 fL (79-100) Mean Corpuscular Hemoglobin 29 pg (25-35) Mean Corpuscular Hemoglobin Concent 33 g/dL (31-37) Red Cell Distribution Width 14.1 % (11.5-14.5) Platelet Count 164 x10^3/uL (140-400) Neutrophils (%) (Auto) 79 % (31-73) Lymphocytes (%) (Auto) 8 % (24-48) Monocytes (%) (Auto) 11 % (0-9) Eosinophils (%) (Auto) 2 % (0-3) Basophils (%) (Auto) 1 % (0-3) Neutrophils # (Auto) 6.4 x10^3/uL (1.8-7.7) Lymphocytes # (Auto) 0.6 x10^3/uL (1.0-4.8) Monocytes # (Auto) 0.9 x10^3/uL (0.0-1.1) Eosinophils # (Auto) 0.1 x10^3/uL (0.0-0.7) Basophils # (Auto) 0.0 x10^3/uL (0.0-0.2) Sodium Level 136 mmol/L (136-145) Potassium Level 3.8 mmol/L (3.5-5.1) Chloride Level 99 mmol/L (98-107) Carbon Dioxide Level 36 mmol/L (21-32) Anion Gap 1 (6-14) Blood Urea Nitrogen 18 mg/dL (8-26) Creatinine 0.4 mg/dL (0.7-1.3) Estimated GFR (Cockcroft-Gault) 243.4 BUN/Creatinine Ratio 45 (6-20) Glucose Level 97 mg/dL (70-99) Calcium Level 8.5 mg/dL (8.5-10.1) Total Bilirubin 1.7 mg/dL (0.2-1.0) Aspartate Amino Transf (AST/SGOT) 39 U/L (15-37) Alanine Aminotransferase (ALT/SGPT) 106 U/L (16-63) Alkaline Phosphatase 92 U/L (46-116) Total Protein 5.8 g/dL (6.4-8.2) Albumin 1.9 g/dL (3.4-5.0) Albumin/Globulin Ratio 0.5 (1.0-1.7) Triglycerides Level 368 mg/dL (0-150) Laboratory Tests Test 05/12/21 08:00 O2 Saturation 95 % (92-99) Arterial Blood pH 7.38 (7.35-7.45) Arterial Blood pCO2 at Patient Temp 68 mmHg (35-46) Arterial Blood pO2 at Patient Temp 80 mmHg (85-108) Arterial Blood HCO3 40 mmol/L (21-28) Arterial Blood Base Excess 12 mmol/L (-3-3) FiO2 85 Medications Current Medications Azithromycin 500 mg/Sodium Chloride 250 ml @ 250 mls/hr 1X ONCE IV Last administered on 04/28/21at 15:44; Start 04/28/21 at 13:00; Stop 04/28/21 at 14:00; Status DC Azithromycin 250 mg/Sodium Chloride 250 ml @ 250 mls/hr Q24H IV Last admini stered on 05/02/21at 12:51; Start 04/29/21 at 13:00; Stop 05/02/21 at 13:59; Status DC Dexamethasone Sodium Phosphate (Decadron) 6 mg DAILY IVP Last administered on 05/09/21at 08:25; Start 04/29/21 at 09:00; Stop 05/09/21 at 11:08; Status DC Ceftriaxone Sodium (Rocephin) 2 gm Q24H IVP Last administered on 05/07/21at 12:55; Start 04/28/21 at 14:00; Stop 05/08/21 at 08:36; Status DC Enoxaparin Sodium (Lovenox 40mg Syringe) 40 mg Q12HR SQ Last administered on 05/07/21at 08:57; Start 04/28/21 at 21:00; Stop 05/07/21 at 15:40; Status DC Famotidine (Pepcid) 20 mg BID@0500,1700 PO Last administered on 05/01/21at 16:36; Start 04/28/21 at 17:00; Stop 05/02/21 at 16:52; Status DC Remdesivir 200 mg/ Sodium Chloride 210 ml @ 210 mls/hr 1X ONCE IV Last administered on 04/28/21at 14:00; Start 04/28/21 at 14:00; Stop 04/28/21 at 14:59; Status DC Remdesivir 100 mg/ Sodium Chloride 230 ml @ 460 mls/hr Q24H IV Last administered on 05/02/21at 13:43; Start 04/29/21 at 14:00; Stop 05/02/21 at 14:29; Status DC Zinc Sulfate (Orazinc) 220 mg DAILY PO Last administered on 05/12/21at 07:25; Start 04/29/21 at 09:00 Ascorbic Acid (Vitamin C) 500 mg Q6HRS PO Last administered on 05/10/21at 05:50; Start 04/28/21 at 18:00; Stop 05/10/21 at 11:31; Status DC Pantoprazole Sodium (Protonix) 40 mg 1X ONCE PO Last administered on 04/28/21at 15:45; Start 04/28/21 at 13:45; Stop 04/28/21 at 13:46; Status DC Pantoprazole Sodium (Protonix) 40 mg DAILYAC PO Last administered on 05/01/21at 09:44; Start 04/29/21 at 07:30; Stop 05/02/21 at 16:52; Status DC Famotidine (Pepcid) 20 mg PRN BID PRN PO HEARTBURN / GAS Last administered on 05/09/21at 08:24; Start 04/28/21 at 13:45 Ondansetron HCl (Zofran) 4 mg PRN Q6HRS PRN IVP NAUSEA/VOMITING Last administered on 04/29/21at 10:26; Start 04/28/21 at 14:00 Al Hydroxide/Mg Hydroxide (Mylanta Plus Xs) 30 ml PRN Q3HRS PRN PO HEARTBURN / GAS; Start 04/28/21 at 14:00 Calcium Carbonate/ Glycine (Tums) 500 mg PRN Q3HRS PRN PO UPSET STOMACH; Start 04/28/21 at 14:00 Zolpidem Tartrate (Ambien) 5 mg PRN QHS PRN PO INSOMNIA, MAY REPEAT IN 1HR Last administered on 05/01/21at 21:26; Start 04/28/21 at 14:00 Acetaminophen/ Hydrocodone Bitart (Lortab 5/325) 1 tab PRN Q4HRS PRN PO PAIN Last administered on 04/28/21at 17:37; Start 04/28/21 at 14:00 Acetaminophen (Tylenol) 650 mg PRN Q6HRS PRN PO Headaches, Temp > 101.5F; Start 04/28/21 at 14:00 Magnesium Hydroxide (Milk Of Magnesia) 2,400 mg PRN Q12HR PRN PO CONSTIPATION; Start 04/28/21 at 14:00 Enoxaparin Sodium (Lovenox 40mg Syringe) 40 mg Q24H SQ ; Start 04/28/21 at 14:00; Status UNV Sterile Water (WATER for RESP) 1,000 ml CONT PRN INH VIA VAPOTHERM DEVICE Last administered on 04/30/21at 18:45; Start 04/28/21 at 14:45 Lactobacillus Rhamnosus (Culturelle) 1 cap BID PO Last administered on 05/10/21at 08:05; Start 04/29/21 at 21:00; Stop 05/10/21 at 08:37; Status DC Dexmedetomidine HCl 400 mcg/ Sodium Chloride 100 ml @ 6.965 mls/ hr CONT PRN IV PER PROTOCOL Last administered on 05/02/21at 06:56; Start 05/02/21 at 01:00 Sodium Chloride 500 ml @ 500 mls/hr 1X PRN PRN IV SEE COMMENTS; Start 05/02/21 at 01:00 Atropine Sulfate (ATROPINE 0.5mg SYRINGE) 0.5 mg PRN Q5MIN PRN IV SEE COMMENTS; Start 05/02/21 at 01:00 Propofol 0 ml @ As Directed STK-MED ONCE IV ; Start 05/02/21 at 07:37; Stop 05/02/21 at 07:37; Status DC Succinylcholine Chloride (Anectine) 200 mg STK-MED ONCE .ROUTE ; Start 05/02/21 at 07:37; Stop 05/02/21 at 07:37; Status DC Etomidate (Amidate) 20 mg STK-MED ONCE IV ; Start 05/02/21 at 07:37; Stop 05/02/21 at 07:37; Status DC Fentanyl Citrate 30 ml @ 0 mls/hr CONT PRN IV SEE PROTOCOL Last administered on 05/07/21at 19:51; Start 05/02/21 at 07:45; Stop 05/07/21 at 22:40; Status DC Propofol 100 ml @ 0 mls/hr CONT PRN IV PER PROTOCOL Last administered on 05/12/21at 08:21; Start 05/02/21 at 07:45 Midazolam HCl 100 ml @ 0 mls/hr CONT PRN IV SEE PROTOCOL Last administered on 05/12/21at 08:20; Start 05/02/21 at 07:45 Norepinephrine Bitartrate 8 mg/ Dextrose 258 ml @ 27.09 mls/ hr CONT PRN IV PER PROTOCOL Last administered on 05/02/21at 09:35; Start 05/02/21 at 08:45; Stop 05/11/21 at 05:20; Status DC Norepinephrine Bitartrate 8 mg/ Dextrose 258 ml @ 27.09 mls/ hr CONT PRN IV PER PROTOCOL; Start 05/02/21 at 08:45; Status UNV Etomidate (Amidate) 10 mg 1X ONCE IV Last administered on 05/02/21at 08:49; Start 05/02/21 at 08:45; Stop 05/02/21 at 08:48; Status DC Succinylcholine Chloride (Anectine) 100 mg 1X ONCE IV Last administered on 05/02/21at 08:50; Start 05/02/21 at 08:45; Stop 05/02/21 at 08:48; Status DC Vecuronium [place] (Norcuron Bolus) 6 mg PRN Q4HRS PRN IV VENTILATOR COMPLIANCE Last administered on 05/02/21at 08:51; Start 05/02/21 at 08:45 Epinephrine HCl (EPINEPHrine SYRINGE) 1 mg 1X ONCE IV Last administered on 05/02/21at 08:50; Start 05/02/21 at 08:45; Stop 05/02/21 at 08:48; Status DC Vecuronium [place] 50 mg/ Sodium Chloride 50 ml @ 6.72 mls/hr CONT PRN IV SEE I/O RECORD Last administered on 05/12/21at 06:54; Start 05/02/21 at 09:15 Vitamin D (Vitamin D3) 5,000 unit DAILY FT Last administered on 05/12/21at 07:24; Start 05/03/21 at 09:00 Vecuronium [place] 50 mg/ Sodium Chloride 50 ml @ 6.72 mls/hr CONT PRN IV SEE I/O RECORD; Start 05/02/21 at 09:15; Stop 05/02/21 at 09:17; Status DC Lidocaine HCl (Lidocaine 2% 20ml Vial) 20 ml STK-MED ONCE .ROUTE ; Start 05/02/21 at 10:14; Stop 05/02/21 at 10:14; Status DC Famotidine (Pepcid Vial) 20 mg QHS IVP ; Start 05/02/21 at 21:00; Stop 05/03/21 at 09:07; Status DC Info (Icu Electrolyte Protocol) 1 ea CONT PRN PRN MC PER PROTOCOL; Start 05/03/21 at 07:30 Famotidine (Pepcid Vial) 20 mg BID IVP Last administered on 05/12/21at 07:24; Start 05/03/21 at 10:00 Propofol (Diprivan) 1,000 mg STK-MED ONCE IV ; Start 05/02/21 at 08:00; Stop 05/04/21 at 08:51; Status DC Metoprolol Tartrate (Lopressor Vial) 5 mg PRN Q6HRS PRN IVP HYPERTENSION Last administered on 05/07/21at 05:16; Start 05/06/21 at 12:30; Stop 05/07/21 at 12:57; Status DC Metoprolol Tartrate (Lopressor Vial) 5 mg Q6HRS IVP Last administered on 05/09/21at 23:22; Start 05/07/21 at 13:00; Stop 05/10/21 at 08:18; Status DC Enoxaparin Sodium (Lovenox 40mg Syringe) 40 mg Q24H SQ Last administered on 05/08/21at 08:21; Start 05/08/21 at 09:00; Stop 05/08/21 at 08:34; Status DC Fentanyl Citrate 55 ml @ 0 mls/hr CONT PRN PRN IV PAIN CONTROL Last administered on 05/11/21at 22:06; Start 05/07/21 at 22:45 Enoxaparin Sodium (Lovenox 40mg Syringe) 40 mg Q12HR SQ Last administered on 05/12/21at 07:23; Start 05/08/21 at 21:00 Lidocaine HCl (Buffered Lidocaine 1%) 3 ml STK-MED ONCE .ROUTE ; Start 05/08/21 at 09:19; Stop 05/08/21 at 09:19; Status DC Lidocaine HCl (Buffered Lidocaine 1%) 3 ml 1X ONCE INJ Last administered on 05/08/21at 10:16; Start 05/08/21 at 10:15; Stop 05/08/21 at 10:16; Status DC Hydralazine HCl (Apresoline Inj) 10 mg PRN Q4HRS PRN IVP ELEVATED BP, 1ST CHOICE Last administered on 05/09/21at 20:41; Start 05/09/21 at 04:45 Labetalol HCl (Normodyne Iv Push) 20 mg PRN Q2HR PRN IVP HYPERTENSION, 2ND CHOICE Last administered on 05/09/21at 15:27; Start 05/09/21 at 04:45 Amlodipine Besylate (Norvasc) 10 mg DAILY PO Last administered on 05/10/21at 08:06; Start 05/09/21 at 16:15; Stop 05/10/21 at 09:39; Status DC Amlodipine Besylate (Norvasc) 5 mg DAILY PO Last administered on 05/12/21at 07:24; Start 05/11/21 at 09:00 Metoprolol Tartrate (Lopressor) 12.5 mg BID PO Last administered on 05/12/21at 07:24; Start 05/10/21 at 21:00 Aspirin (Aspirin Chewable) 81 mg DAILYWBKFT PO Last administered on 05/12/21at 07:25; Start 05/11/21 at 08:00 Ascorbic Acid (Vitamin C) 500 mg DAILY PO Last administered on 05/12/21at 07:24; Start 05/11/21 at 09:00 Active Scripts Active Reported Pepcid (Famotidine) 20 Mg Tablet 20 Mg PO BID Vitals/I & O Vital Sign - Last 24 Hours 05/11/21 05/11/21 05/11/21 05/11/21 11:00 11:42 11:47 12:00 Temp 98.5 98.5 Pulse 101 101 Resp 26 26 B/P (MAP) 116/66 (83) 129/67 (87) Pulse Ox 96 95 95 O2 Delivery Ventilator Ventilator Mechanical Ventilator Ventilator 05/11/21 05/11/21 05/11/21 05/11/21 13:00 13:20 14:00 15:00 Pulse 101 101 101 Resp 26 26 26 B/P (MAP) 131/65 (87) 118/64 (82) 123/67 (85) Pulse Ox 94 95 95 95 O2 Delivery Ventilator Ventilator Ventilator Ventilator 05/11/21 05/11/21 05/11/21 05/11/21 16:00 16:00 16:08 17:00 Temp 98.2 98.2 Pulse 102 100 Resp B/P (MAP) 127/67 (87) 127/64 (85) Pulse Ox 94 95 95 O2 Delivery Mechanical Ventilator Ventilator Ventilator Ventilator 05/11/21 05/11/21 05/11/21 05/11/21 18:00 18:25 19:00 20:00 Pulse 102 102 Resp B/P (MAP) 133/68 (89) 135/66 (89) Pulse Ox 96 95 96 O2 Delivery Ventilator Ventilator Ventilator Mechanical Ventilator 05/11/21 05/11/21 05/11/21 05/11/21 20:00 20:00 20:28 21:00 Temp 99.0 99.0 Pulse 103 102 110 Resp B/P (MAP) 122/65 (84) 135/66 152/54 (86) Pulse Ox 97 97 82 O2 Delivery Ventilator Ventilator Ventilator 05/11/21 05/11/21 05/11/21 05/11/21 21:45 22:00 22:06 22:36 Pulse 96 Resp B/P (MAP) 119/70 (86) Pulse Ox 82 90 97 98 O2 Delivery Ventilator Ventilator Ventilator O2 Flow Rate 95.0 95.0 05/11/21 05/12/21 05/12/21 05/12/21 23:00 00:00 00:01 01:00 Temp 99.2 99.2 Pulse 104 104 Resp B/P (MAP) 109/58 (75) 123/70 (87) Pulse Ox 98 98 100 O2 Delivery Ventilator Mechanical Ventilator Ventilator Ventilator 05/12/21 05/12/21 05/12/21 05/12/21 01:00 02:00 03:00 03:00 Pulse 102 102 100 Resp B/P (MAP) 137/75 (95) 118/67 (84) 127/65 (85) Pulse Ox 100 99 99 99 O2 Delivery Ventilator Ventilator Ventilator Ventilator 05/12/21 05/12/21 05/12/21 05/12/21 04:00 04:00 05:00 05:00 Temp 98.7 98.7 Pulse 97 98 Resp B/P (MAP) 131/72 (91) 140/71 (94) Pulse Ox 97 96 98 O2 Delivery Mechanical Ventilator Ventilator Ventilator Ventilator 05/12/21 05/12/21 05/12/21 05/12/21 06:00 07:00 07:24 07:24 Pulse 97 97 98 98 Resp B/P (MAP) 143/71 (95) 150/76 (100) 143/73 143/73 Pulse Ox 96 96 O2 Delivery Ventilator Ventilator 05/12/21 05/12/21 05/12/21 05/12/21 07:39 07:50 08:00 09:00 Temp 98.7 98.7 Pulse 86 94 Resp B/P (MAP) 143/73 (96) 137/71 (93) Pulse Ox 96 95 92 O2 Delivery Mechanical Ventilator Ventilator Ventilator Ventilator 05/12/21 05/12/21 09:54 10:00 Pulse 95 Resp 26 B/P (MAP) 148/72 (97) Pulse Ox 92 93 O2 Delivery Ventilator Ventilator Intake and Output 05/11/21 05/11/21 05/12/21 15:00 23:00 07:00 Intake Total 400 ml 1979 ml 1375.0 ml Output Total 600 ml 775 ml 710 ml Balance -200 ml 1204 ml 665.0 ml Justicifation of Admission Dx: Justifications for Admission: Justification of Admission Dx: Yes Comminuty Aquired Pneumonia: Hypoxemia ARELY DILLARD MD May 12, 2021 10:08
[2021-05-12] MEDS: fentaNYL HIGH DOSE PCA 55 ML IV PRN (11:43)
--- NOTE | 2021-05-12 14:57 | RAD ---
EXAM: Chest, single view. HISTORY: Pneumothorax. COMPARISON: 05/12/2021 FINDINGS: A frontal view of the chest is obtained. There is a stable small right pneumothorax. No lef t pneumothorax is seen. There are bilateral pleural drainage catheters. There is an endotracheal tube within the mid to distal trachea. There is a nasogastric tube within the stomach. There is a right i nternal jugular catheter with the tip in the superior vena cava. There is stable diffuse infiltrate a nd small pleural effusions. There is a stable cardiac silhouette. IMPRESSION: 1. Stable small right pneumothorax. No left pneumothorax is seen. There are bilateral pleural drainag e catheters. 2. Stable diffuse infiltrate and small pleural effusions. Electronically signed by: Yaz Red MD (05/12/2021 2:55 PM) [id number]
--- NOTE | 2021-05-12 15:06 | NUR ---
SS following up with discharge planning. SS reviewed pt chart and discussed with pt RN. Pt is currently on the vent at 100%. COVID19 positive. Two chest tubes in place. Pt on Vec, Versed, Propofol, and Fentanyl. Not stable. SS will continue to follow for discharge planning.
--- NOTE | 2021-05-12 15:28 | NUR ---
Patient's SPO2 dropped to 80%, noticed right chest tube had lost its air leak. FIO2 increased to 100%. Flushed with 30cc, was able to get back what was put in with intermittent bubbling. Notified Dr. Gaviria, a stat chest x-ray ordered and completed, reviewed by Dr. Gaviria and Dr. Almeida, order received to increase peep to 8. SPO2 increased to within normal limits. Will continue to monitor and will flush chest tube as needed to keep patency.
[2021-05-12] MEDS: hydrALAZINE 20 MG/ML VIAL. IVP PRN (16:14)
[2021-05-13] VITALS (24 sets, daily range): BP systolic 119–173; BP diastolic 68–86
[2021-05-13] MEDS: PROPOFOL 100 ML IV PRN ×10 (00:24→21:51)
[2021-05-13] MEDS: VECURONIUM BROMIDE 50 MG in IV NORMAL SALINE 50ML 50 ML IV PRN ×4 (00:25→17:37)
[2021-05-13] MEDS: fentaNYL HIGH DOSE PCA 55 ML IV PRN ×2 (02:01→15:30)
--- NOTE | 2021-05-13 05:45 | PDOC ---
PULMONARY PROGRESS NOTES DATE: 05/13/21 TIME: 05:42 Subjective Patient remains on ventilatory support 100% and a PEEP of 8 Remains Sedated with propofol and VEC gtt,versed, and fentanyl Bilateral chest tube, positive air leak on right chest tube Vitals Vital Signs Date Time Temp Pulse Resp B/P (MAP) Pulse Ox O2 Delivery O2 Flow Rate FiO2 05/13/21 05:00 93 26 128/73 (91) 97 Ventilator 05/13/21 04:00 97.6 97.6 05/13/21 02:01 95.0 Comments On visual inspection, patient intubated, and in a medically induced coma Chest tube bilaterally, RRR no distress no obvious rash or edema Labs Laboratory Tests Test 05/11/21 07:54 05/11/21 09:00 05/12/21 08:00 O2 Saturation 96 % (92-99) 95 % (92-99) Arterial Blood pH 7.38 (7.35-7.45) 7.38 (7.35-7.45) Arterial Blood pCO2 at Patient Temp 62 mmHg (35-46) 68 mmHg (35-46) Arterial Blood pO2 at Patient Temp 85 mmHg (85-108) 80 mmHg (85-108) Arterial Blood HCO3 35 mmol/L (21-28) 40 mmol/L (21-28) Arterial Blood Base Excess 9 mmol/L (-3-3) 12 mmol/L (-3-3) FiO2 85 85 White Blood Count 8.1 x10^3/uL (4.0-11.0) Red Blood Count 3.32 x10^6/uL (4.30-5.70) Hemoglobin 9.5 g/dL (13.0-17.5) Hematocrit 29.1 % (39.0-53.0) Mean Corpuscular Volume 88 fL (79-100) Mean Corpuscular Hemoglobin 29 pg (25-35) Mean Corpuscular Hemoglobin Concent 33 g/dL (31-37) Red Cell Distribution Width 14.1 % (11.5-14.5) Platelet Count 164 x10^3/uL (140-400) Neutrophils (%) (Auto) 79 % (31-73) Lymphocytes (%) (Auto) 8 % (24-48) Monocytes (%) (Auto) 11 % (0-9) Eosinophils (%) (Auto) 2 % (0-3) Basophils (%) (Auto) 1 % (0-3) Neutrophils # (Auto) 6.4 x10^3/uL (1.8-7.7) Lymphocytes # (Auto) 0.6 x10^3/uL (1.0-4.8) Monocytes # (Auto) 0.9 x10^3/uL (0.0-1.1) Eosinophils # (Auto) 0.1 x10^3/uL (0.0-0.7) Basophils # (Auto) 0.0 x10^3/uL (0.0-0.2) Sodium Level 136 mmol/L (136-145) Potassium Level 3.8 mmol/L (3.5-5.1) Chloride Level 99 mmol/L (98-107) Carbon Dioxide Level 36 mmol/L (21-32) Anion Gap 1 (6-14) Blood Urea Nitrogen 18 mg/dL (8-26) Creatinine 0.4 mg/dL (0.7-1.3) Estimated GFR (Cockcroft-Gault) 243.4 BUN/Creatinine Ratio 45 (6-20) Glucose Level 97 mg/dL (70-99) Calcium Level 8.5 mg/dL (8.5-10.1) Total Bilirubin 1.7 mg/dL (0.2-1.0) Aspartate Amino Transf (AST/SGOT) 39 U/L (15-37) Alanine Aminotransferase (ALT/SGPT) 106 U/L (16-63) Alkaline Phosphatase 92 U/L (46-116) Total Protein 5.8 g/dL (6.4-8.2) Albumin 1.9 g/dL (3.4-5.0) Albumin/Globulin Ratio 0.5 (1.0-1.7) Triglycerides Level 368 mg/dL (0-150) Laboratory Tests Test 05/12/21 08:00 O2 Saturation 95 % (92-99) Arterial Blood pH 7.38 (7.35-7.45) Arterial Blood pCO2 at Patient Temp 68 mmHg (35-46) Arterial Blood pO2 at Patient Temp 80 mmHg (85-108) Arterial Blood HCO3 40 mmol/L (21-28) Arterial Blood Base Excess 12 mmol/L (-3-3) FiO2 85 Medications Active Scripts Medications Dose Route/Sig Max Daily Dose Days Date Category Pepcid (Famotidine) 20 Mg Tablet 20 Mg PO BID 04/28/21 Reported Comments Chest x-ray 05/12/2021 reviewed. Significant reexpansion of the lung compared to last night. There is a tiny residual pneumothorax. Unchanged bilateral interstitial infiltrates. Chest x-ray reviewed dated 05/26 Diffuse bilateral infiltrates unchanged. Tiny right pneumothorax unchanged. Impression . 1. Acute hypoxic respiratory failure secondary to COVID-19 viral pneumonia/ARDS--intubated 2. Abnormal CT chest done at [facility] with diffuse bilateral alveolar and interstitial infiltrates related to COVID-19 pneumonia. No evidence of pulmonary embolism. 3. Underlying obesity. 4. Remote history of obstructive sleep apnea. 5. Abnormal liver function tests, likely due to Covid infection. Bilirubin normal. 6. Normal D-dimer. 7. Status post intubation 05/02, status post bilateral pneumothoraces requiring chest tubes 05/02. Pneumothorax worsen on the right side last night. Chest tube was flushed and now significant resolution of pneumothorax on the right side. 8. HTN Chest x-ray reviewed, small right apical pneumothorax Plan . Updated 05/13/21 Patient experienced hypoxia overnight requiring 100% and a PEEP of 10, Continue current vent support 26/500/8/100% Follow ABG/CXR-----changes as needed Continue chest tubes to suction. S/P full course of remdesivir and steroids Follow cardiology recommendations Continue TF for nutritional support DVT/GI PPX :lovenox D/W RN and RT Critical care time 30 minutes including review of the labs imaging studies and decision making. Updated 05/12/21 Patient experienced hypoxia overnight requiring 100% and a PEEP of 10, now back at baseline vent settings status post flush of right-sided chest tube Continue current vent support 26/500/6/85% Follow ABG/CXR--CXR right-sided PTX status post flash of right-sided chest tube Continue chest tubes to suction. Suction set at -30 on the right and -20 on the left minimal air leak on the right chest tube. No air leak on the left chest tube. S/P full course of remdesivir and steroids Follow cardiology recommendations--hypertension Continue TF for nutritional support DVT/GI PPX :lovenox D/W RN and RT I have talked to patient's and discussed current critical condition and advanced directives. Full code. Critical care time 30 minutes including review of the labs imaging studies and decision making. Updated 05/11/21 Continue current vent support 26/500//% Follow ABG/CXR--CXR in am Continue chest tubes to suction. Minimal air leak on the right chest tube. No air leak on the left chest tube. S/P full course of remdesivir and steroids Follow cardiology recommendations--hypertension Continue TF for nutritional support DVT/GI PPX :lovenox D/W RN and RT Critical care time 30 minutes including review of the labs imaging studies and decision making. MURRAY ESPOSITO MD May 13, 2021 05:45
[2021-05-13] MEDS: MIDAZOLAM 100mg/100ml NS BAG 100 ML IV PRN ×2 (06:21→18:51)
[2021-05-13 07:02] LABS: BASO % 0 % (0-3); EOS # 0.1 x10^3/uL (0.0-0.7); EOS % 1 % (0-3); HEMATOCRIT 26.8 % (39.0-53.0); HEMOGLOBIN 8.8 g/dL (13.0-17.5); LYMPH # 0.5 x10^3/uL (1.0-4.8); LYMPH % 9 % (24-48); MEAN CORPUSCULAR HEMOGLOBIN 29 pg (25-35); MEAN CORPUSCULAR HGB CONC 33 g/dL (31-37); MEAN CORPUSCULAR VOLUME 88 fL (79-100); MONO # 0.6 x10^3/uL (0.0-1.1); MONO % 10 % (0-9); NEUT % 80 % (31-73); PLATELET COUNT 146 x10^3/uL (140-400); RED BLOOD COUNT 3.05 x10^6/uL (4.30-5.70); RED CELL DISTRIBUTION WIDTH 13.9 % (11.5-14.5); WHITE BLOOD COUNT 6.3 x10^3/uL (4.0-11.0)
[2021-05-13 07:13] LABS: ALBUMIN 1.7 g/dL (3.4-5.0); ALBUMIN/GLOBULIN RATIO 0.4 (1.0-1.7); ALK PHOS 86 U/L (46-116); ALT (SGPT) 105 U/L (16-63); AST (SGOT) 31 U/L (15-37); BLOOD UREA NITROGEN 12 mg/dL (8-26); BUN/CREATININE RATIO 30 (6-20); CALCIUM 8.8 mg/dL (8.5-10.1); CARBON DIOXIDE 40 mmol/L (21-32); CHLORIDE 96 mmol/L (98-107); CREATININE 0.4 mg/dL (0.7-1.3); GFR 243.4; GLUCOSE 99 mg/dL (70-99); POTASSIUM 3.6 mmol/L (3.5-5.1); SODIUM 134 mmol/L (136-145); TOTAL BILIRUBIN 1.2 mg/dL (0.2-1.0); TOTAL PROTEIN 5.9 g/dL (6.4-8.2)
[2021-05-13] MEDS: METOPROLOL TART IMMED RELEASE 25 MG TABLET. PO SCH ×2 (09:01→21:37)
[2021-05-13] MEDS: ZINC SULFATE 220 MG CAPSULE. PO SCH (09:01)
[2021-05-13] MEDS: CHOLECALCIFEROL (VITAMIN D3) 1,000 UNIT TABLET FT SCH (09:02)
[2021-05-13] MEDS: FAMOTIDINE 20 MG TABLET. PO PRN ×2 (09:02→21:35)
[2021-05-13] MEDS: ENOXAPARIN 40 MG/0.4 ML SYRINGE. SQ SCH ×2 (09:03→21:36)
[2021-05-13] MEDS: FAMOTIDINE 20 MG/2 ML VIAL IVP SCH ×2 (09:13→21:00)
[2021-05-13] MEDS: ASCORBIC ACID 500 MG TABLET PO SCH (09:13)
[2021-05-13 09:14] LABS: BASE EXCESS ABG 9 mmol/L (-3-3); HCO3 ABG 35 mmol/L (21-28); PCO2 ABG 58 mmHg (35-46); PO2 ABG 81 mmHg (85-108); SAT O2 ABG 95 % (92-99)
[2021-05-13 09:17] LABS: FIO2 ABG 100
[2021-05-13] MEDS: ASPIRIN CHEWABLE 81 MG TABLET. PO SCH (09:28)
--- NOTE | 2021-05-13 10:17 | PDOC ---
PROGRESS NOTES Date of Service: DATE: 05/13/21 TIME: 10:16 Chief Complaint Chief Complaint Acute respiratory failure with hypoxia COVID-19 pneumonia GERD Obesity Plan: Continue with with remdesivir day 3 out of 4, steroids, and prophylactic antibiotics Appreciate pulmonology management for Vapotherm therapy Monitor daily LFTs Hemoglobin A1c pending We will initiate insulin treatment when blood glucose become significantly elevated Daily PPI and famotidine as needed FEN - ADA diet PPX - Lovenox FULL CODE Dispo - inpatient for above History of Present Illness History of Present Illness 05/13/2021 ID CONSULT experienced hypoxia overnight requiring 100% and a PEEP of 10, Significant interval decrease in a now tiny right pneumothorax. No left-sided pneumothorax is seen. There are bilateral pleural drainage catheters. 05-12 PAFIB: new likely induced by above. multiple bursts. Maintaining SR/ST Status post intubation 05/02, status post bilateral pneumothoraces requiring chest tubes 05/02 Decrease in a tiny residual right pneumothorax status post pleural drainage catheter placement. There is an unchanged left pleural drainage catheter. 05-09 cxr bilateral pleural drainage catheters unchanged in position.05-10 Daily PPI and famotidine as needed PPX - Lovenox FULL CODE Dispo - inpatient for above Morbid obesity. No significant tobacco history and // remote history of SONYA. Patient seen and examined in the COVID-19 ICU Interval decrease in a now tiny right pneumothorax status post pleural drainage catheter placement. There is a stable left pleural drainage catheter without convincing left-sided pneumothorax. /large right pneumothorax with assocaited mild leftward mediastinal deviation. earlier 05-08 Stable diffuse mixed interstitial and alveolar infiltrate with suspected small pleural effusions. Stable endotracheal tube, nasogastric tube and right internal jugular central venous catheter. 05-08 cxr He remains on the vent ventilatory support 85% and a PEEP of 6. Discussed with RN Chart reviewed Duarte to bedside drainage He is sedated with propofol fentanyl and Versed Remains very critically ill labile htn, will consult cardiology, htn much better today 34 min cc time experienced hypoxia overnight requiring 100% and a PEEP of 10, 05/12/2021 Significant interval decrease in a now tiny right pneumothorax. No left-sided pneumothorax is seen. There are bilateral pleural drainage catheters. 05-12 PAFIB: new likely induced by above. multiple bursts. Maintaining SR/ST Status post intubation 05/02, status post bilateral pneumothoraces requiring chest tubes 05/02 Decrease in a tiny residual right pneumothorax status post pleural drainage catheter placement. There is an unchanged left pleural drainage catheter. 05-09 cxr bilateral pleural drainage catheters unchanged in position.05-10 Daily PPI and famotidine as needed PPX - Lovenox FULL CODE Dispo - inpatient for above Morbid obesity. No significant tobacco history and // remote history of SONYA. Patient seen and examined in the [facility]- ICU Interval decrease in a now tiny right pneumothorax status post pleural drainage catheter placement. There is a stable left pleural drainage catheter without convincing left-sided pneumothorax. /large right pneumothorax with assocaited mild leftward mediastinal deviation. earlier 05-08 Stable diffuse mixed interstitial and alveolar infiltrate with suspected small pleural effusions. Stable endotracheal tube, nasogastric tube and right internal jugular central venous catheter. 05-08 cxr He remains on the vent ventilatory support 85% and a PEEP of 6. Discussed with RN Chart reviewed Duarte to bedside drainage He is sedated with propofol fentanyl and Versed Remains very critically ill labile htn, will consult cardiology, htn much better today 34 min cc time 05/11/2021 PAFIB: new likely induced by above. multiple bursts. Maintaining SR/ST Status post intubation 05/02, status post bilateral pneumothoraces requiring chest tubes 05/02 Decrease in a tiny residual right pneumothorax status post pleural drainage catheter placement. There is an unchanged left pleural drainage catheter. 05-09 cxr bilateral pleural drainage catheters unchanged in position.- Daily PPI and famotidine as needed PPX - Lovenox FULL CODE Dispo - inpatient for above Morbid obesity. No significant tobacco history and // remote history of SONYA. Patient seen and examined in the [facility]-19 ICU Interval decrease in a now tiny right pneumothorax status post pleural drainage catheter placement. There is a stable left pleural drainage catheter without convincing left-sided pneumothorax. /large right pneumothorax with assocaited mild leftward mediastinal deviation. earlier 05-08 Stable diffuse mixed interstitial and alveolar infiltrate with suspected small pleural effusions. Stable endotracheal tube, nasogastric tube and right internal jugular central venous catheter. 05-08 cxr He remains on the vent vent support 90% and a PEEP of 6 Discussed with RN Chart reviewed Duarte to bedside drainage He is sedated with propofol fentanyl and Versed Remains very critically ill labile htn, will consult cardiology, htn much better today 35 min cc time PAFIB: new likely induced by above. multiple bursts. Maintaining SR/ST 05/10/2021 Status post intubation 05/02, status post bilateral pneumothoraces requiring chest tubes 05/02 Decrease in a tiny residual right pneumothorax status post pleural drainage catheter placement. There is an unchanged left pleural drainage catheter. 05-09 cxr bilateral pleural drainage catheters unchanged in position.05-10 Daily PPI and famotidine as needed FEN - ADA diet PPX - Lovenox FULL CODE Dispo - inpatient for above Morbid obesity. No significant tobacco history and // remote history of SONYA. Patient seen and examined in the COVID-19 ICU Interval decrease in a now tiny right pneumothorax status post pleural drainage catheter placement. There is a stable left pleural drainage catheter without convincing left-sided pneumothorax. /large right pneumothorax with assocaited mild leftward mediastinal deviation. earlier 05-08 Stable diffuse mixed interstitial and alveolar infiltrate with suspected small pleural effusions. Stable endotracheal tube, nasogastric tube and right internal jugular central venous catheter. 05-08 cxr He remains on the vent vent support 90% and a PEEP of 6 Discussed with RN Chart reviewed Duarte to bedside drainage He is sedated with propofol fentanyl and Versed Remains very critically ill labile htn, will consult cardiology, htn much better today 32 min cc time 05/09/2021 Status post intubation 05/02, status post bilateral pneumothoraces requiring chest tubes 05/02 Decrease in a tiny residual right pneumothorax status post pleural drainage catheter placement. There is an unchanged left pleural drainage catheter. 05-09 cxr Daily PPI and famotidine as needed FEN - ADA diet PPX - Lovenox FULL CODE Dispo - inpatient for above Morbid obesity. No significant tobacco history and // remote history of SONYA. Patient seen and examined in the COVID-19 ICU Interval decrease in a now tiny right pneumothorax status post pleural drainage catheter placement. There is a stable left pleural drainage catheter without convincing left-sided pneumothorax. /large right pneumothorax with assocaited mild leftward mediastinal deviation. earlier 05-08 Stable diffuse mixed interstitial and alveolar infiltrate with suspected small pleural effusions. Stable endotracheal tube, nasogastric tube and right internal jugular central venous catheter. 05-08 cxr He remains on the vent AC/500/26/80 percent with 6 of PEEP Discussed with RN Chart reviewed Duarte to bedside drainage He is sedated with propofol fentanyl and Versed Remains very critically ill labile htn, will consult cardiology 35 min cc time 05/08/2021 Daily PPI and famotidine as needed FEN - ADA diet PPX - Lovenox FULL CODE Dispo - inpatient for above Morbid obesity. No significant tobacco history and // remote history of SONYA. Patient seen and examined in the [place] [address] ICU Interval decrease in a now tiny right pneumothorax status post pleural drainage catheter placement. There is a stable left pleural drainage catheter without convincing left-sided pneumothorax. /large right pneumothorax with assocaited mild leftward mediastinal deviation. earlier 05-08 Stable diffuse mixed interstitial and alveolar infiltrate with suspected small pleural effusions. Stable endotracheal tube, nasogastric tube and right internal jugular central venous catheter. 05-08 cxr He remains on the vent AC/500/26/80 percent with 6 of PEEP Discussed with RN Chart reviewed Duarte to bedside drainage He is sedated with propofol fentanyl and Versed Remains very critically ill 33 min cc time 05/07/2021 Patient seen and examined in the [place] [address] ICU He remains on the vent AC/500/26/80 percent with 6 of PEEP (this is improved from yesterday he was on 100% FiO2 with 8 of PEEP) Discussed with RN Chart reviewed Patient has Duarte to bedside drainage He is sedated with propofol fentanyl and Versed Remains very critically ill 05/06/2021 Patient seen and examined in the [place] [address] ICU He remains intubated AC//500/1 her percent with 8 of PEEP The nurse was able to get him down to 80% for an hour or so earlier this morning but he desatted again when she moved him Chart reviewed Reviewed case with RN patient is having some tachycardia and Fluctuating blood pressure Has OG feeds running at 50 cc an hour plus he is getting free water Has Duarte to bedside drainage Has [address] He remains critically ill 05/05/2021 Patient seen and examined in the [place] [address] ICU He is still intubated AC/26/500/1 100% with 8 of PEEP Has OG feeds running at 25 cc an hour Sedated with fentanyl and Versed Getting IV vecuronium Chart reviewed Discussed with RN He remains critically 05/04/2021 Patient seen and examined in the [place] [address] ICU He remains mechanically ventilated Assist-control/500/1 100% with 10 of PEEP He is extremely critically ill He is sedated with Versed and fentanyl He is also paralyzed with vecuronium Reviewed chart Discussed with RN 05/03/2021 Patient seen and examined in the COVID-19 ICU He remains mechanically ventilated AC//600/1 100% with 10 of PEEP Has 2 pigtail drains in his left and right chest due to some small pneumothoraces after being intubated Had to be sedated with vecuronium Also on Versed and fentanyl also has inverse I to E ratio 2:1 Chart reviewed Discussed with RN He remains extremely critically ill I am concerned he may not survive this? 05/02/2021 Patient seen and examined in the COVID-19 ICU He is on BiPAP with 100% FiO2 and very tachypneic Discussed with RN we are going to go ahead and intubate here in a few minutes Chart reviewed Patient currently semisedated with Versed Precedex and fentanyl He is very critically Patient 35-year-old male with past medical history of GERD, obesity, who presents to the ED as a transfer from [facility] for COVID-19 pneumonia with worsening respiratory distress. States his symptoms started roughly 1 week ago with fatigue and body aches, which progressed to include fever and shortness of breath. Symptoms were worse with exertion with no significant alleviating factors. He was tested for COVID-19 at [facility] and was discharged home because he was not hypoxic on room air. When he returned to [facility] with worsening symptoms a CT chest demonstrated bibasilar infiltrates consistent with atypical pneumonia. He was then admitted and placed on 3 L nasal cannula for further treatment. He has not been vaccinated against COVID- 19. However due to worsening respiratory distress he was transferred to [facility] for higher level of care. 04/29/2021: Still breathing 40 L Vapotherm. Afebrile, but complaining of chest heaviness, nausea, and subjective shortness of breath. Denies any vomiting, or diarrhea. Informed patient of likely prolonged hospitalization course. Hemoglobin A1c 5.6. Continue remdesivir day 2/5, continue steroids, an tibiotics, and supportive care. Continue to follow daily LFTs. Plan to transfer patient to ICU bed when available. Critical care time 33 minutes spent reviewing charts, reviewing labs, and discussing case with Dr. Gaviria. 04/30/21: Afebrile, still breathing on Vapotherm. Continue remdesivir and monitor LFTs. Continue antibiotics, steroids, and supportive care. Will transfer him to the ICU once bed available. Critical care time 30 minutes spent in chart, reviewing labs, reviewing imaging, and discussion with RN. 05/01/2021 No acute events overnight. Patient seen and examined bedside. Saturating 93% on 40 L Vapotherm. Patient will transfer to the ICU for continued supportive care. Vitals Vitals Vital Signs Date Time Temp Pulse Resp B/P (MAP) Pulse Ox O2 Delivery O2 Flow Rate FiO2 05/13/21 10:11 96 Ventilator 05/13/21 09:02 95 140/74 05/13/21 07:00 26 05/13/21 04:00 97.6 97.6 05/13/21 02:31 95.0 Physical Exam Physical Exam visual inspection, intubated, and in a medically induced coma Chest tube bilaterally, small amount of subcutaneous emphysema, General: Other (sedated) Heart: Regular rate (SR) Abdomen: Soft Extremities: No cyanosis Skin: No rashes, No breakdown Labs LABS Laboratory Tests Test 05/13/21 06:30 05/13/21 09:05 White Blood Count 6.3 x10^3/uL (4.0-11.0) Red Blood Count 3.05 x10^6/uL (4.30-5.70) Hemoglobin 8.8 g/dL (13.0-17.5) Hematocrit 26.8 % (39.0-53.0) Mean Corpuscular Volume 88 fL (79-100) Mean Corpuscular Hemoglobin 29 pg (25-35) Mean Corpuscular Hemoglobin Concent 33 g/dL (31-37) Red Cell Distribution Width 13.9 % (11.5-14.5) Platelet Count 146 x10^3/uL (140-400) Neutrophils (%) (Auto) 80 % (31-73) Lymphocytes (%) (Auto) 9 % (24-48) Monocytes (%) (Auto) 10 % (0-9) Eosinophils (%) (Auto) 1 % (0-3) Basophils (%) (Auto) 0 % (0-3) Neutrophils # (Auto) 5.0 x10^3/uL (1.8-7.7) Lymphocytes # (Auto) 0.5 x10^3/uL (1.0-4.8) Monocytes # (Auto) 0.6 x10^3/uL (0.0-1.1) Eosinophils # (Auto) 0.1 x10^3/uL (0.0-0.7) Basophils # (Auto) 0.0 x10^3/uL (0.0-0.2) Sodium Level 134 mmol/L (136-145) Potassium Level 3.6 mmol/L (3.5-5.1) Chloride Level 96 mmol/L (98-107) Carbon Dioxide Level 40 mmol/L (21-32) Anion Gap (6-14) Blood Urea Nitrogen 12 mg/dL (8-26) Creatinine 0.4 mg/dL (0.7-1.3) Estimated GFR (Cockcroft-Gault) 243.4 BUN/Creatinine Ratio 30 (6-20) Glucose Level 99 mg/dL (70-99) Calcium Level 8.8 mg/dL (8.5-10.1) Total Bilirubin 1.2 mg/dL (0.2-1.0) Aspartate Amino Transf (AST/SGOT) 31 U/L (15-37) Alanine Aminotransferase (ALT/SGPT) 105 U/L (16-63) Alkaline Phosphatase 86 U/L (46-116) Total Protein 5.9 g/dL (6.4-8.2) Albumin 1.7 g/dL (3.4-5.0) Albumin/Globulin Ratio 0.4 (1.0-1.7) O2 Saturation 95 % (92-99) Arterial Blood pH 7.40 (7.35-7.45) Arterial Blood pCO2 at Patient Temp 58 mmHg (35-46) Arterial Blood pO2 at Patient Temp 81 mmHg (85-108) Arterial Blood HCO3 35 mmol/L (21-28) Arterial Blood Base Excess 9 mmol/L (-3-3) FiO2 100 Comment Review of Relevant I have reviewed the following items anselmo (where applicable) has been applied. Labs Laboratory Tests Test 05/12/21 08:00 05/13/21 06:30 05/13/21 09:05 O2 Saturation 95 % (92-99) 95 % (92-99) Arterial Blood pH 7.38 (7.35-7.45) 7.40 (7.35-7.45) Arterial Blood pCO2 at Patient Temp 68 mmHg (35-46) 58 mmHg (35-46) Arterial Blood pO2 at Patient Temp 80 mmHg (85-108) 81 mmHg (85-108) Arterial Blood HCO3 40 mmol/L (21-28) 35 mmol/L (21-28) Arterial Blood Base Excess 12 mmol/L (-3-3) 9 mmol/L (-3-3) FiO2 85 100 White Blood Count 6.3 x10^3/uL (4.0-11.0) Red Blood Count 3.05 x10^6/uL (4.30-5.70) Hemoglobin 8.8 g/dL (13.0-17.5) Hematocrit 26.8 % (39.0-53.0) Mean Corpuscular Volume 88 fL (79-100) Mean Corpuscular Hemoglobin 29 pg (25-35) Mean Corpuscular Hemoglobin Concent 33 g/dL (31-37) Red Cell Distribution Width 13.9 % (11.5-14.5) Platelet Count 146 x10^3/uL (140-400) Neutrophils (%) (Auto) 80 % (31-73) Lymphocytes (%) (Auto) 9 % (24-48) Monocytes (%) (Auto) 10 % (0-9) Eosinophils (%) (Auto) 1 % (0-3) Basophils (%) (Auto) 0 % (0-3) Neutrophils # (Auto) 5.0 x10^3/uL (1.8-7.7) Lymphocytes # (Auto) 0.5 x10^3/uL (1.0-4.8) Monocytes # (Auto) 0.6 x10^3/uL (0.0-1.1) Eosinophils # (Auto) 0.1 x10^3/uL (0.0-0.7) Basophils # (Auto) 0.0 x10^3/uL (0.0-0.2) Sodium Level 134 mmol/L (136-145) Potassium Level 3.6 mmol/L (3.5-5.1) Chloride Level 96 mmol/L (98-107) Carbon Dioxide Level 40 mmol/L (21-32) Anion Gap (6-14) Blood Urea Nitrogen 12 mg/dL (8-26) Creatinine 0.4 mg/dL (0.7-1.3) Estimated GFR (Cockcroft-Gault) 243.4 BUN/Creatinine Ratio 30 (6-20) Glucose Level 99 mg/dL (70-99) Calcium Level 8.8 mg/dL (8.5-10.1) Total Bilirubin 1.2 mg/dL (0.2-1.0) Aspartate Amino Transf (AST/SGOT) 31 U/L (15-37) Alanine Aminotransferase (ALT/SGPT) 105 U/L (16-63) Alkaline Phosphatase 86 U/L (46-116) Total Protein 5.9 g/dL (6.4-8.2) Albumin 1.7 g/dL (3.4-5.0) Albumin/Globulin Ratio 0.4 (1.0-1.7) Laboratory Tests Test 05/13/21 06:30 05/13/21 09:05 White Blood Count 6.3 x10^3/uL (4.0-11.0) Red Blood Count 3.05 x10^6/uL (4.30-5.70) Hemoglobin 8.8 g/dL (13.0-17.5) Hematocrit 26.8 % (39.0-53.0) Mean Corpuscular Volume 88 fL (79-100) Mean Corpuscular Hemoglobin 29 pg (25-35) Mean Corpuscular Hemoglobin Concent 33 g/dL (31-37) Red Cell Distribution Width 13.9 % (11.5-14.5) Platelet Count 146 x10^3/uL (140-400) Neutrophils (%) (Auto) 80 % (31-73) Lymphocytes (%) (Auto) 9 % (24-48) Monocytes (%) (Auto) 10 % (0-9) Eosinophils (%) (Auto) 1 % (0-3) Basophils (%) (Auto) 0 % (0-3) Neutrophils # (Auto) 5.0 x10^3/uL (1.8-7.7) Lymphocytes # (Auto) 0.5 x10^3/uL (1.0-4.8) Monocytes # (Auto) 0.6 x10^3/uL (0.0-1.1) Eosinophils # (Auto) 0.1 x10^3/uL (0.0-0.7) Basophils # (Auto) 0.0 x10^3/uL (0.0-0.2) Sodium Level 134 mmol/L (136-145) Potassium Level 3.6 mmol/L (3.5-5.1) Chloride Level 96 mmol/L (98-107) Carbon Dioxide Level 40 mmol/L (21-32) Anion Gap (6-14) Blood Urea Nitrogen 12 mg/dL (8-26) Creatinine 0.4 mg/dL (0.7-1.3) Estimated GFR (Cockcroft-Gault) 243.4 BUN/Creatinine Ratio 30 (6-20) Glucose Level 99 mg/dL (70-99) Calcium Level 8.8 mg/dL (8.5-10.1) Total Bilirubin 1.2 mg/dL (0.2-1.0) Aspartate Amino Transf (AST/SGOT) 31 U/L (15-37) Alanine Aminotransferase (ALT/SGPT) 105 U/L (16-63) Alkaline Phosphatase 86 U/L (46-116) Total Protein 5.9 g/dL (6.4-8.2) Albumin 1.7 g/dL (3.4-5.0) Albumin/Globulin Ratio 0.4 (1.0-1.7) O2 Saturation 95 % (92-99) Arterial Blood pH 7.40 (7.35-7.45) Arterial Blood pCO2 at Patient Temp 58 mmHg (35-46) Arterial Blood pO2 at Patient Temp 81 mmHg (85-108) Arterial Blood HCO3 35 mmol/L (21-28) Arterial Blood Base Excess 9 mmol/L (-3-3) FiO2 100 Medications Current Medications Azithromycin 500 mg/Sodium Chloride 250 ml @ 250 mls/hr 1X ONCE IV Last administered on 04/28/21at 15:44; Start 04/28/21 at 13:00; Stop 04/28/21 at 14:00; Status DC Azithromycin 250 mg/Sodium Chloride 250 ml @ 250 mls/hr Q24H IV Last administered on 05/02/21at 12:51; Start 04/29/21 at 13:00; Stop 05/02/21 at 13:59; Status DC Dexamethasone Sodium Phosphate (Decadron) 6 mg DAILY IVP Last administered on 05/09/21at 08:25; Start 04/29/21 at 09:00; Stop 05/09/21 at 11:08; Status DC Ceftriaxone Sodium (Rocephin) 2 gm Q24H IVP Last administered on 05/07/21at 12:55; Start 04/28/21 at 14:00; Stop 05/08/21 at 08:36; Status DC Enoxaparin Sodium (Lovenox 40mg Syringe) 40 mg Q12HR SQ Last administered on 05/07/21at 08:57; Start 04/28/21 at 21:00; Stop 05/07/21 at 15:40; Status DC Famotidine (Pepcid) 20 mg BID@0500,1700 PO Last administered on 05/01/21at 16:36; Start 04/28/21 at 17:00; Stop 05/02/21 at 16:52; Status DC Remdesivir 200 mg/ Sodium Chloride 210 ml @ 210 mls/hr 1X ONCE IV Last administered on 04/28/21at 14:00; Start 04/28/21 at 14:00; Stop 04/28/21 at 14:59; Status DC Remdesivir 100 mg/ Sodium Chloride 230 ml @ 460 mls/hr Q24H IV Last administered on 05/02/21at 13:43; Start 04/29/21 at 14:00; Stop 05/02/21 at 14:29; Status DC Zinc Sulfate (Orazinc) 220 mg DAILY PO Last administered on 05/13/21at 09:01; Start 04/29/21 at 09:00 Ascorbic Acid (Vitamin C) 500 mg Q6HRS PO Last administered on 05/10/21at 05:50; Start 04/28/21 at 18:00; Stop 05/10/21 at 11:31; Status DC Pantoprazole Sodium (Protonix) 40 mg 1X ONCE PO Last administered on 04/28/21at 15:45; Start 04/28/21 at 13:45; Stop 04/28/21 at 13:46; Status DC Pantoprazole Sodium (Protonix) 40 mg DAILYAC PO Last administered on 05/01/21at 09:44; Start 04/29/21 at 07:30; Stop 05/02/21 at 16:52; Status DC Famotidine (Pepcid) 20 mg PRN BID PRN PO HEARTBURN / GAS Last administered on 05/09/21at 08:24; Start 04/28/21 at 13:45 Ondansetron HCl (Zofran) 4 mg PRN Q6HRS PRN IVP NAUSEA/VOMITING Last administered on 04/29/21at 10:26; Start 04/28/21 at 14:00 Al Hydroxide/Mg Hydroxide (Mylanta Plus Xs) 30 ml PRN Q3HRS PRN PO HEARTBURN / GAS; Start 04/28/21 at 14:00 Calcium Carbonate/ Glycine (Tums) 500 mg PRN Q3HRS PRN PO UPSET STOMACH; Start 04/28/21 at 14:00 Zolpidem Tartrate (Ambien) 5 mg PRN QHS PRN PO INSOMNIA, MAY REPEAT IN 1HR Last administered on 05/01/21at 21:26; Start 04/28/21 at 14:00 Acetaminophen/ Hydrocodone Bitart (Lortab 5/325) 1 tab PRN Q4HRS PRN PO PAIN Last administered on 04/28/21at 17:37; Start 04/28/21 at 14:00 Acetaminophen (Tylenol) 650 mg PRN Q6HRS PRN PO Headaches, Temp > 101.5F; Start 04/28/21 at 14:00 Magnesium Hydroxide (Milk Of Magnesia) 2,400 mg PRN Q12HR PRN PO CONSTIPATION; Start 04/28/21 at 14:00 Enoxaparin Sodium (Lovenox 40mg Syringe) 40 mg Q24H SQ ; Start 04/28/21 at 14:00; Status UNV Sterile Water (WATER for RESP) 1,000 ml CONT PRN INH VIA VAPOTHERM DEVICE Last administered on 04/30/21at 18:45; Start 04/28/21 at 14:45 Lactobacillus Rhamnosus (Culturelle) 1 cap BID PO Last administered on 05/10/21at 08:05; Start 04/29/21 at 21:00; Stop 05/10/21 at 08:37; Status DC Dexmedetomidine HCl 400 mcg/ Sodium Chloride 100 ml @ 6.965 mls/ hr CONT PRN IV PER PROTOCOL Last administered on 05/02/21at 06:56; Start 05/02/21 at 01:00 Sodium Chloride 500 ml @ 500 mls/hr 1X PRN PRN IV SEE COMMENTS; Start 05/02/21 at 01:00 Atropine Sulfate (ATROPINE 0.5mg SYRINGE) 0.5 mg PRN Q5MIN PRN IV SEE COMMENTS; Start 05/02/21 at 01:00 Propofol 0 ml @ As Directed STK-MED ONCE IV ; Start 05/02/21 at 07:37; Stop 05/02/21 at 07:37; Status DC Succinylcholine Chloride (Anectine) 200 mg STK-MED ONCE .ROUTE ; Start 05/02/21 at 07:37; Stop 05/02/21 at 07:37; Status DC Etomidate (Amidate) 20 mg STK-MED ONCE IV ; Start 05/02/21 at 07:37; Stop 05/02/21 at 07:37; Status DC Fentanyl Citrate 30 ml @ 0 mls/hr CONT PRN IV SEE PROTOCOL Last administered on 05/07/21at 19:51; Start 05/02/21 at 07:45; Stop 05/07/21 at 22:40; Status DC Propofol 100 ml @ 0 mls/hr CONT PRN IV PER PROTOCOL Last administered on 05/13/21at 09:05; Start 05/02/21 at 07:45 Midazolam HCl 100 ml @ 0 mls/hr CONT PRN IV SEE PROTOCOL Last administered on 05/13/21at 06:21; Start 05/02/21 at 07:45 Norepinephrine Bitartrate 8 mg/ Dextrose 258 ml @ 27.09 mls/ hr CONT PRN IV PER PROTOCOL Last administered on 05/02/21at 09:35; Start 05/02/21 at 08:45; Stop 05/11/21 at 05:20; Status DC Norepinephrine Bitartrate 8 mg/ Dextrose 258 ml @ 27.09 mls/ hr CONT PRN IV PER PROTOCOL; Start 05/02/21 at 08:45; Status UNV Etomidate (Amidate) 10 mg 1X ONCE IV Last administered on 05/02/21at 08:49; Start 05/02/21 at 08:45; Stop 05/02/21 at 08:48; Status DC Succinylcholine Chloride (Anectine) 100 mg 1X ONCE IV Last administered on 05/02/21at 08:50; Start 05/02/21 at 08:45; Stop 05/02/21 at 08:48; Status DC Vecuronium Hyder (Norcuron Bolus) 6 mg PRN Q4HRS PRN IV VENTILATOR COMPLIANCE Last administered on 05/02/21at 08:51; Start 05/02/21 at 08:45 Epinephrine HCl (EPINEPHrine SYRINGE) 1 mg 1X ONCE IV Last administered on 05/02/21at 08:50; Start 05/02/21 at 08:45; Stop 05/02/21 at 08:48; Status DC Vecuronium Hyder 50 mg/ Sodium Chloride 50 ml @ 6.72 mls/hr CONT PRN IV SEE I/O RECORD Last administered on 05/13/21at 06:20; Start 05/02/21 at 09:15 Vitamin D (Vitamin D3) 5,000 unit DAILY FT Last administered on 05/13/21at 09:02; Start 05/03/21 at 09:00 Vecuronium Hyder 50 mg/ Sodium Chloride 50 ml @ 6.72 mls/hr CONT PRN IV SEE I/O RECORD; Start 05/02/21 at 09:15; Stop 05/02/21 at 09:17; Status DC Lidocaine HCl (Lidocaine 2% 20ml Vial) 20 ml STK-MED ONCE .ROUTE ; Start 05/02/21 at 10:14; Stop 05/02/21 at 10:14; Status DC Famotidine (Pepcid Vial) 20 mg QHS IVP ; Start 05/02/21 at 21:00; Stop 05/03/21 at 09:07; Status DC Info (Icu Electrolyte Protocol) 1 ea CONT PRN PRN MC PER PROTOCOL; Start 05/03/21 at 07:30 Famotidine (Pepcid Vial) 20 mg BID IVP Last administered on 05/13/21at 09:13; Start 05/03/21 at 10:00 Propofol (Diprivan) 1,000 mg STK-MED ONCE IV ; Start 05/02/21 at 08:00; Stop 05/04/21 at 08:51; Status DC Metoprolol Tartrate (Lopressor Vial) 5 mg PRN Q6HRS PRN IVP HYPERTENSION Last administered on 05/07/21at 05:16; Start 05/06/21 at 12:30; Stop 05/07/21 at 12:57; Status DC Metoprolol Tartrate (Lopressor Vial) 5 mg Q6HRS IVP Last administered on 05/09/21at 23:22; Start 05/07/21 at 13:00; Stop 05/10/21 at 08:18; Status DC Enoxaparin Sodium (Lovenox 40mg Syringe) 40 mg Q24H SQ Last administered on 05/08/21at 08:21; Start 05/08/21 at 09:00; Stop 05/08/21 at 08:34; Status DC Fentanyl Citrate 55 ml @ 0 mls/hr CONT PRN PRN IV PAIN CONTROL Last administered on 05/13/21at 02:01; Start 05/07/21 at 22:45 Enoxaparin Sodium (Lovenox 40mg Syringe) 40 mg Q12HR SQ Last administered on 05/13/21at 09:03; Start 05/08/21 at 21:00 Lidocaine HCl (Buffered Lidocaine 1%) 3 ml STK-MED ONCE .ROUTE ; Start 05/08/21 at 09:19; Stop 05/08/21 at 09:19; Status DC Lidocaine HCl (Buffered Lidocaine 1%) 3 ml 1X ONCE INJ Last administered on 05/08/21at 10:16; Start 05/08/21 at 10:15; Stop 05/08/21 at 10:16; Status DC Hydralazine HCl (Apresoline Inj) 10 mg PRN Q4HRS PRN IVP ELEVATED BP, 1ST CHOICE Last administered on 05/12/21at 16:14; Start 05/09/21 at 04:45 Labetalol HCl (Normodyne Iv Push) 20 mg PRN Q2HR PRN IVP HYPERTENSION, 2ND CHOICE Last administered on 05/09/21at 15:27; Start 05/09/21 at 04:45 Amlodipine Besylate (Norvasc) 10 mg DAILY PO Last administered on 05/10/21at 08:06; Start 05/09/21 at 16:15; Stop 05/10/21 at 09:39; Status DC Amlodipine Besylate (Norvasc) 5 mg DAILY PO Last administered on 05/13/21at 09:02; Start 05/11/21 at 09:00 Metoprolol Tartrate (Lopressor) 12.5 mg BID PO Last administered on 05/13/21at 09:01; Start 05/10/21 at 21:00 Aspirin (Aspirin Chewable) 81 mg [id number] PO Last administered on 05/13/21at 09:28; Start 05/11/21 at 08:00 Ascorbic Acid (Vitamin C) 500 mg DAILY PO Last administered on 05/13/21at 09:13; Start 05/11/21 at 09:00 Active Scripts Active Reported Pepcid (Famotidine) 20 Mg Tablet 20 Mg PO BID Vitals/I & O Vital Sign - Last 24 Hours 05/12/21 05/12/21 05/12/21 05/12/21 11:00 11:56 12:00 12:00 Temp 98.8 98.8 Pulse 96 97 B/P (MAP) 148/69 (95) 149/77 (101) Pulse Ox 92 92 92 O2 Delivery Ventilator Ventilator Mechanical Ventilator Ventilator 05/12/21 05/12/21 05/12/21 05/12/21 13:00 13:50 14:00 15:00 Pulse 102 105 107 B/P (MAP) 152/79 (103) 171/92 (118) 151/74 (99) Pulse Ox 91 80 84 92 O2 Delivery Ventilator Ventilator Ventilator Ventilator 05/12/21 05/12/21 05/12/21 05/12/21 15:50 15:52 16:00 16:14 Temp 98.6 98.6 Pulse 106 105 B/P (MAP) 177/86 (116) 177/86 Pulse Ox 97 95 O2 Delivery Mechanical Ventilator Ventilator Ventilator 05/12/21 05/12/21 05/12/21 05/12/21 17:00 17:39 18:00 19:00 Pulse 108 112 112 B/P (MAP) 160/85 (110) 158/76 (103) 165/85 (111) Pulse Ox 98 96 98 98 O2 Delivery Ventilator Ventilator Ventilator Ventilator 05/12/21 05/12/21 05/12/21 05/12/21 20:00 20:00 20:54 21:00 Temp 99.0 99.0 Pulse 106 102 B/P (MAP) 140/74 (96) 139/76 (97) Pulse Ox 98 98 98 O2 Delivery Mechanical Ventilator Ventilator Ventilator Ventilator 05/12/21 05/12/21 05/12/21 05/13/21 21:11 22:00 23:00 00:00 Pulse 112 102 91 B/P (MAP) 158/76 136/74 (94) 117/64 (81) Pulse Ox 98 99 O2 Delivery Ventilator Ventilator Mechanical Ventilator 05/13/21 05/13/21 05/13/21 05/13/21 00:01 01:00 01:14 02:00 Temp 97.2 97.2 Pulse 92 91 91 Resp B/P (MAP) 119/69 (86) 121/69 (86) 123/68 (86) Pulse Ox 99 99 98 99 O2 Delivery Ventilator Ventilator Ventilator Ventilator 05/13/21 05/13/21 05/13/21 05/13/21 02:01 02:31 03:00 03:33 Pulse 91 Resp B/P (MAP) 127/68 (87) Pulse Ox 98 99 99 98 O2 Delivery Ventilator Ventilator Ventilator O2 Flow Rate 95.0 95.0 05/13/21 05/13/21 05/13/21 05/13/21 04:00 04:00 05:00 06:00 Temp 97.6 97.6 Pulse 91 93 93 Resp B/P (MAP) 127/72 (90) 128/73 (91) 138/74 (95) Pulse Ox 99 97 99 O2 Delivery Ventilator Mechanical Ventilator Ventilator Ventilator 05/13/21 05/13/21 05/13/21 05/13/21 07:00 08:49 09:01 09:02 Pulse 95 95 95 Resp B/P (MAP) 140/74 (96) 140/74 140/74 Pulse Ox 95 97 O2 Delivery Ventilator Ventilator 05/13/21 10:11 Pulse Ox 96 O2 Delivery Ventilator Intake and Output 05/12/21 05/12/21 05/13/21 15:00 23:00 07:00 Intake Total 400 ml 2004 ml 1753.6 ml Output Total 770 ml 660 ml 738 ml Balance -370 ml 1344 ml 1015.6 ml Justicifation of Admission Dx: Justifications for Admission: Justification of Admission Dx: Yes Comminuty Aquired Pneumonia: Hypoxemia ARELY DILLARD MD May 13, 2021 10:17
[2021-05-13] MEDS ORDERED: MINERAL OIL/PETROLATUM,WHITE OPHTH OINT 3.5GM TUBE. OU PRN (18:15)
[2021-05-14] VITALS (24 sets, daily range): BP systolic 139–178; BP diastolic 73–92
[2021-05-14] MEDS: PROPOFOL 100 ML IV PRN ×10 (00:37→22:05)
[2021-05-14] MEDS: fentaNYL HIGH DOSE PCA 55 ML IV PRN ×2 (05:01→16:52)
[2021-05-14] MEDS: MIDAZOLAM 100mg/100ml NS BAG 100 ML IV PRN ×2 (05:02→16:19)
[2021-05-14] MEDS: VECURONIUM BROMIDE 50 MG in IV NORMAL SALINE 50ML 50 ML IV PRN ×3 (07:56→21:38)
[2021-05-14 07:57] LABS: BASE EXCESS ABG 8 mmol/L (-3-3); HCO3 ABG 35 mmol/L (21-28); PO2 ABG 72 mmHg (85-108); SAT O2 ABG 94 % (92-99)
[2021-05-14] MEDS: ASPIRIN CHEWABLE 81 MG TABLET. PO SCH (07:57)
[2021-05-14] MEDS: ASCORBIC ACID 500 MG TABLET PO SCH (07:57)
[2021-05-14] MEDS: CHOLECALCIFEROL (VITAMIN D3) 1,000 UNIT TABLET FT SCH (07:57)
[2021-05-14] MEDS: FAMOTIDINE 20 MG/2 ML VIAL IVP SCH ×2 (07:57→21:01)
[2021-05-14] MEDS: ZINC SULFATE 220 MG CAPSULE. PO SCH (07:57)
[2021-05-14] MEDS: METOPROLOL TART IMMED RELEASE 25 MG TABLET. PO SCH ×2 (07:58→21:01)
[2021-05-14] MEDS: ENOXAPARIN 40 MG/0.4 ML SYRINGE. SQ SCH ×2 (07:58→21:00)
[2021-05-14 07:59] LABS: PCO2 ABG 63 mmHg (35-46)
--- NOTE | 2021-05-14 09:32 | NUR ---
Dr. Sevilla gave the order to place PICC line and then remove the central line some time today or tomorrow. Consent received from via telephone.
--- NOTE | 2021-05-14 10:11 | PDOC ---
PULMONARY PROGRESS NOTES DATE: 05/14/21 TIME: 10:09 Subjective Patient remains on ventilatory support 100% and a PEEP of 8 Remains Sedated with propofol and VEC gtt,versed, and fentanyl Bilateral chest tube, positive air leak on right chest tube Vitals Vital Signs Date Time Temp Pulse Resp B/P (MAP) Pulse Ox O2 Delivery O2 Flow Rate FiO2 05/14/21 09:40 96 Ventilator 05/14/21 09:00 90 26 140/80 (100) 05/14/21 08:00 98.4 98.4 05/14/21 05:31 95.0 Comments On visual inspection, patient intubated, and in a medically induced coma Chest tube bilaterally, RRR no distress no obvious rash or edema Labs Laboratory Tests Test 05/13/21 06:30 05/13/21 09:05 05/14/21 07:54 White Blood Count 6.3 x10^3/uL (4.0-11.0) Red Blood Count 3.05 x10^6/uL (4.30-5.70) Hemoglobin 8.8 g/dL (13.0-17.5) Hematocrit 26.8 % (39.0-53.0) Mean Corpuscular Volume 88 fL (79-100) Mean Corpuscular Hemoglobin 29 pg (25-35) Mean Corpuscular Hemoglobin Concent 33 g/dL (31-37) Red Cell Distribution Width 13.9 % (11.5-14.5) Platelet Count 146 x10^3/uL (140-400) Neutrophils (%) (Auto) 80 % (31-73) Lymphocytes (%) (Auto) 9 % (24-48) Monocytes (%) (Auto) 10 % (0-9) Eosinophils (%) (Auto) 1 % (0-3) Basophils (%) (Auto) 0 % (0-3) Neutrophils # (Auto) 5.0 x10^3/uL (1.8-7.7) Lymphocytes # (Auto) 0.5 x10^3/uL (1.0-4.8) Monocytes # (Auto) 0.6 x10^3/uL (0.0-1.1) Eosinophils # (Auto) 0.1 x10^3/uL (0.0-0.7) Basophils # (Auto) 0.0 x10^3/uL (0.0-0.2) Sodium Level 134 mmol/L (136-145) Potassium Level 3.6 mmol/L (3.5-5.1) Chloride Level 96 mmol/L (98-107) Carbon Dioxide Level 40 mmol/L (21-32) Anion Gap (6-14) Blood Urea Nitrogen 12 mg/dL (8-26) Creatinine 0.4 mg/dL (0.7-1.3) Estimated GFR (Cockcroft-Gault) 243.4 BUN/Creatinine Ratio 30 (6-20) Glucose Level 99 mg/dL (70-99) Calcium Level 8.8 mg/dL (8.5-10.1) Total Bilirubin 1.2 mg/dL (0.2-1.0) Aspartate Amino Transf (AST/SGOT) 31 U/L (15-37) Alanine Aminotransferase (ALT/SGPT) 105 U/L (16-63) Alkaline Phosphatase 86 U/L (46-116) Total Protein 5.9 g/dL (6.4-8.2) Albumin 1.7 g/dL (3.4-5.0) Albumin/Globulin Ratio 0.4 (1.0-1.7) O2 Saturation 95 % (92-99) 94 % (92-99) Arterial Blood pH 7.40 (7.35-7.45) 7.36 (7.35-7.45) Arterial Blood pCO2 at Patient Temp 58 mmHg (35-46) 63 mmHg (35-46) Arterial Blood pO2 at Patient Temp 81 mmHg (85-108) 72 mmHg (85-108) Arterial Blood HCO3 35 mmol/L (21-28) 35 mmol/L (21-28) Arterial Blood Base Excess 9 mmol/L (-3-3) 8 mmol/L (-3-3) FiO2 100 100% vent Laboratory Tests Test 05/14/21 07:54 O2 Saturation 94 % (92-99) Arterial Blood pH 7.36 (7.35-7.45) Arterial Blood pCO2 at Patient Temp 63 mmHg (35-46) Arterial Blood pO2 at Patient Temp 72 mmHg (85-108) Arterial Blood HCO3 35 mmol/L (21-28) Arterial Blood Base Excess 8 mmol/L (-3-3) FiO2 100% vent Medications Active Scripts Medications Dose Route/Sig Max Daily Dose Days Date Category Pepcid (Famotidine) 20 Mg Tablet 20 Mg PO BID 04/28/21 Reported Comments Chest x-ray 05/12/2021 reviewed. Significant reexpansion of the lung compared to last night. There is a tiny residual pneumothorax. Unchanged bilateral interstitial infiltrates. Chest x-ray reviewed dated 05/26 Diffuse bilateral infiltrates unchanged. Tiny right pneumothorax unchanged. Impression . 1. Acute hypoxic respiratory failure secondary to COVID-19 viral pneumonia/ARDS--intubated 2. Abnormal CT chest done at [facility] with diffuse bilateral alveolar and interstitial infiltrates related to COVID-19 pneumonia. No evidence of pulmonary embolism. 3. Underlying obesity. 4. Remote history of obstructive sleep apnea. 5. Abnormal liver function tests, likely due to Covid infection. Bilirubin normal. 6. Normal D-dimer initially, then marked increase , repeat test in am 7. Status post intubation 05/02, status post bilateral pneumothoraces requiring chest tubes 05/02. Pneumothorax worsen on the right 05/12. Chest tube was flushed and now significant resolution of pneumothorax on the right side. 8. HTN Chest x-ray reviewed, small right apical pneumothorax Plan . Updated 05/14/21 Patient remains 100% FiO2. Assist-control mode. Down to 7 of PEEP. Continue current vent support Follow ABG/CXR-----changes as needed Continue chest tubes to suction. S/P full course of remdesivir and steroids Follow cardiology recommendations Continue TF for nutritional support DVT/GI PPX :lovenox repeat D-Dimer in am, If still high, do dopplers lower extremity D/W RN and RT Critical care time 30 minutes including review of the labs imaging studies and decision making. Will repeat chest x-ray in the morning. Updated 05/13/21 Patient experienced hypoxia overnight requiring 100% and a PEEP of 10, Continue current vent support 26/500/8/100% Follow ABG/CXR-----changes as needed Continue chest tubes to suction. S/P full course of remdesivir and steroids Follow cardiology recommendations Continue TF for nutritional support DVT/GI PPX :lovenox D/W RN and RT Critical care time 30 minutes including review of the labs imaging studies and decision making. Updated 05/12/21 Patient experienced hypoxia overnight requiring 100% and a PEEP of 10, now back at baseline vent settings status post flush of right-sided chest tube Continue current vent support 26/500/6/85% Follow ABG/CXR--CXR right-sided PTX status post flash of right-sided chest tube Continue chest tubes to suction. Suction set at -30 on the right and -20 on the left minimal air leak on the right chest tube. No air leak on the left chest tube. S/P full course of remdesivir and steroids Follow cardiology recommendations--hypertension Continue TF for nutritional support DVT/GI PPX :lovejose D/W RN and RT I have talked to patient's and discussed current critical condition and advanced directives. Full code. Critical care time 30 minutes including review of the labs imaging studies and decision making. Updated 05/11/21 Continue current vent support 26/500/6/85% Follow ABG/CXR--CXR in am Continue chest tubes to suction. Minimal air leak on the right chest tube. No air leak on the left chest tube. S/P full course of remdesivir and steroids Follow cardiology recommendations--hypertension Continue TF for nutritional support DVT/GI PPX :lovenomax D/W RN and RT Critical care time 30 minutes including review of the labs imaging studies and decision making. MURRAY ESPOSITO MD May 14, 2021 10:10
--- NOTE | 2021-05-14 10:33 | PDOC ---
PROGRESS NOTES Date of Service: DATE: 05/14/21 TIME: 10:32 Chief Complaint Chief Complaint Acute respiratory failure with hypoxia COVID-19 pneumonia GERD Obesity Plan: Continue with with remdesivir day 3 out of 4, steroids, and prophylactic antibiotics Appreciate pulmonology management for Vapotherm therapy Monitor daily LFTs Hemoglobin A1c pending We will initiate insulin treatment when blood glucose become significantly elevated Daily PPI and famotidine as needed FEN - ADA diet PPX - Lovenox FULL CODE Dispo - inpatient for above History of Present Illness History of Present Illness 05/14/2021 ID CONSULT central line needs to be replaced to the PICC line. experienced hypoxia requiring 100% and a PEEP of 7 , positive air leak on right chest tube Down to 7 of PEEP. Significant interval decrease in a now tiny right pneumothorax. No left-sided pneumothorax is seen. There are bilateral pleural drainage catheters. 05-12 PAFIB: new likely induced by above. multiple bursts. Maintaining SR/ST Status post intubation 05/02, status post bilateral pneumothoraces requiring chest tubes 05/02 Decrease in a tiny residual right pneumothorax status post pleural drainage catheter placement. There is an unchanged left pleural drainage catheter. 05-09 cxr bilateral pleural drainage catheters unchanged in position.05-10 Daily PPI and famotidine as needed PPX - Lovenox FULL CODE Dispo - inpatient for above Morbid obesity. No significant tobacco history and // remote history of SONYA. Patient seen and examined in the COVID-19 ICU Interval decrease in a now tiny right pneumothorax status post pleural drainage catheter placement. There is a stable left pleural drainage catheter without c onvincing left-sided pneumothorax. /large right pneumothorax with assocaited mild leftward mediastinal deviation. earlier 05-08 Stable diffuse mixed interstitial and alveolar infiltrate with suspected small pleural effusions. Stable endotracheal tube, nasogastric tube and right internal jugular central venous catheter. 05-08 cxr He remains on the vent ventilatory support 85% and a PEEP of 6. Discussed with RN Chart reviewed Duarte to bedside drainage He is sedated with propofol fentanyl and Versed Remains very critically ill labile htn, will consult cardiology, htn much better today 33 min cc time experienced hypoxia overnight requiring 100% and a PEEP of 10, 05/13/2021 ID CONSULT experienced hypoxia overnight requiring 100% and a PEEP of 10, Significant interval decrease in a now tiny right pneumothorax. No left-sided pneumothorax is seen. There are bilateral pleural drainage catheters. 05-12 PAFIB: new likely induced by above. multiple bursts. Maintaining SR/ST Status post intubation 05/02, status post bilateral pneumothoraces requiring chest tubes 05/02 Decrease in a tiny residual right pneumothorax status post pleural drainage catheter placement. There is an unchanged left pleural drainage catheter. 05-09 cxr bilateral pleural drainage catheters unchanged in position.05-10 Daily PPI and famotidine as needed PPX - Lovenox FULL CODE Dispo - inpatient for above Morbid obesity. No significant tobacco history and // remote history of SONYA. Patient seen and examined in the [facility]- ICU Interval decrease in a now tiny right pneumothorax status post pleural drainage catheter placement. There is a stable left pleural drainage catheter without convincing left-sided pneumothorax. /large right pneumothorax with assocaited mild leftward mediastinal deviation. earlier 05-08 Stable diffuse mixed interstitial and alveolar infiltrate with suspected small pleural effusions. Stable endotracheal tube, nasogastric tube and right internal jugular central venous catheter. 05-08 cxr He remains on the vent ventilatory support 85% and a PEEP of 6. Discussed with RN Chart reviewed Duarte to bedside drainage He is sedated with propofol fentanyl and Versed Remains very critically ill labile htn, will consult cardiology, htn much better today 34 min cc time experienced hypoxia overnight requiring 100% and a PEEP of 10, 05/12/2021 Significant interval decrease in a now tiny right pneumothorax. No left-sided pneumothorax is seen. There are bilateral pleural drainage catheters. 05-12 PAFIB: new likely induced by above. multiple bursts. Maintaining SR/ST Status post intubation 05/02, status post bilateral pneumothoraces requiring chest tubes 05/02 Decrease in a tiny residual right pneumothorax status post pleural drainage catheter placement. There is an unchanged left pleural drainage catheter. 05-09 cxr bilateral pleural drainage catheters unchanged in position.05-10 Daily PPI and famotidine as needed PPX - Lovenox FULL CODE Dispo - inpatient for above Morbid obesity. No significant tobacco history and // remote history of SONYA. Patient seen and examined in the COVID-19 ICU Interval decrease in a now tiny right pneumothorax status post pleural drainage catheter placement. There is a stable left pleural drainage catheter without convincing left-sided pneumothorax. /large right pneumothorax with assocaited mild leftward mediastinal deviation. earlier 05-08 Stable diffuse mixed interstitial and alveolar infiltrate with suspected small pleural effusions. Stable endotracheal tube, nasogastric tube and right internal jugular central venous catheter. 05-08 cxr He remains on the vent ventilatory support 85% and a PEEP of 6. Discussed with RN Chart reviewed Duarte to bedside drainage He is sedated with propofol fentanyl and Versed Remains very critically ill labile htn, will consult cardiology, htn much better today 34 min cc time 05/11/2021 PAFIB: new likely induced by above. multiple bursts. Maintaining SR/ST Status post intubation 05/02, status post bilateral pneumothoraces requiring chest tubes 05/02 Decrease in a tiny residual right pneumothorax status post pleural drainage catheter placement. There is an unchanged left pleural drainage catheter. 05-09 cxr bilateral pleural drainage catheters unchanged in position.05-10 Daily PPI and famotidine as needed PPX - Lovenox FULL CODE Dispo - inpatient for above Morbid obesity. No significant tobacco history and // remote history of SONYA. Patient seen and examined in the COVID-19 ICU Interval decrease in a now tiny right pneumothorax status post pleural drainage catheter placement. There is a stable left pleural drainage catheter without convincing left-sided pneumothorax. /large right pneumothorax with assocaited mild leftward mediastinal deviation. earlier 05-08 Stable diffuse mixed interstitial and alveolar infiltrate with suspected small pleural effusions. Stable endotracheal tube, nasogastric tube and right internal jugular central venous catheter. 05-08 cxr He remains on the vent vent support 90% and a PEEP of 6 Discussed with RN Chart reviewed Duarte to bedside drainage He is sedated with propofol fentanyl and Versed Remains very critically ill labile htn, will consult cardiology, htn much better today 35 min cc time PAFIB: new likely induced by above. multiple bursts. Maintaining SR/ST 05/10/2021 Status post intubation 05/02, status post bilateral pneumothoraces requiring chest tubes 05/02 Decrease in a tiny residual right pneumothorax status post pleural drainage catheter placement. There is an unchanged left pleural drainage catheter. 05-09 cxr bilateral pleural drainage catheters unchanged in position.- Daily PPI and famotidine as needed FEN - ADA diet PPX - Lovenox FULL CODE Dispo - inpatient for above Morbid obesity. No significant tobacco history and // remote history of SONYA. Patient seen and examined in the COVID-19 ICU Interval decrease in a now tiny right pneumothorax status post pleural drainage catheter placement. There is a stable left pleural drainage catheter without convincing left-sided pneumothorax. /large right pneumothorax with assocaited mild leftward mediastinal deviation. earlier 05-08 Stable diffuse mixed interstitial and alveolar infiltrate with suspected small pleural effusions. Stable endotracheal tube, nasogastric tube and right internal jugular central venous catheter. 05-08 cxr He remains on the vent vent support 90% and a PEEP of 6 Discussed with RN Chart reviewed Duarte to bedside drainage He is sedated with propofol fentanyl and Versed Remains very critically ill labile htn, will consult cardiology, htn much better today 32 min cc time 05/09/2021 Status post intubation 05/02, status post bilateral pneumothoraces requiring chest tubes 05/02 Decrease in a tiny residual right pneumothorax status post pleural drainage catheter placement. There is an unchanged left pleural drainage catheter. 05-09 cxr Daily PPI and famotidine as needed FEN - ADA diet PPX - Lovenox FULL CODE Dispo - inpatient for above Morbid obesity. No significant tobacco history and // remote history of SONYA. Patient seen and examined in the COVID-19 ICU Interval decrease in a now tiny right pneumothorax status post pleural drainage catheter placement. There is a stable left pleural drainage catheter without convincing left-sided pneumothorax. /large right pneumothorax with assocaited mild leftward mediastinal deviation. earlier 05-08 Stable diffuse mixed interstitial and alveolar infiltrate with suspected small pleural effusions. Stable endotracheal tube, nasogastric tube and right internal jugular central venous catheter. 05-08 cxr He remains on the vent AC/500/26/80 percent with 6 of PEEP Discussed with RN Chart reviewed Duarte to bedside drainage He is sedated with propofol fentanyl and Versed Remains very critically ill labile htn, will consult cardiology 35 min cc time 05/08/2021 Daily PPI and famotidine as needed FEN - ADA diet PPX - Lovenox FULL CODE Dispo - inpatient for above Morbid obesity. No significant tobacco history and // remote history of SONYA. Patient seen and examined in the COVID-19 ICU Interval decrease in a now tiny right pneumothorax status post pleural drainage catheter placement. There is a stable left pleural drainage catheter without convincing left-sided pneumothorax. /large right pneumothorax with assocaited mild leftward mediastinal deviation. earlier 05-08 Stable diffuse mixed interstitial and alveolar infiltrate with suspected small pleural effusions. Stable endotracheal tube, nasogastric tube and right internal jugular central venous catheter. 05-08 cxr He remains on the vent AC/500/26/80 percent with 6 of PEEP Discussed with RN Chart reviewed Duarte to bedside drainage He is sedated with propofol fentanyl and Versed Remains very critically ill 33 min cc time 05/07/2021 Patient seen and examined in the [place] [address] ICU He remains on the vent AC/500/26/80 percent with 6 of PEEP (this is improved from yesterday he was on 100% FiO2 with 8 of PEEP) Discussed with RN Chart reviewed Patient has Duarte to bedside drainage He is sedated with propofol fentanyl and Versed Remains very critically ill 05/06/2021 Patient seen and examined in the [place] [address] ICU He remains intubated AC//500/1 her percent with 8 of PEEP The nurse was able to get him down to 80% for an hour or so earlier this morning but he desatted again when she moved him Chart reviewed Reviewed case with RN patient is having some tachycardia and Fluctuating blood pressure Has OG feeds running at 50 cc an hour plus he is getting free water Has Duarte to bedside drainage Has [address] He remains critically ill 05/05/2021 Patient seen and examined in the [place] [address] ICU He is still intubated AC/26/500/1 100% with 8 of PEEP Has OG feeds running at 25 cc an hour Sedated with fentanyl and Versed Getting IV vecuronium Chart reviewed Discussed with RN He remains critically 05/04/2021 Patient seen and examined in the [place] [address] ICU He remains mechanically ventilated Assist-control//500/1 100% with 10 of PEEP He is extremely critically ill He is sedated with Versed and fentanyl He is also paralyzed with vecuronium Reviewed chart Discussed with RN 05/03/2021 Patient seen and examined in the [place] [address] ICU He remains mechanically ventilated AC//600/1 100% with 10 of PEEP Has 2 pigtail drains in his left and right chest due to some small pneumothoraces after being intubated Had to be sedated with vecuronium Also on Versed and fentanyl also has inverse I to E ratio 2:1 Chart reviewed Discussed with RN He remains extremely critically ill I am concerned he may not survive this? 05/02/2021 Patient seen and examined in the [place] [address] ICU He is on BiPAP with 100% FiO2 and very tachypneic Discussed with RN we are going to go ahead and intubate here in a few minutes Chart reviewed Patient currently semisedated with Versed Precedex and fentanyl He is very critically Patient 35-year-old male with past medical history of GERD, obesity, who pres ents to the ED as a transfer from [facility] for COVID-19 pneumonia with worsening respiratory distress. States his symptoms started roughly 1 week ago with fatigue and body aches, which progressed to include fever and shortness of breath. Symptoms were worse with exertion with no significant alleviating factors. He was tested for COVID-19 at [facility] and was discharged home because he was not hypoxic on room air. When he returned to [facility] with worsening symptoms a CT chest demonstrated bibasilar infiltrates consistent with atypical pneumonia. He was then admitted and placed on 3 L nasal cannula for further treatment. He has not been vaccinated against COVID- 19. However due to worsening respiratory distress he was transferred to [facility] for higher level of care. 04/29/2021: Still breathing 40 L Vapotherm. Afebrile, but complaining of chest heaviness, nausea, and subjective shortness of breath. Denies any vomiting, or diarrhea. Informed patient of likely prolonged hospitalization course. Hemoglobin A1c 5.6. Continue remdesivir day 2/5, continue steroids, antibiotics, and supportive care. Continue to follow daily LFTs. Plan to transfer patient to ICU bed when available. Critical care time 33 minutes spent reviewing charts, reviewing labs, and discussing case with Dr. Gaviria. 04/30/21: Afebrile, still breathing on Vapotherm. Continue remdesivir and monitor LFTs. Continue antibiotics, steroids, and supportive care. Will transfer him to the ICU once bed available. Critical care time 30 minutes spent in chart, reviewing labs, reviewing imaging, and discussion with RN. 05/01/2021 No acute events overnight. Patient seen and examined bedside. Saturating 93% on 40 L Vapotherm. Patient will transfer to the ICU for continued supportive care. Vitals Vitals Vital Signs Date Time Temp Pulse Resp B/P (MAP) Pulse Ox O2 Delivery O2 Flow Rate FiO2 05/14/21 10:00 93 26 147/80 (102) 95 Ventilator 05/14/21 08:00 98.4 98.4 05/14/21 05:31 95.0 Physical Exam Physical Exam visual inspection, intubated, and in a medically induced coma Chest tube bilaterally, small amount of subcutaneous emphysema, General: Other (sedated) Heart: Regular rate (SR) Abdomen: Soft Extremities: No cyanosis Skin: No rashes, No breakdown Labs LABS Laboratory Tests Test 05/14/21 07:54 O2 Saturation 94 % (92-99) Arterial Blood pH 7.36 (7.35-7.45) Arterial Blood pCO2 at Patient Temp 63 mmHg (35-46) Arterial Blood pO2 at Patient Temp 72 mmHg (85-108) Arterial Blood HCO3 35 mmol/L (21-28) Arterial Blood Base Excess 8 mmol/L (-3-3) FiO2 100% vent Comment Review of Relevant I have reviewed the following items anselmo (where applicable) has been applied. Labs Laboratory Tests Test 05/13/21 06:30 05/13/21 09:05 05/14/21 07:54 White Blood Count 6.3 x10^3/uL (4.0-11.0) Red Blood Count 3.05 x10^6/uL (4.30-5.70) Hemoglobin 8.8 g/dL (13.0-17.5) Hematocrit 26.8 % (39.0-53.0) Mean Corpuscular Volume 88 fL (79-100) Mean Corpuscular Hemoglobin 29 pg (25-35) Mean Corpuscular Hemoglobin Concent 33 g/dL (31-37) Red Cell Distribution Width 13.9 % (11.5-14.5) Platelet Count 146 x10^3/uL (140-400) Neutrophils (%) (Auto) 80 % (31-73) Lymphocytes (%) (Auto) 9 % (24-48) Monocytes (%) (Auto) 10 % (0-9) Eosinophils (%) (Auto) 1 % (0-3) Basophils (%) (Auto) 0 % (0-3) Neutrophils # (Auto) 5.0 x10^3/uL (1.8-7.7) Lymphocytes # (Auto) 0.5 x10^3/uL (1.0-4.8) Monocytes # (Auto) 0.6 x10^3/uL (0.0-1.1) Eosinophils # (Auto) 0.1 x10^3/uL (0.0-0.7) Basophils # (Auto) 0.0 x10^3/uL (0.0-0.2) Sodium Level 134 mmol/L (136-145) Potassium Level 3.6 mmol/L (3.5-5.1) Chloride Level 96 mmol/L (98-107) Carbon Dioxide Level 40 mmol/L (21-32) Anion Gap (6-14) Blood Urea Nitrogen 12 mg/dL (8-26) Creatinine 0.4 mg/dL (0.7-1.3) Estimated GFR (Cockcroft-Gault) 243.4 BUN/Creatinine Ratio 30 (6-20) Glucose Level 99 mg/dL (70-99) Calcium Level 8.8 mg/dL (8.5-10.1) Total Bilirubin 1.2 mg/dL (0.2-1.0) Aspartate Amino Transf (AST/SGOT) 31 U/L (15-37) Alanine Aminotransferase (ALT/SGPT) 105 U/L (16-63) Alkaline Phosphatase 86 U/L (46-116) Total Protein 5.9 g/dL (6.4-8.2) Albumin 1.7 g/dL (3.4-5.0) Albumin/Globulin Ratio 0.4 (1.0-1.7) O2 Saturation 95 % (92-99) 94 % (92-99) Arterial Blood pH 7.40 (7.35-7.45) 7.36 (7.35-7.45) Arterial Blood pCO2 at Patient Temp 58 mmHg (35-46) 63 mmHg (35-46) Arterial Blood pO2 at Patient Temp 81 mmHg (85-108) 72 mmHg (85-108) Arterial Blood HCO3 35 mmol/L (21-28) 35 mmol/L (21-28) Arterial Blood Base Excess 9 mmol/L (-3-3) 8 mmol/L (-3-3) FiO2 100 100% vent Laboratory Tests Test 05/14/21 07:54 O2 Saturation 94 % (92-99) Arterial Blood pH 7.36 (7.35-7.45) Arterial Blood pCO2 at Patient Temp 63 mmHg (35-46) Arterial Blood pO2 at Patient Temp 72 mmHg (85-108) Arterial Blood HCO3 35 mmol/L (21-28) Arterial Blood Base Excess 8 mmol/L (-3-3) FiO2 100% vent Medications Current Medications Azithromycin 500 mg/Sodium Chloride 250 ml @ 250 mls/hr 1X ONCE IV Last administered on 04/28/21at 15:44; Start 04/28/21 at 13:00; Stop 04/28/21 at 14:00; Status DC Azithromycin 250 mg/Sodium Chloride 250 ml @ 250 mls/hr Q24H IV Last administered on 05/02/21at 12:51; Start 04/29/21 at 13:00; Stop 05/02/21 at 13:59; Status DC Dexamethasone Sodium Phosphate (Decadron) 6 mg DAILY IVP Last administered on 05/09/21at 08:25; Start 04/29/21 at 09:00; Stop 05/09/21 at 11:08; Status DC Ceftriaxone Sodium (Rocephin) 2 gm Q24H IVP Last administered on 05/07/21at 12:55; Start 04/28/21 at 14:00; Stop 05/08/21 at 08:36; Status DC Enoxaparin Sodium (Lovenox 40mg Syringe) 40 mg Q12HR SQ Last administered on 05/07/21at 08:57; Start 04/28/21 at 21:00; Stop 05/07/21 at 15:40; Status DC Famotidine (Pepcid) 20 mg BID@0500,1700 PO Last administered on 05/01/21at 16:36; Start 04/28/21 at 17:00; Stop 05/02/21 at 16:52; Status DC Remdesivir 200 mg/ Sodium Chloride 210 ml @ 210 mls/hr 1X ONCE IV Last administered on 04/28/21at 14:00; Start 04/28/21 at 14:00; Stop 04/28/21 at 14:59; Status DC Remdesivir 100 mg/ Sodium Chloride 230 ml @ 460 mls/hr Q24H IV Last administered on 05/02/21at 13:43; Start 04/29/21 at 14:00; Stop 05/02/21 at 14:29; Status DC Zinc Sulfate (Orazinc) 220 mg DAILY PO Last administered on 05/14/21at 07:57; Start 04/29/21 at 09:00 Ascorbic Acid (Vitamin C) 500 mg Q6HRS PO Last administered on 05/10/21at 05:50; Start 04/28/21 at 18:00; Stop 05/10/21 at 11:31; Status DC Pantoprazole Sodium (Protonix) 40 mg 1X ONCE PO Last administered on 04/28/21at 15:45; Start 04/28/21 at 13:45; Stop 04/28/21 at 13:46; Status DC Pantoprazole Sodium (Protonix) 40 mg DAILYAC PO Last administered on 05/01/21at 09:44; Start 04/29/21 at 07:30; Stop 05/02/21 at 16:52; Status DC Famotidine (Pepcid) 20 mg PRN BID PRN PO HEARTBURN / GAS Last administered on 05/13/21at 21:35; Start 04/28/21 at 13:45 Ondansetron HCl (Zofran) 4 mg PRN Q6HRS PRN IVP NAUSEA/VOMITING Last administered on 04/29/21at 10:26; Start 04/28/21 at 14:00 Al Hydroxide/Mg Hydroxide (Mylanta Plus Xs) 30 ml PRN Q3HRS PRN PO HEARTBURN / GAS; Start 04/28/21 at 14:00 Calcium Carbonate/ Glycine (Tums) 500 mg PRN Q3HRS PRN PO UPSET STOMACH; Start 04/28/21 at 14:00 Zolpidem Tartrate (Ambien) 5 mg PRN QHS PRN PO INSOMNIA, MAY REPEAT IN 1HR Last administered on 05/01/21at 21:26; Start 04/28/21 at 14:00 Acetaminophen/ Hydrocodone Bitart (Lortab 5/325) 1 tab PRN Q4HRS PRN PO PAIN Last administered on 04/28/21at 17:37; Start 04/28/21 at 14:00 Acetaminophen (Tylenol) 650 mg PRN Q6HRS PRN PO Headaches, Temp > 101.5F; Start 04/28/21 at 14:00 Magnesium Hydroxide (Milk Of Magnesia) 2,400 mg PRN Q12HR PRN PO CONSTIPATION; Start 04/28/21 at 14:00 Enoxaparin Sodium (Lovenox 40mg Syringe) 40 mg Q24H SQ ; Start 04/28/21 at 14:00; Status UNV Sterile Water (WATER for RESP) 1,000 ml CONT PRN INH VIA VAPOTHERM DEVICE Last administered on 04/30/21at 18:45; Start 04/28/21 at 14:45 Lactobacillus Rhamnosus (Culturelle) 1 cap BID PO Last administered on 05/10/21at 08:05; Start 04/29/21 at 21:00; Stop 05/10/21 at 08:37; Status DC Dexmedetomidine HCl 400 mcg/ Sodium Chloride 100 ml @ 6.965 mls/ hr CONT PRN IV PER PROTOCOL Last administered on 05/02/21at 06:56; Start 05/02/21 at 01:00 Sodium Chloride 500 ml @ 500 mls/hr 1X PRN PRN IV SEE COMMENTS; Start 05/02/21 at 01:00 Atropine Sulfate (ATROPINE 0.5mg SYRINGE) 0.5 mg PRN Q5MIN PRN IV SEE COMMENTS; Start 05/02/21 at 01:00 Propofol 0 ml @ As Directed STK-MED ONCE IV ; Start 05/02/21 at 07:37; Stop 05/02/21 at 07:37; Status DC Succinylcholine Chloride (Anectine) 200 mg STK-MED ONCE .ROUTE ; Start 05/02/21 at 07:37; Stop 05/02/21 at 07:37; Status DC Etomidate (Amidate) 20 mg STK-MED ONCE IV ; Start 05/02/21 at 07:37; Stop 05/02/21 at 07:37; Status DC Fentanyl Citrate 30 ml @ 0 mls/hr CONT PRN IV SEE PROTOCOL Last administered on 05/07/21at 19:51; Start 05/02/21 at 07:45; Stop 05/07/21 at 22:40; Status DC Propofol 100 ml @ 0 mls/hr CONT PRN IV PER PROTOCOL Last administered on 05/14/21at 09:49; Start 05/02/21 at 07:45 Midazolam HCl 100 ml @ 0 mls/hr CONT PRN IV SEE PROTOCOL Last administered on 05/14/21at 05:02; Start 05/02/21 at 07:45 Norepinephrine Bitartrate 8 mg/ Dextrose 258 ml @ 27.09 mls/ hr CONT PRN IV PER PROTOCOL Last administered on 05/02/21at 09:35; Start 05/02/21 at 08:45; Stop 05/11/21 at 05:20; Status DC Norepinephrine Bitartrate 8 mg/ Dextrose 258 ml @ 27.09 mls/ hr CONT PRN IV PER PROTOCOL; Start 05/02/21 at 08:45; Status UNV Etomidate (Amidate) 10 mg 1X ONCE IV Last administered on 05/02/21at 08:49; Start 05/02/21 at 08:45; Stop 05/02/21 at 08:48; Status DC Succinylcholine Chloride (Anectine) 100 mg 1X ONCE IV Last administered on at 08:50; Start 05/02/21 at 08:45; Stop 05/02/21 at 08:48; Status DC Vecuronium Meadow (Norcuron Bolus) 6 mg PRN Q4HRS PRN IV VENTILATOR COMPLIANCE Last administered on 05/02/21at 08:51; Start 05/02/21 at 08:45 Epinephrine HCl (EPINEPHrine SYRINGE) 1 mg 1X ONCE IV Last administered on 05/02/21at 08:50; Start 05/02/21 at 08:45; Stop 05/02/21 at 08:48; Status DC Vecuronium Meadow 50 mg/ Sodium Chloride 50 ml @ 6.72 mls/hr CONT PRN IV SEE I/O RECORD Last administered on 05/14/21at 07:56; Start 05/02/21 at 09:15 Vitamin D (Vitamin D3) 5,000 unit DAILY FT Last administered on 05/14/21 07:57; Start 05/03/21 at 09:00 Vecuronium Meadow 50 mg/ Sodium Chloride 50 ml @ 6.72 mls/hr CONT PRN IV SEE I/O RECORD; Start 05/02/21 at 09:15; Stop 05/02/21 at 09:17; Status DC Lidocaine HCl (Lidocaine 2% 20ml Vial) 20 ml STK-MED ONCE .ROUTE ; Start 05/02/21 at 10:14; Stop 05/02/21 at 10:14; Status DC Famotidine (Pepcid Vial) 20 mg QHS IVP ; Start 05/02/21 at 21:00; Stop 05/03/21 at 09:07; Status DC Info (Icu Electrolyte Protocol) 1 ea CONT PRN PRN MC PER PROTOCOL; Start 05/03/21 at 07:30 Famotidine (Pepcid Vial) 20 mg BID IVP Last administered on 05/14/21at 07:57; Start 05/03/21 at 10:00 Propofol (Diprivan) 1,000 mg STK-MED ONCE IV ; Start 05/02/21 at 08:00; Stop 05/04/21 at 08:51; Status DC Metoprolol Tartrate (Lopressor Vial) 5 mg PRN Q6HRS PRN IVP HYPERTENSION Last administered on 05/07/21at 05:16; Start 05/06/21 at 12:30; Stop 05/07/21 at 12:57; Status DC Metoprolol Tartrate (Lopressor Vial) 5 mg Q6HRS IVP Last administered on 05/09/21at 23:22; Start 05/07/21 at 13:00; Stop 05/10/21 at 08:18; Status DC Enoxaparin Sodium (Lovenox 40mg Syringe) 40 mg Q24H SQ Last administered on 05/08/21at 08:21; Start 05/08/21 at 09:00; Stop 05/08/21 at 08:34; Status DC Fentanyl Citrate 55 ml @ 0 mls/hr CONT PRN PRN IV PAIN CONTROL Last administered on 05/14/21at 05:01; Start 05/07/21 at 22:45 Enoxaparin Sodium (Lovenox 40mg Syringe) 40 mg Q12HR SQ Last administered on 05/14/21at 07:58; Start 05/08/21 at 21:00 Lidocaine HCl (Buffered Lidocaine 1%) 3 ml STK-MED ONCE .ROUTE ; Start 05/08/21 at 09:19; Stop 05/08/21 at 09:19; Status DC Lidocaine HCl (Buffered Lidocaine 1%) 3 ml 1X ONCE INJ Last administered on 05/08/21at 10:16; Start 05/08/21 at 10:15; Stop 05/08/21 at 10:16; Status DC Hydralazine HCl (Apresoline Inj) 10 mg PRN Q4HRS PRN IVP ELEVATED BP, 1ST CHOICE Last administered on 05/12/21at 16:14; Start 05/09/21 at 04:45 Labetalol HCl (Normodyne Iv Push) 20 mg PRN Q2HR PRN IVP HYPERTENSION, 2ND CHOICE Last administered on 05/09/21at 15:27; Start 05/09/21 at 04:45 Amlodipine Besylate (Norvasc) 10 mg DAILY PO Last administered on 05/10/21 08:06; Start 05/09/21 at 16:15; Stop 05/10/21 at 09:39; Status DC Amlodipine Besylate (Norvasc) 5 mg DAILY PO Last administered on 05/14/21 07:57; Start 05/11/21 at 09:00 Metoprolol Tartrate (Lopressor) 12.5 mg BID PO Last administered on 05/14/21 07:58; Start 05/10/21 at 21:00; Stop 05/14/21 at 09:00; Status DC Aspirin (Aspirin Chewable) 81 mg DAILYWBKFT PO Last administered on 05/14/21 07:57; Start 05/11/21 at 08:00 Ascorbic Acid (Vitamin C) 500 mg DAILY PO Last administered on 05/14/21 07:57; Start 05/11/21 at 09:00 Multi-Ingred Cream/Lotion/Oil/ Oint (Artificial Tears Eye Ointment) 1 elsi PRN Q1HR PRN OU DRY EYE Last administered on 05/13/21at 18:30; Start 05/13/21 at 18:15 Metoprolol Tartrate (Lopressor) 25 mg BID PO ; Start 05/14/21 at 21:00 Active Scripts Active Reported Pepcid (Famotidine) 20 Mg Tablet 20 Mg PO BID Vitals/I & O Vital Sign - Last 24 Hours 05/13/21 05/13/21 05/13/21 05/13/21 11:00 12:00 12:00 12:57 Temp 97.7 97.7 Pulse 95 96 Resp 26 B/P (MAP) 133/75 (94) 145/78 (100) Pulse Ox 93 94 93 O2 Delivery Ventilator Ventilator Mechanical Ventilator Ventilator 05/13/21 05/13/21 05/13/21 05/13/21 13:00 14:00 15:00 15:30 Pulse 97 100 101 Resp 26 26 26 B/P (MAP) 152/74 (100) 148/79 (102) 148/78 (101) Pulse Ox 93 91 93 93 O2 Delivery Ventilator Ventilator Ventilator Ventilator 05/13/21 05/13/21 05/13/21 05/13/21 16:00 16:00 16:00 16:19 Pulse 104 Resp B/P (MAP) 173/85 (114) Pulse Ox 93 96 94 O2 Delivery Ventilator Ventilator Mechanical Ventilator Ventilator 05/13/21 05/13/21 05/13/21 05/13/21 17:00 18:00 18:02 19:00 Temp 98.3 98.3 Pulse 106 100 100 Resp B/P (MAP) 162/80 (107) 168/84 (112) 145/84 (104) Pulse Ox 92 94 93 96 O2 Delivery Ventilator Ventilator Ventilator Ventilator 05/13/21 05/13/21 05/13/21 05/13/21 20:00 20:00 21:00 21:00 Temp 98.6 98.6 Pulse 100 96 Resp B/P (MAP) 144/83 (103) 138/77 (97) Pulse Ox 96 98 100 O2 Delivery Mechanical Ventilator Ventilator Ventilator Ventilator 05/13/21 05/13/21 05/13/21 05/14/21 21:37 22:00 23:00 00:00 Temp 97.8 97.8 Pulse 100 94 97 99 Resp B/P (MAP) 138/77 142/86 (104) 141/79 (99) 139/78 (98) Pulse Ox 100 96 97 O2 Delivery Ventilator Ventilator Ventilator 05/14/21 05/14/21 05/14/21 05/14/21 00:05 00:05 01:00 02:00 Pulse 100 99 Resp B/P (MAP) 147/82 (103) 147/80 (102) Pulse Ox 95 95 95 O2 Delivery Ventilator Mechanical Ventilator Ventilator Ventilator 05/14/21 05/14/21 05/14/21 05/14/21 03:00 04:00 04:00 04:30 Temp 98.0 98.0 Pulse 100 102 Resp B/P (MAP) 149/84 (105) 151/85 (107) Pulse Ox 95 95 95 O2 Delivery Ventilator Mechanical Ventilator Ventilator Ventilator 05/14/21 05/14/21 05/14/21 05/14/21 05:00 05:01 05:31 06:00 Pulse 102 107 Resp B/P (MAP) 161/90 (113) 178/92 (120) Pulse Ox 98 95 94 94 O2 Delivery Ventilator Ventilator O2 Flow Rate 95.0 95.0 8/05/2705/14/21 05/14/21 05/14/21 07:00 07:42 07:54 07:57 Pulse 107 102 Resp 26 B/P (MAP) 165/85 (111) 165/93 Pulse Ox 96 94 O2 Delivery Ventilator Mechanical Ventilator Ventilator 05/14/21 05/14/21 05/14/21 05/14/21 07:58 08:00 09:00 09:40 Temp 98.4 98.4 Pulse 102 101 90 Resp 26 26 B/P (MAP) 165/93 160/83 (108) 140/80 (100) Pulse Ox 95 96 96 O2 Delivery Ventilator Ventilator Ventilator 05/14/21 10:00 Pulse 93 Resp 26 B/P (MAP) 147/80 (102) Pulse Ox 95 O2 Delivery Ventilator Intake and Output 05/13/21 05/13/21 05/14/21 15:00 23:00 07:00 Intake Total 400 ml 2490 ml 1883 ml Output Total 605 ml 540 ml 825 ml Balance -205 ml 1950 ml 1058 ml Justicifation of Admission Dx: Justifications for Admission: Justification of Admission Dx: Yes Comminuty Aquired Pneumonia: Hypoxemia ARELY DILLARD MD May 14, 2021 10:33
--- NOTE | 2021-05-14 11:42 | CONS ---
DATE OF CONSULTATION: 05/13/2021 REFERRING PHYSICIAN: Dr. Smith. REASON FOR CONSULTATION: COVID-19 pneumonia. HISTORY OF PRESENT ILLNESS: This is a 35-year-old gentleman with morbid obesity who was admitted with respiratory failure. The patient is COVID positive and the patient developed bilateral pneumothorax requiring bilateral chest tube, respiratory failure requiring significant oxygen support. The patient received a gram of remdesivir and steroids and now on supportive care on a ventilator. No nausea, vomiting, or diarrhea. There is no fever. PAST MEDICAL HISTORY: Positive for obesity. SOCIAL HISTORY: Unable to obtain right now. ALLERGIES: No known drug allergies. REVIEW OF SYSTEMS: As in the HPI through the RN. There is no nausea, vomiting, diarrhea, or fever. CURRENT MEDICATIONS: Reviewed. PHYSICAL EXAMINATION: GENERAL: Sedated, orally intubated gentleman, not in distress. VITAL SIGNS: Stable. Temperature 98.4, pulse is 101, respirations 26, blood pressure 160/83. HEENT: NAD. NECK: Supple, no JVP, no lymphadenopathy. LUNGS: Clear. HEART: S1, S2 regular. ABDOMEN: Soft, nontender, no organomegaly. EXTREMITIES: No edema, cyanosis. SKIN: Unremarkable. CHEST: The patient does have a central line in the right side of the neck, bilateral chest tube. NEUROLOGIC: The patient is sedated, orally intubated, unable to piano maker. LABORATORY DATA: White count is normal. BUN and creatinine is normal. His ALT, AST is 31 and 105. Chest x-ray is showing stable small right pneumothorax, no left pneumothorax, bilateral pleural draining catheters, diffuse infiltrate. IMPRESSION: 1. COVID-19 pneumonia. 2. Bilateral pneumothorax. 3. Respiratory failure. 4. Pulmonary infiltrate. RECOMMENDATIONS: Recommend continue supportive care. Continue steroids and a central line needs to be replaced to the PICC line. Thank you very much, Dr. Smith, for giving me to participate in this patient's care. JUSTO/ANGELIA/SOT DR: JUSTO/irving TID: [id number]
[2021-05-15] VITALS (24 sets, daily range): BP systolic 124–184; BP diastolic 71–98
[2021-05-15] MEDS: MIDAZOLAM 100mg/100ml NS BAG 100 ML IV PRN ×3 (00:29→21:45)
[2021-05-15] MEDS: PROPOFOL 100 ML IV PRN ×10 (00:42→22:58)
--- NOTE | 2021-05-15 00:49 | NUR ---
Nursing Note: Turned patient to change bottom sheets and check coccyx integrity.Patient desat to lower 50%. Slowly recovered after placed back on back. Will place bed back on rotational therapy.
[2021-05-15] MEDS: LABETALOL 20 MG/4 ML DISP.SYRIN. IVP PRN (02:17)
--- NOTE | 2021-05-15 02:36 | NUR ---
Nursing note: After turning patient, sats only returned to 86%, stat xray ordered,
[2021-05-15] MEDS: VECURONIUM BROMIDE 50 MG in IV NORMAL SALINE 50ML 50 ML IV PRN ×3 (05:26→21:45)
--- NOTE | 2021-05-15 05:54 | RAD ---
Study: XR CHEST 1V Indication: Respiratory failure/pneumothorax. Comparison: 05/12/2021 Findings: Central venous catheter tip terminates within the SVC. Endotracheal tube tip 4 cm above the allison. E nteric tube tip extends beyond the inferior field of view. Bilateral pleural catheters. Persistence of extensive bilateral airspace opacities. No increasing effusion. Unchanged tiny apical pneumothorax on the right. No pneumothorax seen on the left. Impression: 1. Unchanged support device positioning, as above. 2. Unchanged tiny apical pneumothorax on the right. No pneumothorax is seen on the left. 3. No significant change in the extent of diffuse airspace infiltrates. Electronically signed by: ELISA ORTIZ MD (05/15/2021 5:52 AM) [facility]
[2021-05-15 06:58] LABS: ALBUMIN 1.7 g/dL (3.4-5.0); ALBUMIN/GLOBULIN RATIO 0.4 (1.0-1.7); ALK PHOS 88 U/L (46-116); ALT (SGPT) 94 U/L (16-63); AST (SGOT) 40 U/L (15-37); BLOOD UREA NITROGEN 14 mg/dL (8-26); BUN/CREATININE RATIO 35 (6-20); CALCIUM 8.5 mg/dL (8.5-10.1); CARBON DIOXIDE 41 mmol/L (21-32); CHLORIDE 96 mmol/L (98-107); CREATININE 0.4 mg/dL (0.7-1.3); GFR 243.4; GLUCOSE 112 mg/dL (70-99); POTASSIUM 4.3 mmol/L (3.5-5.1); SODIUM 135 mmol/L (136-145); TOTAL BILIRUBIN 0.9 mg/dL (0.2-1.0); TOTAL PROTEIN 6.1 g/dL (6.4-8.2)
[2021-05-15 07:03] LABS: BASO % 0 % (0-3); EOS # 0.1 x10^3/uL (0.0-0.7); EOS % 2 % (0-3); HEMATOCRIT 27.1 % (39.0-53.0); HEMOGLOBIN 8.9 g/dL (13.0-17.5); LYMPH # 0.4 x10^3/uL (1.0-4.8); LYMPH % 7 % (24-48); MEAN CORPUSCULAR HEMOGLOBIN 29 pg (25-35); MEAN CORPUSCULAR HGB CONC 33 g/dL (31-37); MEAN CORPUSCULAR VOLUME 87 fL (79-100); MONO # 0.9 x10^3/uL (0.0-1.1); MONO % 13 % (0-9); NEUT # 5.2 x10^3/uL (1.8-7.7); NEUT % 78 % (31-73); PLATELET COUNT 159 x10^3/uL (140-400); WHITE BLOOD COUNT 6.7 x10^3/uL (4.0-11.0)
--- NOTE | 2021-05-15 07:04 | PDOC ---
PULMONARY PROGRESS NOTES DATE: 05/15/21 TIME: 07:01 Subjective Patient remains on ventilatory support 100% and a PEEP of 7 Remains Sedated with propofol and VEC gtt,versed, and fentanyl Bilateral chest tube, positive air leak on right chest tube Low-grade fever overnight, tachycardia on the monitor Nursing reports episode of hypoxia overnight with turning Vitals Vital Signs Date Time Temp Pulse Resp B/P (MAP) Pulse Ox O2 Delivery O2 Flow Rate FiO2 05/15/21 06:00 108 26 145/79 (101) 96 Ventilator 05/15/21 04:00 99.3 99.3 Comments On visual inspection, patient intubated, and in a medically induced coma Chest tube bilaterally, tachy no distress no obvious rash or edema Labs Laboratory Tests Test 05/13/21 09:05 05/14/21 07:54 O2 Saturation 95 % (92-99) 94 % (92-99) Arterial Blood pH 7.40 (7.35-7.45) 7.36 (7.35-7.45) Arterial Blood pCO2 at Patient Temp 58 mmHg (35-46) 63 mmHg (35-46) Arterial Blood pO2 at Patient Temp 81 mmHg (85-108) 72 mmHg (85-108) Arterial Blood HCO3 35 mmol/L (21-28) 35 mmol/L (21-28) Arterial Blood Base Excess 9 mmol/L (-3-3) 8 mmol/L (-3-3) FiO2 100 100% vent Laboratory Tests Test 05/14/21 07:54 O2 Saturation 94 % (92-99) Arterial Blood pH 7.36 (7.35-7.45) Arterial Blood pCO2 at Patient Temp 63 mmHg (35-46) Arterial Blood pO2 at Patient Temp 72 mmHg (85-108) Arterial Blood HCO3 35 mmol/L (21-28) Arterial Blood Base Excess 8 mmol/L (-3-3) FiO2 100% vent Medications Active Scripts Medications Dose Route/Sig Max Daily Dose Days Date Category Pepcid (Famotidine) 20 Mg Tablet 20 Mg PO BID 04/28/21 Reported Comments CXR 05/15/21 Impression: 1. Unchanged support device positioning, as above. 2. Unchanged tiny apical pneumothorax on the right. No pneumothorax is seen on the left. 3. No significant change in the extent of diffuse airspace infiltrates. Impression . 1. Acute hypoxic respiratory failure secondary to COVID-19 viral pneumonia/ARDS--intubated 2. Abnormal CT chest done at [facility] with diffuse bilateral alveolar and interstitial infiltrates related to COVID-19 pneumonia. No evidence of pulmonary embolism. 3. Underlying obesity. 4. Remote history of obstructive sleep apnea. 5. Abnormal liver function tests, likely due to Covid infection. Bilirubin normal. 6. Normal D-dimer initially, then marked increase , repeat test in am 7. Status post intubation 05/02, status post bilateral pneumothoraces requiring chest tubes 05/02. Pneumothorax worsen on the right 05/12. Chest tube was flushed and now significant resolution of pneumothorax on the right side. 8. HTN Plan . Updated 05/15/21 Continue current vent support 28/500/100%/peep 7 Follow ABG/CXR-----changes as needed Continue chest tubes to suction. Follow infectious disease recommendations in regards to antibiotics D-dimer levels significantly reduced. Will hold off on bilateral lower extremity ultrasounds S/P full course of remdesivir and steroids Follow cardiology recommendations Continue TF for nutritional support DVT/GI PPX :lovenox D/W RN and RT Critical care time 30 minutes including review of the labs imaging studies and decision making. Updated 05/14/21 Patient remains 100% FiO2. Assist-control mode. Down to 7 of PEEP. Continue current vent support Follow ABG/CXR-----changes as needed Continue chest tubes to suction. S/P full course of remdesivir and steroids Follow cardiology recommendations Continue TF for nutritional support DVT/GI PPX :lovenox repeat D-Dimer in am, If still high, do dopplers lower extremity D/W RN and RT Critical care time 30 minutes including review of the labs imaging studies and decision making. Will repeat chest x-ray in the morning. Updated 05/13/21 Patient experienced hypoxia overnight requiring 100% and a PEEP of 10, Continue current vent support 26/500/8/100% Follow ABG/CXR-----changes as needed Continue chest tubes to suction. S/P full course of remdesivir and steroids Follow cardiology recommendations Continue TF for nutritional support DVT/GI PPX :lovenox D/W RN and RT Critical care time 30 minutes including review of the labs imaging studies and decision making. MURRAY ESPOSITO MD May 15, 2021 07:04
[2021-05-15] MEDS: fentaNYL HIGH DOSE PCA 55 ML IV PRN ×2 (07:44→20:53)
--- NOTE | 2021-05-15 08:18 | PDOC ---
Infectious Disease Note Vital Signs: Vital Signs Vital Signs Date Time Temp Pulse Resp B/P (MAP) Pulse Ox O2 Delivery O2 Flow Rate FiO2 05/15/21 07:44 26 97 Ventilator 95.0 05/15/21 07:00 106 142/81 (101) 05/15/21 04:00 99.3 99.3 Physical Exam: PHYSICAL EXAM General intubated/sedated HEENT ETT /OGT + LUNGS: bilateral CTS + HEART: S1, S2 regular. CHEST: The patient does have a central line in the right side of the neck, bilateral chest tube. Abdomen Nondistended, almonte in place NEUROLOGIC: sedated Rt Central line present Medications: Inpatient Meds: Medications reviewed. Labs: Lab Laboratory Tests Test 05/15/21 06:00 White Blood Count 6.7 x10^3/uL (4.0-11.0) Red Blood Count 3.10 x10^6/uL (4.30-5.70) Hemoglobin 8.9 g/dL (13.0-17.5) Hematocrit 27.1 % (39.0-53.0) Mean Corpuscular Volume 87 fL (79-100) Mean Corpuscular Hemoglobin 29 pg (25-35) Mean Corpuscular Hemoglobin Concent 33 g/dL (31-37) Red Cell Distribution Width 14.0 % (11.5-14.5) Platelet Count 159 x10^3/uL (140-400) Neutrophils (%) (Auto) 78 % (31-73) Lymphocytes (%) (Auto) 7 % (24-48) Monocytes (%) (Auto) 13 % (0-9) Eosinophils (%) (Auto) 2 % (0-3) Basophils (%) (Auto) 0 % (0-3) Neutrophils # (Auto) 5.2 x10^3/uL (1.8-7.7) Lymphocytes # (Auto) 0.4 x10^3/uL (1.0-4.8) Monocytes # (Auto) 0.9 x10^3/uL (0.0-1.1) Eosinophils # (Auto) 0.1 x10^3/uL (0.0-0.7) Basophils # (Auto) 0.0 x10^3/uL (0.0-0.2) D-Dimer (Caridad) 5.05 ug/mlFEU (0.00-0.50) Sodium Level 135 mmol/L (136-145) Potassium Level 4.3 mmol/L (3.5-5.1) Chloride Level 96 mmol/L (98-107) Carbon Dioxide Level 41 mmol/L (21-32) Anion Gap (6-14) Blood Urea Nitrogen 14 mg/dL (8-26) Creatinine 0.4 mg/dL (0.7-1.3) Estimated GFR (Cockcroft-Gault) 243.4 BUN/Creatinine Ratio 35 (6-20) Glucose Level 112 mg/dL (70-99) Calcium Level 8.5 mg/dL (8.5-10.1) Total Bilirubin 0.9 mg/dL (0.2-1.0) Aspartate Amino Transf (AST/SGOT) 40 U/L (15-37) Alanine Aminotransferase (ALT/SGPT) 94 U/L (16-63) Alkaline Phosphatase 88 U/L (46-116) Total Protein 6.1 g/dL (6.4-8.2) Albumin 1.7 g/dL (3.4-5.0) Albumin/Globulin Ratio 0.4 (1.0-1.7) Objective: Assessment: 1. COVID-19 pneumonia. 2. Bilateral pneumothorax.s/p chest tubes 05/02 3. Respiratory failure.s/p intubation 05/02 4. Pulmonary infiltrate. Plan: Plan of Care continue supportive care. on steroids change central line if not done already ORLY NAVA MD May 15, 2021 08:18
[2021-05-15 08:50] LABS: BASE EXCESS ABG 15 mmol/L (-3-3); HCO3 ABG 42 mmol/L (21-28); PO2 ABG 81 mmHg (85-108); SAT O2 ABG 96 % (92-99)
[2021-05-15] MEDS: ENOXAPARIN 40 MG/0.4 ML SYRINGE. SQ SCH ×2 (09:04→21:43)
[2021-05-15] MEDS: CHOLECALCIFEROL (VITAMIN D3) 1,000 UNIT TABLET FT SCH (09:04)
[2021-05-15] MEDS: ASPIRIN CHEWABLE 81 MG TABLET. PO SCH (09:04)
[2021-05-15] MEDS: METOPROLOL TART IMMED RELEASE 25 MG TABLET. PO SCH ×2 (09:05→21:42)
[2021-05-15] MEDS: ASCORBIC ACID 500 MG TABLET PO SCH (09:05)
[2021-05-15] MEDS: FAMOTIDINE 20 MG/2 ML VIAL IVP SCH ×2 (09:06→21:45)
[2021-05-15] MEDS: ZINC SULFATE 220 MG CAPSULE. PO SCH (09:06)
--- NOTE | 2021-05-15 13:52 | PDOC ---
[facility] PROGRESS NOTE Date of Service DOS: DATE: 05/15/21 TIME: 13:49 Chief Complaint Chief Complaint Acute respiratory failure with hypoxia COVID-19 pneumonia GERD Obesity Plan: Continue with with remdesivir, steroids and prophylactic antibiotics Appreciate pulmonology management Monitor daily LFTs Daily PPI and famotidine as needed FEN - ADA diet PPX - Lovenox FULL CODE Dispo - inpatient for above History of Present Illness History of Present Illness 05/15/21 Patient seen and examined at bedside Remains intubated and sedated debated; unsuccessful weaning thus far Place PICC line and remove central line today Otherwise continuing Covid protocol Pulmonary and ID consulted Plan of care discussed with bedside RN 05/14/2021 ID CONSULT central line needs to be replaced to the PICC line. experienced hypoxia requiring 100% and a PEEP of 7 , positive air leak on right chest tube Down to 7 of PEEP. Significant interval decrease in a now tiny right pneumothorax. No left-sided pneumothorax is seen. There are bilateral pleural drainage catheters. 05-12 PAFIB: new likely induced by above. multiple bursts. Maintaining SR/ST Status post intubation 05/02, status post bilateral pneumothoraces requiring chest tubes 05/02 Decrease in a tiny residual right pneumothorax status post pleural drainage catheter placement. There is an unchanged left pleural drainage catheter. 05-09 cxr bilateral pleural drainage catheters unchanged in position.05-10 Daily PPI and famotidine as needed PPX - Lovenox FULL CODE Dispo - inpatient for above Morbid obesity. No significant tobacco history and // remote history of SONYA. Patient seen and examined in the COVID-19 ICU Interval decrease in a now tiny right pneumothorax status post pleural drainage catheter placement. There is a stable left pleural drainage catheter without convincing left-sided pneumothorax. /large right pneumothorax with assocaited mild leftward mediastinal deviation. earlier 05-08 Stable diffuse mixed interstitial and alveolar infiltrate with suspected small pleural effusions. Stable endotracheal tube, nasogastric tube and right internal jugular central venous catheter. 05-08 cxr He remains on the vent ventilatory support 85% and a PEEP of 6. Discussed with RN Chart reviewed Almonte to bedside drainage He is sedated with propofol fentanyl and Versed Remains very critically ill labile htn, will consult cardiology, htn much better today 33 min cc time experienced hypoxia overnight requiring 100% and a PEEP of 10, 05/13/2021 ID CONSULT experienced hypoxia overnight requiring 100% and a PEEP of 10, Significant interval decrease in a now tiny right pneumothorax. No left-sided pneumothorax is seen. There are bilateral pleural drainage catheters. 05-12 PAFIB: new likely induced by above. multiple bursts. Maintaining SR/ST Status post intubation 05/02, status post bilateral pneumothoraces requiring chest tubes 05/02 Decrease in a tiny residual right pneumothorax status post pleural drainage catheter placement. There is an unchanged left pleural drainage catheter. 05-09 cxr bilateral pleural drainage catheters unchanged in position.- Daily PPI and famotidine as needed PPX - Lovenox FULL CODE Dispo - inpatient for above Morbid obesity. No significant tobacco history and // remote history of SONYA. Patient seen and examined in the COVID-19 ICU Interval decrease in a now tiny right pneumothorax status post pleural drainage catheter placement. There is a stable left pleural drainage catheter without convincing left-sided pneumothorax. /large right pneumothorax with assocaited mild leftward mediastinal deviation. earlier 05-08 Stable diffuse mixed interstitial and alveolar infiltrate with suspected small pleural effusions. Stable endotracheal tube, nasogastric tube and right internal jugular central venous catheter. 05-08 cxr He remains on the vent ventilatory support 85% and a PEEP of 6. Discussed with RN Chart reviewed Almonte to bedside drainage He is sedated with propofol fentanyl and Versed Remains very critically ill labile htn, will consult cardiology, htn much better today 34 min cc time experienced hypoxia overnight requiring 100% and a PEEP of 10, 05/12/2021 Significant interval decrease in a now tiny right pneumothorax. No left-sided pneumothorax is seen. There are bilateral pleural drainage catheters. 05-12 PAFIB: new likely induced by above. multiple bursts. Maintaining SR/ST Status post intubation 05/02, status post bilateral pneumothoraces requiring chest tubes 05/02 Decrease in a tiny residual right pneumothorax status post pleural drainage catheter placement. There is an unchanged left pleural drainage catheter. 05-09 cxr bilateral pleural drainage catheters unchanged in position.05-10 Daily PPI and famotidine as needed PPX - Lovenox FULL CODE Dispo - inpatient for above Morbid obesity. No significant tobacco history and // remote history of SONYA. Patient seen and examined in the COVID-19 ICU Interval decrease in a now tiny right pneumothorax status post pleural drainage catheter placement. There is a stable left pleural drainage catheter without convincing left-sided pneumothorax. /large right pneumothorax with assocaited mild leftward mediastinal deviation. earlier 05-08 Stable diffuse mixed interstitial and alveolar infiltrate with suspected small pleural effusions. Stable endotracheal tube, nasogastric tube and right internal jugular central venous catheter. 05-08 cxr He remains on the vent ventilatory support 85% and a PEEP of 6. Discussed with RN Chart reviewed Almonte to bedside drainage He is sedated with propofol fentanyl and Versed Remains very critically ill labile htn, will consult cardiology, htn much better today 34 min cc time 05/11/2021 PAFIB: new likely induced by above. multiple bursts. Maintaining SR/ST Status post intubation 05/02, status post bilateral pneumothoraces requiring chest tubes 05/02 Decrease in a tiny residual right pneumothorax status post pleural drainage catheter placement. There is an unchanged left pleural drainage catheter. 05-09 cxr bilateral pleural drainage catheters unchanged in position.05-10 Daily PPI and famotidine as needed PPX - Lovenox FULL CODE Dispo - inpatient for above Morbid obesity. No significant tobacco history and // remote history of SONYA. Patient seen and examined in the COVID-19 ICU Interval decrease in a now tiny right pneumothorax status post pleural drainage catheter placement. There is a stable left pleural drainage catheter without convincing left-sided pneumothorax. /large right pneumothorax with assocaited mild leftward mediastinal deviation. earlier 05-08 Stable diffuse mixed interstitial and alveolar infiltrate with suspected small pleural effusions. Stable endotracheal tube, nasogastric tube and right internal jugular central venous catheter. 05-08 cxr He remains on the vent vent support 90% and a PEEP of 6 Discussed with RN Chart reviewed Almonte to bedside drainage He is sedated with propofol fentanyl and Versed Remains very critically ill labile htn, will consult cardiology, htn much better today 35 min cc time PAFIB: new likely induced by above. multiple bursts. Maintaining SR/ST 05/10/2021 Status post intubation 05/02, status post bilateral pneumothoraces requiring chest tubes 05/02 Decrease in a tiny residual right pneumothorax status post pleural drainage catheter placement. There is an unchanged left pleural drainage catheter. 05-09 cxr bilateral pleural drainage catheters unchanged in position.05-10 Daily PPI and famotidine as needed FEN - ADA diet PPX - Lovenox FULL CODE Dispo - inpatient for above Morbid obesity. No significant tobacco history and // remote history of SONYA. Patient seen and examined in the COVID-19 ICU Interval decrease in a now tiny right pneumothorax status post pleural drainage catheter placement. There is a stable left pleural drainage catheter without convincing left-sided pneumothorax. /large right pneumothorax with assocaited mild leftward mediastinal deviation. earlier 05-08 Stable diffuse mixed interstitial and alveolar infiltrate with suspected small pleural effusions. Stable endotracheal tube, nasogastric tube and right internal jugular central venous catheter. 05-08 cxr He remains on the vent vent support 90% and a PEEP of 6 Discussed with RN Chart reviewed Almonte to bedside drainage He is sedated with propofol fentanyl and Versed Remains very critically ill labile htn, will consult cardiology, htn much better today 32 min cc time 05/09/2021 Status post intubation 05/02, status post bilateral pneumothoraces requiring chest tubes 05/02 Decrease in a tiny residual right pneumothorax status post pleural drainage catheter placement. There is an unchanged left pleural drainage catheter. 05-09 cxr Daily PPI and famotidine as needed FEN - ADA diet PPX - Lovenox FULL CODE Dispo - inpatient for above Morbid obesity. No significant tobacco history and // remote history of SONYA. Patient seen and examined in the COVID- ICU Interval decrease in a now tiny right pneumothorax status post pleural drainage catheter placement. There is a stable left pleural drainage catheter without convincing left-sided pneumothorax. /large right pneumothorax with assocaited mild leftward mediastinal deviation. earlier 05-08 Stable diffuse mixed interstitial and alveolar infiltrate with suspected small pleural effusions. Stable endotracheal tube, nasogastric tube and right internal jugular central venous catheter. 05-08 cxr He remains on the vent AC/500/26/80 percent with 6 of PEEP Discussed with RN Chart reviewed Almonte to bedside drainage He is sedated with propofol fentanyl and Versed Remains very critically ill labile htn, will consult cardiology 35 min cc time 05/08/2021 Daily PPI and famotidine as needed FEN - ADA diet PPX - Lovenox FULL CODE Dispo - inpatient for above Morbid obesity. No significant tobacco history and // remote history of SONYA. Patient seen and examined in the COVID-19 ICU Interval decrease in a now tiny right pneumothorax status post pleural drainage catheter placement. There is a stable left pleural drainage catheter without convincing left-sided pneumothorax. /large right pneumothorax with assocaited mild leftward mediastinal deviation. earlier 05-08 Stable diffuse mixed interstitial and alveolar infiltrate with suspected small pleural effusions. Stable endotracheal tube, nasogastric tube and right internal jugular central venous catheter. 05-08 cxr He remains on the vent AC/500/26/80 percent with 6 of PEEP Discussed with RN Chart reviewed Almonte to bedside drainage He is sedated with propofol fentanyl and Versed Remains very critically ill 33 min cc time 05/07/2021 Patient seen and examined in the [facility] [address] ICU He remains on the vent AC/500/26/80 percent with 6 of PEEP (this is improved from yesterday he was on 100% FiO2 with 8 of PEEP) Discussed with RN Chart reviewed Patient has Almonte to bedside drainage He is sedated with propofol fentanyl and Versed Remains very critically ill 05/06/2021 Patient seen and examined in the [facility] [address] ICU He remains intubated AC//500/1 her percent with 8 of PEEP The nurse was able to get him down to 80% for an hour or so earlier this morning but he desatted again when she moved him Chart reviewed Reviewed case with RN patient is having some tachycardia and Fluctuating blood pressure Has OG feeds running at 50 cc an hour plus he is getting free water Has Almonte to bedside drainage Has [address] He remains critically ill 05/05/2021 Patient seen and examined in the [facility] [address] ICU He is still intubated AC/26/500/1 100% with 8 of PEEP Has OG feeds running at 25 cc an hour Sedated with fentanyl and Versed Getting IV vecuronium Chart reviewed Discussed with RN He remains critically 05/04/2021 Patient seen and examined in the [facility] [address] ICU He remains mechanically ventilated Assist-control/26/500/1 100% with 10 of PEEP He is extremely critically ill He is sedated with Versed and fentanyl He is also paralyzed with vecuronium Reviewed chart Discussed with RN 05/03/2021 Patient seen and examined in the [facility] [address] ICU He remains mechanically ventilated AC//600/1 100% with 10 of PEEP Has 2 pigtail drains in his left and right chest due to some small pneumothoraces after being intubated Had to be sedated with vecuronium Also on Versed and fentanyl also has inverse I to E ratio 2:1 Chart reviewed Discussed with RN He remains extremely critically ill I am concerned he may not survive this? 05/02/2021 Patient seen and examined in the [facility] [address] ICU He is on BiPAP with 100% FiO2 and very tachypneic Discussed with RN we are going to go ahead and intubate here in a few minutes Chart reviewed Patient currently semisedated with Versed Precedex and fentanyl He is very critically Patient 35-year-old male with past medical history of GERD, obesity, who presents to the ED as a transfer from [facility] for COVID-19 pneumonia with worsening respiratory distress. States his symptoms started roughly 1 week ago with fatigue and body aches, which progressed to include fever and shortness of breath. Symptoms were worse with exertion with no significant alleviating factors. He was tested for COVID-19 at [facility] and was discharged home because he was not hypoxic on room air. When he returned to [facility] with worsening symptoms a CT chest demonstrated bibasilar infiltrates consistent with atypical pneumonia. He was then admitted and placed on 3 L nasal cannula for further treatment. He has not been vaccinated against COVID- 19. However due to worsening respiratory distress he was transferred to [facility] for higher level of care. 04/29/2021: Still breathing 40 L Vapotherm. Afebrile, but complaining of chest heaviness, nausea, and subjective shortness of breath. Denies any vomiting, or diarrhea. Informed patient of likely prolonged hospitalization course. Hemoglobin A1c 5.6. Continue remdesivir day 2/5, continue steroids, anti biotics, and supportive care. Continue to follow daily LFTs. Plan to transfer patient to ICU bed when available. Critical care time 33 minutes spent reviewing charts, reviewing labs, and discussing case with Dr. Gaviria. 04/30/21: Afebrile, still breathing on Vapotherm. Continue remdesivir and monitor LFTs. Continue antibiotics, steroids, and supportive care. Will transfer him to the ICU once bed available. Critical care time 30 minutes spent in chart, reviewing labs, reviewing imaging, and discussion with RN. 05/01/2021 No acute events overnight. Patient seen and examined bedside. Saturating 93% on 40 L Vapotherm. Patient will transfer to the ICU for continued supportive care. Vitals/I&O Vitals/I&O: Vital Signs Date Time Temp Pulse Resp B/P (MAP) Pulse Ox O2 Delivery O2 Flow Rate FiO2 05/15/21 13:26 89 Ventilator 05/15/21 13:00 104 26 135/76 (95) 05/15/21 12:00 99.4 99.4 05/15/21 07:44 95.0 I & O 05/14/21 05/14/21 05/15/21 15:00 23:00 07:00 Intake Total 400 ml 2197 ml 2052 ml Output Total 800 ml 1025 ml 900 ml Balance -400 ml 1172 ml 1152 ml Physical Exam Physical Exam: General intubated/sedated HEENT ETT /OGT + LUNGS: bilateral CTS + HEART: S1, S2 regular. CHEST: The patient does have a central line in the right side of the neck, bilateral chest tube. Abdomen Nondistended, almonte in place NEUROLOGIC: sedated Rt Central line present General: Other (sedated, intubated) Heart: Regular rate (SR) Lungs: Other (intubated) Abdomen: Soft Extremities: No cyanosis Skin: No rashes, No breakdown Labs Labs: Laboratory Tests Test 05/15/21 06:00 White Blood Count 6.7 x10^3/uL (4.0-11.0) Red Blood Count 3.10 x10^6/uL (4.30-5.70) Hemoglobin 8.9 g/dL (13.0-17.5) Hematocrit 27.1 % (39.0-53.0) Mean Corpuscular Volume 87 fL (79-100) Mean Corpuscular Hemoglobin 29 pg (25-35) Mean Corpuscular Hemoglobin Concent 33 g/dL (31-37) Red Cell Distribution Width 14.0 % (11.5-14.5) Platelet Count 159 x10^3/uL (140-400) Neutrophils (%) (Auto) 78 % (31-73) Lymphocytes (%) (Auto) 7 % (24-48) Monocytes (%) (Auto) 13 % (0-9) Eosinophils (%) (Auto) 2 % (0-3) Basophils (%) (Auto) 0 % (0-3) Neutrophils # (Auto) 5.2 x10^3/uL (1.8-7.7) Lymphocytes # (Auto) 0.4 x10^3/uL (1.0-4.8) Monocytes # (Auto) 0.9 x10^3/uL (0.0-1.1) Eosinophils # (Auto) 0.1 x10^3/uL (0.0-0.7) Basophils # (Auto) 0.0 x10^3/uL (0.0-0.2) D-Dimer (Caridad) 5.05 ug/mlFEU (0.00-0.50) Sodium Level 135 mmol/L (136-145) Potassium Level 4.3 mmol/L (3.5-5.1) Chloride Level 96 mmol/L (98-107) Carbon Dioxide Level 41 mmol/L (21-32) Anion Gap (6-14) Blood Urea Nitrogen 14 mg/dL (8-26) Creatinine 0.4 mg/dL (0.7-1.3) Estimated GFR (Cockcroft-Gault) 243.4 BUN/Creatinine Ratio 35 (6-20) Glucose Level 112 mg/dL (70-99) Calcium Level 8.5 mg/dL (8.5-10.1) Total Bilirubin 0.9 mg/dL (0.2-1.0) Aspartate Amino Transf (AST/SGOT) 40 U/L (15-37) Alanine Aminotransferase (ALT/SGPT) 94 U/L (16-63) Alkaline Phosphatase 88 U/L (46-116) Total Protein 6.1 g/dL (6.4-8.2) Albumin 1.7 g/dL (3.4-5.0) Albumin/Globulin Ratio 0.4 (1.0-1.7) Triglycerides Level 260 mg/dL (0-150) Review of Systems Review of Systems: Cannot obtain Comment Review of Relevant I have reviewed the following items anselmo (where applicable) has been applied. Medications: Current Medications Medications (Trade) Dose Ordered Sig/Bartolo Route PRN Reason Start Time Stop Time Status Last Admin Dose Admin Metoprolol Tartrate (Lopressor) 25 mg BID PO 05/14/21 21:00 05/15/21 09:05 Justifications for Admission Other Justification MARY HERRON MD May 15, 2021 13:52
--- NOTE | 2021-05-15 14:05 | NUR ---
Procedure: Following complete explanation of the PICC procedure including the indications, risks, and potential complications, informed consent was obtained. The possibility for infection was discussed along with signs, symptoms, and prevention. All the questions were answered.yes Written and verbal patient education was provided. yes Hand hygiene performed. yes Standardized central line checklist was utilized. yes The patient was placed in the supine position, the arm was prepped with chlorhexidine and patient draped with maximum sterile barrier. 0 mL 1% lidocaine was infiltrated into the skin to provide local anesthesia. A thorough assessment of right upper extremity completed. Using real-time ultrasound guidance and standardized micro puncture set, the basilic vein was punctured and a peel away sheath was placed using the modified Seldinger technique. A tip location device was used to ensure adequate catheter placement. The catheter was secured using a securement device and an antimicrobial patch was applied directly on the insertion site followed by a transparent dressing. All ports withdraw blood and flush without resistance. Patient tolerated the procedure without apparent complication(s). triple Lumen Power PICC placement successful and uncomplicated. Placement verified by EKG tip confirmation system and/or chest x-ray. Tip located in the CAJ Complications:none Addendum: 05/15/21 at 1411 by KORY VASQUEZ RN Amended: Links added.
--- NOTE | 2021-05-15 14:07 | NUR ---
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
[2021-05-15 15:28] LABS: FIO2 ABG 100; PCO2 ABG 69 mmHg (35-46)
--- NOTE | 2021-05-15 16:13 | NUR ---
SS following up with discharge planning. SS reviewed pt chart and discussed with pt RN. Pt is currently on the vent at 100%. COVID19 positive. Pt on Propofol, Vec, Fentanyl, and Versed. Chest tubes x2. PICC being placed today. Not stable. SS will continue to follow for discharge planning.
[2021-05-15] MEDS: FAMOTIDINE 20 MG TABLET. PO PRN (21:43)
[2021-05-16] VITALS (24 sets, daily range): BP systolic 118–153; BP diastolic 72–84
[2021-05-16] MEDS: PROPOFOL 100 ML IV PRN ×10 (00:46→22:55)
--- NOTE | 2021-05-16 01:33 | NUR ---
At 0015 patient's sats dropped to 70% and HR dropped to 70s. Patient's R CT was not bubbling as it had been, all CT connections in tact. R CT flushed with [address] began to bubble and sats recovered to mid 90s after a few minutes, HR went back up to 110s where it had previously been. Will continue to monitor chest tube and patient status.
[2021-05-16] MEDS: VECURONIUM BROMIDE 50 MG in IV NORMAL SALINE 50ML 50 ML IV PRN ×3 (03:52→23:41)
--- NOTE | 2021-05-16 05:18 | PDOC ---
PULMONARY PROGRESS NOTES DATE: 05/16/21 TIME: 05:17 Subjective Patient remains on ventilatory support 100% and a PEEP of 7 Remains Sedated Bilateral chest tube, positive air leak on right chest tube Low-grade fever overnight, tachycardia on the monitor Vitals Vital Signs Date Time Temp Pulse Resp B/P (MAP) Pulse Ox O2 Delivery O2 Flow Rate FiO2 05/16/21 04:00 99.5 114 28 140/82 (101) 98 Ventilator 99.5 05/15/21 07:44 95.0 Comments On visual inspection, patient intubated, and in a medically induced coma Chest tube bilaterally, tachy no distress no obvious rash or edema Lungs: Other (intubated) Labs Laboratory Tests Test 05/14/21 07:54 05/15/21 06:00 05/15/21 08:30 O2 Saturation 94 % (92-99) 96 % (92-99) Arterial Blood pH 7.36 (7.35-7.45) 7.40 (7.35-7.45) Arterial Blood pCO2 at Patient Temp 63 mmHg (35-46) 69 mmHg (35-46) Arterial Blood pO2 at Patient Temp 72 mmHg (85-108) 81 mmHg (85-108) Arterial Blood HCO3 35 mmol/L (21-28) 42 mmol/L (21-28) Arterial Blood Base Excess 8 mmol/L (-3-3) 15 mmol/L (-3-3) FiO2 100% vent 100 White Blood Count 6.7 x10^3/uL (4.0-11.0) Red Blood Count 3.10 x10^6/uL (4.30-5.70) Hemoglobin 8.9 g/dL (13.0-17.5) Hematocrit 27.1 % (39.0-53.0) Mean Corpuscular Volume 87 fL (79-100) Mean Corpuscular Hemoglobin 29 pg (25-35) Mean Corpuscular Hemoglobin Concent 33 g/dL (31-37) Red Cell Distribution Width 14.0 % (11.5-14.5) Platelet Count 159 x10^3/uL (140-400) Neutrophils (%) (Auto) 78 % (31-73) Lymphocytes (%) (Auto) 7 % (24-48) Monocytes (%) (Auto) 13 % (0-9) Eosinophils (%) (Auto) 2 % (0-3) Basophils (%) (Auto) 0 % (0-3) Neutrophils # (Auto) 5.2 x10^3/uL (1.8-7.7) Lymphocytes # (Auto) 0.4 x10^3/uL (1.0-4.8) Monocytes # (Auto) 0.9 x10^3/uL (0.0-1.1) Eosinophils # (Auto) 0.1 x10^3/uL (0.0-0.7) Basophils # (Auto) 0.0 x10^3/uL (0.0-0.2) D-Dimer (Caridad) 5.05 ug/mlFEU (0.00-0.50) Sodium Level 135 mmol/L (136-145) Potassium Level 4.3 mmol/L (3.5-5.1) Chloride Level 96 mmol/L (98-107) Carbon Dioxide Level 41 mmol/L (21-32) Anion Gap (6-14) Blood Urea Nitrogen 14 mg/dL (8-26) Creatinine 0.4 mg/dL (0.7-1.3) Estimated GFR (Cockcroft-Gault) 243.4 BUN/Creatinine Ratio 35 (6-20) Glucose Level 112 mg/dL (70-99) Calcium Level 8.5 mg/dL (8.5-10.1) Total Bilirubin 0.9 mg/dL (0.2-1.0) Aspartate Amino Transf (AST/SGOT) 40 U/L (15-37) Alanine Aminotransferase (ALT/SGPT) 94 U/L (16-63) Alkaline Phosphatase 88 U/L (46-116) Total Protein 6.1 g/dL (6.4-8.2) Albumin 1.7 g/dL (3.4-5.0) Albumin/Globulin Ratio 0.4 (1.0-1.7) Triglycerides Level 260 mg/dL (0-150) Laboratory Tests Test 05/15/21 06:00 05/15/21 08:30 White Blood Count 6.7 x10^3/uL (4.0-11.0) Red Blood Count 3.10 x10^6/uL (4.30-5.70) Hemoglobin 8.9 g/dL (13.0-17.5) Hematocrit 27.1 % (39.0-53.0) Mean Corpuscular Volume 87 fL (79-100) Mean Corpuscular Hemoglobin 29 pg (25-35) Mean Corpuscular Hemoglobin Concent 33 g/dL (31-37) Red Cell Distribution Width 14.0 % (11.5-14.5) Platelet Count 159 x10^3/uL (140-400) Neutrophils (%) (Auto) 78 % (31-73) Lymphocytes (%) (Auto) 7 % (24-48) Monocytes (%) (Auto) 13 % (0-9) Eosinophils (%) (Auto) 2 % (0-3) Basophils (%) (Auto) 0 % (0-3) Neutrophils # (Auto) 5.2 x10^3/uL (1.8-7.7) Lymphocytes # (Auto) 0.4 x10^3/uL (1.0-4.8) Monocytes # (Auto) 0.9 x10^3/uL (0.0-1.1) Eosinophils # (Auto) 0.1 x10^3/uL (0.0-0.7) Basophils # (Auto) 0.0 x10^3/uL (0.0-0.2) D-Dimer (Caridad) 5.05 ug/mlFEU (0.00-0.50) Sodium Level 135 mmol/L (136-145) Potassium Level 4.3 mmol/L (3.5-5.1) Chloride Level 96 mmol/L (98-107) Carbon Dioxide Level 41 mmol/L (21-32) Anion Gap (6-14) Blood Urea Nitrogen 14 mg/dL (8-26) Creatinine 0.4 mg/dL (0.7-1.3) Estimated GFR (Cockcroft-Gault) 243.4 BUN/Creatinine Ratio 35 (6-20) Glucose Level 112 mg/dL (70-99) Calcium Level 8.5 mg/dL (8.5-10.1) Total Bilirubin 0.9 mg/dL (0.2-1.0) Aspartate Amino Transf (AST/SGOT) 40 U/L (15-37) Alanine Aminotransferase (ALT/SGPT) 94 U/L (16-63) Alkaline Phosphatase 88 U/L (46-116) Total Protein 6.1 g/dL (6.4-8.2) Albumin 1.7 g/dL (3.4-5.0) Albumin/Globulin Ratio 0.4 (1.0-1.7) Triglycerides Level 260 mg/dL (0-150) O2 Saturation 96 % (92-99) Arterial Blood pH 7.40 (7.35-7.45) Arterial Blood pCO2 at Patient Temp 69 mmHg (35-46) Arterial Blood pO2 at Patient Temp 81 mmHg (85-108) Arterial Blood HCO3 42 mmol/L (21-28) Arterial Blood Base Excess 15 mmol/L (-3-3) FiO2 100 Medications Active Scripts Medications Dose Route/Sig Max Daily Dose Days Date Category Pepcid (Famotidine) 20 Mg Tablet 20 Mg PO BID 04/28/21 Reported Comments CXR 05/15/21 Impression: 1. Unchanged support device positioning, as above. 2. Unchanged tiny apical pneumothorax on the right. No pneumothorax is seen on the left. 3. No significant change in the extent of diffuse airspace infiltrates. Impression . 1. Acute hypoxic respiratory failure secondary to COVID-19 viral pneumonia/ARDS--intubated 2. Abnormal CT chest done at [facility] with diffuse bilateral alveolar and interstitial infiltrates related to COVID-19 pneumonia. No evidence of pulmonary embolism. 3. Underlying obesity. 4. Remote history of obstructive sleep apnea. 5. Abnormal liver function tests, likely due to Covid infection. Bilirubin normal. 6. Normal D-dimer initially, then marked increase , repeat test in am 7. Status post intubation 05/02, status post bilateral pneumothoraces requiring chest tubes 05/02. Pneumothorax worsen on the right 05/12. Chest tube was flushed and now significant resolution of pneumothorax on the right side. 8. HTN Plan . Updated 05/16/21 Continue current vent support 28/500/100%/peep 7 Follow ABG/CXR-----changes as needed--compensated hypercarbia Continue chest tubes to suction. Follow infectious disease recommendations in regards to antibiotics--off ABX at this time S/P full course of remdesivir and steroids Follow cardiology recommendations Continue TF for nutritional support DVT/GI PPX :lovenox D/W RN and RT Critical care time 30 minutes including review of the labs imaging studies and decision making. Updated 05/15/21 Continue current vent support 28/500/100%/peep 7 Follow ABG/CXR-----changes as needed Continue chest tubes to suction. Follow infectious disease recommendations in regards to antibiotics D-dimer levels significantly reduced. Will hold off on bilateral lower extremity ultrasounds S/P full course of remdesivir and steroids Follow cardiology recommendations Continue TF for nutritional support DVT/GI PPX :lovenox D/W RN and RT Critical care time 30 minutes including review of the labs imaging studies and decision making. Updated 05/14/21 Patient remains 100% FiO2. Assist-control mode. Down to 7 of PEEP. Continue current vent support Follow ABG/CXR-----changes as needed Continue chest tubes to suction. S/P full course of remdesivir and steroids Follow cardiology recommendations Continue TF for nutritional support DVT/GI PPX :lovenox repeat D-Dimer in am, If still high, do dopplers lower extremity D/W RN and RT Critical care time 30 minutes including review of the labs imaging studies and decision making. Will repeat chest x-ray in the morning. MURRAY ESPOSITO MD May 16, 2021 05:18
[2021-05-16 07:11] LABS: BASO % 1 % (0-3); EOS # 0.2 x10^3/uL (0.0-0.7); EOS % 4 % (0-3); HEMATOCRIT 25.8 % (39.0-53.0); HEMOGLOBIN 8.7 g/dL (13.0-17.5); LYMPH # 0.5 x10^3/uL (1.0-4.8); LYMPH % 10 % (24-48); MEAN CORPUSCULAR HEMOGLOBIN 29 pg (25-35); MEAN CORPUSCULAR HGB CONC 34 g/dL (31-37); MEAN CORPUSCULAR VOLUME 87 fL (79-100); MONO # 0.8 x10^3/uL (0.0-1.1); MONO % 17 % (0-9); NEUT # 3.3 x10^3/uL (1.8-7.7); NEUT % 69 % (31-73); PLATELET COUNT 154 x10^3/uL (140-400); RED BLOOD COUNT 2.97 x10^6/uL (4.30-5.70); RED CELL DISTRIBUTION WIDTH 14.2 % (11.5-14.5); WHITE BLOOD COUNT 4.8 x10^3/uL (4.0-11.0)
[2021-05-16 07:32] LABS: BLOOD UREA NITROGEN 11 mg/dL (8-26); CALCIUM 8.8 mg/dL (8.5-10.1); CARBON DIOXIDE 41 mmol/L (21-32); CHLORIDE 96 mmol/L (98-107); CREATININE 0.4 mg/dL (0.7-1.3); GFR 243.4; GLUCOSE 96 mg/dL (70-99); SODIUM 136 mmol/L (136-145)
--- NOTE | 2021-05-16 07:47 | PDOC ---
Infectious Disease Note Subjective: Subjective Pt intubated/sedated t 99.5 No acute issues per discussion with RN Vital Signs: Vital Signs Vital Signs Date Time Temp Pulse Resp B/P (MAP) Pulse Ox O2 Delivery O2 Flow Rate FiO2 05/16/21 06:00 118 28 135/82 (99) 97 Ventilator 05/16/21 04:00 99.5 99.5 05/15/21 07:44 95.0 Physical Exam: PHYSICAL EXAM General intubated/sedated HEENT ETT /OGT + LUNGS: bilateral CTS + HEART: S1, S2 regular. CHEST: Decreased breath soundS,bilateral chest tube. Abdomen Nondistended, bowel sounds present almonte in place NEUROLOGIC: sedated Extremities edema present, no cyanosis Derm no generalized rash multiple tattoos Rt Central line removed Right upper extremity PICC line clean Medications: Inpatient Meds: Medications reviewed. Labs: Lab Laboratory Tests Test 05/15/21 08:30 05/16/21 05:45 O2 Saturation 96 % (92-99) Arterial Blood pH 7.40 (7.35-7.45) Arterial Blood pCO2 at Patient Temp 69 mmHg (35-46) Arterial Blood pO2 at Patient Temp 81 mmHg (85-108) Arterial Blood HCO3 42 mmol/L (21-28) Arterial Blood Base Excess 15 mmol/L (-3-3) FiO2 100 White Blood Count 4.8 x10^3/uL (4.0-11.0) Red Blood Count 2.97 x10^6/uL (4.30-5.70) Hemoglobin 8.7 g/dL (13.0-17.5) Hematocrit 25.8 % (39.0-53.0) Mean Corpuscular Volume 87 fL (79-100) Mean Corpuscular Hemoglobin 29 pg (25-35) Mean Corpuscular Hemoglobin Concent 34 g/dL (31-37) Red Cell Distribution Width 14.2 % (11.5-14.5) Platelet Count 154 x10^3/uL (140-400) Neutrophils (%) (Auto) 69 % (31-73) Lymphocytes (%) (Auto) 10 % (24-48) Monocytes (%) (Auto) 17 % (0-9) Eosinophils (%) (Auto) 4 % (0-3) Basophils (%) (Auto) 1 % (0-3) Neutrophils # (Auto) 3.3 x10^3/uL (1.8-7.7) Lymphocytes # (Auto) 0.5 x10^3/uL (1.0-4.8) Monocytes # (Auto) 0.8 x10^3/uL (0.0-1.1) Eosinophils # (Auto) 0.2 x10^3/uL (0.0-0.7) Basophils # (Auto) 0.0 x10^3/uL (0.0-0.2) Sodium Level 136 mmol/L (136-145) Potassium Level 4.0 mmol/L (3.5-5.1) Chloride Level 96 mmol/L (98-107) Carbon Dioxide Level 41 mmol/L (21-32) Anion Gap (6-14) Blood Urea Nitrogen 11 mg/dL (8-26) Creatinine 0.4 mg/dL (0.7-1.3) Estimated GFR (Cockcroft-Gault) 243.4 Glucose Level 96 mg/dL (70-99) Calcium Level 8.8 mg/dL (8.5-10.1) Objective: Assessment: 1. COVID-19 pneumonia. 2. Bilateral pneumothorax.s/p chest tubes 05/02 3. Respiratory failure.s/p intubation 05/02 4. Pulmonary infiltrate. Plan: Plan of Care continue supportive care. on steroids Central line removed Trend fever and WBC Monitor right upper extremity closely d/w RN ORLY NAVA MD May 16, 2021 07:47
[2021-05-16 08:36] LABS: BASE EXCESS ABG 11 mmol/L (-3-3); HCO3 ABG 38 mmol/L (21-28); PO2 ABG 83 mmHg (85-108); SAT O2 ABG 96 % (92-99)
[2021-05-16 08:40] LABS: FIO2 ABG 100; PCO2 ABG 67 mmHg (35-46)
[2021-05-16] MEDS: MIDAZOLAM 100mg/100ml NS BAG 100 ML IV PRN ×2 (09:19→19:21)
[2021-05-16] MEDS: METOPROLOL TART IMMED RELEASE 25 MG TABLET. PO SCH ×2 (09:20→21:37)
[2021-05-16] MEDS: ENOXAPARIN 40 MG/0.4 ML SYRINGE. SQ SCH ×2 (09:20→21:37)
[2021-05-16] MEDS: FAMOTIDINE 20 MG/2 ML VIAL IVP SCH ×2 (09:20→21:37)
[2021-05-16] MEDS: ASPIRIN CHEWABLE 81 MG TABLET. PO SCH (09:20)
[2021-05-16] MEDS: ASCORBIC ACID 500 MG TABLET PO SCH (09:20)
[2021-05-16] MEDS: ZINC SULFATE 220 MG CAPSULE. PO SCH (09:20)
[2021-05-16] MEDS: CHOLECALCIFEROL (VITAMIN D3) 1,000 UNIT TABLET FT SCH (09:21)
[2021-05-16] MEDS: fentaNYL HIGH DOSE PCA 55 ML IV PRN ×2 (09:22→23:39)
--- NOTE | 2021-05-16 09:30 | PDOC ---
[employer] PROGRESS NOTE Date of Service DOS: DATE: 05/16/21 TIME: 09:27 Chief Complaint Chief Complaint Acute respiratory failure with hypoxia COVID-19 pneumonia GERD Obesity Plan: Continue with with remdesivir, steroids and prophylactic antibiotics Appreciate pulmonology management Monitor daily LFTs Daily PPI and famotidine as needed FEN - ADA diet PPX - Lovenox FULL CODE Dispo - inpatient for above History of Present Illness History of Present Illness 05/16/21 Patient seen and examined at bedside, PICC line placed and central line removed. No major clinical changes remains intubated and sedated. Wean as tolerated. Plan of care discussed with bedside RN. Continue Covid protocol 05/15/21 Patient seen and examined at bedside Remains intubated and sedated debated; unsuccessful weaning thus far Place PICC line and remove central line today Otherwise continuing Covid protocol Pulmonary and ID consulted Plan of care discussed with bedside RN 05/14/2021 ID CONSULT central line needs to be replaced to the PICC line. experienced hypoxia requiring 100% and a PEEP of 7 , positive air leak on right chest tube Down to 7 of PEEP. Significant interval decrease in a now tiny right pneumothorax. No left-sided pneumothorax is seen. There are bilateral pleural drainage catheters. 05-12 PAFIB: new likely induced by above. multiple bursts. Maintaining SR/ST Status post intubation 05/02, status post bilateral pneumothoraces requiring chest tubes 05/02 Decrease in a tiny residual right pneumothorax status post pleural drainage catheter placement. There is an unchanged left pleural drainage catheter. 05-09 cxr bilateral pleural drainage catheters unchanged in position.05-10 Daily PPI and famotidine as needed PPX - Lovenox FULL CODE Dispo - inpatient for above Morbid obesity. No significant tobacco history and // remote history of SONYA. Patient seen and examined in the COVID-19 ICU Interval decrease in a now tiny right pneumothorax status post pleural drainage catheter placement. There is a stable left pleural drainage catheter without convincing left-sided pneumothorax. /large right pneumothorax with assocaited mild leftward mediastinal deviation. earlier 05-08 Stable diffuse mixed interstitial and alveolar infiltrate with suspected small pleural effusions. Stable endotracheal tube, nasogastric tube and right internal jugular central venous catheter. 05-08 cxr He remains on the vent ventilatory support 85% and a PEEP of 6. Discussed with RN Chart reviewed Almonte to bedside drainage He is sedated with propofol fentanyl and Versed Remains very critically ill labile htn, will consult cardiology, htn much better today 33 min cc time experienced hypoxia overnight requiring 100% and a PEEP of 10, 05/13/2021 ID CONSULT experienced hypoxia overnight requiring 100% and a PEEP of 10, Significant interval decrease in a now tiny right pneumothorax. No left-sided pneumothorax is seen. There are bilateral pleural drainage catheters. 05-12 PAFIB: new likely induced by above. multiple bursts. Maintaining SR/ST Status post intubation 05/02, status post bilateral pneumothoraces requiring chest tubes 05/02 Decrease in a tiny residual right pneumothorax status post pleural drainage catheter placement. There is an unchanged left pleural drainage catheter. 05-09 cxr bilateral pleural drainage catheters unchanged in position.05-10 Daily PPI and famotidine as needed PPX - Lovenox FULL CODE Dispo - inpatient for above Morbid obesity. No significant tobacco history and // remote history of SONYA. Patient seen and examined in the [place] [id number] ICU Interval decrease in a now tiny right pneumothorax status post pleural drainage catheter placement. There is a stable left pleural drainage catheter without co nvincing left-sided pneumothorax. /large right pneumothorax with assocaited mild leftward mediastinal deviation. earlier 05-08 Stable diffuse mixed interstitial and alveolar infiltrate with suspected small pleural effusions. Stable endotracheal tube, nasogastric tube and right internal jugular central venous catheter. 05-08 cxr He remains on the vent ventilatory support 85% and a PEEP of 6. Discussed with RN Chart reviewed Almonte to bedside drainage He is sedated with propofol fentanyl and Versed Remains very critically ill labile htn, will consult cardiology, htn much better today 34 min cc time experienced hypoxia overnight requiring 100% and a PEEP of 10, 05/12/2021 Significant interval decrease in a now tiny right pneumothorax. No left-sided pneumothorax is seen. There are bilateral pleural drainage catheters. 05-12 PAFIB: new likely induced by above. multiple bursts. Maintaining SR/ST Status post intubation 05/02, status post bilateral pneumothoraces requiring chest tubes 05/02 Decrease in a tiny residual right pneumothorax status post pleural drainage catheter placement. There is an unchanged left pleural drainage catheter. 05-09 cxr bilateral pleural drainage catheters unchanged in position.05-10 Daily PPI and famotidine as needed PPX - Lovenox FULL CODE Dispo - inpatient for above Morbid obesity. No significant tobacco history and // remote history of SONYA. Patient seen and examined in the [facility] ICU Interval decrease in a now tiny right pneumothorax status post pleural drainage catheter placement. There is a stable left pleural drainage catheter without convincing left-sided pneumothorax. /large right pneumothorax with assocaited mild leftward mediastinal deviation. earlier 05-08 Stable diffuse mixed interstitial and alveolar infiltrate with suspected small pleural effusions. Stable endotracheal tube, nasogastric tube and right internal jugular central venous catheter. 05-08 cxr He remains on the vent ventilatory support 85% and a PEEP of 6. Discussed with RN Chart reviewed Al[place]te to bedside drainage He is sedated with propofol fentanyl and Versed Remains very critically ill labile htn, will consult cardiology, htn much better today 34 min cc time 05/11/2021 PAFIB: new likely induced by above. multiple bursts. Maintaining SR/ST Status post intubation 05/02, status post bilateral pneumothoraces requiring chest tubes 05/02 Decrease in a tiny residual right pneumothorax status post pleural drainage catheter placement. There is an unchanged left pleural drainage catheter. 05-09 cxr bilateral pleural drainage catheters unchanged in position.- Daily PPI and famotidine as needed PPX - Lovenox FULL CODE Dispo - inpatient for above Morbid obesity. No significant tobacco history and // remote history of SONYA. [facility] Interval decrease in a now tiny right pneumothorax status post pleural drainage catheter placement. There is a stable left pleural drainage catheter without convincing left-sided pneumothorax. /large right pneumothorax with assocaited mild leftward mediastinal deviation. earlier 05-08 Stable diffuse mixed interstitial and alveolar infiltrate with suspected small pleural effusions. Stable endotracheal tube, nasogastric tube and right internal jugular central venous catheter. 05-08 cxr He remains on the vent vent support 90% and a PEEP of 6 Discussed with RN Chart reviewed [place] to bedside drainage He is sedated with propofol fentanyl and Versed Remains very critically ill labile htn, will consult cardiology, htn much better today 35 min cc time PAFIB: new likely induced by above. multiple bursts. Maintaining SR/ST 05/10/2021 Status post intubation 05/02, status post bilateral pneumothoraces requiring chest tubes 05/02 Decrease in a tiny residual right pneumothorax status post pleural drainage catheter placement. There is an unchanged left pleural drainage catheter. 05-09 cxr bilateral pleural drainage catheters unchanged in position.- Daily PPI and famotidine as needed FEN - ADA diet PPX - Lovenox FULL CODE Dispo - inpatient for above Morbid obesity. No significant tobacco history and // remote history of SONYA. Patient seen and examined in the [facility]-19 ICU Interval decrease in a now tiny right pneumothorax status post pleural drainage catheter placement. There is a stable left pleural drainage catheter without con vincing left-sided pneumothorax. /large right pneumothorax with assocaited mild leftward mediastinal deviation. earlier 05-08 Stable diffuse mixed interstitial and alveolar infiltrate with suspected small pleural effusions. Stable endotracheal tube, nasogastric tube and right internal jugular central venous catheter. 05-08 cxr He remains on the vent vent support 90% and a PEEP of 6 Discussed with RN Chart reviewed Al[place]te to bedside drainage He is sedated with propofol fentanyl and Versed Remains very critically ill labile htn, will consult cardiology, htn much better today 32 min cc time 05/09/2021 Status post intubation 05/02, status post bilateral pneumothoraces requiring chest tubes 05/02 Decrease in a tiny residual right pneumothorax status post pleural drainage catheter placement. There is an unchanged left pleural drainage catheter. 05-09 cxr Daily PPI and famotidine as needed FEN - ADA diet PPX - Lovenox FULL CODE Dispo - inpatient for above Morbid obesity. No significant tobacco history and // remote history of SONYA. Patient seen and examined in the [facility]- ICU Interval decrease in a now tiny right pneumothorax status post pleural drainage catheter placement. There is a stable left pleural drainage catheter without convincing left-sided pneumothorax. /large right pneumothorax with assocaited mild leftward mediastinal deviation. earlier 05-08 Stable diffuse mixed interstitial and alveolar infiltrate with suspected small pleural effusions. Stable endotracheal tube, nasogastric tube and right internal jugular central venous catheter. 05-08 cxr He remains on the vent AC/500/26/80 percent with 6 of PEEP Discussed with RN Chart reviewed [place] to bedside drainage He is sedated with propofol fentanyl and Versed Remains very critically ill labile htn, will consult cardiology 35 min cc time 05/08/2021 Daily PPI and famotidine as needed FEN - ADA diet PPX - Lovenox FULL CODE Dispo - inpatient for above Morbid obesity. No significant tobacco history and // remote history of SONYA. Patient seen and examined in the COVID-19 ICU Interval decrease in a now tiny right pneumothorax status post pleural drainage catheter placement. There is a stable left pleural drainage catheter without convincing left-sided pneumothorax. /large right pneumothorax with assocaited mild leftward mediastinal deviation. earlier 05-08 Stable diffuse mixed interstitial and alveolar infiltrate with suspected small pleural effusions. Stable endotracheal tube, nasogastric tube and right internal jugular central venous catheter. 05-08 cxr He remains on the vent AC/500/26/80 percent with 6 of PEEP Discussed with RN Chart reviewed [place]te to bedside drainage He is sedated with propofol fentanyl and Versed Remains very critically ill 33 min cc time 05/07/2021 Patient seen and examined in the [place] [id number] ICU He remains on the vent AC/500/26/80 percent with 6 of PEEP (this is improved from yesterday he was on 100% FiO2 with 8 of PEEP) Discussed with RN Chart reviewed Patient has Almonte to bedside drainage He is sedated with propofol fentanyl and Versed Remains very critically ill 05/06/2021 Patient seen and examined in the [place] [id number] ICU He remains intubated AC//500/1 her percent with 8 of PEEP The nurse was able to get him down to 80% for an hour or so earlier this morning but he desatted again when she moved him Chart reviewed Reviewed case with RN patient is having some tachycardia and Fluctuating blood pressure Has OG feeds running at 50 cc an hour plus he is getting free water Has [place]te to bedside drainage Has [address] He remains critically ill 05/05/2021 Patient seen and examined in the [place] [id number] ICU He is still intubated AC//500/1 100% with 8 of PEEP Has OG feeds running at 25 cc an hour Sedated with fentanyl and Versed Getting IV vecuronium Chart reviewed Discussed with RN He remains critically 05/04/2021 Patient seen and examined in the [place] [id number] ICU He remains mechanically ventilated Assist-control//500/1 100% with 10 of PEEP He is extremely critically ill He is sedated with Versed and fentanyl He is also paralyzed with vecuronium Reviewed chart Discussed with RN 05/03/2021 Patient seen and examined in the [place] [id number] ICU He remains mechanically ventilated AC//600/1 100% with 10 of PEEP Has 2 pigtail drains in his left and right chest due to some small pneumothoraces after being intubated Had to be sedated with vecuronium Also on Versed and fentanyl also has inverse I to E ratio 2:1 Chart reviewed Discussed with RN He remains extremely critically ill I am concerned he may not survive this? 05/02/2021 Patient seen and examined in the COVID-19 ICU He is on BiPAP with 100% FiO2 and very tachypneic Discussed with RN we are going to go ahead and intubate here in a few minutes Chart reviewed Patient currently semisedated with Versed Precedex and fentanyl He is very critically Patient 35-year-old male with past medical history of GERD, obesity, who presents to the ED as a transfer from [facility] for COVID-19 pneumonia with worsening respiratory distress. States his symptoms started roughly 1 week ago with fatigue and body aches, which progressed to include fever and shortness of breath. Symptoms were worse with exertion with no significant alleviating factors. He was tested for COVID-19 at [facility] and was discharged home because he was not hypoxic on room air. When he returned to [facility] with worsening symptoms a CT chest demonstrated bibasilar infiltrates consistent with atypical pneumonia. He was then admitted and placed on 3 L nasal cannula for further treatment. He has not been vaccinated against COVID- 19. However due to worsening respiratory distress he was transferred to [facility] for higher level of care. 04/29/2021: Still breathing 40 L Vapotherm. Afebrile, but complaining of chest heaviness, nausea, and subjective shortness of breath. Denies any vomiting, or diarrhea. Informed patient of likely prolonged hospitalization course. Hemoglobin A1c 5.6. Continue remdesivir day 2/5, continue steroids, antibiotics, and supportive care. Continue to follow daily LFTs. Plan to transfer patient to ICU bed when available. Critical care time 33 minutes spent reviewing charts, reviewing labs, and discussing case with Dr. Gaviria. 04/30/21: Afebrile, still breathing on Vapotherm. Continue remdesivir and monitor LFTs. Continue antibiotics, steroids, and supportive care. Will transfer him to the ICU once bed available. Critical care time 30 minutes spent in chart, reviewing labs, reviewing imaging, and discussion with RN. 05/01/2021 No acute events overnight. Patient seen and examined bedside. Saturating 93% on 40 L Vapotherm. Patient will transfer to the ICU for continued supportive care. Vitals/I&O Vitals/I&O: Vital Signs Date Time Temp Pulse Resp B/P (MAP) Pulse Ox O2 Delivery O2 Flow Rate FiO2 05/16/21 09:21 119 131/78 05/16/21 08:18 99 Ventilator 05/16/21 07:00 28 05/16/21 04:00 99.5 99.5 05/15/21 07:44 95.0 I & O 05/15/21 05/15/21 05/16/21 15:00 23:00 07:00 Intake Total 400 ml 2225 ml 2162 ml Output Total 925 ml 1330 ml 1170 ml Balance -525 ml 895 ml 992 ml Physical Exam Physical Exam: General intubated/sedated HEENT ETT /OGT + LUNGS: bilateral CTS + HEART: S1, S2 regular. CHEST: Decreased breath soundS,bilateral chest tube. Abdomen Nondistended, bowel sounds present almonte in place NEUROLOGIC: sedated Extremities edema present, no cyanosis Derm no generalized rash multiple tattoos Rt Central line removed Right upper extremity PICC line clean General: Other (sedated, intubated) Heart: Regular rate (SR), Normal S1 Lungs: Other (intubated) Abdomen: Soft Extremities: No cyanosis Skin: No rashes, No breakdown Labs Labs: Laboratory Tests Test 05/16/21 05:45 05/16/21 08:30 White Blood Count 4.8 x10^3/uL (4.0-11.0) Red Blood Count 2.97 x10^6/uL (4.30-5.70) Hemoglobin 8.7 g/dL (13.0-17.5) Hematocrit 25.8 % (39.0-53.0) Mean Corpuscular Volume 87 fL (79-100) Mean Corpuscular Hemoglobin 29 pg (25-35) Mean Corpuscular Hemoglobin Concent 34 g/dL (31-37) Red Cell Distribution Width 14.2 % (11.5-14.5) Platelet Count 154 x10^3/uL (140-400) Neutrophils (%) (Auto) 69 % (31-73) Lymphocytes (%) (Auto) 10 % (24-48) Monocytes (%) (Auto) 17 % (0-9) Eosinophils (%) (Auto) 4 % (0-3) Basophils (%) (Auto) 1 % (0-3) Neutrophils # (Auto) 3.3 x10^3/uL (1.8-7.7) Lymphocytes # (Auto) 0.5 x10^3/uL (1.0-4.8) Monocytes # (Auto) 0.8 x10^3/uL (0.0-1.1) Eosinophils # (Auto) 0.2 x10^3/uL (0.0-0.7) Basophils # (Auto) 0.0 x10^3/uL (0.0-0.2) Sodium Level 136 mmol/L (136-145) Potassium Level 4.0 mmol/L (3.5-5.1) Chloride Level 96 mmol/L (98-107) Carbon Dioxide Level 41 mmol/L (21-32) Anion Gap (6-14) Blood Urea Nitrogen 11 mg/dL (8-26) Creatinine 0.4 mg/dL (0.7-1.3) Estimated GFR (Cockcroft-Gault) 243.4 Glucose Level 96 mg/dL (70-99) Calcium Level 8.8 mg/dL (8.5-10.1) O2 Saturation 96 % (92-99) Arterial Blood pH 7.37 (7.35-7.45) Arterial Blood pCO2 at Patient Temp 67 mmHg (35-46) Arterial Blood pO2 at Patient Temp 83 mmHg (85-108) Arterial Blood HCO3 38 mmol/L (21-28) Arterial Blood Base Excess 11 mmol/L (-3-3) FiO2 100 Review of Systems Review of Systems: Cannot Obtain Comment Review of Relevant I have reviewed the following items anselmo (where applicable) has been applied. Justifications for Admission Other Justification MARY HERRON MD May 16, 2021 09:30
--- NOTE | 2021-05-16 16:15 | NUR ---
SS following up with discharge planning. SS reviewed pt chart and discussed with pt RN. Pt is currently on the vent at 100%. COVID19 positive. Pt on Propofol, Vec, Fentanyl, and Versed. Chest tubes x2. Not stable. SS will continue to follow for discharge planning.
[2021-05-17] VITALS (23 sets, daily range): BP systolic 113–155; BP diastolic 59–87
[2021-05-17] MEDS: PROPOFOL 100 ML IV PRN ×9 (01:23→22:12)
[2021-05-17] MEDS: VECURONIUM BROMIDE 50 MG in IV NORMAL SALINE 50ML 50 ML IV PRN ×3 (03:31→23:21)
[2021-05-17 06:22] LABS: BASO % 1 % (0-3); EOS # 0.3 x10^3/uL (0.0-0.7); EOS % 4 % (0-3); HEMATOCRIT 25.5 % (39.0-53.0); HEMOGLOBIN 8.3 g/dL (13.0-17.5); LYMPH # 0.6 x10^3/uL (1.0-4.8); LYMPH % 9 % (24-48); MEAN CORPUSCULAR HEMOGLOBIN 29 pg (25-35); MEAN CORPUSCULAR HGB CONC 33 g/dL (31-37); MEAN CORPUSCULAR VOLUME 88 fL (79-100); MONO % 17 % (0-9); NEUT # 4.3 x10^3/uL (1.8-7.7); NEUT % 69 % (31-73); PLATELET COUNT 139 x10^3/uL (140-400); RED BLOOD COUNT 2.88 x10^6/uL (4.30-5.70); RED CELL DISTRIBUTION WIDTH 14.5 % (11.5-14.5); WHITE BLOOD COUNT 6.3 x10^3/uL (4.0-11.0)
[2021-05-17] MEDS: MIDAZOLAM 100mg/100ml NS BAG 100 ML IV PRN ×2 (06:23→15:07)
[2021-05-17 06:35] LABS: BLOOD UREA NITROGEN 11 mg/dL (8-26); CALCIUM 8.6 mg/dL (8.5-10.1); CARBON DIOXIDE 41 mmol/L (21-32); CHLORIDE 97 mmol/L (98-107); CREATININE 0.4 mg/dL (0.7-1.3); GFR 243.4; GLUCOSE 99 mg/dL (70-99); POTASSIUM 4.1 mmol/L (3.5-5.1); SODIUM 138 mmol/L (136-145)
[2021-05-17] MEDS: FAMOTIDINE 20 MG/2 ML VIAL IVP SCH ×2 (08:04→21:00)
[2021-05-17] MEDS: ENOXAPARIN 40 MG/0.4 ML SYRINGE. SQ SCH ×2 (08:04→20:37)
[2021-05-17] MEDS: ZINC SULFATE 220 MG CAPSULE. PO SCH (08:06)
[2021-05-17] MEDS: ASPIRIN CHEWABLE 81 MG TABLET. PO SCH (08:06)
[2021-05-17] MEDS: METOPROLOL TART IMMED RELEASE 25 MG TABLET. PO SCH ×2 (08:06→20:36)
[2021-05-17] MEDS: CHOLECALCIFEROL (VITAMIN D3) 1,000 UNIT TABLET FT SCH (08:07)
--- NOTE | 2021-05-17 08:14 | PDOC ---
Infectious Disease Note Subjective: Subjective Pt intubated/sedated Vital Signs: Vital Signs Vital Signs Date Time Temp Pulse Resp B/P (MAP) Pulse Ox O2 Delivery O2 Flow Rate FiO2 05/17/21 08:06 123 138/78 05/17/21 07:35 91 Ventilator 05/17/21 06:00 28 05/17/21 04:00 99.2 99.2 Physical Exam: PHYSICAL EXAM General intubated/sedated HEENT ETT /OGT + LUNGS: bilateral CTS + HEART: S1, S2 regular. CHEST: Decreased breath soundS,bilateral chest tube. Abdomen Nondistended, bowel sounds present almonte in place NEUROLOGIC: sedated Extremities edema present, no cyanosis Derm no generalized rash multiple tattoos Rt Central line removed Right upper extremity PICC line clean Medications: Inpatient Meds: Medications reviewed. Labs: Lab Laboratory Tests Test 05/16/21 08:30 05/17/21 05:30 O2 Saturation 96 % (92-99) Arterial Blood pH 7.37 (7.35-7.45) Arterial Blood pCO2 at Patient Temp 67 mmHg (35-46) Arterial Blood pO2 at Patient Temp 83 mmHg (85-108) Arterial Blood HCO3 38 mmol/L (21-28) Arterial Blood Base Excess 11 mmol/L (-3-3) FiO2 100 White Blood Count 6.3 x10^3/uL (4.0-11.0) Red Blood Count 2.88 x10^6/uL (4.30-5.70) Hemoglobin 8.3 g/dL (13.0-17.5) Hematocrit 25.5 % (39.0-53.0) Mean Corpuscular Volume 88 fL (79-100) Mean Corpuscular Hemoglobin 29 pg (25-35) Mean Corpuscular Hemoglobin Concent 33 g/dL (31-37) Red Cell Distribution Width 14.5 % (11.5-14.5) Platelet Count 139 x10^3/uL (140-400) Neutrophils (%) (Auto) 69 % (31-73) Lymphocytes (%) (Auto) 9 % (24-48) Monocytes (%) (Auto) 17 % (0-9) Eosinophils (%) (Auto) 4 % (0-3) Basophils (%) (Auto) 1 % (0-3) Neutrophils # (Auto) 4.3 x10^3/uL (1.8-7.7) Lymphocytes # (Auto) 0.6 x10^3/uL (1.0-4.8) Monocytes # (Auto) 1.0 x10^3/uL (0.0-1.1) Eosinophils # (Auto) 0.3 x10^3/uL (0.0-0.7) Basophils # (Auto) 0.0 x10^3/uL (0.0-0.2) Sodium Level 138 mmol/L (136-145) Potassium Level 4.1 mmol/L (3.5-5.1) Chloride Level 97 mmol/L (98-107) Carbon Dioxide Level 41 mmol/L (21-32) Anion Gap (6-14) Blood Urea Nitrogen 11 mg/dL (8-26) Creatinine 0.4 mg/dL (0.7-1.3) Estimated GFR (Cockcroft-Gault) 243.4 Glucose Level 99 mg/dL (70-99) Calcium Level 8.6 mg/dL (8.5-10.1) Magnesium Level 1.9 mg/dL (1.8-2.4) Objective: Assessment: 1. COVID-19 pneumonia. 2. Bilateral pneumothorax.s/p chest tubes 05/02 3. Respiratory failure.s/p intubation 05/02 4. Pulmonary infiltrate. Plan: Plan of Care Continue supportive care. Central line removed Monitor labs and cultures will sign off. Call if any questions ORLY NAVA MD May 17, 2021 08:14
--- NOTE | 2021-05-17 08:15 | RAD ---
EXAM: CHEST ONE VIEW. HISTORY: Pneumothorax. COMPARISON: 05/15/2021. FINDINGS: A frontal view of the chest is obtained. An endotracheal tube has its tip 4 cm above the ca mildred. A right arm PICC line has its tip in the superior vena cava. A nasogastric tube has its tip bel ow the inferior margin of the view. Bilateral smallbore chest tubes remain in place. Bilateral diffuse infiltrates are unchanged. There is no appreciable pneumothorax or pleural effusion . The heart is not enlarged. IMPRESSION: 1. Stable bilateral diffuse infiltrates. Electronically signed by: Josselin Thompson MD (05/17/2021 8:12 AM) [id number]
[2021-05-17 08:52] LABS: BASE EXCESS ABG 7 mmol/L (-3-3); HCO3 ABG 35 mmol/L (21-28); PO2 ABG 60 mmHg (85-108); SAT O2 ABG 90 % (92-99)
[2021-05-17 09:14] LABS: FIO2 ABG 100% VENT; PCO2 ABG 72 mmHg (35-46)
--- NOTE | 2021-05-17 10:38 | PDOC ---
PULMONARY PROGRESS NOTES DATE: 05/17/21 TIME: 10:35 Subjective Patient remains on ventilatory support 100% and a PEEP of 7 Remains Sedated Bilateral chest tube, positive air leak on right chest tube Low-grade fever overnight, tachycardia on the monitor Vitals Vital Signs Date Time Temp Pulse Resp B/P (MAP) Pulse Ox O2 Delivery O2 Flow Rate FiO2 05/17/21 08:06 123 138/78 05/17/21 07:35 91 Ventilator 05/17/21 06:00 28 05/17/21 04:00 99.2 99.2 Comments On visual inspection, patient intubated, and in a medically induced coma Chest tube bilaterally, tachy no distress no obvious rash or edema Lungs: Other (intubated) Labs Laboratory Tests Test 05/16/21 05:45 05/16/21 08:30 05/17/21 05:30 05/17/21 08:00 White Blood Count 4.8 x10^3/uL (4.0-11.0) 6.3 x10^3/uL (4.0-11.0) Red Blood Count 2.97 x10^6/uL (4.30-5.70) 2.88 x10^6/uL (4.30-5.70) Hemoglobin 8.7 g/dL (13.0-17.5) 8.3 g/dL (13.0-17.5) Hematocrit 25.8 % (39.0-53.0) 25.5 % (39.0-53.0) Mean Corpuscular Volume 87 fL (79-100) 88 fL (79-100) Mean Corpuscular Hemoglobin 29 pg (25-35) 29 pg (25-35) Mean Corpuscular Hemoglobin Concent 34 g/dL (31-37) 33 g/dL (31-37) Red Cell Distribution Width 14.2 % (11.5-14.5) 14.5 % (11.5-14.5) Platelet Count 154 x10^3/uL (140-400) 139 x10^3/uL (140-400) Neutrophils (%) (Auto) 69 % (31-73) 69 % (31-73) Lymphocytes (%) (Auto) 10 % (24-48) 9 % (24-48) Monocytes (%) (Auto) 17 % (0-9) 17 % (0-9) Eosinophils (%) (Auto) 4 % (0-3) 4 % (0-3) Basophils (%) (Auto) 1 % (0-3) 1 % (0-3) Neutrophils # (Auto) 3.3 x10^3/uL (1.8-7.7) 4.3 x10^3/uL (1.8-7.7) Lymphocytes # (Auto) 0.5 x10^3/uL (1.0-4.8) 0.6 x10^3/uL (1.0-4.8) Monocytes # (Auto) 0.8 x10^3/uL (0.0-1.1) 1.0 x10^3/uL (0.0-1.1) Eosinophils # (Auto) 0.2 x10^3/uL (0.0-0.7) 0.3 x10^3/uL (0.0-0.7) Basophils # (Auto) 0.0 x10^3/uL (0.0-0.2) 0.0 x10^3/uL (0.0-0.2) Sodium Level 136 mmol/L (136-145) 138 mmol/L (136-145) Potassium Level 4.0 mmol/L (3.5-5.1) 4.1 mmol/L (3.5-5.1) Chloride Level 96 mmol/L (98-107) 97 mmol/L (98-107) Carbon Dioxide Level 41 mmol/L (21-32) 41 mmol/L (21-32) Anion Gap (6-14) (6-14) Blood Urea Nitrogen 11 mg/dL (8-26) 11 mg/dL (8-26) Creatinine 0.4 mg/dL (0.7-1.3) 0.4 mg/dL (0.7-1.3) Estimated GFR (Cockcroft-Gault) 243.4 243.4 Glucose Level 96 mg/dL (70-99) 99 mg/dL (70-99) Calcium Level 8.8 mg/dL (8.5-10.1) 8.6 mg/dL (8.5-10.1) O2 Saturation 96 % (92-99) 90 % (92-99) Arterial Blood pH 7.37 (7.35-7.45) 7.30 (7.35-7.45) Arterial Blood pCO2 at Patient Temp 67 mmHg (35-46) 72 mmHg (35-46) Arterial Blood pO2 at Patient Temp 83 mmHg (85-108) 60 mmHg (85-108) Arterial Blood HCO3 38 mmol/L (21-28) 35 mmol/L (21-28) Arterial Blood Base Excess 11 mmol/L (-3-3) 7 mmol/L (-3-3) FiO2 100 100% vent Magnesium Level 1.9 mg/dL (1.8-2.4) Laboratory Tests Test 05/17/21 05:30 05/17/21 08:00 White Blood Count 6.3 x10^3/uL (4.0-11.0) Red Blood Count 2.88 x10^6/uL (4.30-5.70) Hemoglobin 8.3 g/dL (13.0-17.5) Hematocrit 25.5 % (39.0-53.0) Mean Corpuscular Volume 88 fL (79-100) Mean Corpuscular Hemoglobin 29 pg (25-35) Mean Corpuscular Hemoglobin Concent 33 g/dL (31-37) Red Cell Distribution Width 14.5 % (11.5-14.5) Platelet Count 139 x10^3/uL (140-400) Neutrophils (%) (Auto) 69 % (31-73) Lymphocytes (%) (Auto) 9 % (24-48) Monocytes (%) (Auto) 17 % (0-9) Eosinophils (%) (Auto) 4 % (0-3) Basophils (%) (Auto) 1 % (0-3) Neutrophils # (Auto) 4.3 x10^3/uL (1.8-7.7) Lymphocytes # (Auto) 0.6 x10^3/uL (1.0-4.8) Monocytes # (Auto) 1.0 x10^3/uL (0.0-1.1) Eosinophils # (Auto) 0.3 x10^3/uL (0.0-0.7) Basophils # (Auto) 0.0 x10^3/uL (0.0-0.2) Sodium Level 138 mmol/L (136-145) Potassium Level 4.1 mmol/L (3.5-5.1) Chloride Level 97 mmol/L (98-107) Carbon Dioxide Level 41 mmol/L (21-32) Anion Gap (6-14) Blood Urea Nitrogen 11 mg/dL (8-26) Creatinine 0.4 mg/dL (0.7-1.3) Estimated GFR (Cockcroft-Gault) 243.4 Glucose Level 99 mg/dL (70-99) Calcium Level 8.6 mg/dL (8.5-10.1) Magnesium Level 1.9 mg/dL (1.8-2.4) O2 Saturation 90 % (92-99) Arterial Blood pH 7.30 (7.35-7.45) Arterial Blood pCO2 at Patient Temp 72 mmHg (35-46) Arterial Blood pO2 at Patient Temp 60 mmHg (85-108) Arterial Blood HCO3 35 mmol/L (21-28) Arterial Blood Base Excess 7 mmol/L (-3-3) FiO2 100% vent Medications Active Scripts Medications Dose Route/Sig Max Daily Dose Days Date Category Pepcid (Famotidine) 20 Mg Tablet 20 Mg PO BID 04/28/21 Reported Comments cxr 05/17 reviewed bilateral infiltrates , no change No sig PTX CXR 05/15/21 Impression: 1. Unchanged support device positioning, as above. 2. Unchanged tiny apical pneumothorax on the right. No pneumothorax is seen on the left. 3. No significant change in the extent of diffuse airspace infiltrates. Impression . 1. Acute hypoxic respiratory failure secondary to COVID-19 viral pneumonia/ARDS--intubated 2. Abnormal CT chest done at [facility] with diffuse bilateral alveolar and interstitial infiltrates related to COVID-19 pneumonia. No evidence of pulmonary embolism. 3. Underlying obesity. 4. Remote history of obstructive sleep apnea. 5. Abnormal liver function tests, likely due to Covid infection. Bilirubin normal. 6. Normal D-dimer initially, then marked increase , repeat test much improved. 7. Status post intubation 05/02, status post bilateral pneumothoraces requiring chest tubes 05/02. Pneumothorax worsen on the right 05/12. resolved now/ +air leak 8. HTN Plan . Updated 05/17/21 Continue current vent support 28/500/100%/peep 7 Follow ABG/CXR-----changes as needed--compensated hypercarbia/ ok with permissive hypercapnia Continue chest tubes to suction. Follow infectious disease recommendations in regards to antibiotics--off ABX at this time S/P full course of remdesivir and steroids Follow cardiology recommendations Continue TF for nutritional support DVT/GI PPX :lovenox D/W RN and RT Critical care time 30 minutes including review of the labs imaging studies and decision making. Updated 05/16/21 Continue current vent support 28/500/100%/peep 7 Follow ABG/CXR-----changes as needed--compensated hypercarbia Continue chest tubes to suction. Follow infectious disease recommendations in regards to antibiotics--off ABX at this time S/P full course of remdesivir and steroids Follow cardiology recommendations Continue TF for nutritional support DVT/GI PPX :lovenox D/W RN and RT Critical care time 30 minutes including review of the labs imaging studies and decision making. Updated 05/15/21 Continue current vent support 28/500/100%/peep 7 Follow ABG/CXR-----changes as needed Continue chest tubes to suction. Follow infectious disease recommendations in regards to antibiotics D-dimer levels significantly reduced. Will hold off on bilateral lower extremity ultrasounds S/P full course of remdesivir and steroids Follow cardiology recommendations Continue TF for nutritional support DVT/GI PPX :lovenox D/W RN and RT Critical care time 30 minutes including review of the labs imaging studies and decision making. Updated 05/14/21 Patient remains 100% FiO2. Assist-control mode. Down to 7 of PEEP. Continue current vent support Follow ABG/CXR-----changes as needed Continue chest tubes to suction. S/P full course of remdesivir and steroids Follow cardiology recommendations Continue TF for nutritional support DVT/GI PPX :lovenox repeat D-Dimer in am, If still high, do dopplers lower extremity D/W RN and RT Critical care time 30 minutes including review of the labs imaging studies and decision making. Will repeat chest x-ray in the morning. MURRAY ESPOSITO MD May 17, 2021 10:38
--- NOTE | 2021-05-17 11:09 | PDOC ---
[employer] PROGRESS NOTE Date of Service DOS: DATE: 05/17/21 TIME: 11:06 Chief Complaint Chief Complaint Acute respiratory failure with hypoxia COVID-19 pneumonia GERD Obesity Plan: Continue with with remdesivir, steroids and prophylactic antibiotics Appreciate pulmonology management Monitor daily LFTs Daily PPI and famotidine as needed FEN - ADA diet PPX - Lovenox FULL CODE Dispo - inpatient for above History of Present Illness History of Present Illness 05/17/21 Patient seen and examined at bedside. Remains intubated and sedated. Pulmonary following. Continuing Covid protocol. PA FiO2 ratio still significantly low. Continue to monitor blood gas daily. Plan of care discussed with bedside RN 05/16/21 Patient seen and examined at bedside, PICC line placed and central line removed. No major clinical changes remains intubated and sedated. Wean as tolerated. Plan of care discussed with bedside RN. Continue Covid protocol 05/15/21 Patient seen and examined at bedside Remains intubated and sedated debated; unsuccessful weaning thus far Place PICC line and remove central line today Otherwise continuing Covid protocol Pulmonary and ID consulted Plan of care discussed with bedside RN 05/14/2021 ID CONSULT central line needs to be replaced to the PICC line. experienced hypoxia requiring 100% and a PEEP of 7 , positive air leak on right chest tube Down to 7 of PEEP. Significant interval decrease in a now tiny right pneumothorax. No left-sided pneumothorax is seen. There are bilateral pleural drainage catheters. 05-12 PAFIB: new likely induced by above. multiple bursts. Maintaining SR/ST Status post intubation 05/02, status post bilateral pneumothoraces requiring chest tubes 05/02 Decrease in a tiny residual right pneumothorax status post pleural drainage catheter placement. There is an unchanged left pleural drainage catheter. 05-09 cxr bilateral pleural drainage catheters unchanged in position.05-10 Daily PPI and famotidine as needed PPX - Lovenox FULL CODE Dispo - inpatient for above Morbid obesity. No significant tobacco history and // remote history of SONYA. Patient seen and examined in the COVID-19 ICU Interval decrease in a now tiny right pneumothorax status post pleural drainage catheter placement. There is a stable left pleural drainage catheter without convincing left-sided pneumothorax. /large right pneumothorax with assocaited mild leftward mediastinal deviation. earlier 05-08 Stable diffuse mixed interstitial and alveolar infiltrate with suspected small pleural effusions. Stable endotracheal tube, nasogastric tube and right internal jugular central venous catheter. 05-08 cxr He remains on the vent ventilatory support 85% and a PEEP of 6. Discussed with RN Chart reviewed Almonte to bedside drainage He is sedated with propofol fentanyl and Versed Remains very critically ill labile htn, will consult cardiology, htn much better today 33 min cc time experienced hypoxia overnight requiring 100% and a PEEP of 10, 05/13/2021 ID CONSULT experienced hypoxia overnight requiring 100% and a PEEP of 10, Significant interval decrease in a now tiny right pneumothorax. No left-sided pneumothorax is seen. There are bilateral pleural drainage catheters. 05-12 PAFIB: new likely induced by above. multiple bursts. Maintaining SR/ST Status post intubation 05/02, status post bilateral pneumothoraces requiring chest tubes 05/02 Decrease in a tiny residual right pneumothorax status post pleural drainage catheter placement. There is an unchanged left pleural drainage catheter. 05-09 cxr bilateral pleural drainage catheters unchanged in position.05-10 Daily PPI and famotidine as needed PPX - Lovenox FULL CODE Dispo - inpatient for above Morbid obesity. No significant tobacco history and // remote history of SONYA. [facility] Interval decrease in a now tiny right pneumothorax status post pleural drainage catheter placement. There is a stable left pleural drainage catheter without convincing left-sided pneumothorax. /large right pneumothorax with assocaited mild leftward mediastinal deviation. earlier 05-08 Stable diffuse mixed interstitial and alveolar infiltrate with suspected small pleural effusions. Stable endotracheal tube, nasogastric tube and right internal jugular central venous catheter. 05-08 cxr He remains on the vent ventilatory support 85% and a PEEP of 6. Discussed with RN Chart reviewed Al[place]te to bedside drainage He is sedated with propofol fentanyl and Versed Remains very critically ill labile htn, will consult cardiology, htn much better today 34 min cc time experienced hypoxia overnight requiring 100% and a PEEP of 10, 05/12/2021 Significant interval decrease in a now tiny right pneumothorax. No left-sided pneumothorax is seen. There are bilateral pleural drainage catheters. 05-12 PAFIB: new likely induced by above. multiple bursts. Maintaining SR/ST Status post intubation 05/02, status post bilateral pneumothoraces requiring chest tubes 05/02 Decrease in a tiny residual right pneumothorax status post pleural drainage catheter placement. There is an unchanged left pleural drainage catheter. 05-09 cxr bilateral pleural drainage catheters unchanged in position.05-10 Daily PPI and famotidine as needed PPX - Lovenox FULL CODE Dispo - inpatient for above Morbid obesity. No significant tobacco history and // remote history of SONYA. Patient seen and examined in the [facility] ICU Interval decrease in a now tiny right pneumothorax status post pleural drainage catheter placement. There is a stable left pleural drainage catheter without convincing left-sided pneumothorax. /large right pneumothorax with assocaited mild leftward mediastinal deviation. earlier 05-08 Stable diffuse mixed interstitial and alveolar infiltrate with suspected small pleural effusions. Stable endotracheal tube, nasogastric tube and right internal jugular central venous catheter. 05-08 cxr He remains on the vent ventilatory support 85% and a PEEP of 6. Discussed with RN Chart reviewed Almonte to bedside drainage He is sedated with propofol fentanyl and Versed Remains very critically ill labile htn, will consult cardiology, htn much better today 34 min cc time 05/11/2021 PAFIB: new likely induced by above. multiple bursts. Maintaining SR/ST Status post intubation 05/02, status post bilateral pneumothoraces requiring chest tubes 05/02 Decrease in a tiny residual right pneumothorax status post pleural drainage catheter placement. There is an unchanged left pleural drainage catheter. 05-09 cxr bilateral pleural drainage catheters unchanged in position.05-10 Daily PPI and famotidine as needed PPX - Lovenox FULL CODE Dispo - inpatient for above Morbid obesity. No significant tobacco history and // remote history of SONYA. Patient seen and examined in the [facility]- ICU Interval decrease in a now tiny right pneumothorax status post pleural drainage catheter placement. There is a stable left pleural drainage catheter without convincing left-sided pneumothorax. /large right pneumothorax with assocaited mild leftward mediastinal deviation. earlier 05-08 Stable diffuse mixed interstitial and alveolar infiltrate with suspected small pleural effusions. Stable endotracheal tube, nasogastric tube and right internal jugular central venous catheter. 05-08 cxr He remains on the vent vent support 90% and a PEEP of 6 Discussed with RN Chart reviewed Al[place]te to bedside drainage He is sedated with propofol fentanyl and Versed Remains very critically ill labile htn, will consult cardiology, htn much better today 35 min cc time PAFIB: new likely induced by above. multiple bursts. Maintaining SR/ST 05/10/2021 Status post intubation 05/02, status post bilateral pneumothoraces requiring chest tubes 05/02 Decrease in a tiny residual right pneumothorax status post pleural drainage catheter placement. There is an unchanged left pleural drainage catheter. 05-09 cxr bilateral pleural drainage catheters unchanged in position.05-10 Daily PPI and famotidine as needed FEN - ADA diet PPX - Lovenox FULL CODE Dispo - inpatient for above Morbid obesity. No significant tobacco history and // remote history of SONYA. Patient seen and examined in the COVID-19 ICU Interval decrease in a now tiny right pneumothorax status post pleural drainage catheter placement. There is a stable left pleural drainage catheter without convincing left-sided pneumothorax. /large right pneumothorax with assocaited mild leftward mediastinal deviation. earlier 05-08 Stable diffuse mixed interstitial and alveolar infiltrate with suspected small pleural effusions. Stable endotracheal tube, nasogastric tube and right internal jugular central venous catheter. 05-08 cxr He remains on the vent vent support 90% and a PEEP of 6 Discussed with RN Chart reviewed Almonte to bedside drainage He is sedated with propofol fentanyl and Versed Remains very critically ill labile htn, will consult cardiology, htn much better today 32 min cc time 05/09/2021 Status post intubation 05/02, status post bilateral pneumothoraces requiring chest tubes 05/02 Decrease in a tiny residual right pneumothorax status post pleural drainage catheter placement. There is an unchanged left pleural drainage catheter. 05-09 cxr Daily PPI and famotidine as needed FEN - ADA diet PPX - Lovenox FULL CODE Dispo - inpatient for above Morbid obesity. No significant tobacco history and // remote history of SONYA. Patient seen and examined in the COVID-19 ICU Interval decrease in a now tiny right pneumothorax status post pleural drainage catheter placement. There is a stable left pleural drainage catheter without convincing left-sided pneumothorax. /large right pneumothorax with assocaited mild leftward mediastinal deviation. earlier 05-08 Stable diffuse mixed interstitial and alveolar infiltrate with suspected small pleural effusions. Stable endotracheal tube, nasogastric tube and right internal jugular central venous catheter. 05-08 cxr He remains on the vent AC/500/26/80 percent with 6 of PEEP Discussed with RN Chart reviewed Al[place]te to bedside drainage He is sedated with propofol fentanyl and Versed Remains very critically ill labile htn, will consult cardiology 35 min cc time 05/08/2021 Daily PPI and famotidine as needed FEN - ADA diet PPX - Lovenox FULL CODE Dispo - inpatient for above Morbid obesity. No significant tobacco history and // remote history of SONYA. Patient seen and examined in the [place] [address] ICU Interval decrease in a now tiny right pneumothorax status post pleural drainage catheter placement. There is a stable left pleural drainage catheter without convincing left-sided pneumothorax. /large right pneumothorax with assocaited mild leftward mediastinal deviation. earlier 05-08 Stable diffuse mixed interstitial and alveolar infiltrate with suspected small pleural effusions. Stable endotracheal tube, nasogastric tube and right internal jugular central venous catheter. 05-08 cxr He remains on the vent AC/500/26/80 percent with 6 of PEEP Discussed with RN Chart reviewed Almonte to bedside drainage He is sedated with propofol fentanyl and Versed Remains very critically ill 33 min cc time 05/07/2021 Patient seen and examined in the [place] [address] ICU He remains on the vent AC/500/26/80 percent with 6 of PEEP (this is improved from yesterday he was on 100% FiO2 with 8 of PEEP) Discussed with RN Chart reviewed Patient has Almonte to bedside drainage He is sedated with propofol fentanyl and Versed Remains very critically ill 05/06/2021 Patient seen and examined in the [place] [address] ICU He remains intubated AC//500/1 her percent with 8 of PEEP The nurse was able to get him down to 80% for an hour or so earlier this morning but he desatted again when she moved him Chart reviewed Reviewed case with RN patient is having some tachycardia and Fluctuating blood pressure Has OG feeds running at 50 cc an hour plus he is getting free water Has Almonte to bedside drainage Has [address] He remains critically ill 05/05/2021 Patient seen and examined in the [place] [address] ICU He is still intubated AC//500/1 100% with 8 of PEEP Has OG feeds running at 25 cc an hour Sedated with fentanyl and Versed Getting IV vecuronium Chart reviewed Discussed with RN He remains critically 05/04/2021 Patient seen and examined in the [place] [address] ICU He remains mechanically ventilated Assist-control/500/1 100% with 10 of PEEP He is extremely critically ill He is sedated with Versed and fentanyl He is also paralyzed with vecuronium Reviewed chart Discussed with RN 05/03/2021 Patient seen and examined in the [place] [address] ICU He remains mechanically ventilated AC//600/1 100% with 10 of PEEP Has 2 pigtail drains in his left and right chest due to some small pneumothoraces after being intubated Had to be sedated with vecuronium Also on Versed and fentanyl also has inverse I to E ratio 2:1 Chart reviewed Discussed with RN He remains extremely critically ill I am concerned he may not survive this? 05/02/2021 Patient seen and examined in the COVID-19 ICU He is on BiPAP with 100% FiO2 and very tachypneic Discussed with RN we are going to go ahead and intubate here in a few minutes Chart reviewed Patient currently semisedated with Versed Precedex and fentanyl He is very critically Patient 35-year-old male with past medical history of GERD, obesity, who presents to the ED as a transfer from [facility] for COVID-19 pneumonia with worsening respiratory distress. States his symptoms started roughly 1 week ago with fatigue and body aches, which progressed to include fever and shortness of breath. Symptoms were worse with exertion with no significant alleviating factors. He was tested for COVID-19 at [facility] and was discharged home because he was not hypoxic on room air. When he returned to [facility] with worsening symptoms a CT chest demonstrated bibasilar infiltrates consistent with atypical pneumonia. He was then admitted and placed on 3 L nasal cannula for further treatment. He has not been vaccinated against COVID- 19. However due to worsening respiratory distress he was transferred to [facility] for higher level of care. 04/29/2021: Still breathing 40 L Vapotherm. Afebrile, but complaining of chest heaviness, nausea, and subjective shortness of breath. Denies any vomiting, or diarrhea. Informed patient of likely prolonged hospitalization course. Hemoglobin A1c 5.6. Continue remdesivir day 2/5, continue steroids, antibiotics, and supportive care. Continue to follow daily LFTs. Plan to transfer patient to ICU bed when available. Critical care time 33 minutes spent reviewing charts, reviewing labs, and discussing case with Dr. Gaviria. 04/30/21: Afebrile, still breathing on Vapotherm. Continue remdesivir and monitor LFTs. Continue antibiotics, steroids, and supportive care. Will transfer him to the ICU once bed available. Critical care time 30 minutes spent in chart, reviewing labs, reviewing imaging, and discussion with RN. 05/01/2021 No acute events overnight. Patient seen and examined bedside. Saturating 93% on 40 L Vapotherm. Patient will transfer to the ICU for continued supportive care. Vitals/I&O Vitals/I&O: Vital Signs Date Time Temp Pulse Resp B/P (MAP) Pulse Ox O2 Delivery O2 Flow Rate FiO2 05/17/21 10:00 114 28 119/68 (85) 88 Ventilator 05/17/21 09:00 99.2 99.2 I & O 05/16/21 05/16/21 05/17/21 15:00 23:00 07:00 Intake Total 400 ml 2323 ml 2327 ml Output Total 1225 ml 1055 ml 865 ml Balance -825 ml 1268 ml 1462 ml Physical Exam Physical Exam: General intubated/sedated HEENT ETT /OGT + LUNGS: bilateral CTS + HEART: S1, S2 regular. CHEST: Decreased breath soundS,bilateral chest tube. Abdomen Nondistended, bowel sounds present almonte in place NEUROLOGIC: sedated Extremities edema present, no cyanosis Derm no generalized rash multiple tattoos Rt Central line removed Right upper extremity PICC line clean General: Other (sedated, intubated) Heart: Regular rate (SR), Normal S1 Lungs: Other (intubated) Abdomen: Soft Extremities: No cyanosis Skin: No rashes, No breakdown Labs Labs: Laboratory Tests Test 05/17/21 05:30 05/17/21 08:00 White Blood Count 6.3 x10^3/uL (4.0-11.0) Red Blood Count 2.88 x10^6/uL (4.30-5.70) Hemoglobin 8.3 g/dL (13.0-17.5) Hematocrit 25.5 % (39.0-53.0) Mean Corpuscular Volume 88 fL (79-100) Mean Corpuscular Hemoglobin 29 pg (25-35) Mean Corpuscular Hemoglobin Concent 33 g/dL (31-37) Red Cell Distribution Width 14.5 % (11.5-14.5) Platelet Count 139 x10^3/uL (140-400) Neutrophils (%) (Auto) 69 % (31-73) Lymphocytes (%) (Auto) 9 % (24-48) Monocytes (%) (Auto) 17 % (0-9) Eosinophils (%) (Auto) 4 % (0-3) Basophils (%) (Auto) 1 % (0-3) Neutrophils # (Auto) 4.3 x10^3/uL (1.8-7.7) Lymphocytes # (Auto) 0.6 x10^3/uL (1.0-4.8) Monocytes # (Auto) 1.0 x10^3/uL (0.0-1.1) Eosinophils # (Auto) 0.3 x10^3/uL (0.0-0.7) Basophils # (Auto) 0.0 x10^3/uL (0.0-0.2) Sodium Level 138 mmol/L (136-145) Potassium Level 4.1 mmol/L (3.5-5.1) Chloride Level 97 mmol/L (98-107) Carbon Dioxide Level 41 mmol/L (21-32) Anion Gap (6-14) Blood Urea Nitrogen 11 mg/dL (8-26) Creatinine 0.4 mg/dL (0.7-1.3) Estimated GFR (Cockcroft-Gault) 243.4 Glucose Level 99 mg/dL (70-99) Calcium Level 8.6 mg/dL (8.5-10.1) Magnesium Level 1.9 mg/dL (1.8-2.4) O2 Saturation 90 % (92-99) Arterial Blood pH 7.30 (7.35-7.45) Arterial Blood pCO2 at Patient Temp 72 mmHg (35-46) Arterial Blood pO2 at Patient Temp 60 mmHg (85-108) Arterial Blood HCO3 35 mmol/L (21-28) Arterial Blood Base Excess 7 mmol/L (-3-3) FiO2 100% vent Comment Review of Relevant I have reviewed the following items anselmo (where applicable) has been applied. Justifications for Admission Other Justification MARY HERRON MD May 17, 2021 11:09
[2021-05-17] MEDS: ASCORBIC ACID 500 MG TABLET PO SCH (11:15)
[2021-05-17] MEDS: fentaNYL HIGH DOSE PCA 55 ML IV PRN (13:13)
[2021-05-17] MEDS ORDERED: FUROSEMIDE 20 MG/2 ML VIAL. IVP ONE (15:00)
[2021-05-17] MEDS: FAMOTIDINE 20 MG TABLET. PO PRN (20:36)
[2021-05-18] VITALS (24 sets, daily range): BP systolic 113–138; BP diastolic 61–76
[2021-05-18] MEDS: PROPOFOL 100 ML IV PRN ×9 (00:26→22:22)
[2021-05-18] MEDS: fentaNYL HIGH DOSE PCA 55 ML IV PRN ×2 (02:24→13:55)
[2021-05-18] MEDS: MIDAZOLAM 100mg/100ml NS BAG 100 ML IV PRN ×3 (02:24→22:34)
[2021-05-18] MEDS: VECURONIUM BROMIDE 50 MG in IV NORMAL SALINE 50ML 50 ML IV PRN ×4 (03:03→18:24)
--- NOTE | 2021-05-18 04:45 | NUR ---
Allergies and reactions Reviewed INR BUN 15 Cr 0.9 Platelets 68 Blood culture done Yes 05/17/21 blood culture results Negatvie Order Verified Yes Consent signed Yes Previous PICC placement Unkown Past Medical/Surgical history and current diagnosis reviewed Yes Patient Medical /Surgical History Related to PICC line placement Diabetes Special considerations for PICC line placement Anticoagulation therapy PICC placement indication Poor peripheral intravenous access YUNIER Wiggins, PICC Nurse Addendum: 05/18/21 at 0718 by ARNIE MCGEE RN Amended: Links added. Addendum: 05/19/21 at 1918 by ARNIE MCGEE RN Disregard above note; documented on wrong patient.
[2021-05-18 06:04] LABS: BLOOD UREA NITROGEN 12 mg/dL (8-26); CALCIUM 8.8 mg/dL (8.5-10.1); CARBON DIOXIDE > 45 mmol/L (21-32); CHLORIDE 95 mmol/L (98-107); CREATININE 0.5 mg/dL (0.7-1.3); GFR 188.1; GLUCOSE 113 mg/dL (70-99); POTASSIUM 3.8 mmol/L (3.5-5.1); SODIUM 136 mmol/L (136-145)
[2021-05-18 06:28] LABS: HEMATOCRIT 24.5 % (39.0-53.0); HEMOGLOBIN 8.1 g/dL (13.0-17.5); RED BLOOD COUNT 2.81 x10^6/uL (4.30-5.70); RED CELL DISTRIBUTION WIDTH 14.6 % (11.5-14.5); WHITE BLOOD COUNT 8.2 x10^3/uL (4.0-11.0)
--- NOTE | 2021-05-18 06:30 | NUR ---
Procedure: Following complete explanation of the PICC procedure including the indications, risks, and potential complications, informed consent was obtained. The possibility for infection was discussed along with signs, symptoms, and prevention. All the questions were answered. Written and verbal patient education was provided. Hand hygiene performed. Standardized central line checklist was utilized. The patient was placed in the supine position, the arm was prepped with chlorhexidine and patient draped with maximum sterile barrier. 5 mL 1% lidocaine was infiltrated into the skin to provide local anesthesia. A thorough assessment of Right upper extremity completed. Using real-time ultrasound guidance and standardized micro puncture set, the Basilic vein was punctured but unble to either advance catheter or guidewire and line not placed Patient tolerated the procedure. Complications: Unable to advance guidewire or catheter once vessel accessed. Addendum: 05/18/21 at 0725 by ARNIE MCGEE RN Amended: Links added. Addendum: 05/19/21 at 1912 by ARNIE MCGEE RN Disregard above note, charted on wrong patient
[2021-05-18 08:35] LABS: BASE EXCESS ABG 12 mmol/L (-3-3); HCO3 ABG 40 mmol/L (21-28); PO2 ABG 62 mmHg (85-108); SAT O2 ABG 90 % (92-99)
[2021-05-18 08:38] LABS: PCO2 ABG 71 mmHg (35-46)
[2021-05-18] MEDS: METOPROLOL TART IMMED RELEASE 25 MG TABLET. PO SCH ×2 (09:20→22:25)
[2021-05-18] MEDS: ASPIRIN CHEWABLE 81 MG TABLET. PO SCH (09:21)
[2021-05-18] MEDS: FAMOTIDINE 20 MG TABLET. PO PRN (09:21)
[2021-05-18] MEDS: ASCORBIC ACID 500 MG TABLET PO SCH (09:21)
[2021-05-18] MEDS: ENOXAPARIN 40 MG/0.4 ML SYRINGE. SQ SCH ×2 (09:21→22:24)
[2021-05-18] MEDS: CHOLECALCIFEROL (VITAMIN D3) 1,000 UNIT TABLET FT SCH (09:21)
--- NOTE | 2021-05-18 09:27 | PDOC ---
PULMONARY PROGRESS NOTES DATE: 05/18/21 TIME: 09:23 Subjective Patient remains on ventilatory support 100% and a PEEP of 10 Remains Sedated Bilateral chest tube, positive air leak on right chest tube, no air leak on left chest tube fever overnight Tachy HR 124, hypoxia o2 sat 84% Vitals Vital Signs Date Time Temp Pulse Resp B/P (MAP) Pulse Ox O2 Delivery O2 Flow Rate FiO2 05/18/21 09:21 122 138/76 05/18/21 08:17 93 Ventilator 05/18/21 06:00 28 05/18/21 04:00 99.5 99.5 05/18/21 02:54 95.0 Comments On visual inspection, patient intubated, and in a medically induced coma Chest tube bilaterally, tachy no distress no obvious rash or edema Lungs: Other (intubated) Labs Laboratory Tests Test 05/17/21 05:30 05/17/21 08:00 05/18/21 05:30 05/18/21 08:00 White Blood Count 6.3 x10^3/uL (4.0-11.0) 8.2 x10^3/uL (4.0-11.0) Red Blood Count 2.88 x10^6/uL (4.30-5.70) 2.81 x10^6/uL (4.30-5.70) Hemoglobin 8.3 g/dL (13.0-17.5) 8.1 g/dL (13.0-17.5) Hematocrit 25.5 % (39.0-53.0) 24.5 % (39.0-53.0) Mean Corpuscular Volume 88 fL (79-100) 87 fL (79-100) Mean Corpuscular Hemoglobin 29 pg (25-35) 29 pg (25-35) Mean Corpuscular Hemoglobin Concent 33 g/dL (31-37) 33 g/dL (31-37) Red Cell Distribution Width 14.5 % (11.5-14.5) 14.6 % (11.5-14.5) Platelet Count 139 x10^3/uL (140-400) 144 x10^3/uL (140-400) Neutrophils (%) (Auto) 69 % (31-73) Lymphocytes (%) (Auto) 9 % (24-48) Monocytes (%) (Auto) 17 % (0-9) Eosinophils (%) (Auto) 4 % (0-3) Basophils (%) (Auto) 1 % (0-3) Neutrophils # (Auto) 4.3 x10^3/uL (1.8-7.7) Lymphocytes # (Auto) 0.6 x10^3/uL (1.0-4.8) Monocytes # (Auto) 1.0 x10^3/uL (0.0-1.1) Eosinophils # (Auto) 0.3 x10^3/uL (0.0-0.7) Basophils # (Auto) 0.0 x10^3/uL (0.0-0.2) Sodium Level 138 mmol/L (136-145) 136 mmol/L (136-145) Potassium Level 4.1 mmol/L (3.5-5.1) 3.8 mmol/L (3.5-5.1) Chloride Level 97 mmol/L (98-107) 95 mmol/L (98-107) Carbon Dioxide Level 41 mmol/L (21-32) > 45 mmol/L (21-32) Anion Gap (6-14) (6-14) Blood Urea Nitrogen 11 mg/dL (8-26) 12 mg/dL (8-26) Creatinine 0.4 mg/dL (0.7-1.3) 0.5 mg/dL (0.7-1.3) Estimated GFR (Cockcroft-Gault) 243.4 188.1 Glucose Level 99 mg/dL (70-99) 113 mg/dL (70-99) Calcium Level 8.6 mg/dL (8.5-10.1) 8.8 mg/dL (8.5-10.1) Magnesium Level 1.9 mg/dL (1.8-2.4) O2 Saturation 90 % (92-99) 90 % (92-99) Arterial Blood pH 7.30 (7.35-7.45) 7.36 (7.35-7.45) Arterial Blood pCO2 at Patient Temp 72 mmHg (35-46) 71 mmHg (35-46) Arterial Blood pO2 at Patient Temp 60 mmHg (85-108) 62 mmHg (85-108) Arterial Blood HCO3 35 mmol/L (21-28) 40 mmol/L (21-28) Arterial Blood Base Excess 7 mmol/L (-3-3) 12 mmol/L (-3-3) FiO2 100% vent 100/vent Laboratory Tests Test 05/18/21 05:30 05/18/21 08:00 White Blood Count 8.2 x10^3/uL (4.0-11.0) Red Blood Count 2.81 x10^6/uL (4.30-5.70) Hemoglobin 8.1 g/dL (13.0-17.5) Hematocrit 24.5 % (39.0-53.0) Mean Corpuscular Volume 87 fL (79-100) Mean Corpuscular Hemoglobin 29 pg (25-35) Mean Corpuscular Hemoglobin Concent 33 g/dL (31-37) Red Cell Distribution Width 14.6 % (11.5-14.5) Platelet Count 144 x10^3/uL (140-400) Sodium Level 136 mmol/L (136-145) Potassium Level 3.8 mmol/L (3.5-5.1) Chloride Level 95 mmol/L (98-107) Carbon Dioxide Level > 45 mmol/L (21-32) Anion Gap (6-14) Blood Urea Nitrogen 12 mg/dL (8-26) Creatinine 0.5 mg/dL (0.7-1.3) Estimated GFR (Cockcroft-Gault) 188.1 Glucose Level 113 mg/dL (70-99) Calcium Level 8.8 mg/dL (8.5-10.1) O2 Saturation 90 % (92-99) Arterial Blood pH 7.36 (7.35-7.45) Arterial Blood pCO2 at Patient Temp 71 mmHg (35-46) Arterial Blood pO2 at Patient Temp 62 mmHg (85-108) Arterial Blood HCO3 40 mmol/L (21-28) Arterial Blood Base Excess 12 mmol/L (-3-3) FiO2 100/vent Medications Active Scripts Medications Dose Route/Sig Max Daily Dose Days Date Category Pepcid (Famotidine) 20 Mg Tablet 20 Mg PO BID 04/28/21 Reported Comments cxr 05/17 reviewed bilateral infiltrates , no change No sig PTX CXR 05/15/21 Impression: 1. Unchanged support device positioning, as above. 2. Unchanged tiny apical pneumothorax on the right. No pneumothorax is seen on the left. 3. No significant change in the extent of diffuse airspace infiltrates. Impression . 1. Acute hypoxic respiratory failure secondary to COVID-19 viral pneumonia/ARDS--intubated 2. Abnormal CT chest done at [facility] with diffuse bilateral alveolar and interstitial infiltrates related to COVID-19 pneumonia. No evidence of pulmonary embolism. 3. Underlying obesity. 4. Remote history of obstructive sleep apnea. 5. Abnormal liver function tests, likely due to Covid infection. Bilirubin normal. 6. Normal D-dimer initially, then marked increase , repeat test much improved. 7. Status post intubation 05/02, status post bilateral pneumothoraces requiring chest tubes 05/02. Pneumothorax worsen on the right 05/12. resolved now/ +air leak 8. HTN Plan . Updated 05/18/21 Continue current vent support 28/500/100%/peep 10 Follow ABG/CXR--compensated hypercarbia/ ok with permissive hypercapnia-- no changes today Continue chest tubes to suction. Follow infectious disease recommendations in regards to antibiotics--off ABX at this time S/P full course of remdesivir and steroids Continue TF for nutritional support DVT/GI PPX :lovenox D/W RN and RT Poor prognosis, remains critically ill Critical care time 30 minutes including review of the labs imaging studies and decision making. Updated 05/17/21 Continue current vent support 28/500/100%/peep 7 Follow ABG/CXR-----changes as needed--compensated hypercarbia/ ok with permissive hypercapnia Continue chest tubes to suction. Follow infectious disease recommendations in regards to antibiotics--off ABX at this time S/P full course of remdesivir and steroids Follow cardiology recommendations Continue TF for nutritional support DVT/GI PPX :lovenox D/W RN and RT Critical care time 30 minutes including review of the labs imaging studies and decision making. Updated 05/16/21 Continue current vent support 28/500/100%/peep 7 Follow ABG/CXR-----changes as needed--compensated hypercarbia Continue chest tubes to suction. Follow infectious disease recommendations in regards to antibiotics--off ABX at this time S/P full course of remdesivir and steroids Follow cardiology recommendations Continue TF for nutritional support DVT/GI PPX :lovenox D/W RN and RT Critical care time 30 minutes including review of the labs imaging studies and decision making. BECKY DUGAN [employer] May 18, 2021 09:26
[2021-05-18] MEDS: FAMOTIDINE 20 MG/2 ML VIAL IVP SCH ×2 (10:27→22:25)
[2021-05-18] MEDS: ZINC SULFATE 220 MG CAPSULE. PO SCH (11:02)
--- NOTE | 2021-05-18 12:43 | PDOC ---
[employer] PROGRESS NOTE Date of Service DOS: DATE: 05/18/21 TIME: 12:42 Chief Complaint Chief Complaint Acute respiratory failure with hypoxia COVID-19 pneumonia GERD Obesity Plan: Continue Covid protocol Appreciate pulmonology management Monitor daily LFTs Daily PPI and famotidine as needed FEN - ADA diet PPX - Lovenox FULL CODE Dispo - inpatient for above History of Present Illness History of Present Illness 05/18/21 Patient seen and examined at bedside. Remains intubated and sedated. No major clinical improvement. Pulmonary following. Will attempt to contact family today. Plan of care discussed with bedside RN. 05/17/21 Patient seen and examined at bedside. Remains intubated and sedated. Pulmonary following. Continuing Covid protocol. PA FiO2 ratio still significantly low. Continue to monitor blood gas daily. Plan of care discussed with bedside RN 05/16/21 Patient seen and examined at bedside, PICC line placed and central line removed. No major clinical changes remains intubated and sedated. Wean as tolerated. Plan of care discussed with bedside RN. Continue Covid protocol 05/15/21 Patient seen and examined at bedside Remains intubated and sedated debated; unsuccessful weaning thus far Place PICC line and remove central line today Otherwise continuing Covid protocol Pulmonary and ID consulted Plan of care discussed with bedside RN 05/14/2021 ID CONSULT central line needs to be replaced to the PICC line. experienced hypoxia requiring 100% and a PEEP of 7 , positive air leak on right chest tube Down to 7 of PEEP. Significant interval decrease in a now tiny right pneumothorax. No left-sided pneumothorax is seen. There are bilateral pleural drainage catheters. 05-12 PAFIB: new likely induced by above. multiple bursts. Maintaining SR/ST Status post intubation 05/02, status post bilateral pneumothoraces requiring chest tubes 05/02 Decrease in a tiny residual right pneumothorax status post pleural drainage catheter placement. There is an unchanged left pleural drainage catheter. 05-09 cxr bilateral pleural drainage catheters unchanged in position.05-10 Daily PPI and famotidine as needed PPX - Lovenox FULL CODE Dispo - inpatient for above Morbid obesity. No significant tobacco history and // remote history of SONYA. Patient seen and examined in the COVID-19 ICU Interval decrease in a now tiny right pneumothorax status post pleural drainage catheter placement. There is a stable left pleural drainage catheter without convincing left-sided pneumothorax. /large right pneumothorax with assocaited mild leftward mediastinal deviation. earlier 05-08 Stable diffuse mixed interstitial and alveolar infiltrate with suspected small pleural effusions. Stable endotracheal tube, nasogastric tube and right internal jugular central venous catheter. 05-08 cxr He remains on the vent ventilatory support 85% and a PEEP of 6. Discussed with RN Chart reviewed Almonte to bedside drainage He is sedated with propofol fentanyl and Versed Remains very critically ill labile htn, will consult cardiology, htn much better today 33 min cc time experienced hypoxia overnight requiring 100% and a PEEP of 10, 05/13/2021 ID CONSULT experienced hypoxia overnight requiring 100% and a PEEP of 10, Significant interval decrease in a now tiny right pneumothorax. No left-sided pneumothorax is seen. There are bilateral pleural drainage catheters. 05-12 PAFIB: new likely induced by above. multiple bursts. Maintaining SR/ST Status post intubation 05/02, status post bilateral pneumothoraces requiring chest tubes 05/02 Decrease in a tiny residual right pneumothorax status post pleural drainage catheter placement. There is an unchanged left pleural drainage catheter. 05-09 cxr bilateral pleural drainage catheters unchanged in position.05-10 Daily PPI and famotidine as needed PPX - Lovenox FULL CODE Dispo - inpatient for above Morbid obesity. No significant tobacco history and // remote history of SONYA. Patient seen and examined in the [facility] Interval decrease in a now tiny right pneumothorax status post pleural drainage catheter placement. There is a stable left pleural drainage catheter without convincing left-sided pneumothorax. /large right pneumothorax with assocaited mild leftward mediastinal deviation. earlier 05-08 Stable diffuse mixed interstitial and alveolar infiltrate with suspected small pleural effusions. Stable endotracheal tube, nasogastric tube and right internal jugular central venous catheter. 05-08 cxr He remains on the vent ventilatory support 85% and a PEEP of 6. Discussed with RN Chart reviewed Almonte to bedside drainage He is sedated with propofol fentanyl and Versed Remains very critically ill labile htn, will consult cardiology, htn much better today 34 min cc time experienced hypoxia overnight requiring 100% and a PEEP of 10, 05/12/2021 Significant interval decrease in a now tiny right pneumothorax. No left-sided pneumothorax is seen. There are bilateral pleural drainage catheters. 05-12 PAFIB: new likely induced by above. multiple bursts. Maintaining SR/ST Status post intubation 05/02, status post bilateral pneumothoraces requiring chest tubes 05/02 Decrease in a tiny residual right pneumothorax status post pleural drainage catheter placement. There is an unchanged left pleural drainage catheter. 05-09 cxr bilateral pleural drainage catheters unchanged in position.05-10 Daily PPI and famotidine as needed PPX - Lovenox FULL CODE Dispo - inpatient for above Morbid obesity. No significant tobacco history and // remote history of SONYA. Patient seen and examined in the [facility] ICU Interval decrease in a now tiny right pneumothorax status post pleural drainage catheter placement. There is a stable left pleural drainage catheter without convincing left-sided pneumothorax. /large right pneumothorax with assocaited mild leftward mediastinal deviation. earlier 05-08 Stable diffuse mixed interstitial and alveolar infiltrate with suspected small pleural effusions. Stable endotracheal tube, nasogastric tube and right internal jugular central venous catheter. 05-08 cxr He remains on the vent ventilatory support 85% and a PEEP of 6. Discussed with RN Chart reviewed Almonte to bedside drainage He is sedated with propofol fentanyl and Versed Remains very critically ill labile htn, will consult cardiology, htn much better today 34 min cc time 05/11/2021 PAFIB: new likely induced by above. multiple bursts. Maintaining SR/ST Status post intubation 05/02, status post bilateral pneumothoraces requiring chest tubes 05/02 Decrease in a tiny residual right pneumothorax status post pleural drainage catheter placement. There is an unchanged left pleural drainage catheter. 05-09 cxr bilateral pleural drainage catheters unchanged in position.05-10 Daily PPI and famotidine as needed PPX - Lovenox FULL CODE Dispo - inpatient for above Morbid obesity. No significant tobacco history and // remote history of SONYA. Patient seen and examined in the [facility] ICU Interval decrease in a now tiny right pneumothorax status post pleural drainage catheter placement. There is a stable left pleural drainage catheter without convincing left-sided pneumothorax. /large right pneumothorax with assocaited mild leftward mediastinal deviation. earlier 05-08 Stable diffuse mixed interstitial and alveolar infiltrate with suspected small pleural effusions. Stable endotracheal tube, nasogastric tube and right internal jugular central venous catheter. 05-08 cxr He remains on the vent vent support 90% and a PEEP of 6 Discussed with RN Chart reviewed Almonte to bedside drainage He is sedated with propofol fentanyl and Versed Remains very critically ill labile htn, will consult cardiology, htn much better today 35 min cc time PAFIB: new likely induced by above. multiple bursts. Maintaining SR/ST 05/10/2021 Status post intubation 05/02, status post bilateral pneumothoraces requiring chest tubes 05/02 Decrease in a tiny residual right pneumothorax status post pleural drainage catheter placement. There is an unchanged left pleural drainage catheter. 05-09 cxr bilateral pleural drainage catheters unchanged in position.05-10 Daily PPI and famotidine as needed FEN - ADA diet PPX - Lovenox FULL CODE Dispo - inpatient for above Morbid obesity. No significant tobacco history and // remote history of SONYA. Patient seen and examined in the COVID-19 ICU Interval decrease in a now tiny right pneumothorax status post pleural drainage catheter placement. There is a stable left pleural drainage catheter without convincing left-sided pneumothorax. /large right pneumothorax with assocaited mild leftward mediastinal deviation. earlier 05-08 Stable diffuse mixed interstitial and alveolar infiltrate with suspected small pleural effusions. Stable endotracheal tube, nasogastric tube and right internal jugular central venous catheter. 05-08 cxr He remains on the vent vent support 90% and a PEEP of 6 Discussed with RN Chart reviewed Almonte to bedside drainage He is sedated with propofol fentanyl and Versed Remains very critically ill labile htn, will consult cardiology, htn much better today 32 min cc time 05/09/2021 Status post intubation 05/02, status post bilateral pneumothoraces requiring chest tubes 05/02 Decrease in a tiny residual right pneumothorax status post pleural drainage catheter placement. There is an unchanged left pleural drainage catheter. 05-09 cxr Daily PPI and famotidine as needed FEN - ADA diet PPX - Lovenox FULL CODE Dispo - inpatient for above Morbid obesity. No significant tobacco history and // remote history of SONYA. Patient seen and examined in the COVID-19 ICU Interval decrease in a now tiny right pneumothorax status post pleural drainage catheter placement. There is a stable left pleural drainage catheter without convincing left-sided pneumothorax. /large right pneumothorax with assocaited mild leftward mediastinal deviation. earlier 05-08 Stable diffuse mixed interstitial and alveolar infiltrate with suspected small pleural effusions. Stable endotracheal tube, nasogastric tube and right internal jugular central venous catheter. 05-08 cxr He remains on the vent AC/500/26/80 percent with 6 of PEEP Discussed with RN Chart reviewed Almonte to bedside drainage He is sedated with propofol fentanyl and Versed Remains very critically ill labile htn, will consult cardiology 35 min cc time 05/08/2021 Daily PPI and famotidine as needed FEN - ADA diet PPX - Lovenox FULL CODE Dispo - inpatient for above Morbid obesity. No significant tobacco history and // remote history of SONYA. Patient seen and examined in the [place] [id number] ICU Interval decrease in a now tiny right pneumothorax status post pleural drainage catheter placement. There is a stable left pleural drainage catheter without convincing left-sided pneumothorax. /large right pneumothorax with assocaited mild leftward mediastinal deviation. earlier 05-08 Stable diffuse mixed interstitial and alveolar infiltrate with suspected small pleural effusions. Stable endotracheal tube, nasogastric tube and right internal jugular central venous catheter. 05-08 cxr He remains on the vent AC/500/26/80 percent with 6 of PEEP Discussed with RN Chart reviewed Almonte to bedside drainage He is sedated with propofol fentanyl and Versed Remains very critically ill 33 min cc time 05/07/2021 Patient seen and examined in the [place] [id number] ICU He remains on the vent AC/500/26/80 percent with 6 of PEEP (this is improved from yesterday he was on 100% FiO2 with 8 of PEEP) Discussed with RN Chart reviewed Patient has Almonte to bedside drainage He is sedated with propofol fentanyl and Versed Remains very critically ill 05/06/2021 Patient seen and examined in the [place] [id number] ICU He remains intubated AC//500/1 her percent with 8 of PEEP The nurse was able to get him down to 80% for an hour or so earlier this morning but he desatted again when she moved him Chart reviewed Reviewed case with RN patient is having some tachycardia and Fluctuating blood pressure Has OG feeds running at 50 cc an hour plus he is getting free water Has Almonte to bedside drainage Has [address] He remains critically ill 05/05/2021 Patient seen and examined in the [place] [id number] ICU He is still intubated AC//500/1 100% with 8 of PEEP Has OG feeds running at 25 cc an hour Sedated with fentanyl and Versed Getting IV vecuronium Chart reviewed Discussed with RN He remains critically 05/04/2021 Patient seen and examined in the [place] [id number] ICU He remains mechanically ventilated Assist-control/500/1 100% with 10 of PEEP He is extremely critically ill He is sedated with Versed and fentanyl He is also paralyzed with vecuronium Reviewed chart Discussed with RN 05/03/2021 Patient seen and examined in the COVID-19 ICU He remains mechanically ventilated AC//600/1 100% with 10 of PEEP Has 2 pigtail drains in his left and right chest due to some small pneumothoraces after being intubated Had to be sedated with vecuronium Also on Versed and fentanyl also has inverse I to E ratio 2:1 Chart reviewed Discussed with RN He remains extremely critically ill I am concerned he may not survive this? 05/02/2021 Patient seen and examined in the COVID19 ICU He is on BiPAP with 100% FiO2 and very tachypneic Discussed with RN we are going to go ahead and intubate here in a few minutes Chart reviewed Patient currently semisedated with Versed Precedex and fentanyl He is very critically Patient 35-year-old male with past medical history of GERD, obesity, who presents to the ED as a transfer from [facility] for COVID-19 pneumonia with worsening respiratory distress. States his symptoms started roughly 1 week ago with fatigue and body aches, which progressed to include fever and shortness of breath. Symptoms were worse with exertion with no significant alleviating factors. He was tested for COVID-19 at [facility] and was discharged home because he was not hypoxic on room air. When he returned to [facility] with worsening symptoms a CT chest demonstrated bibasilar infiltrates consistent with atypical pneumonia. He was then admitted and placed on 3 L nasal cannula for further treatment. He has not been vaccinated against COVID- 19. However due to worsening respiratory distress he was transferred to [facility] for higher level of care. 04/29/2021: Still breathing 40 L Vapotherm. Afebrile, but complaining of chest heaviness, nausea, and subjective shortness of breath. Denies any vomiting, or diarrhea. Informed patient of likely prolonged hospitalization course. Hemoglobin A1c 5.6. Continue remdesivir day 2/5, continue steroids, antibiotics, and supportive care. Continue to follow daily LFTs. Plan to transfer patient to ICU bed when available. Critical care time 33 minutes spent reviewing charts, reviewing labs, and discussing case with Dr. Gaviria. 04/30/21: Afebrile, still breathing on Vapotherm. Continue remdesivir and monitor LFTs. Continue antibiotics, steroids, and supportive care. Will transfer him to the ICU once bed available. Critical care time 30 minutes spent in chart, reviewing labs, reviewing imaging, and discussion with RN. 05/01/2021 No acute events overnight. Patient seen and examined bedside. Saturating 93% on 40 L Vapotherm. Patient will transfer to the ICU for continued supportive care. Vitals/I&O Vitals/I&O: Vital Signs Date Time Temp Pulse Resp B/P (MAP) Pulse Ox O2 Delivery O2 Flow Rate FiO2 05/18/21 12:00 86 Ventilator 05/18/21 11:00 120 28 117/67 (84) 05/18/21 08:00 99.2 99.2 05/18/21 02:54 95.0 I & O 05/17/21 05/17/21 05/18/21 15:00 23:00 07:00 Intake Total 1054 ml 1732.07 ml 2056 ml Output Total 1095 ml 1920 ml 645 ml Balance -41 ml -187.93 ml 1411 ml Physical Exam Physical Exam: General intubated/sedated HEENT ETT /OGT + LUNGS: bilateral CTS + HEART: S1, S2 regular. CHEST: Decreased breath soundS,bilateral chest tube. Abdomen Nondistended, bowel sounds present almonte in place NEUROLOGIC: sedated Extremities edema present, no cyanosis Derm no generalized rash multiple tattoos Rt Central line removed Right upper extremity PICC line clean General: Other (sedated, intubated) Heart: Regular rate (SR), Normal S1 Lungs: Other (intubated) Abdomen: Soft Extremities: No cyanosis Skin: No rashes, No breakdown Labs Labs: Laboratory Tests Test 05/18/21 05:30 05/18/21 08:00 White Blood Count 8.2 x10^3/uL (4.0-11.0) Red Blood Count 2.81 x10^6/uL (4.30-5.70) Hemoglobin 8.1 g/dL (13.0-17.5) Hematocrit 24.5 % (39.0-53.0) Mean Corpuscular Volume 87 fL (79-100) Mean Corpuscular Hemoglobin 29 pg (25-35) Mean Corpuscular Hemoglobin Concent 33 g/dL (31-37) Red Cell Distribution Width 14.6 % (11.5-14.5) Platelet Count 144 x10^3/uL (140-400) Sodium Level 136 mmol/L (136-145) Potassium Level 3.8 mmol/L (3.5-5.1) Chloride Level 95 mmol/L (98-107) Carbon Dioxide Level > 45 mmol/L (21-32) Anion Gap (6-14) Blood Urea Nitrogen 12 mg/dL (8-26) Creatinine 0.5 mg/dL (0.7-1.3) Estimated GFR (Cockcroft-Gault) 188.1 Glucose Level 113 mg/dL (70-99) Calcium Level 8.8 mg/dL (8.5-10.1) O2 Saturation 90 % (92-99) Arterial Blood pH 7.36 (7.35-7.45) Arterial Blood pCO2 at Patient Temp 71 mmHg (35-46) Arterial Blood pO2 at Patient Temp 62 mmHg (85-108) Arterial Blood HCO3 40 mmol/L (21-28) Arterial Blood Base Excess 12 mmol/L (-3-3) FiO2 100/vent Review of Systems Review of Systems: Cannot obtain Comment Review of Relevant I have reviewed the following items anselmo (where applicable) has been applied. Medications: Current Medications Medications (Trade) Dose Ordered Sig/Bartolo Route PRN Reason Start Time Stop Time Status Last Admin Dose Admin Furosemide (Lasix) 20 mg 1X ONCE IVP 05/17/21 15:00 05/17/21 15:03 DC 05/17/21 15:08 Justifications for Admission Other Justification MARY HERRON MD May 18, 2021 12:43
[2021-05-19] VITALS (24 sets, daily range): BP systolic 113–133; BP diastolic 60–96
[2021-05-19] MEDS: VECURONIUM BROMIDE 50 MG in IV NORMAL SALINE 50ML 50 ML IV PRN ×5 (00:08→19:28)
[2021-05-19] MEDS: PROPOFOL 100 ML IV PRN ×10 (02:17→22:17)
[2021-05-19] MEDS: fentaNYL HIGH DOSE PCA 55 ML IV PRN ×2 (03:08→17:14)
[2021-05-19] MEDS: MIDAZOLAM 100mg/100ml NS BAG 100 ML IV PRN ×3 (04:20→17:14)
--- NOTE | 2021-05-19 05:12 | RAD ---
Study: XR CHEST 1V Indication: Respiratory failure/pneumothorax. Comparison: 05/17/2021 Findings: Endotracheal tube tip 4 cm above the allison. Enteric tube extends beyond the inferior field of view. Bilateral pleural catheters. Right-sided PICC terminating within the SVC. No pneumothorax is seen on the right or left. Similar extent of diffuse opacities considering differe nces in patient positioning. The opacities exhibiting a predilection for the subpleural and basilar l ungs. Unchanged cardiomediastinal silhouette. Impression: 1. Support device positioning as outlined above. 2. No pneumothorax on either side. No significant change in the extent of diffuse airspace opacities. Electronically signed by: ELISA ORTIZ MD (05/19/2021 5:10 AM) [facility]
[2021-05-19] MEDS: METOPROLOL TART IMMED RELEASE 25 MG TABLET. PO SCH ×2 (08:02→20:53)
[2021-05-19] MEDS: CHOLECALCIFEROL (VITAMIN D3) 1,000 UNIT TABLET FT SCH (08:02)
[2021-05-19] MEDS: ZINC SULFATE 220 MG CAPSULE. PO SCH (08:02)
[2021-05-19] MEDS: FAMOTIDINE 20 MG/2 ML VIAL IVP SCH ×2 (08:03→20:54)
[2021-05-19] MEDS: ASPIRIN CHEWABLE 81 MG TABLET. PO SCH (08:03)
[2021-05-19] MEDS: ASCORBIC ACID 500 MG TABLET PO SCH (08:03)
[2021-05-19] MEDS: ENOXAPARIN 40 MG/0.4 ML SYRINGE. SQ SCH ×2 (08:04→20:55)
[2021-05-19 08:20] LABS: BASE EXCESS ABG 14 mmol/L (-3-3); HCO3 ABG 41 mmol/L (21-28); PO2 ABG 58 mmHg (85-108); SAT O2 ABG 89 % (92-99)
[2021-05-19 09:17] LABS: PCO2 ABG 70 mmHg (35-46)
[2021-05-19 09:24] LABS: FIO2 ABG 100%
--- NOTE | 2021-05-19 09:53 | PDOC ---
PULMONARY PROGRESS NOTES DATE: 05/19/21 TIME: 09:48 Subjective Patient remains on ventilatory support 100% and a PEEP of 10 Remains Sedated Bilateral chest tube, positive air leak on right chest tube, no air leak on left chest tube fever overnight Vitals Vital Signs Date Time Temp Pulse Resp B/P (MAP) Pulse Ox O2 Delivery O2 Flow Rate FiO2 05/19/21 08:02 117 122/72 05/19/21 08:00 Mechanical Ventilator 05/19/21 07:53 89 05/19/21 06:00 28 05/19/21 04:00 98.6 98.6 05/19/21 03:38 95.0 Comments On visual inspection, patient intubated, and in a medically induced coma Chest tube bilaterally, tachy no distress no obvious rash or edema Labs Laboratory Tests Test 05/18/21 05:30 05/18/21 08:00 05/19/21 08:17 White Blood Count 8.2 x10^3/uL (4.0-11.0) Red Blood Count 2.81 x10^6/uL (4.30-5.70) Hemoglobin 8.1 g/dL (13.0-17.5) Hematocrit 24.5 % (39.0-53.0) Mean Corpuscular Volume 87 fL (79-100) Mean Corpuscular Hemoglobin 29 pg (25-35) Mean Corpuscular Hemoglobin Concent 33 g/dL (31-37) Red Cell Distribution Width 14.6 % (11.5-14.5) Platelet Count 144 x10^3/uL (140-400) Sodium Level 136 mmol/L (136-145) Potassium Level 3.8 mmol/L (3.5-5.1) Chloride Level 95 mmol/L (98-107) Carbon Dioxide Level > 45 mmol/L (21-32) Anion Gap (6-14) Blood Urea Nitrogen 12 mg/dL (8-26) Creatinine 0.5 mg/dL (0.7-1.3) Estimated GFR (Cockcroft-Gault) 188.1 Glucose Level 113 mg/dL (70-99) Calcium Level 8.8 mg/dL (8.5-10.1) O2 Saturation 90 % (92-99) 89 % (92-99) Arterial Blood pH 7.36 (7.35-7.45) 7.39 (7.35-7.45) Arterial Blood pCO2 at Patient Temp 71 mmHg (35-46) 70 mmHg (35-46) Arterial Blood pO2 at Patient Temp 62 mmHg (85-108) 58 mmHg (85-108) Arterial Blood HCO3 40 mmol/L (21-28) 41 mmol/L (21-28) Arterial Blood Base Excess 12 mmol/L (-3-3) 14 mmol/L (-3-3) FiO2 100/vent 100% Laboratory Tests Test 05/19/21 08:17 O2 Saturation 89 % (92-99) Arterial Blood pH 7.39 (7.35-7.45) Arterial Blood pCO2 at Patient Temp 70 mmHg (35-46) Arterial Blood pO2 at Patient Temp 58 mmHg (85-108) Arterial Blood HCO3 41 mmol/L (21-28) Arterial Blood Base Excess 14 mmol/L (-3-3) FiO2 100% Medications Active Scripts Medications Dose Route/Sig Max Daily Dose Days Date Category Pepcid (Famotidine) 20 Mg Tablet 20 Mg PO BID 04/28/21 Reported Comments Chest x-ray reviewed 05/19/2021 Diffuse unchanged bilateral infiltrates. Possible tiny right apical pneumothorax. cxr 05/17 reviewed bilateral infiltrates , no change No sig PTX CXR 05/15/21 Impression: 1. Unchanged support device positioning, as above. 2. Unchanged tiny apical pneumothorax on the right. No pneumothorax is seen on the left. 3. No significant change in the extent of diffuse airspace infiltrates. Impression . 1. Acute hypoxic respiratory failure secondary to COVID-19 viral pneumonia/ARDS--intubated 2. Abnormal CT chest done at [facility] with diffuse bilateral alveolar and interstitial infiltrates related to COVID-19 pneumonia. No evidence of pulmonary embolism. 3. Underlying obesity. 4. Remote history of obstructive sleep apnea. 5. Abnormal liver function tests, likely due to Covid infection. Bilirubin normal. 6. Normal D-dimer initially, then marked increase , repeat test much improved. 7. Status post intubation 05/02, status post bilateral pneumothoraces requiring chest tubes 05/02. Pneumothorax worsen on the right 05/12. Almost resolved now/ +air leak 8. HTN Plan . Updated 05/19/21 Continue current vent support 28/500/100%/increased PEEP to 11 Follow ABG/CXR--compensated hypercarbia/ ok with permissive hypercapnia-- Continue chest tubes to suction. Follow infectious disease recommendations in regards to antibiotics--off ABX at this time S/P full course of remdesivir and steroids Continue TF for nutritional support DVT/GI PPX :lovenox D/W RN and RT Poor prognosis, remains critically ill I have discussed again with patient's today. Explained the critical condition and failure to response. She understands that. We will continue current aggressive care. Critical care time 30 minutes including review of the labs imaging studies and decision making. Updated 05/18/21 Continue current vent support 28/500/100%/peep 10 Follow ABG/CXR--compensated hypercarbia/ ok with permissive hypercapnia-- no changes today Continue chest tubes to suction. Follow infectious disease recommendations in regards to antibiotics--off ABX at this time S/P full course of remdesivir and steroids Continue TF for nutritional support DVT/GI PPX :lovenox D/W RN and RT Poor prognosis, remains critically ill Critical care time 30 minutes including review of the labs imaging studies and decision making. Updated 05/17/21 Continue current vent support 28/500/100%/peep 7 Follow ABG/CXR-----changes as needed--compensated hypercarbia/ ok with p ermissive hypercapnia Continue chest tubes to suction. Follow infectious disease recommendations in regards to antibiotics--off ABX at this time S/P full course of remdesivir and steroids Follow cardiology recommendations Continue TF for nutritional support DVT/GI PPX :lovenox D/W RN and RT Critical care time 30 minutes including review of the labs imaging studies and decision making. Updated 05/16/21 Continue current vent support 28/500/100%/peep 7 Follow ABG/CXR-----changes as needed--compensated hypercarbia Continue chest tubes to suction. Follow infectious disease recommendations in regards to antibiotics--off ABX at this time S/P full course of remdesivir and steroids Follow cardiology recommendations Continue TF for nutritional support DVT/GI PPX :lovenox D/W RN and RT Critical care time 30 minutes including review of the labs imaging studies and decision making. MURRAY ESPOSITO MD May 19, 2021 09:53
--- NOTE | 2021-05-19 11:53 | PDOC ---
[facility] [facility] PROGRESS NOTE Date of Service DOS: DATE: 05/19/21 TIME: 11:50 Chief Complaint Chief Complaint Acute respiratory failure with hypoxia COVID-19 pneumonia GERD Obesity Plan: Continue Covid protocol Appreciate pulmonology management GI prophylaxis FEN - ADA diet PPX - Lovenox FULL CODE Dispo - inpatient for above History of Present Illness History of Present Illness 05/19/21 Patient seen and examined at bedside. Remains intubated and sedated, is on relatively high ventilator settings. Saturations hovering mid to upper 80s. Continuing current plan otherwise. Will address patient's current state with family. Plan of care discussed with bedside RN. 05/18/21 Patient seen and examined at bedside. Remains intubated and sedated. No major clinical improvement. Pulmonary following. Will attempt to contact family today. Plan of care discussed with bedside RN. 05/17/21 Patient seen and examined at bedside. Remains intubated and sedated. Pulmonary following. Continuing Covid protocol. PA FiO2 ratio still significantly low. Continue to monitor blood gas daily. Plan of care discussed with bedside RN 05/16/21 Patient seen and examined at bedside, PICC line placed and central line removed. No major clinical changes remains intubated and sedated. Wean as tolerated. Plan of care discussed with bedside RN. Continue Covid protocol 05/15/21 Patient seen and examined at bedside Remains intubated and sedated debated; unsuccessful weaning thus far Place PICC line and remove central line today Otherwise continuing Covid protocol Pulmonary and ID consulted Plan of care discussed with bedside RN 05/14/2021 ID CONSULT central line needs to be replaced to the PICC line. experienced hypoxia requiring 100% and a PEEP of 7 , positive air leak on right chest tube Down to 7 of PEEP. Significant interval decrease in a now tiny right pneumothorax. No left-sided pneumothorax is seen. There are bilateral pleural drainage catheters. 05-12 PAFIB: new likely induced by above. multiple bursts. Maintaining SR/ST Status post intubation 05/02, status post bilateral pneumothoraces requiring chest tubes 05/02 Decrease in a tiny residual right pneumothorax status post pleural drainage catheter placement. There is an unchanged left pleural drainage catheter. 05-09 cxr bilateral pleural drainage catheters unchanged in position.05-10 Daily PPI and famotidine as needed PPX - Lovenox FULL CODE Dispo - inpatient for above Morbid obesity. No significant tobacco history and // remote history of SONYA. [facility] Interval decrease in a now tiny right pneumothorax status post pleural drainage catheter placement. There is a stable left pleural drainage catheter without convincing left-sided pneumothorax. /large right pneumothorax with assocaited mild leftward mediastinal deviation. earlier 05-08 Stable diffuse mixed interstitial and alveolar infiltrate with suspected small pleural effusions. Stable endotracheal tube, nasogastric tube and right internal jugular central venous catheter. 05-08 cxr He remains on the vent ventilatory support 85% and a PEEP of 6. Discussed with RN Chart reviewed Almonte to bedside drainage He is sedated with propofol fentanyl and Versed Remains very critically ill labile htn, will consult cardiology, htn much better today 33 min cc time experienced hypoxia overnight requiring 100% and a PEEP of 10, 05/13/2021 ID CONSULT experienced hypoxia overnight requiring 100% and a PEEP of 10, Significant interval decrease in a now tiny right pneumothorax. No left-sided pneumothorax is seen. There are bilateral pleural drainage catheters. 05-12 PAFIB: new likely induced by above. multiple bursts. Maintaining SR/ST Status post intubation 05/02, status post bilateral pneumothoraces requiring chest tubes 05/02 Decrease in a tiny residual right pneumothorax status post pleural drainage catheter placement. There is an unchanged left pleural drainage catheter. 05-09 cxr bilateral pleural drainage catheters unchanged in position.05-10 Daily PPI and famotidine as needed PPX - Lovenox FULL CODE Dispo - inpatient for above Morbid obesity. No significant tobacco history and // remote history of SONYA. Patient seen and examined in the [facility] Interval decrease in a now tiny right pneumothorax status post pleural drainage catheter placement. There is a stable left pleural drainage catheter without convincing left-sided pneumothorax. /large right pneumothorax with assocaited mild leftward mediastinal deviation. earlier 05-08 Stable diffuse mixed interstitial and alveolar infiltrate with suspected small pleural effusions. Stable endotracheal tube, nasogastric tube and right internal jugular central venous catheter. 05-08 cxr He remains on the vent ventilatory support 85% and a PEEP of 6. Discussed with RN Chart reviewed Almonte to bedside drainage He is sedated with propofol fentanyl and Versed Remains very critically ill labile htn, will consult cardiology, htn much better today 34 min cc time experienced hypoxia overnight requiring 100% and a PEEP of 10, 05/12/2021 Significant interval decrease in a now tiny right pneumothorax. No left-sided pneumothorax is seen. There are bilateral pleural drainage catheters. 05-12 PAFIB: new likely induced by above. multiple bursts. Maintaining SR/ST Status post intubation 05/02, status post bilateral pneumothoraces requiring chest tubes 05/02 Decrease in a tiny residual right pneumothorax status post pleural drainage catheter placement. There is an unchanged left pleural drainage catheter. 05-09 cxr bilateral pleural drainage catheters unchanged in position.05-10 Daily PPI and famotidine as needed PPX - Lovenox FULL CODE Dispo - inpatient for above Morbid obesity. No significant tobacco history and // remote history of SONYA. Patient seen and examined in the COVID-19 ICU Interval decrease in a now tiny right pneumothorax status post pleural drainage catheter placement. There is a stable left pleural drainage catheter without convincing left-sided pneumothorax. /large right pneumothorax with assocaited mild leftward mediastinal deviation. earlier 05-08 Stable diffuse mixed interstitial and alveolar infiltrate with suspected small pleural effusions. Stable endotracheal tube, nasogastric tube and right internal jugular central venous catheter. 05-08 cxr He remains on the vent ventilatory support 85% and a PEEP of 6. Discussed with RN Chart reviewed Almonte to bedside drainage He is sedated with propofol fentanyl and Versed Remains very critically ill labile htn, will consult cardiology, htn much better today 34 min cc time 05/11/2021 PAFIB: new likely induced by above. multiple bursts. Maintaining SR/ST Status post intubation 05/02, status post bilateral pneumothoraces requiring chest tubes 05/02 Decrease in a tiny residual right pneumothorax status post pleural drainage catheter placement. There is an unchanged left pleural drainage catheter. 05-09 cxr bilateral pleural drainage catheters unchanged in position.05-10 Daily PPI and famotidine as needed PPX - Lovenox FULL CODE Dispo - inpatient for above Morbid obesity. No significant tobacco history and // remote history of SONYA. Patient seen and examined in the COVID-19 ICU Interval decrease in a now tiny right pneumothorax status post pleural drainage catheter placement. There is a stable left pleural drainage catheter without convincing left-sided pneumothorax. /large right pneumothorax with assocaited mild leftward mediastinal deviation. earlier 05-08 Stable diffuse mixed interstitial and alveolar infiltrate with suspected small pleural effusions. Stable endotracheal tube, nasogastric tube and right internal jugular central venous catheter. 05-08 cxr He remains on the vent vent support 90% and a PEEP of 6 Discussed with RN Chart reviewed Almonte to bedside drainage He is sedated with propofol fentanyl and Versed Remains very critically ill labile htn, will consult cardiology, htn much better today 35 min cc time PAFIB: new likely induced by above. multiple bursts. Maintaining SR/ST 05/10/2021 Status post intubation 05/02, status post bilateral pneumothoraces requiring chest tubes 05/02 Decrease in a tiny residual right pneumothorax status post pleural drainage catheter placement. There is an unchanged left pleural drainage catheter. 05-09 cxr bilateral pleural drainage catheters unchanged in position.05-10 Daily PPI and famotidine as needed FEN - ADA diet PPX - Lovenox FULL CODE Dispo - inpatient for above Morbid obesity. No significant tobacco history and // remote history of SONYA. Patient seen and examined in the COVID-19 ICU Interval decrease in a now tiny right pneumothorax status post pleural drainage catheter placement. There is a stable left pleural drainage catheter without convincing left-sided pneumothorax. /large right pneumothorax with assocaited mild leftward mediastinal deviation. earlier 05-08 Stable diffuse mixed interstitial and alveolar infiltrate with suspected small pleural effusions. Stable endotracheal tube, nasogastric tube and right internal jugular central venous catheter. 05-08 cxr He remains on the vent vent support 90% and a PEEP of 6 Discussed with RN Chart reviewed Almonte to bedside drainage He is sedated with propofol fentanyl and Versed Remains very critically ill labile htn, will consult cardiology, htn much better today 32 min cc time 05/09/2021 Status post intubation 05/02, status post bilateral pneumothoraces requiring chest tubes 05/02 Decrease in a tiny residual right pneumothorax status post pleural drainage catheter placement. There is an unchanged left pleural drainage catheter. 05-09 cxr Daily PPI and famotidine as needed FEN - ADA diet PPX - Lovenox FULL CODE Dispo - inpatient for above Morbid obesity. No significant tobacco history and // remote history of SONYA. Patient seen and examined in the COVID-19 ICU Interval decrease in a now tiny right pneumothorax status post pleural drainage catheter placement. There is a stable left pleural drainage catheter without convincing left-sided pneumothorax. /large right pneumothorax with assocaited mild leftward mediastinal deviation. earlier 05-08 Stable diffuse mixed interstitial and alveolar infiltrate with suspected small pleural effusions. Stable endotracheal tube, nasogastric tube and right internal jugular central venous catheter. 05-08 cxr He remains on the vent AC/500/26/80 percent with 6 of PEEP Discussed with RN Chart reviewed Almonte to bedside drainage He is sedated with propofol fentanyl and Versed Remains very critically ill labile htn, will consult cardiology 35 min cc time 05/08/2021 Daily PPI and famotidine as needed FEN - ADA diet PPX - Lovenox FULL CODE Dispo - inpatient for above Morbid obesity. No significant tobacco history and // remote history of SONYA. Patient seen and examined in the [place] [address] ICU Interval decrease in a now tiny right pneumothorax status post pleural drainage catheter placement. There is a stable left pleural drainage catheter without convincing left-sided pneumothorax. /large right pneumothorax with assocaited mild leftward mediastinal deviation. earlier 05-08 Stable diffuse mixed interstitial and alveolar infiltrate with suspected small pleural effusions. Stable endotracheal tube, nasogastric tube and right internal jugular central venous catheter. 05-08 cxr He remains on the vent AC/500/26/80 percent with 6 of PEEP Discussed with RN Chart reviewed Almonte to bedside drainage He is sedated with propofol fentanyl and Versed Remains very critically ill 33 min cc time 05/07/2021 Patient seen and examined in the [place] [address] ICU He remains on the vent AC/500/26/80 percent with 6 of PEEP (this is improved from yesterday he was on 100% FiO2 with 8 of PEEP) Discussed with RN Chart reviewed Patient has Almonte to bedside drainage He is sedated with propofol fentanyl and Versed Remains very critically ill 05/06/2021 Patient seen and examined in the [place] [address] ICU He remains intubated AC//500/1 her percent with 8 of PEEP The nurse was able to get him down to 80% for an hour or so earlier this morning but he desatted again when she moved him Chart reviewed Reviewed case with RN patient is having some tachycardia and Fluctuating blood pressure Has OG feeds running at 50 cc an hour plus he is getting free water Has Almonte to bedside drainage Has [address] He remains critically ill 05/05/2021 Patient seen and examined in the [place] [address] ICU He is still intubated AC/26/500/1 100% with 8 of PEEP Has OG feeds running at 25 cc an hour Sedated with fentanyl and Versed Getting IV vecuronium Chart reviewed Discussed with RN He remains critically 05/04/2021 Patient seen and examined in the [place] [address] ICU He remains mechanically ventilated Assist-control//500/1 100% with 10 of PEEP He is extremely critically ill He is sedated with Versed and fentanyl He is also paralyzed with vecuronium Reviewed chart Discussed with RN 05/03/2021 Patient seen and examined in the [place] [address] ICU He remains mechanically ventilated AC//600/1 100% with 10 of PEEP Has 2 pigtail drains in his left and right chest due to some small pneumothoraces after being intubated Had to be sedated with vecuronium Also on Versed and fentanyl also has inverse I to E ratio 2:1 Chart reviewed Discussed with RN He remains extremely critically ill I am concerned he may not survive this? 05/02/2021 Patient seen and examined in the [place] [address] ICU He is on BiPAP with 100% FiO2 and very tachypneic Discussed with RN we are going to go ahead and intubate here in a few minutes Chart reviewed Patient currently semisedated with Versed Precedex and fentanyl He is very critically Patient 35-year-old male with past medical history of GERD, obesity, who presents to the ED as a transfer from [facility] for COVID-19 pneumonia with worsening respiratory distress. States his symptoms started roughly 1 week ago with fatigue and body aches, which progressed to include fever and shortness of breath. Symptoms were worse with exertion with no significant alleviating factors. He was tested for COVID-19 at [facility] and was discharged home because he was not hypoxic on room air. When he returned to [facility] with worsening symptoms a CT chest demonstrated bibasilar infiltrates consistent with atypical pneumonia. He was then admitted and placed on 3 L nasal cannula for further treatment. He has not been vaccinated against COVID- 19. However due to worsening respiratory distress he was transferred to [facility] for higher level of care. 04/29/2021: Still breathing 40 L Vapotherm. Afebrile, but complaining of chest heaviness, nausea, and subjective shortness of breath. Denies any vomiting, or diarrhea. Informed patient of likely prolonged hospitalization course. Hemoglobin A1c 5.6. Continue remdesivir day 2/5, continue steroids, ant ibiotics, and supportive care. Continue to follow daily LFTs. Plan to transfer patient to ICU bed when available. Critical care time 33 minutes spent reviewing charts, reviewing labs, and discussing case with Dr. Gaviria. 04/30/21: Afebrile, still breathing on Vapotherm. Continue remdesivir and monitor LFTs. Continue antibiotics, steroids, and supportive care. Will transfer him to the ICU once bed available. Critical care time 30 minutes spent in chart, reviewing labs, reviewing imaging, and discussion with RN. 05/01/2021 No acute events overnight. Patient seen and examined bedside. Saturating 93% on 40 L Vapotherm. Patient will transfer to the ICU for continued supportive care. Vitals/I&O Vitals/I&O: Vital Signs Date Time Temp Pulse Resp B/P (MAP) Pulse Ox O2 Delivery O2 Flow Rate FiO2 05/19/21 11:00 114 28 114/65 (81) 88 Ventilator 05/19/21 08:00 98.4 98.4 05/19/21 03:38 95.0 I & O 05/18/21 05/18/21 05/19/21 15:00 23:00 07:00 Intake Total 1071 ml 1499.18 ml 2137 ml Output Total 1015 ml 850 ml 695 ml Balance 56 ml 649.18 ml 1442 ml Physical Exam Physical Exam: General intubated/sedated HEENT ETT /OGT + LUNGS: bilateral CTS + HEART: S1, S2 regular. CHEST: Decreased breath soundS,bilateral chest tube. Abdomen Nondistended, bowel sounds present almonte in place NEUROLOGIC: sedated Extremities edema present, no cyanosis Derm no generalized rash multiple tattoos Rt Central line removed Right upper extremity PICC line clean General: Other (sedated, intubated) Heart: Regular rate (SR), Normal S1 Abdomen: Soft Extremities: No cyanosis Skin: No rashes, No breakdown Labs Labs: Laboratory Tests Test 05/19/21 08:17 O2 Saturation 89 % (92-99) Arterial Blood pH 7.39 (7.35-7.45) Arterial Blood pCO2 at Patient Temp 70 mmHg (35-46) Arterial Blood pO2 at Patient Temp 58 mmHg (85-108) Arterial Blood HCO3 41 mmol/L (21-28) Arterial Blood Base Excess 14 mmol/L (-3-3) FiO2 100% Review of Systems Review of Systems: Cannot obtain Comment Review of Relevant I have reviewed the following items anselmo (where applicable) has been applied. Justifications for Admission Other Justification MARY HERRON MD May 19, 2021 11:53
[2021-05-20] VITALS (24 sets, daily range): BP systolic 102–131; BP diastolic 62–78
[2021-05-20] MEDS: VECURONIUM BROMIDE 50 MG in IV NORMAL SALINE 50ML 50 ML IV PRN ×6 (01:16→23:52)
[2021-05-20] MEDS: PROPOFOL 100 ML IV PRN ×9 (01:16→23:25)
[2021-05-20 05:36] LABS: BLOOD UREA NITROGEN 14 mg/dL (8-26); CHLORIDE 96 mmol/L (98-107); CREATININE 0.5 mg/dL (0.7-1.3); GFR 188.1; GLUCOSE 111 mg/dL (70-99); POTASSIUM 4.4 mmol/L (3.5-5.1); SODIUM 138 mmol/L (136-145)
[2021-05-20 05:38] LABS: CARBON DIOXIDE > 45 mmol/L (21-32)
[2021-05-20 06:01] LABS: BASO % 1 % (0-3); EOS # 0.5 x10^3/uL (0.0-0.7); EOS % 6 % (0-3); HEMATOCRIT 24.5 % (39.0-53.0); HEMOGLOBIN 8.4 g/dL (13.0-17.5); LYMPH # 0.6 x10^3/uL (1.0-4.8); LYMPH % 8 % (24-48); MEAN CORPUSCULAR HEMOGLOBIN 30 pg (25-35); MEAN CORPUSCULAR HGB CONC 34 g/dL (31-37); MEAN CORPUSCULAR VOLUME 87 fL (79-100); MONO # 0.7 x10^3/uL (0.0-1.1); MONO % 10 % (0-9); NEUT # 5.3 x10^3/uL (1.8-7.7); NEUT % 75 % (31-73); PLATELET COUNT 212 x10^3/uL (140-400); RED CELL DISTRIBUTION WIDTH 14.7 % (11.5-14.5); WHITE BLOOD COUNT 7.1 x10^3/uL (4.0-11.0)
[2021-05-20] MEDS: MIDAZOLAM 100mg/100ml NS BAG 100 ML IV PRN ×2 (06:27→15:10)
[2021-05-20] MEDS: fentaNYL HIGH DOSE PCA 55 ML IV PRN ×2 (06:38→20:14)
[2021-05-20] MEDS: CHOLECALCIFEROL (VITAMIN D3) 1,000 UNIT TABLET FT SCH (09:00)
[2021-05-20 09:08] LABS: BASE EXCESS ABG 13 mmol/L (-3-3); HCO3 ABG 40 mmol/L (21-28); SAT O2 ABG 81 % (92-99)
[2021-05-20 09:31] LABS: FIO2 ABG 100% VENT; PCO2 ABG 75 mmHg (35-46); PO2 ABG 50 mmHg (85-108)
--- NOTE | 2021-05-20 10:00 | PDOC ---
PULMONARY PROGRESS NOTES DATE: 05/20/21 TIME: 09:56 Subjective Patient remains on ventilatory support 100%. PEEP requirement continues to increase. Remains Sedated Bilateral chest tube, positive air leak on right chest tube, no air leak on left chest tube Vitals Vital Signs Date Time Temp Pulse Resp B/P (MAP) Pulse Ox O2 Delivery O2 Flow Rate FiO2 05/20/21 08:41 79 Ventilator 05/20/21 06:00 130 28 110/73 (85) 05/20/21 04:00 98.5 98.5 05/19/21 17:14 95.0 Comments On visual inspection, patient intubated, fully sedated. Chest tube bilaterally, tachy no distress no obvious rash or edema Labs Laboratory Tests Test 05/19/21 08:17 05/20/21 05:15 05/20/21 08:00 O2 Saturation 89 % (92-99) 81 % (92-99) Arterial Blood pH 7.39 (7.35-7.45) 7.35 (7.35-7.45) Arterial Blood pCO2 at Patient Temp 70 mmHg (35-46) 75 mmHg (35-46) Arterial Blood pO2 at Patient Temp 58 mmHg (85-108) 50 mmHg (85-108) Arterial Blood HCO3 41 mmol/L (21-28) 40 mmol/L (21-28) Arterial Blood Base Excess 14 mmol/L (-3-3) 13 mmol/L (-3-3) FiO2 100% 100% vent White Blood Count 7.1 x10^3/uL (4.0-11.0) Red Blood Count 2.80 x10^6/uL (4.30-5.70) Hemoglobin 8.4 g/dL (13.0-17.5) Hematocrit 24.5 % (39.0-53.0) Mean Corpuscular Volume 87 fL (79-100) Mean Corpuscular Hemoglobin 30 pg (25-35) Mean Corpuscular Hemoglobin Concent 34 g/dL (31-37) Red Cell Distribution Width 14.7 % (11.5-14.5) Platelet Count 212 x10^3/uL (140-400) Neutrophils (%) (Auto) 75 % (31-73) Lymphocytes (%) (Auto) 8 % (24-48) Monocytes (%) (Auto) 10 % (0-9) Eosinophils (%) (Auto) 6 % (0-3) Basophils (%) (Auto) 1 % (0-3) Neutrophils # (Auto) 5.3 x10^3/uL (1.8-7.7) Lymphocytes # (Auto) 0.6 x10^3/uL (1.0-4.8) Monocytes # (Auto) 0.7 x10^3/uL (0.0-1.1) Eosinophils # (Auto) 0.5 x10^3/uL (0.0-0.7) Basophils # (Auto) 0.0 x10^3/uL (0.0-0.2) Sodium Level 138 mmol/L (136-145) Potassium Level 4.4 mmol/L (3.5-5.1) Chloride Level 96 mmol/L (98-107) Carbon Dioxide Level > 45 mmol/L (21-32) Anion Gap (6-14) Blood Urea Nitrogen 14 mg/dL (8-26) Creatinine 0.5 mg/dL (0.7-1.3) Estimated GFR (Cockcroft-Gault) 188.1 Glucose Level 111 mg/dL (70-99) Calcium Level 9.0 mg/dL (8.5-10.1) Laboratory Tests Test 05/20/21 05:15 05/20/21 08:00 White Blood Count 7.1 x10^3/uL (4.0-11.0) Red Blood Count 2.80 x10^6/uL (4.30-5.70) Hemoglobin 8.4 g/dL (13.0-17.5) Hematocrit 24.5 % (39.0-53.0) Mean Corpuscular Volume 87 fL (79-100) Mean Corpuscular Hemoglobin 30 pg (25-35) Mean Corpuscular Hemoglobin Concent 34 g/dL (31-37) Red Cell Distribution Width 14.7 % (11.5-14.5) Platelet Count 212 x10^3/uL (140-400) Neutrophils (%) (Auto) 75 % (31-73) Lymphocytes (%) (Auto) 8 % (24-48) Monocytes (%) (Auto) 10 % (0-9) Eosinophils (%) (Auto) 6 % (0-3) Basophils (%) (Auto) 1 % (0-3) Neutrophils # (Auto) 5.3 x10^3/uL (1.8-7.7) Lymphocytes # (Auto) 0.6 x10^3/uL (1.0-4.8) Monocytes # (Auto) 0.7 x10^3/uL (0.0-1.1) Eosinophils # (Auto) 0.5 x10^3/uL (0.0-0.7) Basophils # (Auto) 0.0 x10^3/uL (0.0-0.2) Sodium Level 138 mmol/L (136-145) Potassium Level 4.4 mmol/L (3.5-5.1) Chloride Level 96 mmol/L (98-107) Carbon Dioxide Level > 45 mmol/L (21-32) Anion Gap (6-14) Blood Urea Nitrogen 14 mg/dL (8-26) Creatinine 0.5 mg/dL (0.7-1.3) Estimated GFR (Cockcroft-Gault) 188.1 Glucose Level 111 mg/dL (70-99) Calcium Level 9.0 mg/dL (8.5-10.1) O2 Saturation 81 % (92-99) Arterial Blood pH 7.35 (7.35-7.45) Arterial Blood pCO2 at Patient Temp 75 mmHg (35-46) Arterial Blood pO2 at Patient Temp 50 mmHg (85-108) Arterial Blood HCO3 40 mmol/L (21-28) Arterial Blood Base Excess 13 mmol/L (-3-3) FiO2 100% vent Medications Active Scripts Medications Dose Route/Sig Max Daily Dose Days Date Category Pepcid (Famotidine) 20 Mg Tablet 20 Mg PO BID 04/28/21 Reported Comments Chest x-ray reviewed 05/19/2021 Diffuse unchanged bilateral infiltrates. Possible tiny right apical pneumothorax. cxr 05/17 reviewed bilateral infiltrates , no change No sig PTX CXR 05/15/21 Impression: 1. Unchanged support device positioning, as above. 2. Unchanged tiny apical pneumothorax on the right. No pneumothorax is seen on the left. 3. No significant change in the extent of diffuse airspace infiltrates. Impression . 1. Acute hypoxic respiratory failure secondary to COVID-19 viral pneumonia/ARDS--intubated . Remains severely ill will and refractory hypoxia 2. Abnormal CT chest done at [facility] with diffuse bilateral alveolar and interstitial infiltrates related to COVID-19 pneumonia. No evidence of pulmonary embolism. 3. Underlying obesity. 4. Remote history of obstructive sleep apnea. 5. Abnormal liver function tests, likely due to Covid infection. Bilirubin normal. 6. Normal D-dimer initially, then marked increase , repeat test much improved. 7. Status post intubation 05/02, status post bilateral pneumothoraces requiring chest tubes 05/02. Pneumothorax worsen on the right 05/12. Almost resolved now/ +air leak 8. HTN Plan . Updated 05/20/21 Patient's oxygen requirement continues to worsens. He is now requiring up to 13 of PEEP. He continues to have difficulty with ventilation as well. PCO2 rising. Continue current vent support 28/500/100%/peep 13 Follow ABG/CXR--okay with permissive hypercarbia. Continue chest tubes to suction. Follow infectious disease recommendations in regards to antibiotics--off ABX at this time S/P full course of remdesivir and steroids Continue TF for nutritional support DVT/GI PPX :lovenox D/W RN and RT Poor prognosis, remains critically ill At discussed with patient's Angely in detail yesterday and updated her about patient's deteriorating condition. Critical care time 30 minutes including review of the labs imaging studies and decision making. Updated 05/19/21 Continue current vent support 28/500/100%/peep 10 Follow ABG/CXR--compensated hypercarbia/ ok with permissive hypercapnia-- no changes today Continue chest tubes to suction. Follow infectious disease recommendations in regards to antibiotics--off ABX at this time S/P full course of remdesivir and steroids Continue TF for nutritional support DVT/GI PPX :lovenox D/W RN and RT Poor prognosis, remains critically ill Critical care time 30 minutes including review of the labs imaging studies and decision making. Updated 05/18/21 Continue current vent support 28/500/100%/peep 10 Follow ABG/CXR--compensated hypercarbia/ ok with permissive hypercapnia-- no changes today Continue chest tubes to suction. Follow infectious disease recommendations in regards to antibiotics--off ABX at this time S/P full course of remdesivir and steroids Continue TF for nutritional support DVT/GI PPX :lovenox D/W RN and RT Poor prognosis, remains critically ill Critical care time 30 minutes including review of the labs imaging studies and decision making. Updated 05/17/21 Continue current vent support 28/500/100%/peep 7 Follow ABG/CXR-----changes as needed--compensated hypercarbia/ ok with permissive hypercapnia Continue chest tubes to suction. Follow infectious disease recommendations in regards to antibiotics--off ABX at this time S/P full course of remdesivir and steroids Follow cardiology recommendations Continue TF for nutritional support DVT/GI PPX :lovenox D/W RN and RT Critical care time 30 minutes including review of the labs imaging studies and decision making. Updated 05/16/21 Continue current vent support 28/500/100%/peep 7 Follow ABG/CXR-----changes as needed--compensated hypercarbia Continue chest tubes to suction. Follow infectious disease recommendations in regards to antibiotics--off ABX at this time S/P full course of remdesivir and steroids Follow cardiology recommendations Continue TF for nutritional support DVT/GI PPX :lovenox D/W RN and RT Critical care time 30 minutes including review of the labs imaging studies and decision making. MURRAY ESPOSITO MD May 20, 2021 10:00
[2021-05-20 10:30] LABS: % BANDS 8 % (0-9); % BASOS 2 % (0-3); % EOS 8 % (0-5); % LYMPHS 8 % (24-48); % MONOS 6 % (0-10); % MYELOS 3 % (0-0); % PROS 1 % (0-0); % SEGS 64 % (35-66)
[2021-05-20 10:31] LABS: PLT ESTIMATE ADEQUATE (ADEQUATE)
[2021-05-20 10:36] LABS: POLYCHROMASIA PRESENT
[2021-05-20] MEDS: ZINC SULFATE 220 MG CAPSULE. PO SCH (11:00)
[2021-05-20] MEDS: ASPIRIN CHEWABLE 81 MG TABLET. PO SCH (11:00)
[2021-05-20] MEDS: FAMOTIDINE 20 MG TABLET. PO PRN (11:01)
[2021-05-20] MEDS: FAMOTIDINE 20 MG/2 ML VIAL IVP SCH ×2 (11:09→20:30)
[2021-05-20] MEDS: ENOXAPARIN 40 MG/0.4 ML SYRINGE. SQ SCH ×2 (11:10→20:30)
[2021-05-20] MEDS: METOPROLOL TART IMMED RELEASE 25 MG TABLET. PO SCH ×2 (11:10→20:36)
[2021-05-20] MEDS: ASCORBIC ACID 500 MG TABLET PO SCH (11:23)
--- NOTE | 2021-05-20 11:45 | PDOC ---
[employer] PROGRESS NOTE Date of Service DOS: DATE: 05/20/21 TIME: 11:43 Chief Complaint Chief Complaint Acute respiratory failure with hypoxia COVID-19 pneumonia GERD Obesity Plan: Continue Covid protocol Appreciate pulmonology management GI prophylaxis FEN - ADA diet PPX - Lovenox FULL CODE Dispo - inpatient for above History of Present Illness History of Present Illness 05/20/21 Patient seen and examined at bedside. Remains intubated and sedated. Oxygen requirements continued to increase and saturations remain low. Continue current treatment. Poor prognosis. 05/19/21 Patient seen and examined at bedside. Remains intubated and sedated, is on relatively high ventilator settings. Saturations hovering mid to upper 80s. Continuing current plan otherwise. Will address patient's current state with family. Plan of care discussed with bedside RN. 05/18/21 Patient seen and examined at bedside. Remains intubated and sedated. No major clinical improvement. Pulmonary following. Will attempt to contact family today. Plan of care discussed with bedside RN. 05/17/21 Patient seen and examined at bedside. Remains intubated and sedated. Pulmonary following. Continuing Covid protocol. PA FiO2 ratio still significantly low. Continue to monitor blood gas daily. Plan of care discussed with bedside RN 05/16/21 Patient seen and examined at bedside, PICC line placed and central line removed. No major clinical changes remains intubated and sedated. Wean as tolerated. Plan of care discussed with bedside RN. Continue Covid protocol 05/15/21 Patient seen and examined at bedside Remains intubated and sedated debated; unsuccessful weaning thus far Place PICC line and remove central line today Otherwise continuing Covid protocol Pulmonary and ID consulted Plan of care discussed with bedside RN 05/14/2021 ID CONSULT central line needs to be replaced to the PICC line. experienced hypoxia requiring 100% and a PEEP of 7 , positive air leak on right chest tube Down to 7 of PEEP. Significant interval decrease in a now tiny right pneumothorax. No left-sided pneumothorax is seen. There are bilateral pleural drainage catheters. 05-12 PAFIB: new likely induced by above. multiple bursts. Maintaining SR/ST Status post intubation 05/02, status post bilateral pneumothoraces requiring chest tubes 05/02 Decrease in a tiny residual right pneumothorax status post pleural drainage catheter placement. There is an unchanged left pleural drainage catheter. 05-09 cxr bilateral pleural drainage catheters unchanged in position.05-10 Daily PPI and famotidine as needed PPX - Lovenox FULL CODE Dispo - inpatient for above Morbid obesity. No significant tobacco history and // remote history of SONYA. Patient seen and examined in the [facility]- ICU Interval decrease in a now tiny right pneumothorax status post pleural drainage catheter placement. There is a stable left pleural drainage catheter without convincing left-sided pneumothorax. /large right pneumothorax with assocaited mild leftward mediastinal deviation. earlier 05-08 Stable diffuse mixed interstitial and alveolar infiltrate with suspected small pleural effusions. Stable endotracheal tube, nasogastric tube and right internal jugular central venous catheter. 05-08 cxr He remains on the vent ventilatory support 85% and a PEEP of 6. Discussed with RN Chart reviewed [place] to bedside drainage He is sedated with propofol fentanyl and Versed Remains very critically ill labile htn, will consult cardiology, htn much better today 33 min cc time experienced hypoxia overnight requiring 100% and a PEEP of 10, 05/13/2021 ID CONSULT experienced hypoxia overnight requiring 100% and a PEEP of 10, Significant interval decrease in a now tiny right pneumothorax. No left-sided pneumothorax is seen. There are bilateral pleural drainage catheters. 05-12 PAFIB: new likely induced by above. multiple bursts. Maintaining SR/ST Status post intubation 05/02, status post bilateral pneumothoraces requiring chest tubes 05/02 Decrease in a tiny residual right pneumothorax status post pleural drainage catheter placement. There is an unchanged left pleural drainage catheter. 05-09 cxr bilateral pleural drainage catheters unchanged in position.05-10 Daily PPI and famotidine as needed PPX - Lovenox FULL CODE Dispo - inpatient for above Morbid obesity. No significant tobacco history and // remote history of SONYA. Patient seen and examined in the [facility]- ICU Interval decrease in a now tiny right pneumothorax status post pleural drainage catheter placement. There is a stable left pleural drainage catheter without convincing left-sided pneumothorax. /large right pneumothorax with assocaited mild leftward mediastinal deviation. earlier 05-08 Stable diffuse mixed interstitial and alveolar infiltrate with suspected small pleural effusions. Stable endotracheal tube, nasogastric tube and right internal jugular central venous catheter. 05-08 cxr He remains on the vent ventilatory support 85% and a PEEP of 6. Discussed with RN Chart reviewed [place] to bedside drainage He is sedated with propofol fentanyl and Versed Remains very critically ill labile htn, will consult cardiology, htn much better today 34 min cc time experienced hypoxia overnight requiring 100% and a PEEP of 10, 05/12/2021 Significant interval decrease in a now tiny right pneumothorax. No left-sided pneumothorax is seen. There are bilateral pleural drainage catheters. 05-12 PAFIB: new likely induced by above. multiple bursts. Maintaining SR/ST Status post intubation 05/02, status post bilateral pneumothoraces requiring chest tubes 05/02 Decrease in a tiny residual right pneumothorax status post pleural drainage catheter placement. There is an unchanged left pleural drainage catheter. 05-09 cxr bilateral pleural drainage catheters unchanged in position.05-10 Daily PPI and famotidine as needed PPX - Lovenox FULL CODE Dispo - inpatient for above Morbid obesity. No significant tobacco history and // remote history of SONYA. Patient seen and examined in the COVID-19 ICU Interval decrease in a now tiny right pneumothorax status post pleural drainage catheter placement. There is a stable left pleural drainage catheter without convincing left-sided pneumothorax. /large right pneumothorax with assocaited mild leftward mediastinal deviation. earlier 05-08 Stable diffuse mixed interstitial and alveolar infiltrate with suspected small pleural effusions. Stable endotracheal tube, nasogastric tube and right internal jugular central venous catheter. 05-08 cxr He remains on the vent ventilatory support 85% and a PEEP of 6. Discussed with RN Chart reviewed [place] to bedside drainage He is sedated with propofol fentanyl and Versed Remains very critically ill labile htn, will consult cardiology, htn much better today 34 min cc time 05/11/2021 PAFIB: new likely induced by above. multiple bursts. Maintaining SR/ST Status post intubation 05/02, status post bilateral pneumothoraces requiring chest tubes 05/02 Decrease in a tiny residual right pneumothorax status post pleural drainage catheter placement. There is an unchanged left pleural drainage catheter. 05-09 cxr bilateral pleural drainage catheters unchanged in position.05-10 Daily PPI and famotidine as needed PPX - Lovenox FULL CODE Dispo - inpatient for above Morbid obesity. No significant tobacco history and // remote history of SONYA. Patient seen and examined in the COVID-19 ICU Interval decrease in a now tiny right pneumothorax status post pleural drainage catheter placement. There is a stable left pleural drainage catheter without convincing left-sided pneumothorax. /large right pneumothorax with assocaited mild leftward mediastinal deviation. earlier 05-08 Stable diffuse mixed interstitial and alveolar infiltrate with suspected small pleural effusions. Stable endotracheal tube, nasogastric tube and right internal jugular central venous catheter. 05-08 cxr He remains on the vent vent support 90% and a PEEP of 6 Discussed with RN Chart reviewed [place] to bedside drainage He is sedated with propofol fentanyl and Versed Remains very critically ill labile htn, will consult cardiology, htn much better today 35 min cc time PAFIB: new likely induced by above. multiple bursts. Maintaining SR/ST 05/10/2021 Status post intubation 05/02, status post bilateral pneumothoraces requiring chest tubes 05/02 Decrease in a tiny residual right pneumothorax status post pleural drainage catheter placement. There is an unchanged left pleural drainage catheter. 05-09 cxr bilateral pleural drainage catheters unchanged in position.05-10 Daily PPI and famotidine as needed FEN - ADA diet PPX - Lovenox FULL CODE Dispo - inpatient for above Morbid obesity. No significant tobacco history and // remote history of SONYA. Patient seen and examined in the COVID-19 ICU Interval decrease in a now tiny right pneumothorax status post pleural drainage catheter placement. There is a stable left pleural drainage catheter without convincing left-sided pneumothorax. /large right pneumothorax with assocaited mild leftward mediastinal deviation. earlier 05-08 Stable diffuse mixed interstitial and alveolar infiltrate with suspected small pleural effusions. Stable endotracheal tube, nasogastric tube and right internal jugular central venous catheter. 05-08 cxr He remains on the vent vent support 90% and a PEEP of 6 Discussed with RN Chart reviewed [place] to bedside drainage He is sedated with propofol fentanyl and Versed Remains very critically ill labile htn, will consult cardiology, htn much better today 32 min cc time 05/09/2021 Status post intubation 05/02, status post bilateral pneumothoraces requiring chest tubes 05/02 Decrease in a tiny residual right pneumothorax status post pleural drainage catheter placement. There is an unchanged left pleural drainage catheter. 05-09 cxr Daily PPI and famotidine as needed FEN - ADA diet PPX - Lovenox FULL CODE Dispo - inpatient for above Morbid obesity. No significant tobacco history and // remote history of SONYA. Patient seen and examined in the COVID-19 ICU Interval decrease in a now tiny right pneumothorax status post pleural drainage catheter placement. There is a stable left pleural drainage catheter without convincing left-sided pneumothorax. /large right pneumothorax with assocaited mild leftward mediastinal deviation. earlier 05-08 Stable diffuse mixed interstitial and alveolar infiltrate with suspected small pleural effusions. Stable endotracheal tube, nasogastric tube and right internal jugular central venous catheter. 05-08 cxr He remains on the vent AC/500/26/80 percent with 6 of PEEP Discussed with RN Chart reviewed [place] to bedside drainage He is sedated with propofol fentanyl and Versed Remains very critically ill labile htn, will consult cardiology 35 min cc time 05/08/2021 Daily PPI and famotidine as needed FEN - ADA diet PPX - Lovenox FULL CODE Dispo - inpatient for above Morbid obesity. No significant tobacco history and // remote history of SONYA. Patient seen and examined in the [place] [address] ICU Interval decrease in a now tiny right pneumothorax status post pleural drainage catheter placement. There is a stable left pleural drainage catheter without convincing left-sided pneumothorax. /large right pneumothorax with assocaited mild leftward mediastinal deviation. earlier 05-08 Stable diffuse mixed interstitial and alveolar infiltrate with suspected small pleural effusions. Stable endotracheal tube, nasogastric tube and right internal jugular central venous catheter. 05-08 cxr He remains on the vent AC/500/26/80 percent with 6 of PEEP Discussed with RN Chart reviewed [place] to bedside drainage He is sedated with propofol fentanyl and Versed Remains very critically ill 33 min cc time 05/07/2021 Patient seen and examined in the [place] [address] ICU He remains on the vent AC/500/26/80 percent with 6 of PEEP (this is improved from yesterday he was on 100% FiO2 with 8 of PEEP) Discussed with RN Chart reviewed Patient has [place] to bedside drainage He is sedated with propofol fentanyl and Versed Remains very critically ill 05/06/2021 Patient seen and examined in the [place] [address] ICU He remains intubated AC/26/500/1 her percent with 8 of PEEP The nurse was able to get him down to 80% for an hour or so earlier this morning but he desatted again when she moved him Chart reviewed Reviewed case with RN patient is having some tachycardia and Fluctuating blood pressure Has OG feeds running at 50 cc an hour plus he is getting free water Has [place] to bedside drainage Has [address] He remains critically ill 05/05/2021 Patient seen and examined in the [place] [address] ICU He is still intubated AC/26/500/1 100% with 8 of PEEP Has OG feeds running at 25 cc an hour Sedated with fentanyl and Versed Getting IV vecuronium Chart reviewed Discussed with RN He remains critically 05/04/2021 Patient seen and examined in the [place] [address] ICU He remains mechanically ventilated Assist-control// 100% with 10 of PEEP He is extremely critically ill He is sedated with Versed and fentanyl He is also paralyzed with vecuronium Reviewed chart Discussed with RN 05/03/2021 Patient seen and examined in the [place] [address] ICU He remains mechanically ventilated AC/600/1 100% with 10 of PEEP Has 2 pigtail drains in his left and right chest due to some small pneumothoraces after being intubated Had to be sedated with vecuronium Also on Versed and fentanyl also has inverse I to E ratio 2:1 Chart reviewed Discussed with RN He remains extremely critically ill I am concerned he may not survive this? 05/02/2021 Patient seen and examined in the [place] [address] ICU He is on BiPAP with 100% FiO2 and very tachypneic Discussed with RN we are going to go ahead and intubate here in a few minutes Chart reviewed Patient currently semisedated with Versed Precedex and fentanyl He is very critically Patient 35-year-old male with past medical history of GERD, obesity, who presents to the ED as a transfer from [facility] for COVID-19 pneumonia with worsening respiratory distress. States his symptoms started roughly 1 week ago with fatigue and body aches, which progressed to include fever and shortness of breath. Symptoms were worse with exertion with no significant alleviating factors. He was tested for COVID-19 at [facility] and was discharged home because he was not hypoxic on room air. When he returned to [facility] with worsening symptoms a CT chest demonstrated bibasilar infiltrates consistent with atypical pneumonia. He was then admitted and placed on 3 L nasal cannula for further treatment. He has not been vaccinated against COVID- 19. However due to worsening respiratory distress he was transferred to [facility] for higher level of care. 04/29/2021: Still breathing 40 L Vapotherm. Afebrile, but complaining of chest heaviness, nausea, and subjective shortness of breath. Denies any vomiting, or diarrhea. Informed patient of likely prolonged hospitalization course. Hemog lobin A1c 5.6. Continue remdesivir day 2/5, continue steroids, antibiotics, and supportive care. Continue to follow daily LFTs. Plan to transfer patient to ICU bed when available. Critical care time 33 minutes spent reviewing charts, reviewing labs, and discussing case with Dr. Gaviria. 04/30/21: Afebrile, still breathing on Vapotherm. Continue remdesivir and monitor LFTs. Continue antibiotics, steroids, and supportive care. Will transfer him to the ICU once bed available. Critical care time 30 minutes spent in chart, reviewing labs, reviewing imaging, and discussion with RN. 05/01/2021 No acute events overnight. Patient seen and examined bedside. Saturating 93% on 40 L Vapotherm. Patient will transfer to the ICU for continued supportive care. Vitals/I&O Vitals/I&O: Vital Signs Date Time Temp Pulse Resp B/P (MAP) Pulse Ox O2 Delivery O2 Flow Rate FiO2 05/20/21 11:10 132 131/75 05/20/21 08:41 79 Ventilator 05/20/21 07:08 95.0 05/20/21 06:00 28 05/20/21 04:00 98.5 98.5 I & O 05/19/21 05/19/21 05/20/21 15:00 23:00 07:00 Intake Total 523 ml 2225.51 ml 1835.86 ml Output Total 990 ml 635 ml 610 ml Balance -467 ml 1590.51 ml 1225.86 ml Physical Exam Physical Exam: General intubated/sedated HEENT ETT /OGT + LUNGS: bilateral CTS + HEART: S1, S2 regular. CHEST: Decreased breath soundS,bilateral chest tube. Abdomen Nondistended, bowel sounds present almonte in place NEUROLOGIC: sedated Extremities edema present, no cyanosis Derm no generalized rash multiple tattoos Rt Central line removed Right upper extremity PICC line clean General: Other (sedated, intubated) Heart: Regular rate (SR), Normal S1 Abdomen: Soft Extremities: No cyanosis Skin: No rashes, No breakdown Labs Labs: Laboratory Tests Test 05/20/21 05:15 05/20/21 08:00 White Blood Count 7.1 x10^3/uL (4.0-11.0) Red Blood Count 2.80 x10^6/uL (4.30-5.70) Hemoglobin 8.4 g/dL (13.0-17.5) Hematocrit 24.5 % (39.0-53.0) Mean Corpuscular Volume 87 fL (79-100) Mean Corpuscular Hemoglobin 30 pg (25-35) Mean Corpuscular Hemoglobin Concent 34 g/dL (31-37) Red Cell Distribution Width 14.7 % (11.5-14.5) Platelet Count 212 x10^3/uL (140-400) Neutrophils (%) (Auto) 75 % (31-73) Lymphocytes (%) (Auto) 8 % (24-48) Monocytes (%) (Auto) 10 % (0-9) Eosinophils (%) (Auto) 6 % (0-3) Basophils (%) (Auto) 1 % (0-3) Neutrophils # (Auto) 5.3 x10^3/uL (1.8-7.7) Lymphocytes # (Auto) 0.6 x10^3/uL (1.0-4.8) Monocytes # (Auto) 0.7 x10^3/uL (0.0-1.1) Eosinophils # (Auto) 0.5 x10^3/uL (0.0-0.7) Basophils # (Auto) 0.0 x10^3/uL (0.0-0.2) Segmented Neutrophils % 64 % (35-66) Band Neutrophils % 8 % (0-9) Lymphocytes % 8 % (24-48) Monocytes % 6 % (0-10) Eosinophils % 8 % (0-5) Basophils % 2 % (0-3) Myelocytes % 3 % (0-0) Promyelocytes % 1 % (0-0) Platelet Estimate Adequate (ADEQUATE) Giant Platelets Few Polychromasia Present Basophilic Stippling Present Sodium Level 138 mmol/L (136-145) Potassium Level 4.4 mmol/L (3.5-5.1) Chloride Level 96 mmol/L (98-107) Carbon Dioxide Level > 45 mmol/L (21-32) Anion Gap (6-14) Blood Urea Nitrogen 14 mg/dL (8-26) Creatinine 0.5 mg/dL (0.7-1.3) Estimated GFR (Cockcroft-Gault) 188.1 Glucose Level 111 mg/dL (70-99) Calcium Level 9.0 mg/dL (8.5-10.1) O2 Saturation 81 % (92-99) Arterial Blood pH 7.35 (7.35-7.45) Arterial Blood pCO2 at Patient Temp 75 mmHg (35-46) Arterial Blood pO2 at Patient Temp 50 mmHg (85-108) Arterial Blood HCO3 40 mmol/L (21-28) Arterial Blood Base Excess 13 mmol/L (-3-3) FiO2 100% vent Comment Review of Relevant I have reviewed the following items anselmo (where applicable) has been applied. Justifications for Admission Other Justification MARY HERRON MD May 20, 2021 11:45
[2021-05-20] MEDS ORDERED: IV NORMAL SALINE 1000ML BAG 1,000 ML IV SCH (17:45)
[2021-05-21] VITALS (23 sets, daily range): BP systolic 103–146; BP diastolic 62–87
[2021-05-21] MEDS: PROPOFOL 100 ML IV PRN ×5 (02:57→21:44)
[2021-05-21] MEDS: MIDAZOLAM 100mg/100ml NS BAG 100 ML IV PRN ×2 (05:51→13:51)
[2021-05-21 06:05] LABS: BASO # 0.1 x10^3/uL (0.0-0.2); BASO % 1 % (0-3); EOS # 0.4 x10^3/uL (0.0-0.7); EOS % 5 % (0-3); HEMATOCRIT 23.7 % (39.0-53.0); HEMOGLOBIN 7.7 g/dL (13.0-17.5); LYMPH # 0.7 x10^3/uL (1.0-4.8); LYMPH % 9 % (24-48); MEAN CORPUSCULAR HEMOGLOBIN 29 pg (25-35); MEAN CORPUSCULAR HGB CONC 33 g/dL (31-37); MEAN CORPUSCULAR VOLUME 88 fL (79-100); MONO # 0.6 x10^3/uL (0.0-1.1); MONO % 8 % (0-9); NEUT % 77 % (31-73); PLATELET COUNT 234 x10^3/uL (140-400); RED CELL DISTRIBUTION WIDTH 14.8 % (11.5-14.5); WHITE BLOOD COUNT 7.8 x10^3/uL (4.0-11.0)
[2021-05-21 06:08] LABS: CALCIUM 8.4 mg/dL (8.5-10.1); CREATININE 0.4 mg/dL (0.7-1.3); GFR 243.4; POTASSIUM 4.3 mmol/L (3.5-5.1)
[2021-05-21] MEDS: VECURONIUM BROMIDE 50 MG in IV NORMAL SALINE 50ML 50 ML IV PRN ×3 (06:15→21:03)
[2021-05-21 08:58] LABS: BASE EXCESS ABG 17 mmol/L (-3-3); HCO3 ABG 44 mmol/L (21-28); PO2 ABG 71 mmHg (85-108); SAT O2 ABG 93 % (92-99)
[2021-05-21 09:16] LABS: PCO2 ABG 69 mmHg (35-46)
[2021-05-21 09:18] LABS: FIO2 ABG 100% VENT
[2021-05-21] MEDS: METOPROLOL TART IMMED RELEASE 25 MG TABLET. PO SCH ×2 (09:18→22:26)
[2021-05-21] MEDS: ENOXAPARIN 40 MG/0.4 ML SYRINGE. SQ SCH ×2 (09:18→22:25)
[2021-05-21] MEDS: ZINC SULFATE 220 MG CAPSULE. PO SCH (09:18)
[2021-05-21] MEDS: CHOLECALCIFEROL (VITAMIN D3) 1,000 UNIT TABLET FT SCH (09:19)
[2021-05-21] MEDS: ASPIRIN CHEWABLE 81 MG TABLET. PO SCH (09:19)
[2021-05-21] MEDS: ASCORBIC ACID 500 MG TABLET PO SCH (09:19)
--- NOTE | 2021-05-21 09:29 | PDOC ---
PULMONARY PROGRESS NOTES DATE: 05/21/21 TIME: 09:27 Subjective Patient remains on ventilatory support 100%. PEEP requirement continues to increase. Remains Sedated Bilateral chest tube, positive air leak on right chest tube, no air leak on left chest tube Vitals Vital Signs Date Time Temp Pulse Resp B/P (MAP) Pulse Ox O2 Delivery O2 Flow Rate FiO2 05/21/21 09:18 123 125/74 05/21/21 08:26 94 Ventilator 05/21/21 06:00 28 05/21/21 04:00 98.8 98.8 05/20/21 07:08 95.0 Comments On visual inspection, patient intubated, fully sedated. Chest tube bilaterally, tachy no distress no obvious rash or edema Labs Laboratory Tests Test 05/20/21 05:15 05/20/21 08:00 05/21/21 05:25 05/21/21 08:00 White Blood Count 7.1 x10^3/uL (4.0-11.0) 7.8 x10^3/uL (4.0-11.0) Red Blood Count 2.80 x10^6/uL (4.30-5.70) 2.70 x10^6/uL (4.30-5.70) Hemoglobin 8.4 g/dL (13.0-17.5) 7.7 g/dL (13.0-17.5) Hematocrit 24.5 % (39.0-53.0) 23.7 % (39.0-53.0) Mean Corpuscular Volume 87 fL (79-100) 88 fL (79-100) Mean Corpuscular Hemoglobin 30 pg (25-35) 29 pg (25-35) Mean Corpuscular Hemoglobin Concent 34 g/dL (31-37) 33 g/dL (31-37) Red Cell Distribution Width 14.7 % (11.5-14.5) 14.8 % (11.5-14.5) Platelet Count 212 x10^3/uL (140-400) 234 x10^3/uL (140-400) Neutrophils (%) (Auto) 75 % (31-73) 77 % (31-73) Lymphocytes (%) (Auto) 8 % (24-48) 9 % (24-48) Monocytes (%) (Auto) 10 % (0-9) 8 % (0-9) Eosinophils (%) (Auto) 6 % (0-3) 5 % (0-3) Basophils (%) (Auto) 1 % (0-3) 1 % (0-3) Neutrophils # (Auto) 5.3 x10^3/uL (1.8-7.7) 6.0 x10^3/uL (1.8-7.7) Lymphocytes # (Auto) 0.6 x10^3/uL (1.0-4.8) 0.7 x10^3/uL (1.0-4.8) Monocytes # (Auto) 0.7 x10^3/uL (0.0-1.1) 0.6 x10^3/uL (0.0-1.1) Eosinophils # (Auto) 0.5 x10^3/uL (0.0-0.7) 0.4 x10^3/uL (0.0-0.7) Basophils # (Auto) 0.0 x10^3/uL (0.0-0.2) 0.1 x10^3/uL (0.0-0.2) Segmented Neutrophils % 64 % (35-66) Band Neutrophils % 8 % (0-9) Lymphocytes % 8 % (24-48) Monocytes % 6 % (0-10) Eosinophils % 8 % (0-5) Basophils % 2 % (0-3) Myelocytes % 3 % (0-0) Promyelocytes % 1 % (0-0) Platelet Estimate Adequate (ADEQUATE) Giant Platelets Few Polychromasia Present Basophilic Stippling Present Sodium Level 138 mmol/L (136-145) 141 mmol/L (136-145) Potassium Level 4.4 mmol/L (3.5-5.1) 4.3 mmol/L (3.5-5.1) Chloride Level 96 mmol/L (98-107) 97 mmol/L (98-107) Carbon Dioxide Level > 45 mmol/L (21-32) 41 mmol/L (21-32) Anion Gap (6-14) 3 (6-14) Blood Urea Nitrogen 14 mg/dL (8-26) 16 mg/dL (8-26) Creatinine 0.5 mg/dL (0.7-1.3) 0.4 mg/dL (0.7-1.3) Estimated GFR (Cockcroft-Gault) 188.1 243.4 Glucose Level 111 mg/dL (70-99) 113 mg/dL (70-99) Calcium Level 9.0 mg/dL (8.5-10.1) 8.4 mg/dL (8.5-10.1) O2 Saturation 81 % (92-99) 93 % (92-99) Arterial Blood pH 7.35 (7.35-7.45) 7.42 (7.35-7.45) Arterial Blood pCO2 at Patient Temp 75 mmHg (35-46) 69 mmHg (35-46) Arterial Blood pO2 at Patient Temp 50 mmHg (85-108) 71 mmHg (85-108) Arterial Blood HCO3 40 mmol/L (21-28) 44 mmol/L (21-28) Arterial Blood Base Excess 13 mmol/L (-3-3) 17 mmol/L (-3-3) FiO2 100% vent 100% vent Laboratory Tests Test 05/21/21 05:25 05/21/21 08:00 White Blood Count 7.8 x10^3/uL (4.0-11.0) Red Blood Count 2.70 x10^6/uL (4.30-5.70) Hemoglobin 7.7 g/dL (13.0-17.5) Hematocrit 23.7 % (39.0-53.0) Mean Corpuscular Volume 88 fL (79-100) Mean Corpuscular Hemoglobin 29 pg (25-35) Mean Corpuscular Hemoglobin Concent 33 g/dL (31-37) Red Cell Distribution Width 14.8 % (11.5-14.5) Platelet Count 234 x10^3/uL (140-400) Neutrophils (%) (Auto) 77 % (31-73) Lymphocytes (%) (Auto) 9 % (24-48) Monocytes (%) (Auto) 8 % (0-9) Eosinophils (%) (Auto) 5 % (0-3) Basophils (%) (Auto) 1 % (0-3) Neutrophils # (Auto) 6.0 x10^3/uL (1.8-7.7) Lymphocytes # (Auto) 0.7 x10^3/uL (1.0-4.8) Monocytes # (Auto) 0.6 x10^3/uL (0.0-1.1) Eosinophils # (Auto) 0.4 x10^3/uL (0.0-0.7) Basophils # (Auto) 0.1 x10^3/uL (0.0-0.2) Sodium Level 141 mmol/L (136-145) Potassium Level 4.3 mmol/L (3.5-5.1) Chloride Level 97 mmol/L (98-107) Carbon Dioxide Level 41 mmol/L (21-32) Anion Gap 3 (6-14) Blood Urea Nitrogen 16 mg/dL (8-26) Creatinine 0.4 mg/dL (0.7-1.3) Estimated GFR (Cockcroft-Gault) 243.4 Glucose Level 113 mg/dL (70-99) Calcium Level 8.4 mg/dL (8.5-10.1) O2 Saturation 93 % (92-99) Arterial Blood pH 7.42 (7.35-7.45) Arterial Blood pCO2 at Patient Temp 69 mmHg (35-46) Arterial Blood pO2 at Patient Temp 71 mmHg (85-108) Arterial Blood HCO3 44 mmol/L (21-28) Arterial Blood Base Excess 17 mmol/L (-3-3) FiO2 100% vent Medications Active Scripts Medications Dose Route/Sig Max Daily Dose Days Date Category Pepcid (Famotidine) 20 Mg Tablet 20 Mg PO BID 04/28/21 Reported Comments Chest x-ray reviewed 05/19/2021 Diffuse unchanged bilateral infiltrates. Possible tiny right apical pneumothorax. cxr 05/17 reviewed bilateral infiltrates , no change No sig PTX CXR 05/15/21 Impression: 1. Unchanged support device positioning, as above. 2. Unchanged tiny apical pneumothorax on the right. No pneumothorax is seen on the left. 3. No significant change in the extent of diffuse airspace infiltrates. Impression . 1. Acute hypoxic respiratory failure secondary to COVID-19 viral pneumonia/ARDS--intubated . Remains severely ill will and refractory hypoxia 2. Abnormal CT chest done at [facility] with diffuse bilateral alveolar and interstitial infiltrates related to COVID-19 pneumonia. No evidence of pulmonary embolism. 3. Underlying obesity. 4. Remote history of obstructive sleep apnea. 5. Abnormal liver function tests, likely due to Covid infection. Bilirubin normal. 6. Normal D-dimer initially, then marked increase , repeat test much improved. 7. Status post intubation 05/02, status post bilateral pneumothoraces requiring chest tubes 05/02. . Almost resolved now/ +air leak 8. HTN Plan . Updated 05/21/21 Patient's oxygenation and ventilation status is more stable on today's arterial blood gases. Continue current vent support 28/500/100%/peep 13 Follow ABG/CXR--okay with permissive hypercarbia. Continue chest tubes to suction. Follow infectious disease recommendations in regards to antibiotics--off ABX at this time S/P full course of remdesivir and steroids Continue TF for nutritional support DVT/GI PPX :lovenox Monitor hemoglobin closely. It slowly trending down D/W RN and RT Poor prognosis, remains critically ill At discussed with patient's Angely in detail 05/19 and updated her about patient's deteriorating condition. Critical care time 30 minutes including review of the labs imaging studies and decision making. Updated 05/20/21 Patient's oxygen requirement continues to worsens. He is now requiring up to 13 of PEEP. He continues to have difficulty with ventilation as well. PCO2 rising. Continue current vent support 28/500/100%/peep 13 Follow ABG/CXR--okay with permissive hypercarbia. Continue chest tubes to suction. Follow infectious disease recommendations in regards to antibiotics--off ABX at this time S/P full course of remdesivir and steroids Continue TF for nutritional support DVT/GI PPX :lovenox D/W RN and RT Poor prognosis, remains critically ill At discussed with patient's Angely in detail yesterday and updated her about patient's deteriorating condition. Critical care time 30 minutes including review of the labs imaging studies and decision making. Updated 05/19/21 Continue current vent support 28/500/100%/peep 10 Follow ABG/CXR--compensated hypercarbia/ ok with permissive hypercapnia-- no changes today Continue chest tubes to suction. Follow infectious disease recommendations in regards to antibiotics--off ABX at this time S/P full course of remdesivir and steroids Continue TF for nutritional support DVT/GI PPX :lovenox D/W RN and RT Poor prognosis, remains critically ill Critical care time 30 minutes including review of the labs imaging studies and decision making. Updated 05/18/21 Continue current vent support 28/500/100%/peep 10 Follow ABG/CXR--compensated hypercarbia/ ok with permissive hypercapnia-- no changes today Continue chest tubes to suction. Follow infectious disease recommendations in regards to antibiotics--off ABX at this time S/P full course of remdesivir and steroids Continue TF for nutritional support DVT/GI PPX :lovenox D/W RN and RT Poor prognosis, remains critically ill Critical care time 30 minutes including review of the labs imaging studies and decision making. Updated 05/17/21 Continue current vent support 28/500/100%/peep 7 Follow ABG/CXR-----changes as needed--compensated hypercarbia/ ok with permissive hypercapnia Continue chest tubes to suction. Follow infectious disease recommendations in regards to antibiotics--off ABX at this time S/P full course of remdesivir and steroids Follow cardiology recommendations Continue TF for nutritional support DVT/GI PPX :lovenox D/W RN and RT Critical care time 30 minutes including review of the labs imaging studies and decision making. Updated 05/16/21 Continue current vent support 28/500/100%/peep 7 Follow ABG/CXR-----changes as needed--compensated hypercarbia Continue chest tubes to suction. Follow infectious disease recommendations in regards to antibiotics--off ABX at this time S/P full course of remdesivir and steroids Follow cardiology recommendations Continue TF for nutritional support DVT/GI PPX :lovenox D/W RN and RT Critical care time 30 minutes including review of the labs imaging studies and decision making. MURRAY ESPOSITO MD May 21, 2021 09:29
[2021-05-21] MEDS: FAMOTIDINE 20 MG/2 ML VIAL IVP SCH ×2 (09:51→22:25)
[2021-05-21] MEDS: fentaNYL HIGH DOSE PCA 55 ML IV PRN (10:17)
--- NOTE | 2021-05-21 12:43 | PDOC ---
[employer] PROGRESS NOTE Date of Service DOS: DATE: 05/21/21 TIME: 12:42 Chief Complaint Chief Complaint Acute respiratory failure with hypoxia COVID-19 pneumonia GERD Obesity Plan: Continue Covid protocol Appreciate pulmonology management GI prophylaxis FEN -tube feeds PPX - Lovenox FULL CODE Dispo - inpatient for above History of Present Illness History of Present Illness 05/21/21 Patient seen and examined at bedside. continues to have increased oxygen requirements. Remains intubated sedated. Continue current plan. Will discuss with she is at bedside today. 05/20/21 Patient seen and examined at bedside. Remains intubated and sedated. Oxygen requirements continued to increase and saturations remain low. Continue current treatment. Poor prognosis. 05/19/21 Patient seen and examined at bedside. Remains intubated and sedated, is on relatively high ventilator settings. Saturations hovering mid to upper 80s. Continuing current plan otherwise. Will address patient's current state with family. Plan of care discussed with bedside RN. 05/18/21 Patient seen and examined at bedside. Remains intubated and sedated. No major clinical improvement. Pulmonary following. Will attempt to contact family today. Plan of care discussed with bedside RN. 05/17/21 Patient seen and examined at bedside. Remains intubated and sedated. Pulmonary following. Continuing Covid protocol. PA FiO2 ratio still significantly low. Continue to monitor blood gas daily. Plan of care discussed with bedside RN 05/16/21 Patient seen and examined at bedside, PICC line placed and central line removed. No major clinical changes remains intubated and sedated. Wean as tolerated. Plan of care discussed with bedside RN. Continue Covid protocol 05/15/21 Patient seen and examined at bedside Remains intubated and sedated debated; unsuccessful weaning thus far Place PICC line and remove central line today Otherwise continuing Covid protocol Pulmonary and ID consulted Plan of care discussed with bedside RN 05/14/2021 ID CONSULT central line needs to be replaced to the PICC line. experienced hypoxia requiring 100% and a PEEP of 7 , positive air leak on right chest tube Down to 7 of PEEP. Significant interval decrease in a now tiny right pneumothorax. No left-sided pneumothorax is seen. There are bilateral pleural drainage catheters. 05-12 PAFIB: new likely induced by above. multiple bursts. Maintaining SR/ST Status post intubation 05/02, status post bilateral pneumothoraces requiring chest tubes 05/02 Decrease in a tiny residual right pneumothorax status post pleural drainage catheter placement. There is an unchanged left pleural drainage catheter. 05-09 cxr bilateral pleural drainage catheters unchanged in position.05-10 Daily PPI and famotidine as needed PPX - Lovenox FULL CODE Dispo - inpatient for above Morbid obesity. No significant tobacco history and // remote history of SONYA. Patient seen and examined in the [facility]- ICU Interval decrease in a now tiny right pneumothorax status post pleural drainage catheter placement. There is a stable left pleural drainage catheter without convincing left-sided pneumothorax. /large right pneumothorax with assocaited mild leftward mediastinal deviation. earlier 05-08 Stable diffuse mixed interstitial and alveolar infiltrate with suspected small pleural effusions. Stable endotracheal tube, nasogastric tube and right internal jugular central venous catheter. 05-08 cxr He remains on the vent ventilatory support 85% and a PEEP of 6. Discussed with RN Chart reviewed Almonte to bedside drainage He is sedated with propofol fentanyl and Versed Remains very critically ill labile htn, will consult cardiology, htn much better today 33 min cc time experienced hypoxia overnight requiring 100% and a PEEP of 10, 05/13/2021 ID CONSULT experienced hypoxia overnight requiring 100% and a PEEP of 10, Significant interval decrease in a now tiny right pneumothorax. No left-sided pneumothorax is seen. There are bilateral pleural drainage catheters. 05-12 PAFIB: new likely induced by above. multiple bursts. Maintaining SR/ST Status post intubation 05/02, status post bilateral pneumothoraces requiring chest tubes 05/02 Decrease in a tiny residual right pneumothorax status post pleural drainage catheter placement. There is an unchanged left pleural drainage catheter. 05-09 cxr bilateral pleural drainage catheters unchanged in position.05-10 Daily PPI and famotidine as needed PPX - Lovenox FULL CODE Dispo - inpatient for above Morbid obesity. No significant tobacco history and // remote history of SONYA. Patient seen and examined in the COVID-19 ICU Interval decrease in a now tiny right pneumothorax status post pleural drainage catheter placement. There is a stable left pleural drainage catheter without convincing left-sided pneumothorax. /large right pneumothorax with assocaited mild leftward mediastinal deviation. earlier 05-08 Stable diffuse mixed interstitial and alveolar infiltrate with suspected small pleural effusions. Stable endotracheal tube, nasogastric tube and right internal jugular central venous catheter. 05-08 cxr He remains on the vent ventilatory support 85% and a PEEP of 6. Discussed with RN Chart reviewed Almonte to bedside drainage He is sedated with propofol fentanyl and Versed Remains very critically ill labile htn, will consult cardiology, htn much better today 34 min cc time experienced hypoxia overnight requiring 100% and a PEEP of 10, 05/12/2021 Significant interval decrease in a now tiny right pneumothorax. No left-sided pneumothorax is seen. There are bilateral pleural drainage catheters. 05-12 PAFIB: new likely induced by above. multiple bursts. Maintaining SR/ST Status post intubation 05/02, status post bilateral pneumothoraces requiring chest tubes 05/02 Decrease in a tiny residual right pneumothorax status post pleural drainage catheter placement. There is an unchanged left pleural drainage catheter. 05-09 cxr bilateral pleural drainage catheters unchanged in position.05-10 Daily PPI and famotidine as needed PPX - Lovenox FULL CODE Dispo - inpatient for above Morbid obesity. No significant tobacco history and // remote history of SONYA. Patient seen and examined in the [facility]- ICU Interval decrease in a now tiny right pneumothorax status post pleural drainage catheter placement. There is a stable left pleural drainage catheter without convincing left-sided pneumothorax. /large right pneumothorax with assocaited mild leftward mediastinal deviation. earlier 05-08 Stable diffuse mixed interstitial and alveolar infiltrate with suspected small pleural effusions. Stable endotracheal tube, nasogastric tube and right internal jugular central venous catheter. 05-08 cxr He remains on the vent ventilatory support 85% and a PEEP of 6. Discussed with RN Chart reviewed Almonte to bedside drainage He is sedated with propofol fentanyl and Versed Remains very critically ill labile htn, will consult cardiology, htn much better today 34 min cc time 05/11/2021 PAFIB: new likely induced by above. multiple bursts. Maintaining SR/ST Status post intubation 05/02, status post bilateral pneumothoraces requiring chest tubes 05/02 Decrease in a tiny residual right pneumothorax status post pleural drainage catheter placement. There is an unchanged left pleural drainage catheter. 05-09 cxr bilateral pleural drainage catheters unchanged in position.05-10 Daily PPI and famotidine as needed PPX - Lovenox FULL CODE Dispo - inpatient for above Morbid obesity. No significant tobacco history and // remote history of SONYA. Patient seen and examined in the COVID-19 ICU Interval decrease in a now tiny right pneumothorax status post pleural drainage catheter placement. There is a stable left pleural drainage catheter without con vincing left-sided pneumothorax. /large right pneumothorax with assocaited mild leftward mediastinal deviation. earlier 05-08 Stable diffuse mixed interstitial and alveolar infiltrate with suspected small pleural effusions. Stable endotracheal tube, nasogastric tube and right internal jugular central venous catheter. 05-08 cxr He remains on the vent vent support 90% and a PEEP of 6 Discussed with RN Chart reviewed Almonte to bedside drainage He is sedated with propofol fentanyl and Versed Remains very critically ill labile htn, will consult cardiology, htn much better today 35 min cc time PAFIB: new likely induced by above. multiple bursts. Maintaining SR/ST 05/10/2021 Status post intubation 05/02, status post bilateral pneumothoraces requiring chest tubes 05/02 Decrease in a tiny residual right pneumothorax status post pleural drainage catheter placement. There is an unchanged left pleural drainage catheter. 05-09 cxr bilateral pleural drainage catheters unchanged in position.05-10 Daily PPI and famotidine as needed FEN - ADA diet PPX - Lovenox FULL CODE Dispo - inpatient for above Morbid obesity. No significant tobacco history and // remote history of SONYA. Patient seen and examined in the COVID-19 ICU Interval decrease in a now tiny right pneumothorax status post pleural drainage catheter placement. There is a stable left pleural drainage catheter without convincing left-sided pneumothorax. /large right pneumothorax with assocaited mild leftward mediastinal deviation. earlier 05-08 Stable diffuse mixed interstitial and alveolar infiltrate with suspected small pleural effusions. Stable endotracheal tube, nasogastric tube and right internal jugular central venous catheter. 05-08 cxr He remains on the vent vent support 90% and a PEEP of 6 Discussed with RN Chart reviewed Almonte to bedside drainage He is sedated with propofol fentanyl and Versed Remains very critically ill labile htn, will consult cardiology, htn much better today 32 min cc time 05/09/2021 Status post intubation 05/02, status post bilateral pneumothoraces requiring chest tubes 05/02 Decrease in a tiny residual right pneumothorax status post pleural drainage catheter placement. There is an unchanged left pleural drainage catheter. 05-09 cxr Daily PPI and famotidine as needed FEN - ADA diet PPX - Lovenox FULL CODE Dispo - inpatient for above Morbid obesity. No significant tobacco history and // remote history of SONYA. Patient seen and examined in the COVID-19 ICU Interval decrease in a now tiny right pneumothorax status post pleural drainage catheter placement. There is a stable left pleural drainage catheter without convincing left-sided pneumothorax. /large right pneumothorax with assocaited mild leftward mediastinal deviation. earlier 05-08 Stable diffuse mixed interstitial and alveolar infiltrate with suspected small pleural effusions. Stable endotracheal tube, nasogastric tube and right internal jugular central venous catheter. 05-08 cxr He remains on the vent AC/500/26/80 percent with 6 of PEEP Discussed with RN Chart reviewed Almonte to bedside drainage He is sedated with propofol fentanyl and Versed Remains very critically ill labile htn, will consult cardiology 35 min cc time 05/08/2021 Daily PPI and famotidine as needed FEN - ADA diet PPX - Lovenox FULL CODE Dispo - inpatient for above Morbid obesity. No significant tobacco history and // remote history of SONYA. Patient seen and examined in the [facility]- ICU Interval decrease in a now tiny right pneumothorax status post pleural drainage catheter placement. There is a stable left pleural drainage catheter without convincing left-sided pneumothorax. /large right pneumothorax with assocaited mild leftward mediastinal deviation. earlier 05-08 Stable diffuse mixed interstitial and alveolar infiltrate with suspected small pleural effusions. Stable endotracheal tube, nasogastric tube and right internal jugular central venous catheter. 05-08 cxr He remains on the vent AC/500/26/80 percent with 6 of PEEP Discussed with RN Chart reviewed Almonte to bedside drainage He is sedated with propofol fentanyl and Versed Remains very critically ill 33 min cc time 05/07/2021 Patient seen and examined in the [facility]- ICU He remains on the vent AC/500/26/80 percent with 6 of PEEP (this is improved from yesterday he was on 100% FiO2 with 8 of PEEP) Discussed with RN Chart reviewed Patient has Almonte to bedside drainage He is sedated with propofol fentanyl and Versed Remains very critically ill 05/06/2021 Patient seen and examined in the [facility]- ICU He remains intubated AC/26/500/1 her percent with 8 of PEEP The nurse was able to get him down to 80% for an hour or so earlier this morning but he desatted again when she moved him Chart reviewed Reviewed case with RN patient is having some tachycardia and Fluctuating blood pressure Has OG feeds running at 50 cc an hour plus he is getting free water Has Almonte to bedside drainage Has [address] He remains critically ill 05/05/2021 Patient seen and examined in the [place] [address] ICU He is still intubated AC/500/1 100% with 8 of PEEP Has OG feeds running at 25 cc an hour Sedated with fentanyl and Versed Getting IV vecuronium Chart reviewed Discussed with RN He remains critically 05/04/2021 Patient seen and examined in the [place] [address] ICU He remains mechanically ventilated Assist-control// 100% with 10 of PEEP He is extremely critically ill He is sedated with Versed and fentanyl He is also paralyzed with vecuronium Reviewed chart Discussed with RN 05/03/2021 Patient seen and examined in the [place] [address] ICU He remains mechanically ventilated AC/600/1 100% with 10 of PEEP Has 2 pigtail drains in his left and right chest due to some small pneumothoraces after being intubated Had to be sedated with vecuronium Also on Versed and fentanyl also has inverse I to E ratio 2:1 Chart reviewed Discussed with RN He remains extremely critically ill I am concerned he may not survive this? 05/02/2021 Patient seen and examined in the [place] [address] ICU He is on BiPAP with 100% FiO2 and very tachypneic Discussed with RN we are going to go ahead and intubate here in a few minutes Chart reviewed Patient currently semisedated with Versed Precedex and fentanyl He is very critically Patient 35-year-old male with past medical history of GERD, obesity, who presents to the ED as a transfer from [facility] for COVID-19 pneumonia with worsening respiratory distress. States his symptoms started roughly 1 week ago with fatigue and body aches, which progressed to include fever and shortness of breath. Symptoms were worse with exertion with no significant alleviating factors. He was tested for COVID-19 at [facility] and was discharged home because he was not hypoxic on room air. When he returned to [facility] with worsening symptoms a CT chest demonstrated bibasilar infiltrates consistent with atypical pneumonia. He was then admitted and placed on 3 L nasal cannula for further treatment. He has not been vaccinated against COVID- 19. However due to worsening respiratory distress he was transferred to [facility] for higher level of care. 04/29/2021: Still breathing 40 L Vapotherm. Afebrile, but complaining of chest heaviness, nausea, and subjective shortness of breath. Denies any vomiting, or diarrhea. Informed patient of likely prolonged hospitalization course. Hemoglobin A1c 5.6. Continue remdesivir day 2/5, continue steroids, antibiotics, and supportive care. Continue to follow daily LFTs. Plan to transfer patient to ICU bed when available. Critical care time 33 minutes spent reviewing charts, reviewing labs, and discussing case with Dr. Gaviria. 04/30/21: Afebrile, still breathing on Vapotherm. Continue remdesivir and monitor LFTs. Continue antibiotics, steroids, and supportive care. Will transfer him to the ICU once bed available. Critical care time 30 minutes spent in chart, reviewing labs, reviewing imaging, and discussion with RN. 05/01/2021 No acute events overnight. Patient seen and examined bedside. Saturating 93% on 40 L Vapotherm. Patient will transfer to the ICU for continued supportive care. Vitals/I&O Vitals/I&O: Vital Signs Date Time Temp Pulse Resp B/P (MAP) Pulse Ox O2 Delivery O2 Flow Rate FiO2 05/21/21 12:28 96 Ventilator 05/21/21 09:18 123 125/74 05/21/21 06:00 28 05/21/21 04:00 98.8 98.8 05/20/21 07:08 95.0 I & O 05/20/21 05/20/21 05/21/21 15:00 23:00 07:00 Intake Total 500 ml 1645 ml 1663.94 ml Output Total 550 ml 965 ml 585 ml Balance -50 ml 680 ml 1078.94 ml Physical Exam Physical Exam: General intubated/sedated HEENT ETT /OGT + LUNGS: bilateral CTS + HEART: S1, S2 regular. CHEST: Decreased breath soundS,bilateral chest tube. Abdomen Nondistended, bowel sounds present almonte in place NEUROLOGIC: sedated Extremities edema present, no cyanosis Derm no generalized rash multiple tattoos Rt Central line removed Right upper extremity PICC line clean General: Other (sedated, intubated) Heart: Regular rate (SR), Normal S1 Lungs: Other (Intubated) Abdomen: Soft Extremities: No cyanosis Skin: No rashes, No breakdown Labs Labs: Laboratory Tests Test 05/21/21 05:25 05/21/21 08:00 05/21/21 12:27 White Blood Count 7.8 x10^3/uL (4.0-11.0) Red Blood Count 2.70 x10^6/uL (4.30-5.70) Hemoglobin 7.7 g/dL (13.0-17.5) Hematocrit 23.7 % (39.0-53.0) Mean Corpuscular Volume 88 fL (79-100) Mean Corpuscular Hemoglobin 29 pg (25-35) Mean Corpuscular Hemoglobin Concent 33 g/dL (31-37) Red Cell Distribution Width 14.8 % (11.5-14.5) Platelet Count 234 x10^3/uL (140-400) Neutrophils (%) (Auto) 77 % (31-73) Lymphocytes (%) (Auto) 9 % (24-48) Monocytes (%) (Auto) 8 % (0-9) Eosinophils (%) (Auto) 5 % (0-3) Basophils (%) (Auto) 1 % (0-3) Neutrophils # (Auto) 6.0 x10^3/uL (1.8-7.7) Lymphocytes # (Auto) 0.7 x10^3/uL (1.0-4.8) Monocytes # (Auto) 0.6 x10^3/uL (0.0-1.1) Eosinophils # (Auto) 0.4 x10^3/uL (0.0-0.7) Basophils # (Auto) 0.1 x10^3/uL (0.0-0.2) Sodium Level 141 mmol/L (136-145) Potassium Level 4.3 mmol/L (3.5-5.1) Chloride Level 97 mmol/L (98-107) Carbon Dioxide Level 41 mmol/L (21-32) Anion Gap 3 (6-14) Blood Urea Nitrogen 16 mg/dL (8-26) Creatinine 0.4 mg/dL (0.7-1.3) Estimated GFR (Cockcroft-Gault) 243.4 Glucose Level 113 mg/dL (70-99) Calcium Level 8.4 mg/dL (8.5-10.1) O2 Saturation 93 % (92-99) Arterial Blood pH 7.42 (7.35-7.45) Arterial Blood pCO2 at Patient Temp 69 mmHg (35-46) Arterial Blood pO2 at Patient Temp 71 mmHg (85-108) Arterial Blood HCO3 44 mmol/L (21-28) Arterial Blood Base Excess 17 mmol/L (-3-3) FiO2 100% vent Glucose (Fingerstick) 132 mg/dL (70-99) Comment Review of Relevant I have reviewed the following items anselmo (where applicable) has been applied. Justifications for Admission Other Justification MARY HERRON MD May 21, 2021 12:43
[2021-05-22] VITALS: BP 140/80
[2021-05-22] MEDS: VECURONIUM BROMIDE 50 MG in IV NORMAL SALINE 50ML 50 ML IV PRN (00:22)
[2021-05-22] MEDS: MIDAZOLAM 100mg/100ml NS BAG 100 ML IV PRN (00:23)
[2021-05-22 01:00] VITALS: BP 111/60
[2021-05-22 02:00] VITALS: BP 93/56
[2021-05-22] MEDS ORDERED: SODIUM BICARB ADULT 8.4% 50 MEQ/50 ML DISP.SYRIN. ONE (03:00)
[2021-05-22] MEDS ORDERED: CALCIUM CHLORIDE 1,000 MG/10 ML DISP.SYRIN ONE (03:00)
[2021-05-22] MEDS ORDERED: EPINEPHrine SYRINGE 1 MG/10 ML SYRINGE ONE (03:00)
[2021-05-22] MEDS ORDERED: ATROPINE 1 MG/10 ML DISP.SYRINGE. ONE (03:00)
--- NOTE | 2021-05-22 03:14 | RAD ---
AP chest x-ray HISTORY: Decreasing oxygen saturation, pneumothorax. COMPARISON: Chest x-ray May 19, 2021 FINDINGS: Endotracheal tube tip 2 cm with chronic. Nasogastric tube to the left upper quadrant abdome n. There is a right pleural pigtail catheter coiled in the region of the hilum a change from the prio r study. There is a left pleural pigtail drainage catheter left upper chest. There is a large left pn eumothorax with collapse of more than half of the left lung, and there is mild rightward shift of hea rt and mediastinum, and depression of the left lateral diaphragm, concerning for large left tension p neumothorax. Extensive pulmonary infiltrates grossly stable. IMPRESSION: 1. Lines and tubes as described above. There is a large left-sided tension pneumothorax with collapse of more than half of the lung and mild rightward shift of the heart and mediastinum and depression o f the left diaphragm. 2. Pulmonary infiltrates grossly stable. FOR INTERNAL CODING PURPOSES Critical result: Findings discussed with the patient's NEONATAL CRITICAL CARE NURSEYUNIER Vigil at 05/22/2021 3:02 AM. Read back of report perfor med. The nurse is notifying the treating physician of these results immediately. RESULT CODE: (C) Electronically signed by: Ivan Howell MD (05/22/2021 3:11 AM) [facility]
[2021-05-22 03:15] VITALS: BP 114/75
[2021-05-22 03:30] VITALS: BP 69/48
--- NOTE | 2021-05-22 03:50 | NUR ---
At 0245 patients O2 Sat dropped to 44% and came back up to 77%. HR started to decrease and blood pressure dropped. CXR was done and a large pneumo was noted. Patient lost his pulse and Code Blue was called. Dr. Rosa the ED doctor placed a second chest tube in the left side during the code but after almost an hour the code was called. Patients was called at the start of the code and wants everything done. We informed her that we would call her after the code. was called by YUNIER Tavarez and she had info for him at that time. She was very tearful but saide she knew that he wasn't getting any better.
--- NOTE | 2021-05-22 08:40 | PDOC ---
[employer] PROGRESS NOTE Date of Service DOS: DATE: 05/22/21 TIME: 08:34 Chief Complaint Chief Complaint Acute respiratory failure with hypoxia COVID-19 pneumonia GERD Obesity Plan: Continue Covid protocol Appreciate pulmonology management GI prophylaxis FEN -tube feeds PPX - Lovenox FULL CODE Dispo - inpatient for above History of Present Illness History of Present Illness 05/22/2021: Afebrile. Currently on vent with FiO2 100%, PEEP 13. Repeat chest x-ray this morning shows large left-sided tension pneumothorax with collapse of more than half of the lung and mild rightward shift of the heart and mediastinum and depression of the left diaphragm. Continue chest tubes to suction. We will continue to monitor off antibiotics. Continue supportive care. Critical care time 30 minutes spent reviewing charts, general labs, reviewing imaging, discussion with RN. 05/21/21 Patient seen and examined at bedside. continues to have increased oxygen requirements. Remains intubated sedated. Continue current plan. Will discuss with she is at bedside today. 05/20/21 Patient seen and examined at bedside. Remains intubated and sedated. Oxygen requirements continued to increase and saturations remain low. Continue current treatment. Poor prognosis. 05/19/21 Patient seen and examined at bedside. Remains intubated and sedated, is on relatively high ventilator settings. Saturations hovering mid to upper 80s. Continuing current plan otherwise. Will address patient's current state with family. Plan of care discussed with bedside RN. 05/18/21 Patient seen and examined at bedside. Remains intubated and sedated. No major clinical improvement. Pulmonary following. Will attempt to contact family today. Plan of care discussed with bedside RN. 05/17/21 Patient seen and examined at bedside. Remains intubated and sedated. Pulmonary following. Continuing Covid protocol. PA FiO2 ratio still significantly low. Continue to monitor blood gas daily. Plan of care discussed with bedside RN 05/16/21 Patient seen and examined at bedside, PICC line placed and central line removed. No major clinical changes remains intubated and sedated. Wean as tolerated. Plan of care discussed with bedside RN. Continue Covid protocol 05/15/21 Patient seen and examined at bedside Remains intubated and sedated debated; unsuccessful weaning thus far Place PICC line and remove central line today Otherwise continuing Covid protocol Pulmonary and ID consulted Plan of care discussed with bedside RN 05/14/2021 ID CONSULT central line needs to be replaced to the PICC line. experienced hypoxia requiring 100% and a PEEP of 7 , positive air leak on right chest tube Down to 7 of PEEP. Significant interval decrease in a now tiny right pneumothorax. No left-sided pneumothorax is seen. There are bilateral pleural drainage catheters. 05-12 PAFIB: new likely induced by above. multiple bursts. Maintaining SR/ST Status post intubation 05/02, status post bilateral pneumothoraces requiring chest tubes 05/02 Decrease in a tiny residual right pneumothorax status post pleural drainage catheter placement. There is an unchanged left pleural drainage catheter. 05-09 cxr bilateral pleural drainage catheters unchanged in position.05-10 Daily PPI and famotidine as needed PPX - Lovenox FULL CODE Dispo - inpatient for above Morbid obesity. No significant tobacco history and // remote history of SONYA. Patient seen and examined in the [place] [id number] ICU Interval decrease in a now tiny right pneumothorax status post pleural drainage catheter placement. There is a stable left pleural drainage catheter without convincing left-sided pneumothorax. /large right pneumothorax with assocaited mild leftward mediastinal deviation. earlier 05-08 Stable diffuse mixed interstitial and alveolar infiltrate with suspected small pleural effusions. Stable endotracheal tube, nasogastric tube and right internal jugular central venous catheter. 05-08 cxr He remains on the vent ventilatory support 85% and a PEEP of 6. Discussed with RN Chart reviewed Almonte to bedside drainage He is sedated with propofol fentanyl and Versed Remains very critically ill labile htn, will consult cardiology, htn much better today 33 min cc time experienced hypoxia overnight requiring 100% and a PEEP of 10, 05/13/2021 ID CONSULT experienced hypoxia overnight requiring 100% and a PEEP of 10, Significant interval decrease in a now tiny right pneumothorax. No left-sided pneumothorax is seen. There are bilateral pleural drainage catheters. 05-12 PAFIB: new likely induced by above. multiple bursts. Maintaining SR/ST Status post intubation 05/02, status post bilateral pneumothoraces requiring chest tubes 05/02 Decrease in a tiny residual right pneumothorax status post pleural drainage catheter placement. There is an unchanged left pleural drainage catheter. 05-09 cxr bilateral pleural drainage catheters unchanged in position.05-10 Daily PPI and famotidine as needed PPX - Lovenox FULL CODE Dispo - inpatient for above Morbid obesity. No significant tobacco history and // remote history of SONYA. Patient seen and examined in the [facility] ICU Interval decrease in a now tiny right pneumothorax status post pleural drainage catheter placement. There is a stable left pleural drainage catheter without convincing left-sided pneumothorax. /large right pneumothorax with assocaited mild leftward mediastinal deviation. earlier 05-08 Stable diffuse mixed interstitial and alveolar infiltrate with suspected small pleural effusions. Stable endotracheal tube, nasogastric tube and right internal jugular central venous catheter. 05-08 cxr He remains on the vent ventilatory support 85% and a PEEP of 6. Discussed with RN Chart reviewed Almonte to bedside drainage He is sedated with propofol fentanyl and Versed Remains very critically ill labile htn, will consult cardiology, htn much better today 34 min cc time experienced hypoxia overnight requiring 100% and a PEEP of 10, 05/12/2021 Significant interval decrease in a now tiny right pneumothorax. No left-sided pneumothorax is seen. There are bilateral pleural drainage catheters. 05-12 PAFIB: new likely induced by above. multiple bursts. Maintaining SR/ST Status post intubation 05/02, status post bilateral pneumothoraces requiring chest tubes 05/02 Decrease in a tiny residual right pneumothorax status post pleural drainage catheter placement. There is an unchanged left pleural drainage catheter. 05-09 cxr bilateral pleural drainage catheters unchanged in position.05-10 Daily PPI and famotidine as needed PPX - Lovenox FULL CODE Dispo - inpatient for above Morbid obesity. No significant tobacco history and // remote history of SONYA. Patient seen and examined in the [facility] ICU Interval decrease in a now tiny right pneumothorax status post pleural drainage catheter placement. There is a stable left pleural drainage catheter without convincing left-sided pneumothorax. /large right pneumothorax with assocaited mild leftward mediastinal deviation. earlier 05-08 Stable diffuse mixed interstitial and alveolar infiltrate with suspected small pleural effusions. Stable endotracheal tube, nasogastric tube and right internal jugular central venous catheter. 05-08 cxr He remains on the vent ventilatory support 85% and a PEEP of 6. Discussed with RN Chart reviewed Almonte to bedside drainage He is sedated with propofol fentanyl and Versed Remains very critically ill labile htn, will consult cardiology, htn much better today 34 min cc time 05/11/2021 PAFIB: new likely induced by above. multiple bursts. Maintaining SR/ST Status post intubation 05/02, status post bilateral pneumothoraces requiring chest tubes 05/02 Decrease in a tiny residual right pneumothorax status post pleural drainage catheter placement. There is an unchanged left pleural drainage catheter. 05-09 cxr bilateral pleural drainage catheters unchanged in position.8- Daily PPI and famotidine as needed PPX - Lovenox FULL CODE Dispo - inpatient for above Morbid obesity. No significant tobacco history and // remote history of SONYA. Patient seen and examined in the [facility]- ICU Interval decrease in a now tiny right pneumothorax status post pleural drainage catheter placement. There is a stable left pleural drainage catheter without convincing left-sided pneumothorax. /large right pneumothorax with assocaited mild leftward mediastinal deviation. earlier 05-08 Stable diffuse mixed interstitial and alveolar infiltrate with suspected small pleural effusions. Stable endotracheal tube, nasogastric tube and right internal jugular central venous catheter. 05-08 cxr He remains on the vent vent support 90% and a PEEP of 6 Discussed with RN Chart reviewed Almonte to bedside drainage He is sedated with propofol fentanyl and Versed Remains very critically ill labile htn, will consult cardiology, htn much better today 35 min cc time PAFIB: new likely induced by above. multiple bursts. Maintaining SR/ST 05/10/2021 Status post intubation 05/02, status post bilateral pneumothoraces requiring chest tubes 05/02 Decrease in a tiny residual right pneumothorax status post pleural drainage catheter placement. There is an unchanged left pleural drainage catheter. 05-09 cxr bilateral pleural drainage catheters unchanged in position.- Daily PPI and famotidine as needed FEN - ADA diet PPX - Lovenox FULL CODE Dispo - inpatient for above Morbid obesity. No significant tobacco history and // remote history of SONYA. Patient seen and examined in the [facility] ICU Interval decrease in a now tiny right pneumothorax status post pleural drainage catheter placement. There is a stable left pleural drainage catheter without convincing left-sided pneumothorax. /large right pneumothorax with assocaited mild leftward mediastinal deviation. earlier 05-08 Stable diffuse mixed interstitial and alveolar infiltrate with suspected small pleural effusions. Stable endotracheal tube, nasogastric tube and right internal jugular central venous catheter. 05-08 cxr He remains on the vent vent support 90% and a PEEP of 6 Discussed with RN Chart reviewed Almonte to bedside drainage He is sedated with propofol fentanyl and Versed Remains very critically ill labile htn, will consult cardiology, htn much better today 32 min cc time 05/09/2021 Status post intubation 05/02, status post bilateral pneumothoraces requiring chest tubes 05/02 Decrease in a tiny residual right pneumothorax status post pleural drainage catheter placement. There is an unchanged left pleural drainage catheter. 05-09 cxr Daily PPI and famotidine as needed FEN - ADA diet PPX - Lovenox FULL CODE Dispo - inpatient for above Morbid obesity. No significant tobacco history and // remote history of SONYA. Patient seen and examined in the [place] [id number] ICU Interval decrease in a now tiny right pneumothorax status post pleural drainage catheter placement. There is a stable left pleural drainage catheter without convincing left-sided pneumothorax. /large right pneumothorax with assocaited mild leftward mediastinal deviation. earlier 05-08 Stable diffuse mixed interstitial and alveolar infiltrate with suspected small pleural effusions. Stable endotracheal tube, nasogastric tube and right internal jugular central venous catheter. 05-08 cxr He remains on the vent AC/500/26/80 percent with 6 of PEEP Discussed with RN Chart reviewed Almonte to bedside drainage He is sedated with propofol fentanyl and Versed Remains very critically ill labile htn, will consult cardiology 35 min cc time 05/08/2021 Daily PPI and famotidine as needed FEN - ADA diet PPX - Lovenox FULL CODE Dispo - inpatient for above Morbid obesity. No significant tobacco history and // remote history of SONYA. Patient seen and examined in the [place] [id number] ICU Interval decrease in a now tiny right pneumothorax status post pleural drainage catheter placement. There is a stable left pleural drainage catheter without convincing left-sided pneumothorax. /large right pneumothorax with assocaited mild leftward mediastinal deviation. earlier 05-08 Stable diffuse mixed interstitial and alveolar infiltrate with suspected small pleural effusions. Stable endotracheal tube, nasogastric tube and right internal jugular central venous catheter. 05-08 cxr He remains on the vent AC/500/26/80 percent with 6 of PEEP Discussed with RN Chart reviewed Almonte to bedside drainage He is sedated with propofol fentanyl and Versed Remains very critically ill 33 min cc time 05/07/2021 Patient seen and examined in the [place] [id number] ICU He remains on the vent AC/500/26/80 percent with 6 of PEEP (this is improved from yesterday he was on 100% FiO2 with 8 of PEEP) Discussed with RN Chart reviewed Patient has Almonte to bedside drainage He is sedated with propofol fentanyl and Versed Remains very critically ill 05/06/2021 Patient seen and examined in the [place] [id number] ICU He remains intubated AC/500/1 her percent with 8 of PEEP The nurse was able to get him down to 80% for an hour or so earlier this morning but he desatted again when she moved him Chart reviewed Reviewed case with RN patient is having some tachycardia and Fluctuating blood pressure Has OG feeds running at 50 cc an hour plus he is getting free water Has Almonte to bedside drainage Has [address] He remains critically ill 05/05/2021 Patient seen and examined in the [place] [id number] ICU He is still intubated AC/500/1 100% with 8 of PEEP Has OG feeds running at 25 cc an hour Sedated with fentanyl and Versed Getting IV vecuronium Chart reviewed Discussed with RN He remains critically 05/04/2021 Patient seen and examined in the [place] [id number] ICU He remains mechanically ventilated Assist-control/500/1 100% with 10 of PEEP He is extremely critically ill He is sedated with Versed and fentanyl He is also paralyzed with vecuronium Reviewed chart Discussed with RN 05/03/2021 Patient seen and examined in the [place] [id number] ICU He remains mechanically ventilated AC//600/1 100% with 10 of PEEP Has 2 pigtail drains in his left and right chest due to some small pneumothoraces after being intubated Had to be sedated with vecuronium Also on Versed and fentanyl also has inverse I to E ratio 2:1 Chart reviewed Discussed with RN He remains extremely critically ill I am concerned he may not survive this? 05/02/2021 Patient seen and examined in the [place] [id number] ICU He is on BiPAP with 100% FiO2 and very tachypneic Discussed with RN we are going to go ahead and intubate here in a few minutes Chart reviewed Patient currently semisedated with Versed Precedex and fentanyl He is very critically Patient 35-year-old male with past medical history of GERD, obesity, who presents to the ED as a transfer from [facility] for COVID-19 pneumonia with worsening respiratory distress. States his symptoms started roughly 1 week ago with fatigue and body aches, which progressed to include fever and shortness of breath. Symptoms were worse with exertion with no significant alleviating factors. He was tested for COVID-19 at [facility] and was discharged home because he was not hypoxic on room air. When he returned to [facility] with worsening symptoms a CT chest demonstrated bibasilar infiltrates consistent with atypical pneumonia. He was then admitted and placed on 3 L nasal cannula for further treatment. He has not been vaccinated against COVID- 19. However due to worsening respiratory distress he was transferred to [facility] for higher level of care. 04/29/2021: Still breathing 40 L Vapotherm. Afebrile, but complaining of chest heaviness, nausea, and subjective shortness of breath. Denies any vomiting, or diarrhea. Informed patient of likely prolonged hospitalization course. Hemoglobin A1c 5.6. Continue remdesivir day 2/5, continue steroids, antibiotics, and supportive care. Continue to follow daily LFTs. Plan to transfer patient to ICU bed when available. Critical care time 33 minutes spent reviewing charts, reviewing labs, and discussing case with Dr. Gaviria. 04/30/21: Afebrile, still breathing on Vapotherm. Continue remdesivir and monitor LFTs. Continue antibiotics, steroids, and supportive care. Will transfer him to the ICU once bed available. Critical care time 30 minutes spent in chart, reviewing labs, reviewing imaging, and discussion with RN. 05/01/2021 No acute events overnight. Patient seen and examined bedside. Saturating 93% on 40 L Vapotherm. Patient will transfer to the ICU for continued supportive care. Vitals/I&O Vitals/I&O: Vital Signs Date Time Temp Pulse Resp B/P (MAP) Pulse Ox O2 Delivery O2 Flow Rate FiO2 05/22/21 00:30 Ventilator 05/21/21 22:26 124 137/79 05/21/21 22:05 98 05/21/21 18:00 28 05/21/21 16:00 98.6 98.6 I & O 05/21/21 05/21/21 05/22/21 15:00 23:00 07:00 Intake Total 320 ml 900 ml Output Total 900 ml 630 ml Balance -580 ml 270 ml Physical Exam Physical Exam: General intubated/sedated HEENT ETT /OGT + LUNGS: bilateral CTS + HEART: S1, S2 regular. CHEST: Decreased breath soundS,bilateral chest tube. Abdomen Nondistended, bowel sounds present almonte in place NEUROLOGIC: sedated Extremities edema present, no cyanosis Derm no generalized rash multiple tattoos Rt Central line removed Right upper extremity PICC line clean General: Other (sedated, intubated) Heart: Regular rate (SR), Normal S1 Lungs: Other (Intubated) Abdomen: Soft Extremities: No cyanosis Skin: No rashes, No breakdown Labs Labs: Laboratory Tests Test 05/21/21 12:27 05/22/21 03:22 Glucose (Fingerstick) 132 mg/dL (70-99) 127 mg/dL (70-99) Comment Review of Relevant I have reviewed the following items anselmo (where applicable) has been applied. Justifications for Admission Other Justification XUAN LINTON MD May 22, 2021 08:40
--- NOTE | 2021-05-22 14:28 | PDOC3 ---
Discharge Summary Visit Information Date of Admission: Apr 28, 2021 Date of Discharge: May 22, 2021 Brief Hospital Course Allergies Allergies Coded Allergies Type Severity Reaction Last Updated Verified No Known Drug Allergies 04/28/21 No Vital Signs Vital Signs Date Time Temp Pulse Resp B/P (MAP) Pulse Ox O2 Delivery O2 Flow Rate FiO2 05/22/21 03:30 26 69/48 (55) Bag Valve Mask 05/22/21 03:00 28 65 05/22/21 00:00 98.8 98.8 Lab Results Laboratory Tests Test 05/21/21 05:25 05/21/21 08:00 05/21/21 12:27 05/22/21 03:22 White Blood Count 7.8 x10^3/uL (4.0-11.0) Red Blood Count 2.70 x10^6/uL (4.30-5.70) Hemoglobin 7.7 g/dL (13.0-17.5) Hematocrit 23.7 % (39.0-53.0) Mean Corpuscular Volume 88 fL (79-100) Mean Corpuscular Hemoglobin 29 pg (25-35) Mean Corpuscular Hemoglobin Concent 33 g/dL (31-37) Red Cell Distribution Width 14.8 % (11.5-14.5) Platelet Count 234 x10^3/uL (140-400) Neutrophils (%) (Auto) 77 % (31-73) Lymphocytes (%) (Auto) 9 % (24-48) Monocytes (%) (Auto) 8 % (0-9) Eosinophils (%) (Auto) 5 % (0-3) Basophils (%) (Auto) 1 % (0-3) Neutrophils # (Auto) 6.0 x10^3/uL (1.8-7.7) Lymphocytes # (Auto) 0.7 x10^3/uL (1.0-4.8) Monocytes # (Auto) 0.6 x10^3/uL (0.0-1.1) Eosinophils # (Auto) 0.4 x10^3/uL (0.0-0.7) Basophils # (Auto) 0.1 x10^3/uL (0.0-0.2) Sodium Level 141 mmol/L (136-145) Potassium Level 4.3 mmol/L (3.5-5.1) Chloride Level 97 mmol/L (98-107) Carbon Dioxide Level 41 mmol/L (21-32) Anion Gap 3 (6-14) Blood Urea Nitrogen 16 mg/dL (8-26) Creatinine 0.4 mg/dL (0.7-1.3) Estimated GFR (Cockcroft-Gault) 243.4 Glucose Level 113 mg/dL (70-99) Calcium Level 8.4 mg/dL (8.5-10.1) O2 Saturation 93 % (92-99) Arterial Blood pH 7.42 (7.35-7.45) Arterial Blood pCO2 at Patient Temp 69 mmHg (35-46) Arterial Blood pO2 at Patient Temp 71 mmHg (85-108) Arterial Blood HCO3 44 mmol/L (21-28) Arterial Blood Base Excess 17 mmol/L (-3-3) FiO2 100% vent Glucose (Fingerstick) 132 mg/dL (70-99) 127 mg/dL (70-99) Laboratory Tests Test 05/22/21 03:22 Glucose (Fingerstick) 127 mg/dL (70-99) Brief Hospital Course Mr. Mcginnis is a 35 old male who presented with acute hypoxic respiratory failure, COVID-19 pneumonia. Consultation was placed to pulmonology. He was treated with IV steroids, IV antibiotics, and remdesivir to complete 5-day cour se. Due to deteriorating status he required intubation and mechanical ventilation. Chest x-ray on 05/22/2021 showed large left-sided tension pneumothorax with collapse of more than half of the lung and mild rightward shift of the heart and mediastinum and depression of the left diaphragm. Fortino was called overhead and patient had chest tube placed on the left side. Despite our treatment and interventions, patient did on 05/22/2021. Discharge Information Condition at Discharge: / Disposition/Orders: Scheduled Famotidine (Pepcid) 20 Mg Tablet, 20 MG PO BID for GERD, (Reported) Entered as Reported by: VERA VELEZ on 04/28/211244 Last Taken: Unknown Dose on Unknown Date & Time Last Action: New Order on 04/28/211244 by VERA VELEZ Justicifation of Admission Dx: Justifications for Admission: Justification of Admission Dx: Yes Comminuty Aquired Pneumonia: Hypoxemia XUAN LINTON MD May 22, 2021 14:28
== END 2021-05-22 03:57 | DRG 207 ==
LOC: 2 SOUTH 12:04 → 1 WEST ICU 05-01 09:48
PROVIDERS: ADMIT Family Medicine; ATTEND Family Medicine
PROC: 0BH17EZ Insertion of Endotracheal Airway into Trachea, Via Natural or Artificial Opening (ICD-10-PCS; 2021-04-28)
PROC: XW033E5 Introduction of Remdesivir Anti-infective into Peripheral Vein, Percutaneous Approach, New Technology Group 5 (ICD-10-PCS; 2021-04-29)
PROC: 5A1955Z Respiratory Ventilation, Greater than 96 Consecutive Hours (ICD-10-PCS; principal; 2021-05-02)
PROC: 0W9B30Z Drainage of Left Pleural Cavity with Drainage Device, Percutaneous Approach (ICD-10-PCS; 2021-05-02)
PROC: 0W9930Z Drainage of Right Pleural Cavity with Drainage Device, Percutaneous Approach (ICD-10-PCS; 2021-05-02)
PROC: 02HV33Z Insertion of Infusion Device into Superior Vena Cava, Percutaneous Approach (ICD-10-PCS; 2021-05-02)
PROC: B548ZZA Ultrasonography of Superior Vena Cava, Guidance (ICD-10-PCS; 2021-05-02)
PROC: 0W9930Z Drainage of Right Pleural Cavity with Drainage Device, Percutaneous Approach (ICD-10-PCS; 2021-05-08)
DX: U07.1 COVID-19 (principal); J96.01 Acute respiratory failure with hypoxia; J12.82 Pneumonia due to coronavirus disease 2019; J93.0 Spontaneous tension pneumothorax; Z68.41 Body mass index [BMI] 40.0-44.9, adult; J93.9 Pneumothorax, unspecified; D64.9 Anemia, unspecified; E66.01 Morbid (severe) obesity due to excess calories; I10 Essential (primary) hypertension; I16.0 Hypertensive urgency; I48.0 Paroxysmal atrial fibrillation; I99.8 Other disorder of circulatory system; K21.9 Gastro-esophageal reflux disease without esophagitis; Z82.3 Family history of stroke
CPT/HCPCS: 32557; 36415; 36556; 36569; 36600; 71045; 76937; 80048; 80053; 80076; 82728; 82805; 82962; 83036; 83735; 84478; 84484; 85007; 85025; 85027; 85379; 87070; 94002; 94003; 94660; 94760; C1892; J0171; J0330; J0360; J0456; J0461; J0696; J1100; J1650; J1940; J2250; J2405; J2704; J3010; J3490; J7050; J7060; G0378; J7030